=== PATIENT | female | born 1965 | race African-American/Black ===

== ENCOUNTER 2016-07-12 12:30 | Inpatient (IN) | payer OTHER ==
[2016-07-12 14:12] VITALS: BMI 41.5
--- NOTE | 2016-07-12 15:40 | HP ---
CIWA Score - CIWA Score Nausea/Vomitin Muscle Tremors: 3 Anxiety: 3 Agitation: 3 Paroxysmal Sweats: 2 Orientation: 0-Oriented Tacttile Disturbances: 2-Mild Itch/Numbness/Burn Auditory Disturbances: 2-Mild Harshness/Frighten Visual Disturbances: 2-Mild Sensitivity Headache: 2-Mild CIWA-Ar Total Score: 22 Admission ROS BHS - HPI Chief Complaint: i need help to stop drinking alcohol and cocaine Allergies/Adverse Reactions: Allergies Allergy/AdvReac Type Severity Reaction Status Date / Time No Known Allergies Allergy Verified 07/12/16 15:29 History of Present Illness: this 51 years old female with alcohol and cocaine dependence,withdrawal symptom, last detox 07/12 [facility] withdrawal symptom syncope bipolar disorder ptsd asthma hepatits b hypercholesterolemia longest period of sobriety 2 years Exam Limitations: No Limitations - Ebola screening Have you traveled outside of the country in the last 21 days: No Have you had contact with anyone from an Ebola affected area: No Have you been sick,other than usual withdrawal symptoms: No Do you have a fever: No - Review of Systems Constitutional: Loss of Appetite, Malaise, Night Sweats, Changes in sleep, Weakness EENT: reports: Nose Congestion Respiratory: reports: No Symptoms reported Cardiac: reports: Palpitations GI: reports: Diarrhea, Nausea, Vomiting, Abdominal cramping : reports: No Symptoms Reported Musculoskeletal: reports: Back Pain, Muscle Pain Integumentary: reports: Dryness Neuro: reports: Headache, Tremors Endocrine: reports: No Symptoms Reported Hematology: reports: No Symptoms Reported Psychiatric: reports: Judgement Intact, Mood/Affect Appropiate, Orientated x3 ( bipolar disorder) Patient History - Patient Medical History Hx Anemia: No Hx Asthma: Yes (on albuetrol inhaler) Hx Chronic Obstructive Pulmonary Disease (COPD): No Hx Cancer: No Hx Cardiac Disorders: No Hx Congestive Heart Failure: No Hx Hypertension: No Hx Hypercholesterolemia: Yes Hx Pacemaker: No HX Cerebrovascular Accident: No Hx Seizures: No Hx Dementia: No Hx Diabetes: Yes (NIDDM) Hx Gastrointestinal Disorders: No Hx Liver Disease: Yes (chronic hepatitis B) Hx Genitourinary Disorders: No Hx Sexually Transmitted Disorders: No Hx Renal Disease (ESRD): No Hx Thyroid Disease: No Hx Human Immunodeficiency Virus (HIV): No (last negative) Hx Depression: Yes Hx Suicide Attempt: Yes (1987 trying to jump from roof) Hx Bipolar Disorder: Yes (no med) Hx Schizophrenia: No Other Medical History: no suicidal,no homicidal - Patient Surgical History Past Surgical History: Yes Hx Breast Surgery: Yes (R mastectomy from R breast CA in 05/13) - PPD History Previous Implant?: Yes Documented Results: Negative w/o proof Implanted On Prior [facility] Admission?: Yes Date: 07/30/12 PPD to be Administered?: Yes - Reproductive History Patient is a Female of Child Bearing Age (11 -55 yrs old): Yes Last Menstrual Period: 03/03/12 Patient : No - Smoking Cessation Smoking history: Former smoker Have you smoked in the past 12 months: No Aproximately how many cigarettes per day: 60 If you are a former smoker, when did you quit?: 05/02/11 Hx Chewing Tobacco Use: No Initiated information on smoking cessation: Yes 'Breaking Loose' booklet given: 07/12/16 - Substances Abused Alcohol Route: Oral Frequency: Daily Amount used: 6pk beer/ 1 pint vodka Age of first use: 13 Date of Last Use: 07/12/16 Cocaine Route: Smoking Frequency: Daily Amount used: $100 Age of first use: 22 Date of Last Use: 07/12/16 Family Disease History - Family Disease History Family Disease History: Other: Father (alcohol,), Mother (alcohol, ) Admission Physical Exam S - Vital Signs Vital Signs: Vital Signs - 24 hr 07/12/16 14:09 Temperature 98.6 F Pulse Rate 91 H Respiratory 20 Rate Blood Pressure 116/66 - Physical General Appearance: Yes: Moderate Distress, Tremorous, Irritable, Sweating, Anxious HEENTM: Yes: Pharynx Normal, Nasal Congestion Respiratory: Yes: Lungs Clear, Normal Breath Sounds, No Respiratory Distress Neck: Yes: Supple, Trachea in good position Breast: Yes: Mastectomy (s/p right mastectomy in 2011) Cardiology: Yes: Within Normal Limits, Regular Rhythm, Regular Rate, S1, S2 Abdominal: Yes: Within Normal Limits, Normal Bowel Sounds, Non Tender, Flat, Soft Genitourinary: Yes: Within Normal Limits Back: Yes: Muscle Spasm Extremities: Yes: Normal Range of Motion, Tremors Neurological: Yes: full time staff interpreter II-XII NML intact, Fully Oriented, Alert, Motor Strength 5/5 Integumentary: Yes: Dry Lymphatic: Yes: Within Normal Limits - Diagnostic (1) Alcohol dependence with uncomplicated withdrawal Current Visit: Yes Status: Acute (2) Cocaine dependence Current Visit: No Status: Active (3) Syncope Current Visit: Yes Status: Acute (4) Bipolar disorder Current Visit: Yes Status: Acute (5) PTSD (post-traumatic stress disorder) Current Visit: Yes Status: Acute (6) Asthma Current Visit: Yes Status: Acute (7) Hypercholesterolemia Current Visit: Yes Status: Acute (8) S/P right mastectomy Current Visit: Yes Status: Acute (9) DM2 (diabetes mellitus, type 2) Current Visit: Yes Status: Acute Cleared for Admission BHS - Detox or Rehab S Level of Care: Medically Managed Detox Regimen/Protocol: Librium BHS Breath Alcohol Content Breath Alcohol Content: 0 Urine Pregancy Test - Result Urine Test Results: Negative- NO Line Present Urine Drug Screen - Results Drug Screen Negative: No Urine Drug Screen Results: NICHOLAS-Cocaine
[2016-07-12] MEDS ORDERED: LOPERAMIDE HCL 2 MG CAPSULE PO PRN (15:55)
[2016-07-12] MEDS ORDERED: guaiFENesin/D-METHORPHAN HB 10 ML UNIT-DOSE CUPS PO PRN (15:55)
[2016-07-12] MEDS ORDERED: MAG HYDROX/AL HYDROX/SIMETH 30 ML UNIT-DOSE CUP PO PRN (15:55)
[2016-07-12] MEDS ORDERED: chlordiazePOXIDE HCL 25 MG CAPSULE PO PRN (15:55)
[2016-07-12] MEDS ORDERED: IBUPROFEN 400 MG TABLET (FP) PO PRN (15:55)
[2016-07-12] MEDS ORDERED: MAGNESIUM HYDROX 2400MG/30ML ORAL SUSPENSION 30 ML CUP PO PRN (15:55)
[2016-07-12] MEDS ORDERED: P-EPHED 60MG/TRIPROLIDI 2.5MG TABLET PO PRN (15:55)
[2016-07-12] MEDS ORDERED: MENTHOL/PHENOL 1 EACH UD MM PRN (15:55)
[2016-07-12] MEDS ORDERED: ACETAMINOPHEN 325 MG TABLET (FP) PO PRN (15:55)
[2016-07-12] MEDS ORDERED: hydrOXYzine PAMOATE 50 MG CAPSULE (FP) PO PRN (15:55)
[2016-07-12] MEDS ORDERED: MAGNESIUM CITRATE 300 ML BOTTLE PO PRN (15:55)
[2016-07-12] MEDS ORDERED: ALBUTEROL SO4 6.7 GM HFA INHALER IH PRN (16:06)
[2016-07-12] MEDS ORDERED: chlordiazePOXIDE HCL 25 MG CAPSULE PO ONE (16:45)
[2016-07-12] MEDS ORDERED: INSULIN (NOVOLOG) ASPART 100 UNITS/ML 10ML VIAL ONE (17:04)
[2016-07-12] MEDS: INSULIN (NOVOLOG) ASPART 100 UNITS/ML 10ML VIAL SQ SCH ×2 (17:09→22:55)
[2016-07-12] MEDS: chlordiazePOXIDE HCL 25 MG CAPSULE PO SCH ×2 (17:09→22:50)
[2016-07-12 21:09] LABS: MCH 30.8 pg (25.7-33.7); MEAN CELL VOLUME 93.2 fl (80-96); MEAN PLT VOLUME 12.2 fl (7.5-11.1); RDW 13.7 % (11.6-15.6); WHITE BLOOD COUNT 4.7 K/mm3 (4.0-10.0)
[2016-07-12 21:34] LABS: ALBUMIN 3.3 g/dl (3.4-5.0); BILIRUBIN,TOTAL 0.4 mg/dL (0.2-1.0); TOT PROT 6.5 g/dl (6.4-8.2)
[2016-07-12] MEDS: THIAMINE HCL 100 MG TABLET (FP) PO SCH (22:49)
[2016-07-12] MEDS: BUDESONIDE/FORMETEROL FUMARATE 80/4.5 mcg INHALER IH SCH (22:50)
[2016-07-12] MEDS: diphenhydrAMINE HCL 50 MG CAPSULE PO PRN (22:50)
[2016-07-13] MEDS ORDERED: INSULIN (NOVOLOG) ASPART 100 UNITS/ML 10ML VIAL ONE ×3 (00:34→12:14)
[2016-07-13 02:56] LABS: PLATELET COMMENT2 NO CLUMPING NOTED; PLATELET COUNT 66 K/MM3 (134-434); PLATELET ESTIMATE MOD DECREASED (NORMAL)
[2016-07-13] MEDS: chlordiazePOXIDE HCL 25 MG CAPSULE PO SCH ×4 (07:54→22:43)
[2016-07-13] MEDS: INSULIN (NOVOLOG) ASPART 100 UNITS/ML 10ML VIAL SQ SCH ×4 (08:10→23:23)
[2016-07-13] MEDS: ALBUTEROL SO4 2.5/IPRATROPIUM 0.5 INH SOL 3 ML VIAL.NEB. NEB PRN (09:30)
--- NOTE | 2016-07-13 11:11 | PN ---
[facility] CIWA - CIWA Score Nausea/Vomitin Muscle Tremors: 3 Anxiety: 3 Agitation: 3 Paroxysmal Sweats: 3 Orientation: 0-Oriented Tacttile Disturbances: 2-Mild Itch/Numbness/Burn Auditory Disturbances: 0-None Visual Disturbances: 0-None Headache: 0-None Present CIWA-Ar Total Score: 17 S Progress Note (SOAP) Subjective: interrupted sleep, sweats, cough , asthma , reported falling from bed last night Objective: 07/13/16 11:07 Vital Signs Temperature 97.2 F L 07/13/16 10:24 Pulse Rate 104 H 07/13/16 10:24 Respiratory Rate 18 07/13/16 10:24 Blood Pressure 116/73 07/13/16 10:24 O2 Sat by Pulse Oximetry (%) Laboratory Tests 07/12/16 07/12/16 07/12/16 13:00 13:00 15:51 WBC 4.7 RBC 3.93 Hgb 12.1 Hct 36.6 MCV 93.2 MCHC 33.0 RDW 13.7 Plt Count 66 L D MPV 12.2 H D Platelet Estimate Mod decreased Platelet Comment No clumping noted Sodium 142 Potassium 4.7 Chloride 108 H Carbon Dioxide 25 Anion Gap 9 BUN 9 D Creatinine 1.0 Creat Clearance w eGFR 58.93 POC Glucometer 393 Random Glucose 466 H* D Calcium 9.0 Total Bilirubin 0.4 D AST 29 D ALT 34 D Alkaline Phosphatase 86 D Total Protein 6.5 Albumin 3.3 L 07/12/16 07/13/16 22:52 07:52 WBC RBC Hgb Hct MCV MCHC RDW Plt Count MPV Platelet Estimate Platelet Comment Sodium Potassium Chloride Carbon Dioxide Anion Gap BUN Creatinine Creat Clearance w eGFR POC Glucometer 442 225 Random Glucose Calcium Total Bilirubin AST ALT Alkaline Phosphatase Total Protein Albumin pt aox3 in nad ambulating rt hip negative Assessment: 07/13/16 11:08 withdrawal sx's 07/13/16 11:08 s/p fall Plan: cont. detox increase fluids duoneb q 4h prn, symbicort bid rt hip xray motrin prn
[2016-07-13] MEDS: PRENATAL VITAMINS W/ FOLIC ACID TABLET (FP) PO SCH (11:18)
[2016-07-13] MEDS: BUDESONIDE/FORMETEROL FUMARATE 80/4.5 mcg INHALER IH SCH ×2 (11:21→23:24)
--- NOTE | 2016-07-13 21:18 | CONSULT ---
[facility] Psychiatric Consult - Data Date of interview: 07/13/16 Admission source: [facility] Identifying data: Readmission to [facility] for this 51 y/o AA female seeking detox treatment for alcohol and cocaine dependence.Patient is single,a mother of eight,domiciled,unemployed and supported on SSI benefits. Substance Abuse History: - Smoking Cessation. Smoking history: Former smoker. Have you smoked in the past 12 months: No. Aproximately how many cigarettes per day: 60. If you are a former smoker, when did you quit?: 05/02/11. Hx Chewing Tobacco Use: No. Initiated information on smoking cessation: Yes. ' Breaking Loose' booklet given: 07/12/16. - Substances Abused. Alcohol. Route: Oral. Frequency: Daily. Amount used: 6pk beer/ 1 pint vodka. Age of first use: 13. Date of Last Use: 07/12/16. Cocaine. Route: Smoking. Frequency: Daily. Amount used: $100. Age of first use: 22. Date of Last Use: 07/12/16. Patient confirmed. Medical History: Obesity,bronchial asthma,hepatitis C,diabetes mellitus and history of right mastectomy in 2012 (breast cancer). Psychiatric History: Diagnosed with PTSD,Bipolar Disorder.Prescribed trileptal 300 mg po bid + clonazepam.Followed at the [facility] [place] in the [place].Reported past psychiatric stays at [facility].Ms Peguero denies history of suicide attempts (ideation to jump of a roof years ago/dissuaded by [facility]). Physical/Sexual Abuse/Trauma History: Not discussed. Additional Comment: Urine Drug Screen Results: NICHOLAS-Cocaine.Noted. Mental Status Exam - Mental Status Exam Alert and Oriented to: Time, Place, Person Cognitive Function: Good Patient Appearance: Well Groomed (short,obese;vertical surgical scar on chest) Mood: Nervous, Anxious, Apprehensive Affect: Mood Congruent Patient Behavior: Fatigued, Appropriate, Cooperative Speech Pattern: Clear, Appropriate Voice Loudness: Normal Thought Process: Goal Oriented Thought Disorder: Not Present Hallucinations: Denies Suicidal Ideation: Denies Homicidal Ideation: Denies Insight/Judgement: Fair Sleep: Fair Appetite: Good Muscle strength/Tone: Normal Gait/Station: Normal Psychiatric Findings - Problem List ([place] 1, 2,3) (1) Alcohol dependence with uncomplicated withdrawal Current Visit: Yes Status: Acute (2) Cocaine dependence Current Visit: Yes Status: Active (3) PTSD (post-traumatic stress disorder) Current Visit: Yes Status: Chronic (4) Bipolar disorder Current Visit: Yes Status: Chronic (5) Asthma Current Visit: Yes Status: Acute (6) DM2 (diabetes mellitus, type 2) Current Visit: Yes Status: Chronic (7) Hypercholesterolemia Current Visit: Yes Status: Chronic (8) S/P right mastectomy Current Visit: Yes Status: Chronic - Initial Treatment Plan Initial Treatment Plan: Psychoeducation.Detoxification.Medication resumed (see Psychiatric History section for details).Side effects/benefits discussed with the patient.Agreement given.Observation.
[2016-07-13] MEDS: THIAMINE HCL 100 MG TABLET (FP) PO SCH (22:43)
[2016-07-13] MEDS: diphenhydrAMINE HCL 50 MG CAPSULE PO PRN (22:44)
[2016-07-13] MEDS: OXcarbazepine 300 MG/5 ML 250 ML BULK BOTTLE PO SCH (23:25)
[2016-07-14] MEDS: chlordiazePOXIDE HCL 25 MG CAPSULE PO SCH ×2 (06:58→11:59)
[2016-07-14] MEDS ORDERED: INSULIN (NOVOLOG) ASPART 100 UNITS/ML 10ML VIAL ONE ×4 (07:02→21:32)
[2016-07-14] MEDS: INSULIN (NOVOLOG) ASPART 100 UNITS/ML 10ML VIAL SQ SCH ×4 (07:04→21:32)
[2016-07-14] MEDS: ALBUTEROL SO4 2.5/IPRATROPIUM 0.5 INH SOL 3 ML VIAL.NEB. NEB PRN (08:35)
[2016-07-14] MEDS: OXcarbazepine 300 MG/5 ML 250 ML BULK BOTTLE PO SCH (10:59)
[2016-07-14] MEDS: BUDESONIDE/FORMETEROL FUMARATE 80/4.5 mcg INHALER IH SCH ×2 (10:59→22:54)
[2016-07-14] MEDS: PRENATAL VITAMINS W/ FOLIC ACID TABLET (FP) PO SCH (10:59)
--- NOTE | 2016-07-14 12:10 | PN ---
S CIWA - CIWA Score Nausea/Vomitin-No Nausea/No Vomiting Muscle Tremors: 4-Moderate,w/Arms Extend Anxiety: 3 Agitation: 3 Paroxysmal Sweats: 3 Orientation: 0-Oriented Tacttile Disturbances: 0-None Auditory Disturbances: 0-None Visual Disturbances: 0-None Headache: 0-None Present CIWA-Ar Total Score: 13 S Progress Note (SOAP) Subjective: sweats groggy interrupted sleep agitation irritable Objective: 07/14/16 12:09 Vital Signs Temperature 96.8 F L 07/14/16 10:15 Pulse Rate 74 07/14/16 10:15 Respiratory Rate 18 07/14/16 10:15 Blood Pressure 141/98 07/14/16 10:15 O2 Sat by Pulse Oximetry (%) Laboratory Tests 07/12/16 07/12/16 07/12/16 13:00 13:00 13:00 WBC 4.7 RBC 3.93 Hgb 12.1 Hct 36.6 MCV 93.2 MCHC 33.0 RDW 13.7 Plt Count 66 L D MPV 12.2 H D Platelet Estimate Mod decreased Platelet Comment No clumping noted Sodium 142 Potassium 4.7 Chloride 108 H Carbon Dioxide 25 Anion Gap 9 BUN 9 D Creatinine 1.0 Creat Clearance w eGFR 58.93 POC Glucometer Random Glucose 466 H* D Calcium 9.0 Total Bilirubin 0.4 D AST 29 D ALT 34 D Alkaline Phosphatase 86 D Total Protein 6.5 Albumin 3.3 L RPR Titer Reactive 1:1 H T.pallidum Ab (MHA) Previously reactive 07/12/16 07/12/16 07/13/16 15:51 22:52 07:52 WBC RBC Hgb Hct MCV MCHC RDW Plt Count MPV Platelet Estimate Platelet Comment Sodium Potassium Chloride Carbon Dioxide Anion Gap BUN Creatinine Creat Clearance w eGFR POC Glucometer 393 442 225 Random Glucose Calcium Total Bilirubin AST ALT Alkaline Phosphatase Total Protein Albumin RPR Titer T.pallidum Ab (MHA) 07/13/16 07/14/16 16:27 11:47 WBC RBC Hgb Hct MCV MCHC RDW Plt Count MPV Platelet Estimate Platelet Comment Sodium Potassium Chloride Carbon Dioxide Anion Gap BUN Creatinine Creat Clearance w eGFR POC Glucometer 136 272 Random Glucose Calcium Total Bilirubin AST ALT Alkaline Phosphatase Total Protein Albumin RPR Titer T.pallidum Ab (MHA) awake/alert ambulating no acute distress Assessment: 07/14/16 12:09 mild withdrawal sx Plan: hold 10am libirum continue detox later as ordered increase fluids monitor glucose
--- NOTE | 2016-07-14 13:19 | EKG ---
Test Reason : Blood Pressure : / mmHG Vent. Rate : 090 BPM Atrial Rate : 090 BPM P-R Int : 118 ms QRS Dur : 086 ms QT Int : 376 ms P-R-T Axes : 073 -23 059 degrees QTc Int : 459 ms SINUS RHYTHM WITH PREMATURE ATRIAL COMPLEXES POSSIBLE LEFT ATRIAL ENLARGEMENT LEFT VENTRICULAR HYPERTROPHY CANNOT RULE OUT SEPTAL INFARCT , AGE UNDETERMINED ABNORMAL ECG NO PREVIOUS ECGS AVAILABLE Confirmed by ILIR KELSEY, SETH ([id number]) on 07/14/2016 1:19:07 PM Referred By: Confirmed By:SETH HAZEL MD
[2016-07-14] MEDS: chlordiazePOXIDE 5 MG CAPSULE PO SCH ×2 (17:04→22:54)
--- NOTE | 2016-07-14 19:37 | PN ---
[facility] Progress Note Note: RECEIVED NURSE CALLED, PATIENT DID NOT FALL TODAY, DISCONTINUE FALL PRECAUTION, DISCONTINUE POST FALL #2 PRECAUTION, DISCONTINUE WHEELCHAIR FOR AMBULATION PATIENT WANTS TO SEE A DOCTOR, PATIENT WANTS TO GO TO THE EMERGENCY ROOM PATIENT BECAME INTRUSIVE LACK OF BOUNDARY MAINTENANCE THERAPEUTIC ENVIRONMENT CONTINUE DETOX
--- NOTE | 2016-07-14 21:27 | PN ---
[facility] Progress Note Note: RECEIVED NURSE CALL PATIENT WANTS TO SEE A DOCTOR OBSERVED PATIENT AMBULATING ON [address], STEADY GAIT REPORTS MUSCLE SORE FROM FALL YESTERDAY NONE TENDER NO REDNESS NO SWELL, +2 PULSES, DENIES PAIN DENIES BURNING NUMBNESS WARM PAD BID TO HIP SORE MUSCLE CONTINUE DETOX
[2016-07-14] MEDS: THIAMINE HCL 100 MG TABLET (FP) PO SCH (22:55)
[2016-07-15] MEDS: chlordiazePOXIDE 5 MG CAPSULE PO SCH ×2 (06:42→10:48)
[2016-07-15] MEDS ORDERED: INSULIN (NOVOLOG) ASPART 100 UNITS/ML 10ML VIAL ONE ×4 (07:45→21:53)
[2016-07-15] MEDS: INSULIN (NOVOLOG) ASPART 100 UNITS/ML 10ML VIAL SQ SCH ×4 (07:48→21:58)
[2016-07-15] MEDS: IBUPROFEN 400 MG TABLET (FP) PO PRN ×2 (08:07→21:55)
[2016-07-15] MEDS: BUDESONIDE/FORMETEROL FUMARATE 80/4.5 mcg INHALER IH SCH ×2 (09:46→21:58)
[2016-07-15] MEDS: PRENATAL VITAMINS W/ FOLIC ACID TABLET (FP) PO SCH (09:46)
--- NOTE | 2016-07-15 11:50 | PN ---
BHS Progress Note (SOAP) Subjective: interrupted sleep, sweats, shakes , hip pains Objective: 07/15/16 11:47 Vital Signs Temperature 98.1 F 07/15/16 10:17 Pulse Rate 85 07/15/16 10:17 Respiratory Rate 20 07/15/16 10:17 Blood Pressure 129/90 07/15/16 10:17 O2 Sat by Pulse Oximetry (%) pt aox3 innad ambulating hip xrays neg Assessment: 07/15/16 11:48 withdrawal sxls musculosketetal pain dm 07/15/16 11:49 Plan: cont detox increase fluids motrin prn warm compresses d/c in am
--- NOTE | 2016-07-15 15:30 | EKG ---
Test Reason : Blood Pressure : / mmHG Vent. Rate : 092 BPM Atrial Rate : 092 BPM P-R Int : 120 ms QRS Dur : 094 ms QT Int : 366 ms P-R-T Axes : 069 -23 094 degrees QTc Int : 452 ms NORMAL SINUS RHYTHM VOLTAGE CRITERIA FOR LEFT VENTRICULAR HYPERTROPHY NONSPECIFIC T WAVE ABNORMALITY ABNORMAL ECG WHEN COMPARED WITH ECG OF 12-JUL-2016 16:17, PREMATURE ATRIAL COMPLEXES ARE NO LONGER PRESENT MINIMAL CRITERIA FOR SEPTAL INFARCT ARE NO LONGER PRESENT T WAVE INVERSION NOW EVIDENT IN LATERAL LEADS Confirmed by JOSUE NIELSON MD ([id number]) on 07/15/2016 3:30:04 PM Referred By: Confirmed By:JOSUE NIELSON MD
[2016-07-15] MEDS: chlordiazePOXIDE HCL 10 MG CAPSULE PO SCH ×2 (17:30→22:49)
[2016-07-15] MEDS: THIAMINE HCL 100 MG TABLET (FP) PO SCH (21:55)
[2016-07-15] MEDS: diphenhydrAMINE HCL 50 MG CAPSULE PO PRN (21:57)
[2016-07-15] MEDS ORDERED: INSULIN DETEMIR 100 UNITS/ML MDV SQ SCH (22:00)
[2016-07-16] MEDS: chlordiazePOXIDE HCL 10 MG CAPSULE PO SCH (05:36)
[2016-07-16] MEDS ORDERED: INSULIN (NOVOLOG) ASPART 100 UNITS/ML 10ML VIAL ONE (07:41)
[2016-07-16] MEDS: INSULIN (NOVOLOG) ASPART 100 UNITS/ML 10ML VIAL SQ SCH (07:46)
[2016-07-16 07:57] VITALS: BP 136/95; PULSE 81; TEMP 99.1
--- NOTE | 2016-07-16 09:14 | DS ---
[facility] Detox Discharge Summary Admission Date: 07/12/16 Discharge Date: 07/16/16 - History Present History: Alcohol Dependence, Cocaine Dependence - Physical Exam Results Vital Signs: Vital Signs Temperature 99.1 F 07/16/16 06:00 Pulse Rate 81 07/16/16 06:00 Respiratory Rate 18 07/16/16 06:00 Blood Pressure 136/95 07/16/16 06:00 O2 Sat by Pulse Oximetry (%) - Treatment Hospital Course: Detox Protocol Followed, Detoxed Safely, Responded well, Discharged Condition Good, Rehab Referral Accepted - Medication Discharge Medications: Ambulatory Orders Oxcarbazepine [Trileptal] 300 mg PO BID 07/28/12 Salmeterol/Fluticasone [Advair 250Mcg/50Mcg] 1 inh PO BID 07/28/12 Albuterol Sulfate Inhaler - [Ventolin Hfa Inhaler -] 2 inh PO Q4H PRN 07/12/16 - Diagnosis (1) Cocaine dependence Current Visit: Yes Status: Chronic (2) Alcohol dependence with uncomplicated withdrawal Current Visit: Yes Status: Chronic (3) Asthma Current Visit: Yes Status: Chronic Qualifiers: Asthma severity: mild intermittent Asthma complication type: uncomplicated Qualified Code(s): J45.20 - Mild intermittent asthma, uncomplicated (4) Syncope Current Visit: Yes Status: Chronic (5) Bipolar disorder Current Visit: Yes Status: Chronic (6) DM2 (diabetes mellitus, type 2) Current Visit: Yes Status: Chronic Qualifiers: Diabetes mellitus complication status: without complication Diabetes mellitus correction insulin use: unspecified quality assurance associate insulin use status Qualified Code(s): E11.9 - Type 2 diabetes mellitus without complications (7) Hypercholesterolemia Current Visit: Yes Status: Chronic (8) PTSD (post-traumatic stress disorder) Current Visit: Yes Status: Chronic (9) S/P right mastectomy Current Visit: Yes Status: Chronic - AMA Did Patient Leave Against Medical Advice: No
== END 2016-07-16 09:06 | disposition home or self-care (01) | DRG 897 ==
LOC: YASAS 12:30 → Y6N 15:55
PROVIDERS: ADMIT Internal Medicine Addiction Medicine; ATTEND Internal Medicine Addiction Medicine
PROC: HZ2ZZZZ Detoxification Services for Substance Abuse Treatment (ICD-10-PCS; principal; 2016-07-16)
DX: F10.230 Alcohol dependence with withdrawal, uncomplicated (principal); F14.20 Cocaine dependence, uncomplicated; F31.9 Bipolar disorder, unspecified; F43.10 Post-traumatic stress disorder, unspecified; R55 Syncope and collapse; E78.00 Pure hypercholesterolemia, unspecified; E11.9 Type 2 diabetes mellitus without complications; Z79.4 Long term (current) use of insulin; Z85.3 Personal history of malignant neoplasm of breast; Z90.11 Acquired absence of right breast and nipple
CPT/HCPCS: 36415; 73502-TC-RT; 80053; 85027; 86593; 86780; 93005; 93010; 94640

== ENCOUNTER 2016-08-02 10:19 | Inpatient (IN) | payer OTHER ==
[2016-08-02 11:00] VITALS: BP 108/69; PULSE 110; TEMP 97.4; BMI 37.5
--- NOTE | 2016-08-02 12:43 | HP ---
AMELIA KELSEY Rehab Assess/Revision - Admission History Admitted to Rehab from: [facility] [place] (PT COMPLETED DETOX 07/12/16 TO 07/16/16) Date of Admission to Rehab: 08/02/16 - Vital signs Vital Signs: Vital Signs Period Temp Pulse Resp BP Sys/Vázquez Pulse Ox Last 24 Hr 97.4 F 110 20 108/69 - Findings Detox History & Physical reviewed: Yes Concur with findings: Yes Comments/Additional Findings: PT RETURNED HERE TODAY TO FOLLOW UP WITH REHAB RECOCOMMENDATIONS. ALERT O X 3. NAD. VSS. LUNGS: CLEAR TO A/P. PLAN: ADMIT TO REHAB
[2016-08-02] MEDS ORDERED: IBUPROFEN 400 MG TABLET (FP) PO PRN (12:48)
[2016-08-02] MEDS ORDERED: diphenhydrAMINE HCL 50 MG CAPSULE PO PRN (12:48)
[2016-08-02] MEDS ORDERED: P-EPHED 60MG/TRIPROLIDI 2.5MG TABLET PO PRN (12:48)
[2016-08-02] MEDS ORDERED: hydrOXYzine PAMOATE 25 MG CAPSULE (FP) PO PRN (12:48)
[2016-08-02] MEDS ORDERED: MAGNESIUM HYDROX 2400MG/30ML ORAL SUSPENSION 30 ML CUP PO PRN (12:48)
[2016-08-02] MEDS ORDERED: MENTHOL/PHENOL 1 EACH UD MM PRN (12:48)
[2016-08-02] MEDS ORDERED: ACETAMINOPHEN 325 MG TABLET (FP) PO PRN (12:48)
[2016-08-02] MEDS ORDERED: guaiFENesin/D-METHORPHAN HB 10 ML UNIT-DOSE CUPS PO PRN (12:48)
[2016-08-02] MEDS ORDERED: MAGNESIUM CITRATE 300 ML BOTTLE PO PRN (12:48)
[2016-08-02] MEDS ORDERED: LOPERAMIDE HCL 2 MG CAPSULE PO PRN (12:48)
[2016-08-02] MEDS ORDERED: MAG HYDROX/AL HYDROX/SIMETH 30 ML UNIT-DOSE CUP PO PRN (12:48)
[2016-08-02] MEDS ORDERED: ALBUTEROL SO4 6.7 GM HFA INHALER IH PRN (12:51)
[2016-08-02] MEDS ORDERED: ALBUTEROL SO4 2.5/IPRATROPIUM 0.5 INH SOL 3 ML VIAL.NEB. NEB PRN (14:27)
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
[2016-08-02] MEDS ORDERED: INSULIN (NOVOLOG) ASPART 100 UNITS/ML 10ML VIAL SQ ONE (14:45)
[2016-08-02] MEDS: BUDESONIDE/FORMETEROL FUMARATE 80/4.5 mcg INHALER IH SCH ×2 (14:52→21:28)
[2016-08-02] MEDS: ALBUTEROL SO4 2.5/IPRATROPIUM 0.5 INH SOL 3 ML VIAL.NEB. NEB SCH ×3 (14:53→21:32)
[2016-08-02] MEDS ORDERED: TUBERCULIN PPD 5 TU/0.1ML VIAL ID ONE (16:18)
[2016-08-02] MEDS: metFORMIN HCL 500 MG TABLET (FP) PO SCH (17:18)
[2016-08-02] MEDS: INSULIN (NOVOLOG) ASPART 100 UNITS/ML 10ML VIAL SQ SCH ×2 (17:19→21:30)
[2016-08-02 18:03] LABS: URINE APPEARANCE CLOUDY; URINE BILIRUBIN NEGATIVE (NEGATIVE); URINE COLOR LTYELLOW; URINE GLUCOSE (UA) 3+ (NEGATIVE); URINE KETONE NEGATIVE (NEGATIVE); URINE NITRITE NEGATIVE (NEGATIVE); URINE UROBILINOGEN NEGATIVE E.U./dl (0.2-1.0)
[2016-08-02 18:08] LABS: URINE BLOOD 1+ (NEGATIVE); URINE PROTEIN 1+ (NEGATIVE)
[2016-08-02 18:09] LABS: URINE LEUK ESTERASE 3+ (NEGATIVE)
[2016-08-02 18:12] LABS: URINE BACTERIA RARE /hpf (NONE SEEN); URINE MUCUS RARE; URINE RBC 29 /hpf (0-3); URINE WBC 20 /hpf (3-5); YEAST MANY
[2016-08-02] MEDS ORDERED: INSULIN DETEMIR 100 UNITS/ML MDV SQ SCH (22:00)
[2016-08-02] MEDS ORDERED: THIAMINE HCL 100 MG TABLET (FP) PO SCH (22:00)
[2016-08-03] MEDS: INSULIN (NOVOLOG) ASPART 100 UNITS/ML 10ML VIAL SQ SCH (07:01)
[2016-08-03] MEDS: metFORMIN HCL 500 MG TABLET (FP) PO SCH (07:01)
[2016-08-03] MEDS ORDERED: PRENATAL VITAMINS W/ FOLIC ACID TABLET (FP) PO SCH (10:00)
--- NOTE | 2016-08-06 15:54 | PN ---
S Progress Note Note: Patient left AMA on 08/03/16.See medical staff notes for details.
--- NOTE | 2016-08-23 15:00 | PN ---
S Progress Note Note: Patient was transferred and admitted to med/surg [facility] on 08/13/16 due to chest pain.See medical staff notes for details.
== END 2016-08-03 09:13 | disposition left against medical advice (07) | DRG 894 ==
LOC: YASAS 10:19 → Y3E 11:50
PROVIDERS: ADMIT Psychiatry & Neurology Psychiatry; ATTEND Psychiatry & Neurology Psychiatry
PROC: HZ42ZZZ Group Counseling for Substance Abuse Treatment, Cognitive-Behavioral (ICD-10-PCS; principal; 2016-08-03)
DX: F10.230 Alcohol dependence with withdrawal, uncomplicated (principal); F14.20 Cocaine dependence, uncomplicated; F31.9 Bipolar disorder, unspecified; F43.10 Post-traumatic stress disorder, unspecified; B18.2 Chronic viral hepatitis C; E11.9 Type 2 diabetes mellitus without complications; Z79.4 Long term (current) use of insulin; E78.00 Pure hypercholesterolemia, unspecified; Z85.3 Personal history of malignant neoplasm of breast; Z90.11 Acquired absence of right breast and nipple
CPT/HCPCS: 81003; 81015; 94640

== ENCOUNTER 2016-08-09 14:04 | Inpatient (IN) | payer OTHER ==
[2016-08-09 16:18] VITALS: BMI 40.2
--- NOTE | 2016-08-09 17:02 | HP ---
AMELIA KELSEY Rehab Assess/Revision - Admission History Admitted to Rehab from: [facility] (PT WAS REASSESSED FOR REHAB ON 08/02/16 AFTER COMPLETING DETOX ON BUT LEFT PREMATURELY DUE TO PERSONAL REASONS(SEE [facility] COUNSELOR NOTE).) Date of Admission to Rehab: 08/09/16 - Vital signs Vital Signs: Vital Signs Period Temp Pulse Resp BP Sys/Vázquez Pulse Ox Last 24 Hr 97.9 F 96 20 114/71 - Findings Detox History & Physical reviewed: Yes Concur with findings: Yes Comments/Additional Findings: PT RETURNED TO COMPLETE REHAB TREATMENT. PT WAS IN REHAB 08/02/16 AND LEFT 08/03/16 DUE TO PERSONAL REASONS. ALERT O X3. NAD. VSS. PLAN:TO RETURN TO REHAB.
[2016-08-09] MEDS ORDERED: ACETAMINOPHEN 325 MG TABLET (FP) PO PRN (17:03)
[2016-08-09] MEDS ORDERED: guaiFENesin/D-METHORPHAN HB 10 ML UNIT-DOSE CUPS PO PRN (17:03)
[2016-08-09] MEDS ORDERED: P-EPHED 60MG/TRIPROLIDI 2.5MG TABLET PO PRN (17:03)
[2016-08-09] MEDS ORDERED: MAGNESIUM HYDROX 2400MG/30ML ORAL SUSPENSION 30 ML CUP PO PRN (17:03)
[2016-08-09] MEDS ORDERED: LOPERAMIDE HCL 2 MG CAPSULE PO PRN (17:03)
[2016-08-09] MEDS ORDERED: MAG HYDROX/AL HYDROX/SIMETH 30 ML UNIT-DOSE CUP PO PRN (17:03)
[2016-08-09] MEDS ORDERED: MAGNESIUM CITRATE 300 ML BOTTLE PO PRN (17:03)
[2016-08-09] MEDS ORDERED: IBUPROFEN 400 MG TABLET (FP) PO PRN (17:03)
[2016-08-09] MEDS ORDERED: INSULIN (NOVOLOG) ASPART 100 UNITS/ML 10ML VIAL ONE (18:41)
[2016-08-09] MEDS ORDERED: INSULIN (NOVOLOG) ASPART 100 UNITS/ML 10ML VIAL SQ ONE (18:45)
[2016-08-09] MEDS: ALBUTEROL SO4 6.7 GM HFA INHALER IH PRN (20:02)
[2016-08-09] MEDS: THIAMINE HCL 100 MG TABLET (FP) PO SCH (21:20)
[2016-08-09] MEDS: ATORVASTATIN CA 20 MG TABLET (FP) PO SCH (21:20)
[2016-08-09] MEDS: BUDESONIDE/FORMETEROL FUMARATE 80/4.5 mcg INHALER IH SCH (21:21)
[2016-08-09] MEDS: diphenhydrAMINE HCL 50 MG CAPSULE PO PRN (21:22)
[2016-08-09 22:35] LABS: URINE APPEARANCE CLEAR; URINE BILIRUBIN NEGATIVE (NEGATIVE); URINE BLOOD NEGATIVE (NEGATIVE); URINE COLOR LTYELLOW; URINE GLUCOSE (UA) 2+ (NEGATIVE); URINE KETONE NEGATIVE (NEGATIVE); URINE NITRITE NEGATIVE (NEGATIVE); URINE PROTEIN NEGATIVE (NEGATIVE); URINE UROBILINOGEN NEGATIVE E.U./dl (0.2-1.0)
[2016-08-09 22:51] LABS: URINE LEUK ESTERASE 1+ (NEGATIVE)
[2016-08-09 23:01] LABS: URINE BACTERIA RARE /hpf (NONE SEEN); URINE HYALINE CAST 1 /lpf; URINE RBC 1 /hpf (0-3); URINE WBC 12 /hpf (3-5)
[2016-08-10] MEDS: MENTHOL/PHENOL 1 EACH UD MM PRN ×2 (04:11→21:37)
[2016-08-10] MEDS: INSULIN SLIDING SCALE (NOVOLOG) 1 VIAL SQ SCH ×2 (07:06→16:48)
[2016-08-10] MEDS: metFORMIN HCL 500 MG TABLET (FP) PO SCH ×2 (07:06→16:47)
[2016-08-10] MEDS ORDERED: PT OWN MED DRAWER 7, Y5N ONE (08:55)
[2016-08-10] MEDS: PRENATAL VITAMINS W/ FOLIC ACID TABLET (FP) PO SCH (10:04)
[2016-08-10] MEDS: BUDESONIDE/FORMETEROL FUMARATE 80/4.5 mcg INHALER IH SCH ×2 (10:05→21:38)
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
--- NOTE | 2016-08-10 13:58 | EKG ---
Test Reason : Blood Pressure : / mmHG Vent. Rate : 101 BPM Atrial Rate : 101 BPM P-R Int : 124 ms QRS Dur : 084 ms QT Int : 372 ms P-R-T Axes : 069 -24 101 degrees QTc Int : 482 ms SINUS TACHYCARDIA BIATRIAL ENLARGEMENT LEFT VENTRICULAR HYPERTROPHY NONSPECIFIC ST AND T WAVE ABNORMALITY ABNORMAL ECG WHEN COMPARED WITH ECG OF 13-JUL-2016 09:51, NO SIGNIFICANT CHANGE WAS FOUND CLINICAL CORRELATION IS RECOMMENDED Confirmed by KRISTA DRISCOLL MD ([id number]) on 08/10/2016 1:57:37 PM Referred By: Confirmed By:KRISTA DRISCOLL MD
[2016-08-10] MEDS ORDERED: INSULIN (NOVOLOG) ASPART 100 UNITS/ML 10ML VIAL ONE (16:46)
[2016-08-10] MEDS: ATORVASTATIN CA 20 MG TABLET (FP) PO SCH (21:36)
[2016-08-10] MEDS: THIAMINE HCL 100 MG TABLET (FP) PO SCH (21:36)
[2016-08-11] MEDS: MENTHOL/PHENOL 1 EACH UD MM PRN ×3 (02:08→16:49)
[2016-08-11] MEDS: INSULIN SLIDING SCALE (NOVOLOG) 1 VIAL SQ SCH ×2 (07:40→17:18)
[2016-08-11] MEDS: metFORMIN HCL 500 MG TABLET (FP) PO SCH ×2 (07:40→17:15)
[2016-08-11] MEDS ORDERED: INSULIN (NOVOLOG) ASPART 100 UNITS/ML 10ML VIAL ONE ×2 (07:44→18:08)
[2016-08-11] MEDS ORDERED: PT OWN MED DRAWER 7, Y5N ONE ×3 (07:45→22:16)
[2016-08-11] MEDS: ALBUTEROL SO4 6.7 GM HFA INHALER IH PRN (07:46)
[2016-08-11] MEDS: BUDESONIDE/FORMETEROL FUMARATE 80/4.5 mcg INHALER IH SCH ×2 (10:04→22:15)
[2016-08-11] MEDS: PRENATAL VITAMINS W/ FOLIC ACID TABLET (FP) PO SCH (10:04)
[2016-08-11] MEDS ORDERED: ALBUTEROL SO4 2.5/IPRATROPIUM 0.5 INH SOL 3 ML VIAL.NEB. NEB PRN (10:13)
--- NOTE | 2016-08-11 14:33 | PN ---
[facility] Progress Note Note: C/O of yeast infection P : Monistat vag cream
[2016-08-11] MEDS: ALBUTEROL SO4 2.5/IPRATROPIUM 0.5 INH SOL 3 ML VIAL.NEB. NEB PRN (16:45)
[2016-08-11] MEDS: ATORVASTATIN CA 20 MG TABLET (FP) PO SCH (22:12)
[2016-08-11] MEDS: THIAMINE HCL 100 MG TABLET (FP) PO SCH (22:12)
[2016-08-11] MEDS: diphenhydrAMINE HCL 50 MG CAPSULE PO PRN (22:14)
[2016-08-11] MEDS: MICONAZOLE NITRATE 2% VAGINAL CREAM 45 GM TUBE VG SCH (22:15)
[2016-08-12] MEDS: metFORMIN HCL 500 MG TABLET (FP) PO SCH ×2 (07:52→17:13)
[2016-08-12] MEDS: INSULIN SLIDING SCALE (NOVOLOG) 1 VIAL SQ SCH ×2 (07:52→17:52)
[2016-08-12] MEDS: ALBUTEROL SO4 2.5/IPRATROPIUM 0.5 INH SOL 3 ML VIAL.NEB. NEB PRN ×2 (07:54→11:58)
[2016-08-12] MEDS ORDERED: INSULIN (NOVOLOG) ASPART 100 UNITS/ML 10ML VIAL ONE (07:55)
[2016-08-12] MEDS ORDERED: PT OWN MED DRAWER 7, Y5N ONE (08:51)
[2016-08-12] MEDS: ALBUTEROL SO4 6.7 GM HFA INHALER IH PRN (10:12)
[2016-08-12] MEDS: PRENATAL VITAMINS W/ FOLIC ACID TABLET (FP) PO SCH (10:12)
[2016-08-12] MEDS: BUDESONIDE/FORMETEROL FUMARATE 80/4.5 mcg INHALER IH SCH ×2 (10:12→21:19)
--- NOTE | 2016-08-12 13:09 | PN ---
[facility] Progress Note Note: C/O SOB & palpitation. Pulse ox. 98% on room air Vital Signs (72 hours) 08/11/16 08/11/16 08/11/16 00:30 03:30 07:06 Temperature 97.3 F L Pulse Rate 92 H Respiratory 18 18 18 Rate Blood Pressure 137/84 08/12/16 08/12/16 08/12/16 00:30 06:50 10:12 Temperature 97.2 F L 97.4 F L Pulse Rate 92 H 97 H Respiratory 18 18 22 Rate Blood Pressure 133/90 109/62 08/13/16 08/13/16 08/13/16 00:30 03:30 07:02 Temperature 98.1 F Pulse Rate 89 Respiratory 18 18 18 Rate Blood Pressure 115/87 Lungs : clear Heart : RR,no murmur Pt. has a hx of panic attack,current symptoms are typical for anxiety disorder & panic attacks P : F/U with psychiatrist
[2016-08-12] MEDS: hydrOXYzine PAMOATE 25 MG CAPSULE (FP) PO PRN (13:34)
[2016-08-12] MEDS: diphenhydrAMINE HCL 50 MG CAPSULE PO PRN (21:18)
[2016-08-12] MEDS: THIAMINE HCL 100 MG TABLET (FP) PO SCH (21:18)
[2016-08-12] MEDS: ATORVASTATIN CA 20 MG TABLET (FP) PO SCH (21:18)
[2016-08-12] MEDS: MICONAZOLE NITRATE 2% VAGINAL CREAM 45 GM TUBE VG SCH (21:19)
[2016-08-13] MEDS: hydrOXYzine PAMOATE 25 MG CAPSULE (FP) PO PRN (06:43)
[2016-08-13] MEDS: metFORMIN HCL 500 MG TABLET (FP) PO SCH ×2 (07:47→17:39)
[2016-08-13] MEDS: INSULIN SLIDING SCALE (NOVOLOG) 1 VIAL SQ SCH ×2 (07:47→17:39)
[2016-08-13] MEDS ORDERED: PT OWN MED DRAWER 7, Y5N ONE (08:16)
--- NOTE | 2016-08-13 10:10 | EKG ---
Test Reason : Blood Pressure : / mmHG Vent. Rate : 099 BPM Atrial Rate : 099 BPM P-R Int : 124 ms QRS Dur : 090 ms QT Int : 380 ms P-R-T Axes : 073 -26 143 degrees QTc Int : 487 ms POOR DATA QUALITY, INTERPRETATION MAY BE ADVERSELY AFFECTED NORMAL SINUS RHYTHM LEFT ATRIAL ENLARGEMENT LEFT VENTRICULAR HYPERTROPHY NONSPECIFIC ST AND T WAVE ABNORMALITY PROLONGED QT ABNORMAL ECG Confirmed by LUPE CARRANZA MD ([id number]) on 08/13/2016 10:10:02 AM Referred By: Confirmed By:LUPE CARRANZA MD
[2016-08-13] MEDS: BUDESONIDE/FORMETEROL FUMARATE 80/4.5 mcg INHALER IH SCH (10:44)
[2016-08-13] MEDS: PRENATAL VITAMINS W/ FOLIC ACID TABLET (FP) PO SCH (10:44)
--- NOTE | 2016-08-13 14:56 | PN ---
[facility] Progress Note Note: Pt. is still c/o SOB. She's s/p open heart surgery x 2 for bicuspid aortic valve. S/P mastectomy followed by chemorx. Vital Signs - 24 hr 08/13/16 08/13/16 08/13/16 00:30 03:30 07:02 Temperature 98.1 F Pulse Rate 89 Respiratory 18 18 18 Rate Blood Pressure 115/87 Lungs : Clear to A&P Heart : RR, Systolic Murmur throughout precordium EGK = Atrial enlargement Transfer to ED for evaluation,report given to Dr. Vincent
[2016-08-13 15:16] VITALS: BP 112/71; PULSE 100; TEMP 98.3
--- NOTE | 2016-08-13 19:54 | HP ---
CHIEF COMPLAINT: PCP: HISTORY OF PRESENT ILLNESS: ER course was notable for: (1) (2) (3) Recent Travel: PAST MEDICAL HISTORY: PAST SURGICAL HISTORY: Social History: Smoking: Alcohol: Drugs: Family History: Allergies grass pollen Allergy (Intermediate, Verified 08/13/16 16:19) No Known Drug Allergies Allergy (Unknown, Verified 08/13/16 16:19) NKDA Allergy (Unknown, Uncoded 08/13/16 16:19) HOME MEDICATIONS: Home Medications Medication Instructions Recorded Oxcarbazepine [Trileptal] 300 mg PO BID 07/28/12 Salmeterol/Fluticasone [Advair 1 inh PO BID 07/28/12 250Mcg/50Mcg] Albuterol Sulfate Inhaler - 2 inh PO Q4H PRN 07/12/16 [Ventolin Hfa Inhaler -] Metformin HCl [Glucophage -] 500 mg PO BID 08/02/16 Atorvastatin Ca [Lipitor] 20 mg PO HS 08/09/16 Bupropion HCl [Wellbutrin Xl -] 150 mg PO DAILY 08/09/16 REVIEW OF SYSTEMS CONSTITUTIONAL: Absent: fever, chills, diaphoresis, generalized weakness, malaise, loss of appetite, weight change HEENT: Absent: rhinorrhea, nasal congestion, throat pain, throat swelling, difficulty swallowing, mouth swelling, ear pain, eye pain, visual changes CARDIOVASCULAR: Absent: chest pain, syncope, palpitations, irregular heart rate, lightheadedness , peripheral edema RESPIRATORY: Absent: cough, shortness of breath, dyspnea with exertion, orthopnea, wheezing, stridor, hemoptysis GASTROINTESTINAL: Absent: abdominal pain, abdominal distension, nausea, vomiting, diarrhea, constipation, melena, hematochezia GENITOURINARY: Absent: dysuria, frequency, urgency, hesitancy, hematuria, flank pain, genital pain MUSCULOSKELETAL: Absent: myalgia, arthralgia, joint swelling, back pain, neck pain SKIN: Absent: rash, itching, pallor HEMATOLOGIC/IMMUNOLOGIC: Absent: easy bleeding, easy bruising, lymphadenopathy, frequent infections ENDOCRINE: Absent: unexplained weight gain, unexplained weight loss, heat intolerance, cold intolerance NEUROLOGIC: Absent: headache, focal weakness or paresthesias, dizziness, unsteady gait, seizure, mental status changes, bladder or bowel incontinence PSYCHIATRIC: Absent: anxiety, depression, suicidal or homicidal ideation, hallucinations. PHYSICAL EXAMINATION Vital Signs - 24 hr 08/13/16 08/13/16 08/13/16 00:30 03:30 07:02 Temperature 98.1 F Pulse Rate 89 Respiratory 18 18 18 Rate Blood Pressure 115/87 08/13/16 15:15 Temperature 98.3 F Pulse Rate 100 H Respiratory 20 Rate Blood Pressure 112/71 GENERAL: Awake, alert, and fully oriented, in no acute distress. HEAD: Normal with no signs of trauma. EYES: Pupils equal, round and reactive to light, extraocular movements intact, sclera anicteric, conjunctiva clear. No lid lag. EARS, NOSE, THROAT: Ears normal, nares patent, oropharynx clear without exudates. Moist mucous membranes. NECK: Normal range of motion, supple without lymphadenopathy, JVD, or masses. LUNGS: Breath sounds equal, clear to auscultation bilaterally. No wheezes, and no crackles. No accessory muscle use. HEART: Regular rate and rhythm, normal S1 and S2 without murmur, rub or gallop. ABDOMEN: Soft, nontender, not distended, normoactive bowel sounds, no guarding, no rebound, no masses. No hepatomegaly or splenomegaly. MUSCULOSKELETAL: Normal range of motion at all joints. No bony deformities or tenderness. No CVA tenderness. UPPER EXTREMITIES: 2+ pulses, warm, well-perfused. No cyanosis. No clubbing. No peripheral edema. LOWER EXTREMITIES: 2+ pulses, warm, well-perfused. No calf tenderness. No peripheral edema. NEUROLOGICAL: Cranial nerves II-XII intact. Normal speech. Normal gait. PSYCHIATRIC: Cooperative. Good eye contact. Appropriate mood and affect. SKIN: Warm, dry, normal turgor, no rashes or lesions noted, normal capillary refill. Laboratory Results - last 24 hr 08/13/16 06:41 POC Glucometer 222 ASSESSMENT/PLAN:
[2016-08-13] MEDS ORDERED: INSULIN SLIDING SCALE (NOVOLOG) 1 VIAL SQ SCH (22:00)
== END 2016-08-13 22:46 | disposition short-term general hospital (02) | DRG 895 ==
LOC: YASAS 14:04 → Y3E 17:21
PROVIDERS: ADMIT Psychiatry & Neurology Psychiatry; ATTEND Internal Medicine
PROC: HZ42ZZZ Group Counseling for Substance Abuse Treatment, Cognitive-Behavioral (ICD-10-PCS; principal; 2016-08-13)
DX: F10.230 Alcohol dependence with withdrawal, uncomplicated (principal); F14.20 Cocaine dependence, uncomplicated; F31.9 Bipolar disorder, unspecified; F43.10 Post-traumatic stress disorder, unspecified; E11.9 Type 2 diabetes mellitus without complications; Z79.84 Long term (current) use of oral hypoglycemic drugs; J45.20 Mild intermittent asthma, uncomplicated; Z90.11 Acquired absence of right breast and nipple
CPT/HCPCS: 81003; 81015; 93005; 93010; 94640

== ENCOUNTER 2016-08-13 15:53 | Inpatient (IN) | payer OTHER ==
--- NOTE | 2016-08-13 16:43 | PDOC ---
History of Present Illness - General History Source: Patient Exam Limitations: No Limitations <Jerman Betts - Last Filed: 08/13/16 19:15> - History of Present Illness Initial Comments: 08/13/16 17:12 The patient is a 51 year old female with significant past medical history of hyperlipidemia, diabetes, aortic valve replacement x2, R breast CA treated with chemotherapy in 2011, asthma/COPD, and polysubstance abuse, in detox for cocaine and alcohol since 5 days, sent from [facility] for chest pain that began around 3 AM today. She states her pain is sharp, intermittent with episodes every few hours and lasting only a few second, radiating to the left arm, with associated shortness of breath. She states she got up to use the restroom at the onset of her pain. The patient denies palpitations or lightheadedness. She denies nausea, vomiting, or diarrhea. She denies fever, chills, or recent illness. <Petra Guerrier - Last Filed: 08/15/16 05:59> - General Chief Complaint: Chest Pain Stated Complaint: Shortness of Breath Time Seen by Provider: 08/13/16 16:22 Past History - Past Medical History Anemia: No Asthma: Yes Cancer: No Cardiac Disorders: No CVA: No COPD: Yes CHF: No Dementia: No Diabetes: Yes GI Disorders: No Disorders: No HTN: No Hypercholesterolemia: Yes Kidney Stones: No Liver Disease: Yes (hep c) Suicide Attempt (Hx): No Seizures: No Thyroid Disease: No - Reproductive History PID: No - Psycho/Social/Smoking Cessation Hx Anxiety: No Suicidal Ideation: No Smoking History: Former smoker Have you smoked in the past 12 months: No Number of Cigarettes Smoked Daily: 60 If you are a former smoker, when did you quit?: 2 years ago Information on smoking cessation initiated: No 'Breaking Loose' booklet given: 07/12/16 Hx Alcohol Use: No Drug/Substance Use Hx: No Substance Use Type: Alcohol, Cocaine Hx Substance Use Treatment: Yes (completed tx in 2011, longest absinent time 2 years.) <Jerman Betts - Last Filed: 08/13/16 19:15> <Petra Guerrier - Last Filed: 08/15/16 05:59> - Past Medical History Allergies/Adverse Reactions: Allergies Allergy/AdvReac Type Severity Reaction Status Date / Time grass pollen Allergy Intermediate Verified 08/13/16 16:19 No Known Drug Allergies Allergy Unknown Verified 08/13/16 16:19 NKDA Allergy Unknown Uncoded 08/13/16 16:19 Home Medications: Ambulatory Orders Oxcarbazepine [Trileptal] 300 mg PO BID 07/28/12 Salmeterol/Fluticasone [Advair 250Mcg/50Mcg] 1 inh PO BID 07/28/12 Albuterol Sulfate Inhaler - [Ventolin Hfa Inhaler -] 2 inh PO Q4H PRN 07/12/16 Metformin HCl [Glucophage -] 500 mg PO BID 08/02/16 Atorvastatin Ca [Lipitor] 20 mg PO HS 08/09/16 Bupropion HCl [Wellbutrin Xl -] 150 mg PO DAILY 08/09/16 Insulin Glargine,Hum.rec.anlog [Lantus Solostar PEN -] 30 units IM HS 08/13/16 Insulin Lispro [Humalog] 8 units IM TID 08/13/16 Review of Systems - Review of Systems Able to Perform ROS?: Yes Comments:: 08/13/16 17:18 GENERAL/CONSTITUTIONAL: No fever or chills. No weakness. HEAD, EYES, EARS, NOSE AND THROAT: No change in vision. No ear pain or discharge. No sore throat. CARDIOVASCULAR: +chest pain, +SOB. No palpitations, no lightheadedness. RESPIRATORY: No cough, wheezing, or hemoptysis. GASTROINTESTINAL: No nausea, vomiting, diarrhea or constipation. GENITOURINARY: No dysuria, frequency, or change in urination. MUSCULOSKELETAL: No joint or muscle swelling or pain. No neck or back pain. SKIN: No rash NEUROLOGIC: No headache, vertigo, loss of consciousness, or change in strength/ sensation. ENDOCRINE: No increased thirst. No abnormal weight change. HEMATOLOGIC/LYMPHATIC: No anemia, easy bleeding, or history of blood clots. ALLERGIC/IMMUNOLOGIC: No hives or skin allergy. <Petra Guerrier - Last Filed: 08/15/16 05:59> *Physical Exam - Vital Signs Last Vital Signs Temp Pulse Resp BP Pulse Ox 97.6 F 99 H 18 125/96 97 08/13/16 16:10 08/13/16 16:10 08/13/16 16:10 08/13/16 16:10 08/13/16 16:10 <Jerman Betts - Last Filed: 08/13/16 19:15> - Vital Signs Last Vital Signs Temp Pulse Resp BP Pulse Ox 97.6 F 99 H 18 125/96 97 08/13/16 16:10 08/13/16 16:10 08/13/16 16:10 08/13/16 16:10 08/13/16 16:10 - Physical Exam Comments: 08/13/16 17:18 GENERAL: Awake, alert, and fully oriented, in no acute distress. Obese. HEAD: No signs of trauma EYES: PERRLA, EOMI, sclera anicteric, conjunctiva clear ENT: Auricles normal inspection, hearing grossly normal, nares patent, oropharynx clear without exudates. Moist mucosa NECK: Normal ROM, supple, no lymphadenopathy, JVD, or masses LUNGS: Breath sounds equal, clear to auscultation bilaterally. No wheezes, and no crackles HEART: Regular rate and rhythm, normal S1 and S2, +Systolic murmur. No rubs, or gallops. ABDOMEN: Soft, nontender, normoactive bowel sounds. No guarding, no rebound. No masses EXTREMITIES: Normal range of motion, no edema. No clubbing or cyanosis. No cords, erythema, or tenderness NEUROLOGICAL: Cranial nerves II through XII grossly intact. Normal speech, normal gait SKIN: Warm, Dry, normal turgor, no rashes or lesions noted. <Petra Guerrier - Last Filed: 08/15/16 05:59> Heart Score/ECG Review - History History: Slightly suspicious - Electrocardiogram EKG: Non specific repolarization disturbance - Age Age: 45-65 - Risk Factors Based on the list above the patient has:: >/=3 risk factors or Hx atherosclerotic disease - Troponin Troponin: 1-3x normal limit - Score Heart Score - Total: 5 #1 ECG reviewed & interpreted by me at: 16:05 08/13/16 17:24 NSR 97, left atrial enlargement, LVH, no std/braulio, QTC 474 msec. TWI V6, T wave flat I, AvL <Jerman Betts - Last Filed: 08/13/16 19:15> ED Treatment Course - LABORATORY CBC & Chemistry Diagram: 08/13/16 17:00 08/13/16 17:00 - RADIOLOGY Radiology Studies Ordered: Category Date Time Status CHEST X-RAY PORTABLE* [RAD] Stat Radiology 08/13/16 16:40 Ordered <Jerman Betts - Last Filed: 08/13/16 19:15> - LABORATORY CBC & Chemistry Diagram: 08/13/16 17:00 08/13/16 17:00 <Petra Guerrier - Last Filed: 08/15/16 05:59> Medical Decision Making - Medical Decision Making 08/13/16 16:55 A portion of this note was documented by scribe services under my direction. I have reviewed the details of the note, within reason, and agree with the documentation with the following case summary and management plan written by me. Patient treated in the ED. Nursing notes are reviewed and incorporated into the medical decision-making. Vital signs reviewed. Peripheral IV access obtained by the nurse, laboratory studies are drawn and sent, reviewed and interpreted by myself. Vital Signs Temp Pulse Resp BP Pulse Ox 97.6 F 99 H 18 125/96 97 08/13/16 16:10 08/13/16 16:10 08/13/16 16:10 08/13/16 16:10 08/13/16 16:10 51-year-old female with past medical history hepatitis C, distant right-sided breast cancer status post hysterectomy, last chemotherapy in 2011, diabetes, hyperlipidemia, COPD, aortic valve replacement 2 with pig valve, alcohol and cocaine abuse currently in detoxification sent from detoxification Center for chest pain. Patient reports her last use of any illicit drugs 5 days ago. States yesterday she was feeling well. This morning, at 3:00 in the morning, patient was up to use the bathroom and noticed one second chest sharp pain rating to left arm with associated shortness of breath that would resolve on its own. Not exertional. States the pain had occurred several times since then and the patient sent to the ED for further evaluation. Patient's history is somewhat atypical for acute coronary syndrome we will need to investigate with a rule out ID workup. We'll obtain chest x-ray, labs, EKG and give aspirin. Patient will need to be admitted to the hospital for further evaluation. 08/13/16 19:16 Chest xray reviewed. CBC, BMP 08/13/16 17:00 08/13/16 17:00 CMP Sodium 143 mmol/L (136-145) 08/13/16 17:00 Potassium 3.9 mmol/L (3.5-5.1) 08/13/16 17:00 Chloride 109 mmol/L (98-107) H 08/13/16 17:00 Carbon Dioxide 27 mmol/L (21-32) 08/13/16 17:00 Anion Gap 7 (8-16) L 08/13/16 17:00 BUN 16 mg/dL (7-18) D 08/13/16 17:00 Creatinine 1.0 mg/dL (0.55-1.02) 08/13/16 17:00 Creat Clearance w eGFR 58.93 (>60) 08/13/16 17:00 Random Glucose 313 mg/dL (74-106) H* D 08/13/16 17:00 Calcium 8.2 mg/dL (8.5-10.1) L 08/13/16 17:00 Phosphorus 2.7 mg/dL (2.5-4.9) 08/13/16 17:00 Magnesium 1.6 mg/dL (1.8-2.4) L 08/13/16 17:00 Total Bilirubin 0.3 mg/dL (0.2-1.0) D 08/13/16 17:00 AST 17 U/L (15-37) D 08/13/16 17:00 ALT 56 U/L (12-78) D 08/13/16 17:00 Alkaline Phosphatase 89 U/L (45-117) 08/13/16 17:00 Creatine Kinase 67 IU/L (26-192) 08/13/16 17:00 Troponin I 0.06 ng/ml (0.00-0.05) H 08/13/16 17:00 Total Protein 6.0 g/dl (6.4-8.2) L 08/13/16 17:00 Albumin 2.9 g/dl (3.4-5.0) L 08/13/16 17:00 Trop is 0.06. Pt given aspirin. 5u IV insulin ordered for glucose is 313. Case discussed with [facility] hospitalist. Pt to be admitted to telemetry. Case discussed in detail with admitting physician including history, physical exam and ancillary studies. Admitting physician has assumed care for the patient, will follow all pending diagnostics and will complete the evaluation and treatment. <Jerman Betts - Last Filed: 08/13/16 19:15> *DC/Admit/Observation/Transfer - Discharge Dispostion Admit: Yes <Jerman Betts - Last Filed: 08/13/16 19:15> - Attestations Scribe Attestion: 08/13/16 17:19 Documentation prepared by Petra Guerrier, acting as administrative medical director for Jerman Betts MD. <Petra Guerrier - Last Filed: 08/15/16 05:59> Diagnosis at time of Disposition: Chest pain Qualifiers: Chest pain type: unspecified Qualified Code(s): R07.9 - Chest pain, unspecified
[2016-08-13 17:16] LABS: BASOPHIL 0.6 % (0-2.0); EOSINOPHIL 1.8 % (0-4.5); MCH 30.3 pg (25.7-33.7); MCHC 33.3 g/dl (32.0-36.0); MEAN CELL VOLUME 90.9 fl (80-96); NEUTROPHILS 73.5 % (42.8-82.8); RDW 13.5 % (11.6-15.6); WHITE BLOOD COUNT 6.5 K/mm3 (4.0-10.0)
[2016-08-13 17:29] LABS: INR 1.06 (0.82-1.09); PROTHROMBIN TIME (PATIENT) 11.7 SEC (9.98-11.88)
[2016-08-13 17:32] LABS: ACTIVATED PTT 28.9 SECONDS (26.9-34.4)
[2016-08-13 18:02] LABS: ALBUMIN 2.9 g/dl (3.4-5.0); BILIRUBIN,TOTAL 0.3 mg/dL (0.2-1.0); CALCIUM 8.2 mg/dL (8.5-10.1); COCKROFT - GAULT 116.943; MAGNESIUM 1.6 mg/dL (1.8-2.4); PHOSPHOROUS 2.7 mg/dL (2.5-4.9)
[2016-08-13 18:05] LABS: TROPONIN I 0.06 ng/ml (0.00-0.05)
[2016-08-13] MEDS ORDERED: ASPIRIN 81 MG CHEWABLE TABLETS PO ONE (18:17)
[2016-08-13] MEDS ORDERED: INSULIN REGULAR HUMAN 100 UNITS/ML *VIAL IVPUSH ONE (18:17)
[2016-08-13] MEDS ORDERED: KETOROLAC TROMETHAMINE 30 MG/1 ML VIAL IVPUSH ONE (18:20)
[2016-08-13 18:28] LABS: MEAN PLT VOLUME 12.4 fl (7.5-11.1); PLATELET COMMENT2 FEW GIANT PLTS; PLATELET COUNT 72 K/MM3 (134-434); PLATELET ESTIMATE SLT DECREASED (NORMAL)
[2016-08-13 18:29] LABS: PLATELET COMMENT3 NO CLUMPING NOTED
[2016-08-13] MEDS ORDERED: ASPIRIN 81 MG CHEWABLE TABLETS ONE (18:40)
[2016-08-13] MEDS ORDERED: KETOROLAC TROMETHAMINE 30 MG/1 ML VIAL ONE (18:40)
[2016-08-13] MEDS ORDERED: INSULIN REGULAR HUMAN 100 UNITS/ML *VIAL ONE (18:42)
[2016-08-13] MEDS ORDERED: MAGNESIUM SULF 50% (8.12 MEQ/2 ML-1 GM VIAL) IVPB ONE (19:18)
--- NOTE | 2016-08-13 20:52 | HP ---
CHIEF COMPLAINT: chest pain PCP: Psychiatrist: Dr. Canales at [facility] HISTORY OF PRESENT ILLNESS: 51 yr old woman referred from [facility] with hx of aortic valve replacement x2, asthma, breast ca s/p right mastectomy(2011), hep C, HTN, IDDM, polysubstance abuse presents with chest pain. It is intermittent lasting few seconds, sharp in character, nonextertional, radiating to left arm starting last night, associated with palpitations and sob. Pain woke her up from sleep and is nonpositional without alleviating/exacerbating factors. She had similar episode of chest pain 2 wks ago, she went to [facility] where she left AMA after she refused an EJ line placement, she says physician wanted to given her contrast to r/o clot in her lungs. She was asymptomatic until last night at [facility]. Denies fever, cough, chest trauma, headache, n/v, new medications, prolonged immobilization, LE edema, lightheadednessm dizziness, LOC. For the past month she started to exercise in an attempt to lose weight; swimming and yoga. Denies over exertion. ER course was notable for: (1) EKG (2) trop x2: .06 (3) ASA 325 Recent Travel: none PAST MEDICAL HISTORY: Hep C (questionable - as per chart review, [facility] HPI has Hepatitis B, Hep C antibody 07/12/2016 was negative) IDDM - uncontrolled neuropathy HTN Asthma Breast Ca s/p chemotherapy in 2011 Bipolar disorder, PTSD PAST SURGICAL HISTORY: aortic valve replacement: initially in 2013 at [facility] in [place], the valve was "incorrect," "it was too small and ripped open" requiring replacement in 2014 Right mastectomy 2011 Social History: Smoking: former, quit 2yrs ago, 1/2pk/day for 20 yrs Alcohol: abuse, last drink tuesday. no hx of ICU stays, w/drawal seizures. Drugs: snorting cocaine, last use Tuesday, denies IVDU Family History: Allergies grass pollen Allergy (Intermediate, Verified 08/13/16 16:19) No Known Drug Allergies Allergy (Unknown, Verified 08/13/16 16:19) NKDA Allergy (Unknown, Uncoded 08/13/16 16:19) HOME MEDICATIONS: Home Medications Medication Instructions Recorded Oxcarbazepine [Trileptal] 300 mg PO BID 07/28/12 Salmeterol/Fluticasone [Advair 1 inh PO BID 07/28/12 250Mcg/50Mcg] Albuterol Sulfate Inhaler - 2 inh PO Q4H PRN 07/12/16 [Ventolin Hfa Inhaler -] Metformin HCl [Glucophage -] 500 mg PO BID 08/02/16 Atorvastatin Ca [Lipitor] 20 mg PO HS 08/09/16 Bupropion HCl [Wellbutrin Xl -] 150 mg PO DAILY 08/09/16 REVIEW OF SYSTEMS CONSTITUTIONAL: Absent: fever, chills, diaphoresis, generalized weakness, malaise, loss of appetite, weight change HEENT: Absent: rhinorrhea, nasal congestion, throat pain, throat swelling, difficulty swallowing, mouth swelling, ear pain, eye pain, visual changes CARDIOVASCULAR: Present: Absent: chest pain, syncope, palpitations, irregular heart rate, lightheadedness , peripheral edema RESPIRATORY: Absent: cough, shortness of breath, dyspnea with exertion, orthopnea, wheezing, stridor, hemoptysis GASTROINTESTINAL: Absent: abdominal pain, abdominal distension, nausea, vomiting, diarrhea, constipation, melena, hematochezia GENITOURINARY: Absent: dysuria, frequency, urgency, hesitancy, hematuria, flank pain, genital pain MUSCULOSKELETAL: Absent: myalgia, arthralgia, joint swelling, back pain, neck pain SKIN: Absent: rash, itching, pallor HEMATOLOGIC/IMMUNOLOGIC: Absent: easy bleeding, easy bruising, lymphadenopathy, frequent infections ENDOCRINE: Absent: unexplained weight gain, unexplained weight loss, heat intolerance, cold intolerance NEUROLOGIC: Absent: headache, focal weakness or paresthesias, dizziness, unsteady gait, seizure, mental status changes, bladder or bowel incontinence PSYCHIATRIC: Absent: anxiety, depression, suicidal or homicidal ideation, hallucinations. PHYSICAL EXAMINATION GENERAL: Awake, alert, and fully oriented, in no acute distress. HEAD: Normal with no signs of trauma. EYES: Pupils equal, round and reactive to light, extraocular movements intact, sclera anicteric, conjunctiva clear. No lid lag. EARS, NOSE, THROAT: Ears normal, nares patent, oropharynx clear without exudates. Moist mucous membranes. NECK: Normal range of motion, supple without lymphadenopathy, JVD, or masses. LUNGS: tachypneic, Breath sounds equal, clear to auscultation bilaterally. No wheezes, and no crackles. No accessory muscle use. CHEST: HEART: Regular rate and rhythm, normal S1 and S2 with systolic murmur, no rub or gallop. ABDOMEN: Soft, nontender, not distended, normoactive bowel sounds, no guarding, no rebound, no masses. MUSCULOSKELETAL: Normal range of motion at all joints. No bony deformities or tenderness. No CVA tenderness. UPPER EXTREMITIES: 2+ pulses, warm, well-perfused. No cyanosis. No clubbing. No peripheral edema. LOWER EXTREMITIES: 2+ pulses, warm, well-perfused. No calf tenderness. No peripheral edema. NEUROLOGICAL: Cranial nerves II-XII intact. Normal speech. Normal gait. PSYCHIATRIC: Cooperative. Good eye contact. Appropriate mood and affect. SKIN: Warm, dry, normal turgor, no rashes or lesions noted, normal capillary refill. Laboratory Results - last 24 hr 08/13/16 08/13/16 08/13/16 17:00 17:00 17:00 WBC 6.5 D RBC 3.94 Hgb 11.9 Hct 35.9 MCV 90.9 MCHC 33.3 RDW 13.5 Plt Count 72 L MPV 12.4 H Neutrophils % 73.5 Lymphocytes % 16.9 Monocytes % 7.2 Eosinophils % 1.8 Basophils % 0.6 Platelet Estimate Slt decreased Platelet Comment Few giant plts RBC Morphology Appears normal INR 1.06 PTT (Actin FS) 28.9 Sodium 143 Potassium 3.9 Chloride 109 H Carbon Dioxide 27 Anion Gap 7 L BUN 16 D Creatinine 1.0 Creat Clearance w eGFR 58.93 Random Glucose 313 H* D Calcium 8.2 L Phosphorus 2.7 Magnesium 1.6 L Total Bilirubin 0.3 D AST 17 D ALT 56 D Alkaline Phosphatase 89 Creatine Kinase 67 Troponin I 0.06 H Total Protein 6.0 L Albumin 2.9 L Triglycerides Cholesterol Total LDL Cholesterol HDL Cholesterol 08/13/16 08/13/16 21:00 21:00 WBC RBC Hgb Hct MCV MCHC RDW Plt Count MPV Neutrophils % Lymphocytes % Monocytes % Eosinophils % Basophils % Platelet Estimate Platelet Comment RBC Morphology INR PTT (Actin FS) Sodium Potassium Chloride Carbon Dioxide Anion Gap BUN Creatinine Creat Clearance w eGFR Random Glucose Calcium Phosphorus Magnesium Total Bilirubin AST ALT Alkaline Phosphatase Creatine Kinase Troponin I 0.06 H Total Protein Albumin Triglycerides 133 Cholesterol 175 Total LDL Cholesterol 72 HDL Cholesterol 90 H Active Medications Albuterol Sulfate (Ventolin Hfa Inhaler -) 2 puff IH Q4H PRN PRN Reason: ASTHMA Atorvastatin Calcium (Lipitor -) 20 mg PO HS DARIUS Budesonide/Formoterol Fumarate (Symbicort 80/4.5mcg -) 2 puff IH BID DARIUS Gabapentin (Neurontin -) 600 mg PO BID DARIUS Insulin Aspart (Novolog Vial Sliding Scale -) 1 vial SQ ACHS DARIUS PRN Reason: Protocol Insulin Detemir (Levemir Vial) 30 units SQ HS [facility] ASSESSMENT/PLAN: 51 yr old woman with hx of breast cancer, HTN, IDDM, aortic valve replacement, polysubstance abuse referred from [facility] rehab for chest pain. - PERC score 0, low suspicion for PE #Chest pain - r/o SD Heart score 5, JUDSON 2 - Trend troponins, 0.6x2 - Tele monitoring - echo - cardiology consult - avoid beta-magdaleno d/t hx of cocaine use #thrombocytopenia - likely ITP, LFT are normal, questionable Hep C dx - chronic, pt has hx of low platelet count #IDDM - uncontrolled - levemir 30units HS - BGM ACHS - NISS - hold metformin #HTN - controlled - lasix 20mg po daily #Asthma - ventolin q4 prn - symbicort BID - 2lpm nasal cannula, maintain >94% #Neuropathy - Gabapentin 600mg po bid #Bipolar d/o - wellbutrin xl 150mg po daily #Polysubstance withdrawal - Dr. Diaz consult #DVT - scd's for now, given thrombocytopenia #Diet - low do Visit type - Emergency Visit Emergency Visit: Yes ED Registration Date: 08/13/16 Care time: The patient presented to the Emergency Department on the above date and was hospitalized for further evaluation of their emergent condition. - New Patient This patient is new to me today: Yes Date on this admission: 08/13/16 - Critical Care Critical Care patient: No
[2016-08-13] MEDS ORDERED: MAGNESIUM SULF 50% (8.12 MEQ/2 ML-1 GM VIAL) ONE (20:53)
--- NOTE | 2016-08-13 21:48 | PN ---
<Elsie Echevarria - Last Filed: 08/13/16 21:48> Teaching Attending Note Name of Resident: Mathew Mayer <Humberto Del Real - Last Filed: 08/14/16 03:08> Teaching Attending Note ATTENDING PHYSICIAN STATEMENT I saw and evaluated the patient. I reviewed the resident's note and discussed the case with the resident. I agree with the resident's findings and plan as documented. SUBJECTIVE: The patient is a 51 year old female sent from [facility] for chest pain that began around 3 AM today. She stated her pain is sharp, intermittent with episodes every few hours and lasting only a few second, radiating to the left arm, with associated shortness of breath. She stated she got up to use the restroom at the onset of her pain. Patient reported that she experienced similar symptoms last week and was admitted to [facility] where she was scheduled to receive a stress test but signed out AMA before receiving it.The patient is followed by Dr. Bledsoe and last received a stress test in April of 2016 that she noted to be normal. The patient is a polysubstance abuser and reported her last cocaine and EtOH use was Tuesday. The patient denied palpitations or lightheadedness. She denied nausea, vomiting, or diarrhea. She denies fever, chills, or recent illness. Past Medical History: Hyperlipidemia, diabetes, aortic valve replacement x2, right breast CA treated with chemotherapy in 2011, asthma/COPD, and polysubstance abuse. OBJECTIVE: Vital Signs: Last Vital Signs Temp Pulse Resp BP Pulse Ox 97.6 F 99 H 18 125/96 97 08/13/16 16:10 08/13/16 16:10 08/13/16 16:10 08/13/16 16:10 08/13/16 16:10 Physical Exam: GENERAL: Awake, alert, and fully oriented, in no acute distress HEENT: Atraumatic. PERRLA, EOMI. Moist mucosa. No JVD, Jaundice, Slightly Icteric sclera. LUNGS: (+) tachypneic breathing, clear to auscultation bilaterally HEART: (+) Regular rate and rhythm. Systolic murmur ABDOMEN: Soft, nontender, normoactive bowel sounds. No guarding, no rebound. No masses EXTREMITIES: Normal inspection, Normal range of motion, no edema. No clubbing or cyanosis. NEUROLOGICAL: Cranial nerves II through XII grossly intact. Normal speech, normal gait, no focal sensorimotor deficits SKIN: Warm, Dry, normal turgor. Labs: CBCD WBC 6.5 K/mm3 (4.0-10.0) D 08/13/16 17:00 RBC 3.94 M/mm3 (3.60-5.2) 08/13/16 17:00 Hgb 11.9 GM/dL (10.7-15.3) 08/13/16 17:00 Hct 35.9 % (32.4-45.2) 08/13/16 17:00 MCV 90.9 fl (80-96) 08/13/16 17:00 MCHC 33.3 g/dl (32.0-36.0) 08/13/16 17:00 RDW 13.5 % (11.6-15.6) 08/13/16 17:00 Plt Count 72 K/MM3 (134-434) L 08/13/16 17:00 MPV 12.4 fl (7.5-11.1) H 08/13/16 17:00 CMP Sodium 143 mmol/L (136-145) 08/13/16 17:00 Potassium 3.9 mmol/L (3.5-5.1) 08/13/16 17:00 Chloride 109 mmol/L (98-107) H 08/13/16 17:00 Carbon Dioxide 27 mmol/L (21-32) 08/13/16 17:00 Anion Gap 7 (8-16) L 08/13/16 17:00 BUN 16 mg/dL (7-18) D 08/13/16 17:00 Creatinine 1.0 mg/dL (0.55-1.02) 08/13/16 17:00 Creat Clearance w eGFR 58.93 (>60) 08/13/16 17:00 Calcium 8.2 mg/dL (8.5-10.1) L 08/13/16 17:00 Total Bilirubin 0.3 mg/dL (0.2-1.0) D 08/13/16 17:00 AST 17 U/L (15-37) D 08/13/16 17:00 ALT 56 U/L (12-78) D 08/13/16 17:00 Alkaline Phosphatase 89 U/L (45-117) 08/13/16 17:00 Total Protein 6.0 g/dl (6.4-8.2) L 08/13/16 17:00 Albumin 2.9 g/dl (3.4-5.0) L 08/13/16 17:00 Imaging: Chest X-ray Impression: No official read. ASSESSMENT AND PLAN : Chest pain rule out ACS, most likely atypical CP -Trend troponins -Aspirin 325 mg -O2 2L nasal cannula -Consider cardio consult in AM -No beta block due to history of cocaine use -Continue home medications -Detox consult Dr. Vang Thrombocytopenia rule out idiopathic thrombocytopenia vs Hep C vs HIV -Stable no active bleeding -Can continue work up as outpatient -R/o idiopathic thrombocytopenia -Will hold heparin Admit to observation. Documentation prepared by Humberto Del Real, acting as medical pathology teacher for Dr. Elsie Echevarria MD.
[2016-08-13 21:50] LABS: CHOLESTEROL 175 mg/dL (50-200); LDL CHOLESTEROL (ONLY SJRH) 72 mg/dL (5-100)
[2016-08-13] MEDS ORDERED: ALBUTEROL SO4 6.7 GM HFA INHALER IH PRN (22:50)
[2016-08-14 00:41] VITALS: BMI 38.7
[2016-08-14] MEDS: INSULIN SLIDING SCALE (NOVOLOG) 1 VIAL SQ SCH ×4 (06:42→22:59)
--- NOTE | 2016-08-14 08:11 | PN ---
Physical Exam: SUBJECTIVE: Patient seen and examined Came to see the patient, patient is short of breath, unable to take deep breaths with hx of asthma. OBJECTIVE: Vital Signs Temperature 98.6 F 08/14/16 06:00 Pulse Rate 90 08/14/16 06:00 Respiratory Rate 20 08/14/16 06:00 Blood Pressure 117/78 08/14/16 06:00 O2 Sat by Pulse Oximetry (%) 96 08/14/16 00:20 GENERAL: The patient is awake, alert, and fully oriented, with mild distress. HEAD: Normal with no signs of trauma. EYES: PERRL, extraocular movements intact, sclera anicteric, conjunctiva clear. No ptosis. ENT: Ears normal, nares patent, oropharynx clear without exudates, moist mucous membranes. NECK: Trachea midline, full range of motion, supple. LUNGS: decreased Breath sounds BL , no wheezes. positive for accessory muscle use. HEART: Regular rate and rhythm, S1, S2 positive, positive JANELL 3/6 no rub or gallop. ABDOMEN: Soft, nontender, nondistended, normoactive bowel sounds, no guarding, no rebound, no hepatosplenomegaly, no masses. EXTREMITIES: 2+ pulses, warm, well-perfused, no edema. NEUROLOGICAL: Cranial nerves II through XII grossly intact. Normal speech. PSYCH: Normal mood, normal affect. SKIN: Warm, dry, normal turgor, no rashes or lesions noted CBCD WBC 6.5 K/mm3 (4.0-10.0) D 08/13/16 17:00 RBC 3.94 M/mm3 (3.60-5.2) 08/13/16 17:00 Hgb 11.9 GM/dL (10.7-15.3) 08/13/16 17:00 Hct 35.9 % (32.4-45.2) 08/13/16 17:00 MCV 90.9 fl (80-96) 08/13/16 17:00 MCHC 33.3 g/dl (32.0-36.0) 08/13/16 17:00 RDW 13.5 % (11.6-15.6) 08/13/16 17:00 Plt Count 72 K/MM3 (134-434) L 08/13/16 17:00 MPV 12.4 fl (7.5-11.1) H 08/13/16 17:00 CMP Sodium 143 mmol/L (136-145) 08/13/16 17:00 Potassium 3.9 mmol/L (3.5-5.1) 08/13/16 17:00 Chloride 109 mmol/L (98-107) H 08/13/16 17:00 Carbon Dioxide 27 mmol/L (21-32) 08/13/16 17:00 Anion Gap 7 (8-16) L 08/13/16 17:00 BUN 16 mg/dL (7-18) D 08/13/16 17:00 Creatinine 1.0 mg/dL (0.55-1.02) 08/13/16 17:00 Creat Clearance w eGFR 58.93 (>60) 08/13/16 17:00 Random Glucose 313 mg/dL (74-106) H* D 08/13/16 17:00 Calcium 8.2 mg/dL (8.5-10.1) L 08/13/16 17:00 Total Bilirubin 0.3 mg/dL (0.2-1.0) D 08/13/16 17:00 AST 17 U/L (15-37) D 08/13/16 17:00 ALT 56 U/L (12-78) D 08/13/16 17:00 Alkaline Phosphatase 89 U/L (45-117) 08/13/16 17:00 Total Protein 6.0 g/dl (6.4-8.2) L 08/13/16 17:00 Albumin 2.9 g/dl (3.4-5.0) L 08/13/16 17:00 CARDIAC ENZYMES Creatine Kinase 67 IU/L (26-192) 08/13/16 17:00 Troponin I 0.06 ng/ml (0.00-0.05) H 08/13/16 21:00 Laboratory Results - last 24 hr 08/13/16 08/13/16 08/14/16 21:00 21:00 06:36 POC Glucometer 220 Troponin I 0.06 H Triglycerides 133 Cholesterol 175 Total LDL Cholesterol 72 HDL Cholesterol 90 H Active Medications Generic Name Dose Route Start Last Admin Trade Name Freq PRN Reason Stop Dose Admin Albuterol Sulfate 2 puff 08/13/16 22:50 Ventolin Hfa Inhaler - IH Q4H PRN ASTHMA Atorvastatin Calcium 20 mg 08/14/16 22:00 Lipitor - PO HS [facility] Budesonide/Formoterol Fumarate 2 puff 08/14/16 10:00 Symbicort 80/4.5mcg - IH BID [facility] Bupropion HCl 150 mg 08/14/16 10:00 Wellbutrin Xl - PO DAILY [facility] Furosemide 20 mg 08/14/16 10:00 Lasix - PO DAILY [facility] Gabapentin 600 mg 08/14/16 10:00 Neurontin - PO BID [facility] Insulin Aspart 1 vial 08/14/16 07:00 08/14/16 06:42 Novolog Vial Sliding Scale - SQ 4 units ACHS [facility] Administration Protocol Insulin Detemir 30 units 08/14/16 22:00 Levemir Vial SQ [facility] Home Medications Medication Instructions Recorded Oxcarbazepine [Trileptal] 300 mg PO BID 07/28/12 Salmeterol/Fluticasone [Advair 1 inh PO BID 07/28/12 250Mcg/50Mcg] Albuterol Sulfate Inhaler - 2 inh PO Q4H PRN 07/12/16 [Ventolin Hfa Inhaler -] Metformin HCl [Glucophage -] 500 mg PO BID 08/02/16 Atorvastatin Ca [Lipitor] 20 mg PO HS 08/09/16 Bupropion HCl [Wellbutrin Xl -] 150 mg PO DAILY 08/09/16 Insulin Glargine,Hum.rec.anlog 30 units IM HS 08/13/16 [Lantus Solostar PEN -] Insulin Lispro [Humalog] 8 units IM TID 08/13/16 CXR: positive thoracotomy, with congestive changes Past Medical History: Hyperlipidemia, diabetes, aortic valve replacement x2, right breast CA treated with chemotherapy in 2011, asthma/COPD, and polysubstance abuse. ASSESSMENT/PLAN: Patient is a 51 yr old woman with hx of breast cancer, HTN, IDDM, aortic valve replacement, polysubstance abuse referred from [facility] rehab for chest pain. - PERC score 0, low suspicion for PE # Acute exacerbation of Asthma, Solu Medrol IV 125mg x 1 then solumedrol 60mg q8 IV. Nebs treatment duoneb standing and prn ordered. # Acute Chest pain with hx of AVR x2 ; 2 sets of troponins = 0.6 x2, cardiology consult covering MD is ;continue Tele monitoring; echo ordered pending. # Acute exacrbation of CHF, will get BNP, ddimer, lasix 20mg iv bid , monitor the vitals # Acute over chronic thrombocytopenia - Possible due to polysubstance abuse , hem. consult # Hx of Polysubstance abuse ; last cocaine and EtOH use was Tuesday #T2DM uncontrolled ; levemir 30units HS, sliding scale with coverage; hold metformin for now #HTN - controlled continue lasix 20mg po daily #Diabetic Neuropathy on Gabapentin 600mg po bid #Bipolar d/o on wellbutrin xl 150mg po daily DVT Px- scd's for now, given thrombocytopenia Visit type - Emergency Visit Emergency Visit: Yes ED Registration Date: 08/13/16 Care time: The patient presented to the Emergency Department on the above date and was hospitalized for further evaluation of their emergent condition. - New Patient This patient is new to me today: Yes Date on this admission: 08/14/16 - Critical Care Critical Care patient: Yes Total Critical Care Time (in minutes): 35 Critical Care Statement: The care of this patient involved high complexity decision making to prevent further life threatening deterioration of the patient 's condition and/or to evalute & treat vital organ system(s) failure or risk of failure.
--- NOTE | 2016-08-14 08:26 | CON.CARD ---
Consult Consult Specialty:: Cardiology Referred by:: Hospitalist Reason for Consultation:: Chest pain, SOB - History of Present Illness Chief Complaint: Chest pain, sob History of Present Illness: 51 year old woman with a history of HLD, DMII, Aortic regurgitation s/p bio AVR 2 years ago at [facility] with patient prosthesis mismatch as per pt followed by re- op bio AVR 05/2015 at [facility], with a preop cardiac cath that showed normal coronary arteries as per patient, breast Ca s/p chemo 2011, polysubstance abuse with etoh and crack cocaine, was in [facility] rehab for the past 5 days, last night started feeling intermittent chest pain and sob. describes the pain as sharp, lasting a few seconds at a time, radiating to the left arm, occurring mainly at rest. denies any pnd, orthopnea, or LE edema. no palpitations. no lightheadedness, dizziness, syncope, or near syncope. She was seen and examined this am initially resting comfortably. stated she wanted to go back to [facility] today because she is afraid she would lose her bed. She then became noticeably sob and tachypneic and stated that she has been sob like this all night. She also states she was at [facility] 3 weeks ago with sob and they wanted to do a CTA chest to rule out PE but because they wanted to put an IV in her neck to do the test she left AMA. States her chest pain has not resolved since coming to the hospital last night. - History Source History Provided By: Patient, Medical Record Limitations to Obtaining History: Poor Historian - Past Medical History Cardio/Vascular: Yes: Aortic Insufficiency Pulmonary: Yes: COPD ...LMP: 03/03/12 ...: No Heme/Onc: Yes: Cancer Psych: Yes: Addictions - Past Surgical History Past Surgical History: Yes: Valve Replacement - Alcohol/Substance Use Hx Alcohol Use: No - Smoking History Smoking history: Former smoker Have you smoked in the past 12 months: No Aproximately how many cigarettes per day: 60 If you are a former smoker, when did you quit?: 2 years ago - Social History History of Recent Travel: No Home Medications - Allergies Allergies/Adverse Reactions: Allergies Allergy/AdvReac Type Severity Reaction Status Date / Time grass pollen Allergy Intermediate Verified 08/13/16 16:19 No Known Drug Allergies Allergy Unknown Verified 08/13/16 16:19 NKDA Allergy Unknown Uncoded 08/13/16 16:19 - Home Medications Home Medications: Ambulatory Orders Oxcarbazepine [Trileptal] 300 mg PO BID 07/28/12 Salmeterol/Fluticasone [Advair 250Mcg/50Mcg] 1 inh PO BID 07/28/12 Albuterol Sulfate Inhaler - [Ventolin Hfa Inhaler -] 2 inh PO Q4H PRN 07/12/16 Metformin HCl [Glucophage -] 500 mg PO BID 08/02/16 Atorvastatin Ca [Lipitor] 20 mg PO HS 08/09/16 Bupropion HCl [Wellbutrin Xl -] 150 mg PO DAILY 08/09/16 Insulin Glargine,Hum.rec.anlog [Lantus Solostar PEN -] 30 units IM HS 08/13/16 Insulin Lispro [Humalog] 8 units IM TID 08/13/16 Family Disease History - Family Disease History Family Disease History: Other: Father (alcohol,), Mother (alcohol, ) Review of Systems - Review of Systems Constitutional: denies: No Symptoms, Chills, Diaphoresis, Fever, Lethargy, Loss of Appetite, Malaise, Night Sweats, Unintentional Wgt. Loss, Weakness, Other Eyes: denies: No Symptoms, Blind Spots, Blurred Vision, Double Vision, Eye Pain , Floaters, Photophobia, Recent Change in Vision, Other HENT: denies: No Symptoms, Difficult Swallowing, Ear Discharge, Ear Pain, Epistaxis, Gingival Bleeding, Hearing Loss, Mouth Swelling, Nasal Congestion, Ocular Prosthesis, Throat Pain, Toothache, Ringing in Ears, Other Neck: denies: No Symptoms, Decreased ROM, Lumps, Pain on Movement, Stiffness, Swollen Glands, Tenderness, Other Cardiovascular: reports: Chest Pain, Shortness of Breath. denies: No Symptoms, Edema, Palpitations, Other Respiratory: reports: Exercise Intolerance, SOB, SOB on Exertion. denies: No Symptoms, Cough, Hemoptysis, Orthopnea, PND, Snoring, Wheezing, Other Gastrointestinal: denies: No Symptoms, Abdominal Pain, Bloating, Constipation, Diarrhea, Dysphagia, Indigestion, Melena, Nausea, Rectal Bleeding, Vomiting, Vomiting Blood, Other Genitourinary: denies: No Symptoms, Burning, Discharge, Dysuria, Flank Pain, Frequency, Hematuria, Incontinence, Lesions, Menses, Pain, Testicular Mass, Testicular Pain, Testicular Swelling, Urgency, Vaginal Bleeding, Other Breasts: denies: No Symptoms Reported, See HPI, Breast Implants, Discharge from Nipple, Lumps, Pain, Skin Changes, Other Musculoskeletal: denies: No Symptoms, Back Pain, Crepitus, Decreased ROM, Extremity Pain, Joint Pain, Joint Swelling, Muscle Pain, Muscle Cramps, Muscle Weakness, Other Integumentary: denies: No Symptoms, Blister, Bruising, Change in Color, Eczema, Erythema, Incision, Lesions, Lump, Pallor, Pruritis, Rash, Wound, Other Neurological: denies: No Symptoms, Change in LOC, Change in Speech, Confusion, Dizziness, Headache, Incoordination, Numbness, Parasthesia, Pre-Existing Deficit , Seizure, Syncope, Tremors, Unsteady Gait, Weakness, Other Endocrine: denies: No Symptoms, Excessive Sweating, Flushing, Increased Hunger, Increased Thirst, Intolerance to Cold, Intolerance to Heat, Unexplained Weight Gain, Unexplained Weight Loss, Other Hematology/Lymphatic: denies: No Symptoms, Easily Bruised, Excessive Bleeding, Swollen Glands, Other Psychiatric: denies: No Symptoms, Altered Sleep Pattern, Anxiety, Depression, Hallucinations, Panic, Paranoia, Suicidal, Other - Risk Factors Known Risk Factors: Yes: Diabetes Mellitus, Hypercholesterolemia Vital Signs: Vital Signs Temperature 98.6 F 08/14/16 06:00 Pulse Rate 90 08/14/16 06:00 Respiratory Rate 20 08/14/16 06:00 Blood Pressure 117/78 08/14/16 06:00 O2 Sat by Pulse Oximetry (%) 96 08/14/16 00:20 Constitutional: Yes: Anxious, Obese Eyes: Yes: WNL, Conjunctiva Clear, EOM Intact, PERRL HENT: Yes: WNL, Atraumatic, Normocephalic Neck: Yes: WNL, Supple, Trachea Midline Respiratory: Yes: Regular, Rhonchi, SOB. No: Rales, Wheezes Gastrointestinal: Yes: WNL, Normal Bowel Sounds, Soft. No: Distention, Tenderness Renal/: Yes: WNL Cardiovascular: Yes: Tachycardia. No: Bradycardia, Pulse Irregular, Gallop, Rub , Varicosities JVD: No Carotid Bruit: No PMI: Non-Displaced Heart Sounds: Yes: S1, S2. No: Split S2, S3, S4, Clicks, Gallop, Rub, Bruit Murmur: Yes: Systolic Murmur, Grade 3. No: Diastolic Murmur Musculoskeletal: Yes: WNL Extremities: Yes: WNL Edema: No Peripheral Pulses WNL: Yes Peripheral Pulses: 2+ Left Doralis Pedis, 2+ Right Dorsalis Pedis Integumentary: Yes: WNL Neurological: Yes: Alert, Oriented Psychiatric: Yes: Alert, Oriented - Other Data Labs, Other Data: INR, PTT INR 1.06 (0.82-1.09) 08/13/16 17:00 Troponin, BNP 08/13/16 21:00 Troponin I 0.06 H Troponin, BNP 08/13/16 21:00 Troponin I 0.06 H ekg-sinus tach 100bpm, LVH, nonspecific St abnl, T inversion V6, I, aVL Echo: Pending Prior Cardiac Procedures: Cardiac Catheterization, Valve Surgery Imaging - Results Chest X-ray: Report Reviewed, Image Reviewed EKG: Report Reviewed, Image Reviewed Other: Report Reviewed, Image Reviewed (tele-nsr, sinus tach, pvcs, apcs) Problem List - Problems (1) Chest pain Code(s): R07.9 - CHEST PAIN, UNSPECIFIED Qualifiers: Chest pain type: unspecified Qualified Code(s): R07.9 - Chest pain, unspecified (2) Alcohol dependence with uncomplicated withdrawal Code(s): F10.230 - ALCOHOL DEPENDENCE WITH WITHDRAWAL, UNCOMPLICATED (3) Cocaine dependence Code(s): F14.20 - COCAINE DEPENDENCE, UNCOMPLICATED (4) DM2 (diabetes mellitus, type 2) Code(s): E11.9 - TYPE 2 DIABETES MELLITUS WITHOUT COMPLICATIONS Qualifiers: (5) Hypercholesterolemia Code(s): E78.0 - PURE HYPERCHOLESTEROLEMIA * DO NOT USE * Assessment/Plan 51 year old woman with a history of HLD, DMII, Aortic regurgitation s/p bio AVR 2 years ago at [facility] with patient prosthesis mismatch as per pt followed by re- op bio AVR 05/2015 at [facility], with a preop cardiac cath that showed normal coronary arteries as per patient, breast Ca s/p chemo 2011, polysubstance abuse with etoh and crack cocaine, was in [facility] rehab for the past 5 days, admitted with chest pain and sob. Chest pain-atypical -troponin .06 with normal CK, not significantly elevated -no ischemia on ekg -chest pain has resolved -no sig arrhythmia on tele -pt reports having a cardiac cath at [facility] 05/2015 that showed normal coronary arteries prior to her re-op AVR -cardiac cath report has been requested, if indeed had normal coronary arteries last year it is unlikely that this is ACS -plan for echo tuesday then consider ischemic evaluation depending on results of cardiac cath as above SOB-unclear etiology, possible acute CHF vs COPD vs PE -Cxr read as pulm vascular congestion, on exam does not appear significantly volume overloaded -can cont current Lasix 20mg IV BID and monitor for improvement -monitor strict I/Os and daily weights with diuresis and electrolytes, bun/creat -consider evaluation for PE given report of recent admission at [facility] where they wanted to perform a CTA to rule out PE but she signed out AMA, history of breast cancer, sinus tach, sob -d-dimer was sent, consider CTA chest -plan for echo tuesday DMII-uncontrolled -insulin as per Med H/o Bio-AVR x 2-first AVR 2 years ago followed by patient prosthesis mismatch then re-op bio-AVR 1 year ago -would be helpful to obtain results of prior work up -echo tuesday
[2016-08-14] MEDS ORDERED: PT OWN MED DRAWER 7, Y5N ONE (08:39)
[2016-08-14] MEDS: BUDESONIDE/FORMETEROL FUMARATE 80/4.5 mcg INHALER IH SCH ×3 (09:37→22:59)
[2016-08-14] MEDS: GABAPENTIN 300 MG CAPSULE (FP) PO SCH ×2 (09:37→22:58)
[2016-08-14] MEDS ORDERED: PATIENT'S OWN MEDICATION (NON-FORMULARY) (Salmeterol/Fluticasone [Advair 250mcg/50mcg -] 1 PO SCH (10:00)
[2016-08-14] MEDS ORDERED: FUROSEMIDE 20 MG TABLET (FP) PO SCH (10:00)
--- NOTE | 2016-08-14 12:21 | CONSULT ---
Consult Consult Specialty:: Oncology- Hematology Referred by:: Hospitalist Reason for Consultation:: Thrombocytopenia - History of Present Illness Chief Complaint: Shortness of breath, chest pains History of Present Illness: History of Diabetes Mellitus, Aortic regurgitation, AVR x 2, HPL, cirrhosis, Polysubstance abuse and long standing history of thrombocytopenia.History of breast ca , s/p mastectomy and chemotherapy in 2011. History or positive RPR and T. Palladium and previous treatment. Developed SOB , chest pains radiating down left arm. Recent hospitilization for rehab and at [facility] for SOB and chest pains. - History Source History Provided By: Patient, Medical Record Limitations to Obtaining History: No Limitations - Past Medical History Cardio/Vascular: Yes: Aortic Insufficiency Pulmonary: Yes: COPD Gastrointestinal: Yes: Other (previously told of cirrhosis) ...LMP: 03/03/12 ...: No ...: 11 (2 abortions, 1 miscarriage) ...Para: 8 Heme/Onc: Yes: Thrombocytopenia Infectious Disease: Yes: Other (Positive T. palladium) Psych: Yes: Addictions Musculoskeletal: Yes: Chronic low back pain, Osteoarthritis Endocrine: Yes: Diabetes Mellitus - Past Surgical History Past Surgical History: Yes: Valve Replacement - Alcohol/Substance Use Hx Alcohol Use: Yes (6 pack on week-ends- in rehab) History of Substance Use: reports: Cocaine ($ 100 week habit- snorting) - Smoking History Smoking history: Former smoker Have you smoked in the past 12 months: No Aproximately how many cigarettes per day: 60 If you are a former smoker, when did you quit?: 2 years ago - Social History Occupation: disability History of Recent Travel: No Home Medications - Allergies Allergies/Adverse Reactions: Allergies Allergy/AdvReac Type Severity Reaction Status Date / Time grass pollen Allergy Intermediate Verified 08/13/16 16:19 No Known Drug Allergies Allergy Unknown Verified 08/13/16 16:19 NKDA Allergy Unknown Uncoded 08/13/16 16:19 - Home Medications Home Medications: Ambulatory Orders Oxcarbazepine [Trileptal] 300 mg PO BID 07/28/12 Salmeterol/Fluticasone [Advair 250Mcg/50Mcg] 1 inh PO BID 07/28/12 Albuterol Sulfate Inhaler - [Ventolin Hfa Inhaler -] 2 inh PO Q4H PRN 07/12/16 Metformin HCl [Glucophage -] 500 mg PO BID 08/02/16 Atorvastatin Ca [Lipitor] 20 mg PO HS 08/09/16 Bupropion HCl [Wellbutrin Xl -] 150 mg PO DAILY 08/09/16 Insulin Glargine,Hum.rec.anlog [Lantus Solostar PEN -] 30 units IM HS 08/13/16 Insulin Lispro [Humalog] 8 units IM TID 08/13/16 Family Disease History - Family Disease History Family Disease History: Heart Disease: Mother (alcohol,,[place]), Other: Father ( , gun shot ), Mother Review of Systems - Review of Systems Constitutional: reports: Chills, Weakness. denies: Fever, Lethargy, Night Sweats, Unintentional Wgt. Loss Eyes: reports: Blurred Vision. denies: Double Vision, Eye Pain, Photophobia HENT: reports: Difficult Swallowing. denies: Ear Pain, Gingival Bleeding, Hearing Loss, Throat Pain Neck: denies: Pain on Movement, Stiffness, Swollen Glands Cardiovascular: reports: Chest Pain, Edema, Shortness of Breath. denies: Palpitations Respiratory: reports: Exercise Intolerance, SOB, SOB on Exertion, Wheezing. denies: Hemoptysis Gastrointestinal: denies: Abdominal Pain, Constipation, Diarrhea, Dysphagia, Melena, Nausea, Vomiting Genitourinary: denies: Burning, Dysuria, Frequency, Hematuria, Incontinence Breasts: reports: Other (s/p mastectomy in 2011 treated with chemotherapy- reportedly negative mammography in 05/18) Integumentary: denies: Bruising, Eczema, Rash Neurological: reports: Numbness, Other (Neuropathy LE's) Hematology/Lymphatic: denies: Easily Bruised, Excessive Bleeding, Swollen Glands Psychiatric: reports: No Symptoms Physical Exam Vital Signs: Vital Signs Temperature 98.5 F 08/14/16 09:58 Pulse Rate 96 H 08/14/16 09:58 Respiratory Rate 20 08/14/16 09:58 Blood Pressure 111/70 08/14/16 09:58 O2 Sat by Pulse Oximetry (%) 96 08/14/16 00:20 Constitutional: Yes: Moderate Distress Eyes: Yes: Conjunctiva Clear, PERRL. No: Cataracts, Diplopia, Ptosis, Sclera Icterus HENT: Yes: Atraumatic, Normocephalic. No: Epistaxis, Pharyngeal Erythema, Rhinnorhea, Thrush, Tonsillar Exudate Neck: Yes: Supple. No: Lymphadenopathy, Tenderness, Thyromegaly Cardiovascular: Yes: Regular Rate and Rhythm, Murmur, Other (systolic murmur) Respiratory: Yes: Regular, Diminished, SOB, SOB on Exertion, Wheezes Gastrointestinal: Yes: Normal Bowel Sounds, Soft. No: Hepatomegaly, Splenomegaly, Tenderness Renal/: No: CVA Tenderness - Left Breast(s): Yes: WNL, Left, Other (s/p right mastectomy- chest wall negative) Extremities: No: Calf Tenderness, Cyanosis, Erythema Edema: No Integumentary: Yes: WNL Neurological: Yes: Other (Pareshesias LE's and numbness inner thigh of right leg) ...Motor Strength: WNL Psychiatric: Yes: WNL Imaging - Results Chest X-ray: Report Reviewed, Image Reviewed Problem List - Problems (1) Chest pain Assessment/Plan: Per cardiology; ECHO Consider CTA. Code(s): R07.9 - CHEST PAIN, UNSPECIFIED Qualifiers: Chest pain type: unspecified Qualified Code(s): R07.9 - Chest pain, unspecified (2) Alcohol dependence with uncomplicated withdrawal Assessment/Plan: IN rehab drinks 1-2 6 packs on week-ends Code(s): F10.230 - ALCOHOL DEPENDENCE WITH WITHDRAWAL, UNCOMPLICATED (3) Cocaine dependence Assessment/Plan: $ 100 per week habit. 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 Followed at [facility]. Code(s): Z90.11 - ACQUIRED ABSENCE OF RIGHT BREAST AND NIPPLE (5) Thrombocytopenia Assessment/Plan: Review of past records 08/11/10-- platelets-115K 07/12------platelets-86K 07/12/16---platelets-66K 08/13/16---platelets-72K Thrombocytopenia dates back at least 5-6 years. Can be related to underlying liver disease ( patient was told at [facility] that she had cirrhosis). ?? contribution of polysubstance abuse, toxic effect of alcohol, immunologic or other. Plan: Sono of liver /spleen Screening tests Consider HIV testing Code(s): D69.6 - THROMBOCYTOPENIA, UNSPECIFIED
[2016-08-14] MEDS: FUROSEMIDE 40 MG/4 ML INJECTABLE VIAL IVPUSH SCH (13:43)
[2016-08-14 14:46] LABS: URINE MARIJUANA THC NEGATIVE ng/ml (CUTOFF=50)
[2016-08-14] MEDS ORDERED: ALBUTEROL SO4 2.5/IPRATROPIUM 0.5 INH SOL 3 ML VIAL.NEB. NEB PRN (14:57)
[2016-08-14] MEDS ORDERED: methylPREDNISolone NA SUCC 125 MG/2 ML VIAL IVPB ONE (15:15)
[2016-08-14] MEDS: CEFTRIAXONE 1G/50 ML IVPB SCH (15:28)
[2016-08-14] MEDS: AZITHROMYCIN IVPB 500MG/250 ML IVPB SCH (15:28)
[2016-08-14] MEDS: ALBUTEROL SO4 2.5/IPRATROPIUM 0.5 INH SOL 3 ML VIAL.NEB. NEB SCH (17:51)
[2016-08-14] MEDS: methylPREDNISolone NA SUCC 40 MG/1 ML VIAL IVPB SCH (18:14)
--- NOTE | 2016-08-14 18:28 | EKG ---
Test Reason : Blood Pressure : / mmHG Vent. Rate : 097 BPM Atrial Rate : 097 BPM P-R Int : 124 ms QRS Dur : 080 ms QT Int : 374 ms P-R-T Axes : 073 -06 100 degrees QTc Int : 474 ms NORMAL SINUS RHYTHM LEFT ATRIAL ENLARGEMENT LEFT VENTRICULAR HYPERTROPHY NONSPECIFIC T WAVE ABNORMALITY PROLONGED QT ABNORMAL ECG WHEN COMPARED WITH ECG OF 12-AUG-2016 12:20, NO SIGNIFICANT CHANGE WAS FOUND Confirmed by AMERICO KELSEY, KRISTA ([id number]) on 08/14/2016 6:28:14 PM Referred By: Confirmed By:KRISTA DRISCOLL MD
[2016-08-14] MEDS ORDERED: diphenhydrAMINE HCL 50 MG CAPSULE PO ONE (20:53)
[2016-08-14] MEDS ORDERED: diphenhydrAMINE HCL 25 MG CAPSULE (FP) PO ONE (22:49)
[2016-08-14] MEDS: ATORVASTATIN CA 20 MG TABLET (FP) PO SCH (22:58)
[2016-08-14] MEDS: INSULIN DETEMIR 100 UNITS/ML MDV SQ SCH (22:58)
[2016-08-15] MEDS: methylPREDNISolone NA SUCC 40 MG/1 ML VIAL IVPB SCH ×2 (03:45→11:24)
[2016-08-15] MEDS: FUROSEMIDE 40 MG/4 ML INJECTABLE VIAL IVPUSH SCH ×2 (06:52→14:13)
[2016-08-15] MEDS: INSULIN SLIDING SCALE (NOVOLOG) 1 VIAL SQ SCH ×4 (07:00→21:20)
--- NOTE | 2016-08-15 09:11 | PN ---
Progress Note, Physician History of Present Illness: seen and examined today in nad. states she feels much better. sob and chest pain have resolved. no overnight events. no new complaints. - Current Medication List Current Medications: Active Medications Albuterol Sulfate (Ventolin Hfa Inhaler -) 2 puff IH Q4H PRN PRN Reason: ASTHMA Albuterol/Ipratropium (Duoneb -) 1 amp NEB Q4H PRN PRN Reason: SHORTNESS OF BREATH Albuterol/Ipratropium (Duoneb -) 1 amp NEB QIDR [facility] Last Admin: 08/14/16 17:51 Dose: Not Given Atorvastatin Calcium (Lipitor -) 20 mg PO HS [facility] Last Admin: 08/14/16 22:58 Dose: 20 mg Budesonide/Formoterol Fumarate (Symbicort 80/4.5mcg -) 2 puff IH BID [facility] Last Admin: 08/14/16 22:59 Dose: 2 puff Bupropion HCl (Wellbutrin Xl -) 150 mg PO DAILY [facility] Last Admin: 08/14/16 09:41 Dose: 150 mg Furosemide (Lasix Injection -) 20 mg IVPUSH BID@0600,1400 [facility] Last Admin: 08/15/16 06:52 Dose: 20 mg Gabapentin (Neurontin -) 600 mg PO BID [facility] Last Admin: 08/14/16 22:58 Dose: 600 mg Azithromycin (Zithromax 500mg Ivpb (Pre-Docked)) 250 mls @ 250 mls/hr IVPB DAILY [facility] Last Admin: 08/14/16 15:28 Dose: 250 mls/hr Ceftriaxone Sodium (Rocephin 1gm Ivpb (Pre-Docked)) 50 mls @ 100 mls/hr IVPB DAILY [facility] Last Admin: 08/14/16 15:28 Dose: 100 mls/hr Insulin Aspart (Novolog Vial Sliding Scale -) 1 vial SQ ACHS DARIUS PRN Reason: Protocol Last Admin: 08/14/16 22:59 Dose: 10 units Insulin Detemir (Levemir Vial) 30 units SQ HS [facility] Last Admin: 08/14/16 22:58 Dose: 30 units Methylprednisolone Sodium Succinate (Solu-Medrol -) 60 mg IVPB Q8H-IV [facility] Last Admin: 08/15/16 03:45 Dose: 60 mg - Objective Vital Signs: Vital Signs Temperature 98 F 08/15/16 02:00 Pulse Rate 96 H 08/15/16 02:00 Respiratory Rate 20 08/15/16 02:00 Blood Pressure 108/69 08/15/16 02:00 O2 Sat by Pulse Oximetry (%) 96 08/14/16 21:00 Constitutional: Yes: No Distress, Calm, Obese Eyes: Yes: WNL, Conjunctiva Clear, EOM Intact, PERRL HENT: Yes: WNL, Atraumatic, Normocephalic Neck: Yes: WNL, Supple, Trachea Midline Cardiovascular: Yes: Regular Rate and Rhythm, S1, S2. No: Bradycardia, Tachycardia, Pulse Irregular, Bruit, JVD, Gallop, Murmur, Rub, S3, S4, Varicosities Respiratory: Yes: WNL, Regular, CTA Bilaterally. No: Rales, Rhonchi, Wheezes Gastrointestinal: Yes: WNL, Normal Bowel Sounds, Soft. No: Distention, Tenderness Musculoskeletal: Yes: WNL Extremities: Yes: WNL Edema: No Peripheral Pulses WNL: Yes Peripheral Pulses: Left Doralis Pedis: 2+, Right Dorsalis Pedis: 2+ Integumentary: Yes: WNL Neurological: Yes: WNL, Alert, Oriented, Cran Nerves II-XII Intact ...Motor Strength: WNL Psychiatric: Yes: WNL, Alert, Oriented Labs: INR, PTT INR 1.06 (0.82-1.09) 08/13/16 17:00 - ....Imaging Chest X-ray: Report Reviewed, Image Reviewed EKG: Report Reviewed, Image Reviewed Other: Report Reviewed, Image Reviewed (tele-nsr, sinus tach, pvcs, apcs) Problem List - Problems (1) Chest pain Code(s): R07.9 - CHEST PAIN, UNSPECIFIED Qualifiers: Chest pain type: unspecified Qualified Code(s): R07.9 - Chest pain, unspecified (2) Alcohol dependence with uncomplicated withdrawal Code(s): F10.230 - ALCOHOL DEPENDENCE WITH WITHDRAWAL, UNCOMPLICATED (3) Cocaine dependence Code(s): F14.20 - COCAINE DEPENDENCE, UNCOMPLICATED (4) DM2 (diabetes mellitus, type 2) Code(s): E11.9 - TYPE 2 DIABETES MELLITUS WITHOUT COMPLICATIONS Qualifiers: (5) Hypercholesterolemia Code(s): E78.0 - PURE HYPERCHOLESTEROLEMIA * DO NOT USE * Assessment/Plan 51 year old woman with a history of HLD, DMII, Aortic regurgitation s/p bio AVR [address] [facility] with patient prosthesis mismatch as per pt followed by re- op bio AVR 05/2015 at [facility], with a preop cardiac cath that showed normal coronary arteries as per patient, breast Ca s/p chemo 2011, polysubstance abuse with etoh and crack cocaine, was in [facility] for the past 5 days, admitted with chest pain and sob. Chest pain-atypical, believed to be secondary to asthma exacerbation -troponin .06 with normal CK, not significantly elevated, pt refused 3rd set of cardiac enzymes -no ischemia on ekg -chest pain has resolved -no sig arrhythmia on tele -pt reports having a cardiac cath at [facility] 05/2015 that showed normal coronary arteries prior to her re-op AVR -cardiac cath report has been requested, if indeed had normal coronary arteries last year it is unlikely that this is ACS -plan for echo tuesday -would plan for a nuclear stress test tomorrow to further evaluate for ischemia , unless can confirm that pt did indeed have normal coronary arteries on recent cardiac cath SOB-believed to be c/w asthma exacerbation -significantly improved -Cxr read as pulm vascular congestion, on exam does not appear significantly volume overloaded -can transition to po Lasix -I/Os not recorded and pt refused additional blood work yesterday -monitor strict I/Os and daily weights with diuresis and electrolytes, bun/creat -Pulmonary embolism unlikely given improvement with tx for Asthma -plan for echo tuesday DMII-uncontrolled -insulin as per Med H/o Bio-AVR x 2-first AVR 2 years ago followed by patient prosthesis mismatch then re-op bio-AVR 1 year ago -would be helpful to obtain results of prior work up -echo tuesday
[2016-08-15] MEDS: CEFTRIAXONE 1G/50 ML IVPB SCH (11:24)
[2016-08-15] MEDS: BUDESONIDE/FORMETEROL FUMARATE 80/4.5 mcg INHALER IH SCH ×2 (11:25→22:15)
[2016-08-15] MEDS: GABAPENTIN 300 MG CAPSULE (FP) PO SCH ×2 (11:25→22:15)
[2016-08-15] MEDS: AZITHROMYCIN IVPB 500MG/250 ML IVPB SCH (11:26)
[2016-08-15] MEDS: ALBUTEROL SO4 2.5/IPRATROPIUM 0.5 INH SOL 3 ML VIAL.NEB. NEB SCH ×2 (12:00→18:02)
--- NOTE | 2016-08-15 13:01 | CON.PULM ---
Consult Consult Specialty:: PULMONARY Referred by:: Dr. Sharma Reason for Consultation:: shortness of breath - History of Present Illness Chief Complaint: shortness of breath History of Present Illness: 51yo female with h/o HTN, DM, Hep C, asthma, h/o bio AVR, h/o breast ca s/p right mastectomy, polysubstance abuse sent from [facility] for chest pain and shortness of breath. Currently undergoing a cardiac work up, stress test planned for tomorrow. States her dyspnea and chest pain have resolved, wants to go home. Denies fevers, chills or sweats. No cough or wheezing, episode did not feel like asthma. She was a long time smoker, quit 2 years ago. - History Source History Provided By: Patient, Medical Record Limitations to Obtaining History: No Limitations - Past Medical History Cardio/Vascular: Yes: Aortic Insufficiency Pulmonary: Yes: COPD Gastrointestinal: Yes: Other (previously told of cirrhosis) ...LMP: 03/03/12 ...: No Infectious Disease: Yes: Other (Positive T. palladium) Psych: Yes: Addictions Musculoskeletal: Yes: Chronic low back pain, Osteoarthritis Endocrine: Yes: Diabetes Mellitus - Past Surgical History Past Surgical History: Yes: Valve Replacement - Alcohol/Substance Use Hx Alcohol Use: Yes (6 pack on week-ends- in rehab) History of Substance Use: reports: Cocaine ($ 100 week habit- snorting) - Smoking History Smoking history: Former smoker Have you smoked in the past 12 months: No Aproximately how many cigarettes per day: 60 If you are a former smoker, when did you quit?: 2 years ago - Social History Occupation: disability History of Recent Travel: No Home Medications - Allergies Allergies/Adverse Reactions: Allergies Allergy/AdvReac Type Severity Reaction Status Date / Time grass pollen Allergy Intermediate Verified 08/13/16 16:19 No Known Drug Allergies Allergy Unknown Verified 08/13/16 16:19 NKDA Allergy Unknown Uncoded 08/13/16 16:19 - Home Medications Home Medications: Ambulatory Orders Oxcarbazepine [Trileptal] 300 mg PO BID 07/28/12 Salmeterol/Fluticasone [Advair 250Mcg/50Mcg] 1 inh PO BID 07/28/12 Albuterol Sulfate Inhaler - [Ventolin Hfa Inhaler -] 2 inh PO Q4H PRN 07/12/16 Metformin HCl [Glucophage -] 500 mg PO BID 08/02/16 Atorvastatin Ca [Lipitor] 20 mg PO HS 08/09/16 Bupropion HCl [Wellbutrin Xl -] 150 mg PO DAILY 08/09/16 Insulin Glargine,Hum.rec.anlog [Lantus Solostar PEN -] 30 units IM HS 08/13/16 Insulin Lispro [Humalog] 8 units IM TID 08/13/16 Family Disease History - Family Disease History Family Disease History: Heart Disease: Mother (alcohol,,[place]), Other: Father ( , gun shot ), Mother Review of Systems - Review of Systems Constitutional: denies: Chills, Fever Eyes: denies: Recent Change in Vision HENT: denies: Nasal Congestion, Throat Pain Neck: denies: Stiffness, Tenderness Cardiovascular: reports: Chest Pain, Shortness of Breath. denies: Edema, Palpitations Respiratory: denies: Cough, Hemoptysis, Wheezing Gastrointestinal: denies: Abdominal Pain, Nausea, Vomiting Genitourinary: denies: Dysuria, Hematuria Neurological: denies: Dizziness, Headache Physical Exam Vital Sings: Vital Signs Temperature 98 F 08/15/16 02:00 Pulse Rate 96 H 08/15/16 02:00 Respiratory Rate 20 08/15/16 02:00 Blood Pressure 108/69 08/15/16 02:00 O2 Sat by Pulse Oximetry (%) 96 08/14/16 21:00 Constitutional: Yes: Calm Eyes: Yes: Conjunctiva Clear, EOM Intact HENT: Yes: Atraumatic, Normocephalic Neck: Yes: Supple, Trachea Midline Cardiovascular: Yes: Regular Rate and Rhythm Respiratory: Yes: Regular, CTA Bilaterally ...Clubbing: No Gastrointestinal: Yes: Normal Bowel Sounds, Soft. No: Tenderness Edema: No Neurological: Yes: Alert, Oriented Imaging - Results Chest X-ray: Report Reviewed, Image Reviewed (pulmonary vascular congestion) Assessment/Plan Chest Pain CHF h/o bio AVR r/o CAD Asthma Polysubstance Abuse Hep C HTN DM - does not appear to be in bronchospasm or asthma exacerbation, can rapidly taper off steroids - inhaled bronchodilators - lasix - monitor urine output, creatinine - echocardiogram - for nuclear stress test - O2 as needed - outpt PFTs - DVT prophylaxis Thank you for this consult Fabio Ayala MD
--- NOTE | 2016-08-15 18:08 | PN ---
Teaching Attending Note Name of Resident: Hector Rosas ATTENDING PHYSICIAN STATEMENT I saw and evaluated the patient. I reviewed the resident's note and discussed the case with the resident. I agree with the resident's findings and plan as documented. Patient is feeling better, improving on Solu medrol IV Vital Signs Temperature 98.4 F 08/15/16 14:50 Pulse Rate 98 H 08/15/16 14:50 Respiratory Rate 18 08/15/16 14:50 Blood Pressure 108/66 08/15/16 14:50 O2 Sat by Pulse Oximetry (%) 96 08/14/16 21:00 CBCD WBC 6.5 K/mm3 (4.0-10.0) D 08/13/16 17:00 RBC 3.94 M/mm3 (3.60-5.2) 08/13/16 17:00 Hgb 11.9 GM/dL (10.7-15.3) 08/13/16 17:00 Hct 35.9 % (32.4-45.2) 08/13/16 17:00 MCV 90.9 fl (80-96) 08/13/16 17:00 MCHC 33.3 g/dl (32.0-36.0) 08/13/16 17:00 RDW 13.5 % (11.6-15.6) 08/13/16 17:00 Plt Count 72 K/MM3 (134-434) L 08/13/16 17:00 MPV 12.4 fl (7.5-11.1) H 08/13/16 17:00 CMP Sodium 143 mmol/L (136-145) 08/13/16 17:00 Potassium 3.9 mmol/L (3.5-5.1) 08/13/16 17:00 Chloride 109 mmol/L (98-107) H 08/13/16 17:00 Carbon Dioxide 27 mmol/L (21-32) 08/13/16 17:00 Anion Gap 7 (8-16) L 08/13/16 17:00 BUN 16 mg/dL (7-18) D 08/13/16 17:00 Creatinine 1.0 mg/dL (0.55-1.02) 08/13/16 17:00 Creat Clearance w eGFR 58.93 (>60) 08/13/16 17:00 Random Glucose 313 mg/dL (74-106) H* D 08/13/16 17:00 Calcium 8.2 mg/dL (8.5-10.1) L 08/13/16 17:00 Total Bilirubin 0.3 mg/dL (0.2-1.0) D 08/13/16 17:00 AST 17 U/L (15-37) D 08/13/16 17:00 ALT 56 U/L (12-78) D 08/13/16 17:00 Alkaline Phosphatase 89 U/L (45-117) 08/13/16 17:00 Total Protein 6.0 g/dl (6.4-8.2) L 08/13/16 17:00 Albumin 2.9 g/dl (3.4-5.0) L 08/13/16 17:00 CARDIAC ENZYMES Creatine Kinase 67 IU/L (26-192) 08/13/16 17:00 Troponin I 0.06 ng/ml (0.00-0.05) H 08/13/16 21:00 Current Medications Generic Name Dose Route Start Last Admin Trade Name Freq PRN Reason Stop Dose Admin Albuterol Sulfate 2 puff 08/13/16 22:50 Ventolin Hfa Inhaler - IH Q4H PRN ASTHMA Albuterol/Ipratropium 1 amp 08/14/16 14:57 Duoneb - NEB Q4H PRN SHORTNESS OF BREATH Albuterol/Ipratropium 1 amp 08/14/16 18:00 08/15/16 18:02 Duoneb - NEB Not Given QIDR DARIUS Atorvastatin Calcium 20 mg 08/14/16 22:00 08/14/16 22:58 Lipitor - PO 20 mg HS DARIUS Administration Budesonide/Formoterol Fumarate 2 puff 08/14/16 10:00 08/15/16 11:25 Symbicort 80/4.5mcg - IH 2 puff BID DARIUS Administration Bupropion HCl 150 mg 08/14/16 10:00 08/15/16 11:24 Wellbutrin Xl - PO 150 mg DAILY DARIUS Administration Furosemide 20 mg 08/14/16 14:00 08/15/16 14:13 Lasix Injection - IVPUSH 20 mg BID@0600,1400 DARIUS Administration Gabapentin 600 mg 08/14/16 10:00 08/15/16 11:25 Neurontin - PO 600 mg BID DARIUS Administration Azithromycin 250 mls @ 250 mls/hr 08/14/16 15:15 08/15/16 11:26 Zithromax 500mg Ivpb (Pre-Docked) IVPB 250 mls/hr DAILY DARIUS Administration Ceftriaxone Sodium 50 mls @ 100 mls/hr 08/14/16 15:00 08/15/16 11:24 Rocephin 1gm Ivpb (Pre-Docked) IVPB 100 mls/hr DAILY DARIUS Administration Insulin Aspart 1 vial 08/14/16 07:00 08/15/16 17:13 Novolog Vial Sliding Scale - SQ 10 units ACHS DARIUS Administration Protocol Insulin Detemir 30 units 08/14/16 22:00 08/14/16 22:58 Levemir Vial SQ 30 units HS DARIUS Administration Methylprednisolone Sodium Succinate 40 mg 08/15/16 22:00 Solu-Medrol - IVPB BID [facility] Home Medications Medication Instructions Recorded Oxcarbazepine [Trileptal] 300 mg PO BID 07/28/12 Salmeterol/Fluticasone [Advair 1 inh PO BID 07/28/12 250Mcg/50Mcg] Albuterol Sulfate Inhaler - 2 inh PO Q4H PRN 07/12/16 [Ventolin Hfa Inhaler -] Metformin HCl [Glucophage -] 500 mg PO BID 08/02/16 Atorvastatin Ca [Lipitor] 20 mg PO HS 08/09/16 Bupropion HCl [Wellbutrin Xl -] 150 mg PO DAILY 08/09/16 Insulin Glargine,Hum.rec.anlog 30 units IM HS 08/13/16 [Lantus Solostar PEN -] Insulin Lispro [Humalog] 8 units IM TID 08/13/16 CXR: positive thoracotomy, with congestive changes Past Medical History: Hyperlipidemia, diabetes, aortic valve replacement x2, right breast CA treated with chemotherapy in 2011, asthma/COPD, and polysubstance abuse. H/o Bio-AVR x 2-first AVR 2 years ago followed by patient prosthesis mismatch then re-op bio-AVR 1 year ago -would be helpful to obtain results of prior work up ASSESSMENT AND PLAN: Patient is a 51 yr old woman with hx of breast cancer, HTN, IDDM, aortic valve replacement, polysubstance abuse referred from [facility] for chest pain. - PERC score 0, low suspicion for PE # Acute exacerbation of Asthma improving , s/p Solu Medrol IV 125mg x 1 yesterday will reduce to solumedrol 40mg q12 IV from 60 . Nebs treatment duoneb standing and prn ordered. # Acute Chest pain with hx of AVR x2 ; 2 sets of troponins = 0.6 x2, cardiology consult covering MD is ;continue Tele monitoring; echo ordered pending. # Acute exacrbation of CHF, lasix 20mg iv bid , monitor the vitals # Acute over chronic thrombocytopenia - Possible due to polysubstance abuse , hem. consult # Hx of Polysubstance abuse ; last cocaine and EtOH use was Tuesday #T2DM uncontrolled ; levemir 30units HS, sliding scale with coverage; hold metformin for now #HTN - controlled continue lasix 20mg po daily #Diabetic Neuropathy on Gabapentin 600mg po bid #Bipolar d/o on wellbutrin xl 150mg po daily DVT Px- scd's for now, given thrombocytopenia nuclear stress test and echo tomorrow possible discharge if everything is negative,in am
--- NOTE | 2016-08-15 18:53 | PN ---
Physical Exam: SUBJECTIVE: Patient seen and examined at bedside no complaints wants to go home OBJECTIVE: Vital Signs Period Temp Pulse Resp BP Sys/Vázquez Pulse Ox Last 24 Hr 98 F-98.9 F 94-102 18-20 107-109/59-94 96-96 GENERAL: The patient is awake, alert, and fully oriented, in no acute distress. EYES: PERRL, extraocular movements intact, sclera anicteric, conjunctiva clear. ENT: moist mucous membranes. NECK: Trachea midline, full range of motion, supple. LUNGS: Breath sounds equal, clear to auscultation bilaterally, no wheezes, no crackles, no accessory muscle use. HEART: Regular rate and rhythm, S1, S2 loud 3/6 systolic murmur ABDOMEN: Soft, nontender, nondistended, normoactive bowel sounds, no guarding, no rebound NEUROLOGICAL: Cranial nerves II through XII grossly intact. Normal speech. normal gait Laboratory Results - last 24 hr 08/14/16 08/15/16 08/15/16 22:55 06:45 11:32 POC Glucometer 421 285 392 08/15/16 17:11 POC Glucometer 409 Active Medications Generic Name Dose Route Start Last Admin Trade Name Freq PRN Reason Stop Dose Admin Albuterol Sulfate 2 puff 08/13/16 22:50 Ventolin Hfa Inhaler - IH Q4H PRN ASTHMA Albuterol/Ipratropium 1 amp 08/14/16 14:57 Duoneb - NEB Q4H PRN SHORTNESS OF BREATH Albuterol/Ipratropium 1 amp 08/14/16 18:00 08/15/16 18:02 Duoneb - NEB Not Given QIDR DARIUS Atorvastatin Calcium 20 mg 08/14/16 22:00 08/14/16 22:58 Lipitor - PO 20 mg HS DARIUS Administration Budesonide/Formoterol Fumarate 2 puff 08/14/16 10:00 08/15/16 11:25 Symbicort 80/4.5mcg - IH 2 puff BID DARIUS Administration Bupropion HCl 150 mg 08/14/16 10:00 08/15/16 11:24 Wellbutrin Xl - PO 150 mg DAILY DARIUS Administration Furosemide 20 mg 08/14/16 14:00 08/15/16 14:13 Lasix Injection - IVPUSH 20 mg BID@0600,1400 DARIUS Administration Gabapentin 600 mg 08/14/16 10:00 08/15/16 11:25 Neurontin - PO 600 mg BID DARIUS Administration Azithromycin 250 mls @ 250 mls/hr 08/14/16 15:15 08/15/16 11:26 Zithromax 500mg Ivpb (Pre-Docked) IVPB 250 mls/hr DAILY DARIUS Administration Ceftriaxone Sodium 50 mls @ 100 mls/hr 08/14/16 15:00 08/15/16 11:24 Rocephin 1gm Ivpb (Pre-Docked) IVPB 100 mls/hr DAILY DARIUS Administration Insulin Aspart 1 vial 08/14/16 07:00 08/15/16 17:13 Novolog Vial Sliding Scale - SQ 10 units ACHS DARIUS Administration Protocol Insulin Detemir 30 units 08/14/16 22:00 08/14/16 22:58 Levemir Vial SQ 30 units HS DARIUS Administration Methylprednisolone Sodium Succinate 40 mg 08/15/16 22:00 Solu-Medrol - IVPB BID [facility] ASSESSMENT/PLAN: 51F with multiple medical problems presented form [facility] for chest pain and shortness of breath admitted for work up. Acute asthma exacerbation/SOB Resolved Lungs are clear taper steroids decrease solumedrol to 40mg BID and stop tomorrow and start PO prednsione Doppler US negative for DVT Atypical chest pain: Cardiology consult appreciated continue telemetry for today glen elder to send report of cath from 2013 nuclear stress test planned for tomorrow echo pending possible CHF exacerbation: stop IV lasix and transition to PO per cardiology 40mg po daily Echo pending Thrombocytopenia: this is chronic hematology consult appreciated abdominal US to evaluate spleen shows spleen WNL possibly from chronic liver disease vs polysubstance abuse diabetes:Fingersticks not well controlled likely from steroids continue levemir should become better controlled as we taper steroids tighten ISS for now HTN: well controlled at this time continue lasix 40mg po daily polysubstance abuse: back to [facility] for continued detox and rehabilitation when medically cleared Bipolar disorder: continue wellbutrin Diabetic neuropathy: continue gabapentin FEN: No IVF no electrolyte issues at this time diabetic diet PPx: SCDs no chemical PPx as she is thrombocytopenic no GI PPx indicated No PT consult needed Discharge likely tomorrow if stress test is ok Visit type - Emergency Visit Emergency Visit: Yes ED Registration Date: 08/13/16 Care time: The patient presented to the Emergency Department on the above date and was hospitalized for further evaluation of their emergent condition. - New Patient This patient is new to me today: Yes Date on this admission: 08/15/16 - Critical Care Critical Care patient: No
[2016-08-15] MEDS ORDERED: diphenhydrAMINE HCL 25 MG CAPSULE (FP) PO ONE (21:12)
[2016-08-15] MEDS: INSULIN DETEMIR 100 UNITS/ML MDV SQ SCH (21:20)
[2016-08-15] MEDS ORDERED: methylPREDNISolone NA SUCC 40 MG/1 ML VIAL IVPB SCH (22:00)
[2016-08-15] MEDS: ATORVASTATIN CA 20 MG TABLET (FP) PO SCH (22:15)
[2016-08-16] MEDS: ALBUTEROL SO4 2.5/IPRATROPIUM 0.5 INH SOL 3 ML VIAL.NEB. NEB SCH ×3 (00:15→11:35)
[2016-08-16] MEDS ORDERED: ACETAMINOPHEN 325 MG TABLET (FP) PO ONE (02:49)
[2016-08-16] MEDS ORDERED: FUROSEMIDE 40 MG TABLET (FP) PO SCH ×2 (06:00→10:00)
[2016-08-16] MEDS: INSULIN SLIDING SCALE (NOVOLOG) 1 VIAL SQ SCH ×2 (06:09→11:55)
[2016-08-16 06:28] VITALS: BP 119/77; PULSE 76; TEMP 97.3
[2016-08-16] MEDS: CEFTRIAXONE 1G/50 ML IVPB SCH (09:13)
[2016-08-16] MEDS: GABAPENTIN 300 MG CAPSULE (FP) PO SCH (09:13)
[2016-08-16] MEDS: AZITHROMYCIN IVPB 500MG/250 ML IVPB SCH (09:14)
[2016-08-16] MEDS: BUDESONIDE/FORMETEROL FUMARATE 80/4.5 mcg INHALER IH SCH (09:14)
[2016-08-16] MEDS ORDERED: predniSONE 20 MG TABLET (UD) PO SCH (10:00)
--- NOTE | 2016-08-16 11:08 | DS ---
Physical Exam: SUBJECTIVE: Patient seen and examined at bedside wants to go home refusing echo and stress test signed out AMA OBJECTIVE: Vital Signs Period Temp Pulse Resp BP Sys/Vázquez Pulse Ox Last 24 Hr 97.3 F-98.4 F 76-99 18-18 95-119/65-77 96-97 PHYSICAL EXAM GENERAL: The patient is awake, alert, and fully oriented, in no acute distress. EYES: PERRL, extraocular movements intact, sclera anicteric, conjunctiva clear. ENT: moist mucous membranes. NECK: Trachea midline, full range of motion, supple. LUNGS: Breath sounds equal, clear to auscultation bilaterally, no wheezes, no crackles, no accessory muscle use. HEART: Regular rate and rhythm, S1, S2 loud 3/6 systolic murmur ABDOMEN: Soft, nontender, nondistended, normoactive bowel sounds, no guarding, no rebound NEUROLOGICAL: Cranial nerves II through XII grossly intact. Normal speech. normal gait LABS Laboratory Results - last 24 hr 08/14/16 08/14/16 08/15/16 18:36 18:42 11:32 POC Glucometer 361 136 392 08/15/16 17:11 POC Glucometer 409 HOSPITAL COURSE: Date of Admission:08/13/16 Date of Discharge: 08/16/16 51F from [facility] with hx of aortic valve replacement x2, asthma, breast ca s/ p right mastectomy(2011), hep C, HTN, IDDM, polysubstance abuse presents with chest pain. Work up and did not have ACS. likely was in asthma exacerbation and was treated with steroids and nebulizers and improved. Seen by cardiology and was supposed to have an echo and stress test but patient is refusing and states she has an appointment with her chemist inorganic on august 23, 2016 for echo and stress test. risks explained to patient including but not limited to sudden cardiac undiagnosed heart condition and heart attack and she is willing to accept those risks and leave anyway. Minutes to complete discharge: 40 Discharge Summary Reason For Visit: CHEST PAIN Current Active Problems Asthma (Acute) Chest pain (Acute) Thrombocytopenia (Acute) Alcohol dependence with uncomplicated withdrawal (Chronic) Bipolar disorder (Chronic) Cocaine dependence (Chronic) DM2 (diabetes mellitus, type 2) (Chronic) Hypercholesterolemia (Chronic) PTSD (post-traumatic stress disorder) (Chronic) S/P right mastectomy (Chronic) Syncope (Chronic) Condition: Guarded - Instructions Diet, Activity, Other Instructions: eat a low carbohydrate diet follow up with your primary care doctor follow up with your chemist [employer] for your echo and stress test continue your home medications if your symptoms get worse go to the closest emergency room Disposition: AGAINST MEDICAL ADVICE - Home Medications Comprehensive Discharge Medication List: Ambulatory Orders Oxcarbazepine [Trileptal -] 300 mg PO BID 07/28/12 Salmeterol/Fluticasone [Advair 250Mcg/50Mcg -] 1 inh PO BID 07/28/12 Albuterol Sulfate Inhaler - [Ventolin HFA Inhaler -] 2 inh PO Q4H PRN 07/12/16 Metformin HCl [Glucophage -] 500 mg PO BID 08/02/16 Atorvastatin Ca [Lipitor] 20 mg PO HS 08/09/16 Bupropion HCl [Wellbutrin Xl -] 150 mg PO DAILY 08/09/16 Insulin Glargine,Hum.rec.anlog [Lantus Solostar PEN -] 30 units IM HS 08/13/16 Insulin Lispro [Humalog] 8 units IM TID 08/13/16 Gabapentin [Neurontin -] 600 mg PO BID cap 08/16/16 This patient is new to me today: No Emergency Visit: Yes ED Registration Date: 08/13/16 Care time: The patient presented to the Emergency Department on the above date and was hospitalized for further evaluation of their emergent condition. Critical Care patient: No - Discharge Referral Referred to [facility] No
--- NOTE | 2016-08-16 11:37 | PN ---
Progress Note, Physician - Current Medication List Current Medications: Active Medications Albuterol Sulfate (Ventolin Hfa Inhaler -) 2 puff IH Q4H PRN PRN Reason: ASTHMA Albuterol/Ipratropium (Duoneb -) 1 amp NEB Q4H PRN PRN Reason: SHORTNESS OF BREATH Albuterol/Ipratropium (Duoneb -) 1 amp NEB QIDR [facility] Last Admin: 08/16/16 06:00 Dose: Not Given Atorvastatin Calcium (Lipitor -) 20 mg PO HS [facility] Last Admin: 08/15/16 22:15 Dose: 20 mg Budesonide/Formoterol Fumarate (Symbicort 80/4.5mcg -) 2 puff IH BID [facility] Last Admin: 08/16/16 09:14 Dose: 2 puff Bupropion HCl (Wellbutrin Xl -) 150 mg PO DAILY [facility] Last Admin: 08/16/16 09:13 Dose: 150 mg Furosemide (Lasix -) 40 mg PO DAILY [facility] Last Admin: 08/16/16 09:13 Dose: 40 mg Gabapentin (Neurontin -) 600 mg PO BID [facility] Last Admin: 08/16/16 09:13 Dose: 600 mg Azithromycin (Zithromax 500mg Ivpb (Pre-Docked)) 250 mls @ 250 mls/hr IVPB DAILY [facility] Last Admin: 08/16/16 09:14 Dose: Not Given Ceftriaxone Sodium (Rocephin 1gm Ivpb (Pre-Docked)) 50 mls @ 100 mls/hr IVPB DAILY [facility] Last Admin: 08/16/16 09:13 Dose: Not Given Insulin Aspart (Novolog Vial Sliding Scale -) 1 vial SQ ACHS [facility] PRN Reason: Protocol Last Admin: 08/16/16 06:09 Dose: Not Given Insulin Detemir (Levemir Vial) 30 units SQ [facility] Last Admin: 08/15/16 21:20 Dose: Not Given Prednisone (Deltasone -) 40 mg PO DAILY [facility] Last Admin: 08/16/16 09:13 Dose: 40 mg - Objective Vital Signs: Vital Signs Temperature 97.3 F L 08/16/16 06:24 Pulse Rate 76 08/16/16 06:24 Respiratory Rate 18 08/16/16 06:24 Blood Pressure 119/77 08/16/16 06:24 O2 Sat by Pulse Oximetry (%) 97 08/16/16 09:00 Eyes: Yes: WNL, Conjunctiva Clear, EOM Intact HENT: Yes: WNL, Atraumatic, Normocephalic Neck: Yes: WNL, Supple, Trachea Midline Cardiovascular: Yes: Regular Rate and Rhythm, Murmur, S1, S2 Respiratory: Yes: WNL, Regular, CTA Bilaterally Gastrointestinal: Yes: WNL, Normal Bowel Sounds Genitourinary: Yes: WNL Musculoskeletal: Yes: WNL Extremities: Yes: WNL Edema: No Integumentary: Yes: WNL Neurological: Yes: WNL, Alert, Oriented ...Motor Strength: WNL Psychiatric: Yes: WNL Labs: INR, PTT INR 1.06 (0.82-1.09) 08/13/16 17:00 Assessment/Plan 51 year old woman with a history of HLD, DMII, Aortic regurgitation s/p bio AVR 2 years ago at [facility] with patient prosthesis mismatch as per pt followed by re- op bio AVR 05/2015 at [facility], with a preop cardiac cath that showed normal coronary arteries as per patient, breast Ca s/p chemo 2011, polysubstance abuse with etoh and crack cocaine, was in [facility] for the past 5 days, admitted with chest pain and sob. Chest pain-atypical, believed to be secondary to asthma exacerbation -troponin .06 with normal CK, not significantly elevated, pt refused 3rd set of cardiac enzymes -no ischemia on ekg -chest pain has resolved -no sig arrhythmia on tele -pt reports having a cardiac cath at [facility] 05/2015 that showed normal coronary arteries prior to her re-op AVR -cardiac cath report has been requested, if indeed had normal coronary arteries last year it is unlikely that this is ACS -plan for echo tuesday -would plan for a nuclear stress test tomorrow to further evaluate for ischemia , unless can confirm that pt did indeed have normal coronary arteries on recent cardiac cath SOB-believed to be c/w asthma exacerbation -significantly improved -Cxr read as pulm vascular congestion, on exam does not appear significantly volume overloaded -can transition to po Lasix -I/Os not recorded and pt refused additional blood work yesterday -monitor strict I/Os and daily weights with diuresis and electrolytes, bun/creat -Pulmonary embolism unlikely given improvement with tx for Asthma -plan for echo tuesday DMII-uncontrolled -insulin as per Med H/o Bio-AVR x 2-first AVR 2 years ago followed by patient prosthesis mismatch then re-op bio-AVR 1 year ago -would be helpful to obtain results of prior work up patient refusing further w/u wants to sign out AMA understands risks including CVA ID and .
--- NOTE | 2016-08-16 17:37 | PN ---
S Progress Note (SOAP) Subjective: Pt. was sent to ED & admitted to med/surg because of chest pain & SOB Objective: 08/16/16 17:35 Last Vital Signs Temp Pulse Resp BP Pulse Ox 97.3 F L 76 18 119/77 97 08/16/16 06:24 08/16/16 06:24 08/16/16 06:24 08/16/16 06:24 08/16/16 09:00 Laboratory Tests 08/13/16 08/13/16 08/13/16 17:00 17:00 17:00 WBC 6.5 D RBC 3.94 Hgb 11.9 Hct 35.9 MCV 90.9 MCHC 33.3 RDW 13.5 Plt Count 72 L MPV 12.4 H Neutrophils % 73.5 Lymphocytes % 16.9 Monocytes % 7.2 Eosinophils % 1.8 Basophils % 0.6 Platelet Estimate Slt decreased Platelet Comment Few giant plts RBC Morphology Appears normal INR 1.06 PTT (Actin FS) 28.9 Sodium 143 Potassium 3.9 Chloride 109 H Carbon Dioxide 27 Anion Gap 7 L BUN 16 D Creatinine 1.0 Creat Clearance w eGFR 58.93 POC Glucometer Random Glucose 313 H* D Calcium 8.2 L Phosphorus 2.7 Magnesium 1.6 L Total Bilirubin 0.3 D AST 17 D ALT 56 D Alkaline Phosphatase 89 Creatine Kinase 67 Troponin I 0.06 H Total Protein 6.0 L Albumin 2.9 L Triglycerides Cholesterol Total LDL Cholesterol HDL Cholesterol Opiates Screen Methadone Screen Barbiturate Screen Phencyclidine Screen Ur Amphetamines Screen MDMA (Ecstasy) Screen Benzodiazepines Screen Cocaine Screen U Marijuana (THC) Screen 08/13/16 08/13/16 08/14/16 21:00 21:00 06:36 WBC RBC Hgb Hct MCV MCHC RDW Plt Count MPV Neutrophils % Lymphocytes % Monocytes % Eosinophils % Basophils % Platelet Estimate Platelet Comment RBC Morphology INR PTT (Actin FS) Sodium Potassium Chloride Carbon Dioxide Anion Gap BUN Creatinine Creat Clearance w eGFR POC Glucometer 220 Random Glucose Calcium Phosphorus Magnesium Total Bilirubin AST ALT Alkaline Phosphatase Creatine Kinase Troponin I 0.06 H Total Protein Albumin Triglycerides 133 Cholesterol 175 Total LDL Cholesterol 72 HDL Cholesterol 90 H Opiates Screen Methadone Screen Barbiturate Screen Phencyclidine Screen Ur Amphetamines Screen MDMA (Ecstasy) Screen Benzodiazepines Screen Cocaine Screen U Marijuana (THC) Screen 08/14/16 08/14/1608/14/17 09:45 12:40 18:36 WBC RBC Hgb Hct MCV MCHC RDW Plt Count MPV Neutrophils % Lymphocytes % Monocytes % Eosinophils % Basophils % Platelet Estimate Platelet Comment RBC Morphology INR PTT (Actin FS) Sodium Potassium Chloride Carbon Dioxide Anion Gap BUN Creatinine Creat Clearance w eGFR POC Glucometer 203 361 Random Glucose Calcium Phosphorus Magnesium Total Bilirubin AST ALT Alkaline Phosphatase Creatine Kinase Troponin I Total Protein Albumin Triglycerides Cholesterol Total LDL Cholesterol HDL Cholesterol Opiates Screen Negative Methadone Screen Negative Barbiturate Screen Negative Phencyclidine Screen Negative Ur Amphetamines Screen Negative MDMA (Ecstasy) Screen Positive Benzodiazepines Screen Negative Cocaine Screen Negative U Marijuana (THC) Screen Negative 08/14/16 08/14/16 08/15/16 18:42 22:55 06:45 WBC RBC Hgb Hct MCV MCHC RDW Plt Count MPV Neutrophils % Lymphocytes % Monocytes % Eosinophils % Basophils % Platelet Estimate Platelet Comment RBC Morphology INR PTT (Actin FS) Sodium Potassium Chloride Carbon Dioxide Anion Gap BUN Creatinine Creat Clearance w eGFR POC Glucometer 136 421 285 Random Glucose Calcium Phosphorus Magnesium Total Bilirubin AST ALT Alkaline Phosphatase Creatine Kinase Troponin I Total Protein Albumin Triglycerides Cholesterol Total LDL Cholesterol HDL Cholesterol Opiates Screen Methadone Screen Barbiturate Screen Phencyclidine Screen Ur Amphetamines Screen MDMA (Ecstasy) Screen Benzodiazepines Screen Cocaine Screen U Marijuana (THC) Screen 08/15/16 08/15/16 11:32 17:11 WBC RBC Hgb Hct MCV MCHC RDW Plt Count MPV Neutrophils % Lymphocytes % Monocytes % Eosinophils % Basophils % Platelet Estimate Platelet Comment RBC Morphology INR PTT (Actin FS) Sodium Potassium Chloride Carbon Dioxide Anion Gap BUN Creatinine Creat Clearance w eGFR POC Glucometer 392 409 Random Glucose Calcium Phosphorus Magnesium Total Bilirubin AST ALT Alkaline Phosphatase Creatine Kinase Troponin I Total Protein Albumin Triglycerides Cholesterol Total LDL Cholesterol HDL Cholesterol Opiates Screen Methadone Screen Barbiturate Screen Phencyclidine Screen Ur Amphetamines Screen MDMA (Ecstasy) Screen Benzodiazepines Screen Cocaine Screen U Marijuana (THC) Screen labs noted,drug screen + for MDMA Assessment: 08/16/16 17:36 Chest pain with elevated troponin Plan: Pt. signed out AMA
== END 2016-08-16 12:50 | disposition left against medical advice (07) | DRG 202 ==
LOC: JER 15:53 → JERBED 19:17 → J4W 08-14 00:18
PROVIDERS: ADMIT Internal Medicine; ATTEND Internal Medicine
DX: J45.901 Unspecified asthma with (acute) exacerbation (principal); F14.20 Cocaine dependence, uncomplicated; F10.230 Alcohol dependence with withdrawal, uncomplicated; R07.89 Other chest pain; D69.6 Thrombocytopenia, unspecified; F31.9 Bipolar disorder, unspecified; I10 Essential (primary) hypertension; E78.5 Hyperlipidemia, unspecified; Z85.3 Personal history of malignant neoplasm of breast; E11.40 Type 2 diabetes mellitus with diabetic neuropathy, unspecified; E11.65 Type 2 diabetes mellitus with hyperglycemia; I11.0 Hypertensive heart disease with heart failure; I50.9 Heart failure, unspecified; Z87.891 Personal history of nicotine dependence
CPT/HCPCS: 36415; 71010-TC; 76700-TC; 80053; 80061; 80307; 82550; 83721; 83735; 84100; 84484; 85025; 85610; 85730; 87254; 87804; 93005; 93010; 93970-TC; 94640; 99284-25; 99285-25; G0480

== ENCOUNTER 2017-08-14 08:56 | Inpatient (IN) | payer OTHER ==
[2017-08-14 09:11] VITALS: BMI 34.7
--- NOTE | 2017-08-14 10:14 | HP ---
CIWA Score - CIWA Score Nausea/Vomitin Muscle Tremors: 3 Anxiety: 3 Agitation: 3 Paroxysmal Sweats: 2 Orientation: 0-Oriented Tacttile Disturbances: 2-Mild Itch/Numbness/Burn Auditory Disturbances: 2-Mild Harshness/Frighten Visual Disturbances: 1-Very Mild Sensitivity Headache: 2-Mild CIWA-Ar Total Score: 21 Admission ROS BHS - HPI Chief Complaint: i am here,need help to stop drinking alcohol,cocaine,marijuana Allergies/Adverse Reactions: Allergies Allergy/AdvReac Type Severity Reaction Status Date / Time grass pollen Allergy Intermediate Verified 08/14/17 09:31 No Known Drug Allergies Allergy Unknown Verified 08/14/17 09:31 History of Present Illness: this 52 years old female with alcohol,cocaine,marijuana dependence,seeking detox ,withdrawal symptom,last detox [facility] 10/16 syncope multiple medical problems aortic valve replacement at [facility] in 2015 diabetic insulin dependence s/p right mastectomy in 2015,remission non compliance with medications longest period of sobriety 3 years copd - Ebola screening Have you traveled outside of the country in the last 21 days: No (N) Have you had contact with anyone from an Ebola affected area: No Have you been sick,other than usual withdrawal symptoms: No Do you have a fever: No - Review of Systems Constitutional: Loss of Appetite, Malaise, Night Sweats, Changes in sleep, Weakness, Unintentional Wgt. Loss EENT: reports: Nose Congestion Respiratory: reports: Other (copd) Cardiac: reports: Other (s/p aortic valve replacement in 2015) GI: reports: Nausea, Vomiting, Abdominal cramping : reports: No Symptoms Reported Musculoskeletal: reports: Back Pain, Muscle Pain Integumentary: reports: Dryness, Other (s/p mastectomy right 2011) Neuro: reports: Headache, Tremors Endocrine: reports: No Symptoms Reported Hematology: reports: No Symptoms Reported Psychiatric: reports: No Sypmtoms Reported, Judgement Intact, Mood/Affect Appropiate, Orientated x3 (bipolar and ptsd) Patient History - Patient Medical History Hx Anemia: No Hx Asthma: Yes Hx Chronic Obstructive Pulmonary Disease (COPD): Yes Hx Cancer: Yes ((R) BREAST CA - MASTECTOMY 2012) Hx Cardiac Disorders: Yes (AORTIC VALVE REPLACEMENT, 2 OPEN HEART SURGERY) Hx Congestive Heart Failure: No Hx Hypertension: No Hx Hypercholesterolemia: Yes Hx Pacemaker: No HX Cerebrovascular Accident: No Hx Seizures: No Hx Dementia: No Hx Diabetes: Yes Hx Gastrointestinal Disorders: No Hx Liver Disease: Yes (hep c treated) Hx Genitourinary Disorders: No Hx Sexually Transmitted Disorders: No Hx Renal Disease (ESRD): No Hx Thyroid Disease: No Hx Human Immunodeficiency Virus (HIV): No Hx Hepatitis C: Yes (treated) Hx Depression: Yes Hx Suicide Attempt: No Hx Bipolar Disorder: Yes (no med) Hx Schizophrenia: No Other Medical History: no suicidal,no suicidal - Patient Surgical History Past Surgical History: Yes Hx Neurologic Surgery: No Hx Cataract Extraction: No Hx Cardiac Surgery: (AVR ) Hx Lung Surgery: No Hx Breast Surgery: Yes (R mastectomy from R breast CA in 05/13) Hx Breast Biopsy: Yes Hx Abdominal Surgery: No Hx Appendectomy: No Hx Cholecystectomy: No Hx Genitourinary Surgery: No Hx Section: No Hx Orthopedic Surgery: No Hx Hysterectomy: No Anesthesia Reaction: No - PPD History Previous Implant?: Yes Documented Results: Negative w/o proof Date: 07/14/16 Results: 0MM PPD to be Administered?: Yes - Reproductive History Patient is a Female of Child Bearing Age (11 -55 yrs old): Yes Last Menstrual Period: 03/03/12 Patient : No - Smoking Cessation Smoking history: Former smoker Have you smoked in the past 12 months: No Aproximately how many cigarettes per day: 60 If you are a former smoker, when did you quit?: 2 years ago Hx Chewing Tobacco Use: No Initiated information on smoking cessation: No - Substance & Tx. History Hx Alcohol Use: Yes Hx Substance Use: Yes Substance Use Type: Alcohol, Cocaine, Marijuana Hx Substance Use Treatment: Yes ([facility] 10/16) - Substances Abused Cocaine Route: Inhalation Frequency: Daily Amount used: $200 Age of first use: 15 Date of Last Use: 08/12/17 ETOH Route: Oral Frequency: Daily Amount used: 6-PK BEER- 24OZ Age of first use: 15 Date of Last Use: 08/14/17 thc Route: Smoking Frequency: 1-2 times per week Amount used: $10 Age of first use: 12 Date of Last Use: 07/31/17 Family Disease History - Family Disease History Family Disease History: Heart Disease: Mother (alcohol,,[place]), Other: Father ( , gun shot ), Mother Admission Physical Exam [facility] - Vital Signs Vital Signs: Vital Signs - 24 hr 08/14/17 09:07 Temperature 98.1 F Pulse Rate 118 H Respiratory 18 Rate Blood Pressure 147/105 - Physical General Appearance: Yes: Moderate Distress, Tremorous, Irritable, Anxious HEENTM: Yes: Normal ENT Inspection, JOSE, Pharynx Normal Respiratory: Yes: Lungs Clear, Normal Breath Sounds, No Respiratory Distress Neck: Yes: Within Normal Limits, Supple, Trachea in good position Breast: Yes: Surgical Scar (s/p mastectomy right) Cardiology: Yes: Regular Rate, Surgical Scar (mid sterna scar s/p aortic valve replacement) Abdominal: Yes: Within Normal Limits, Normal Bowel Sounds, Non Tender, Soft Genitourinary: Yes: Within Normal Limits Back: Yes: Normal Inspection, Muscle Spasm Musculoskeletal: Yes: full range of Motion, Back pain, Muscle Pain Extremities: Yes: Tremors Neurological: Yes: rinkman II-XII NML intact, Alert, Motor Strength 5/5 Integumentary: Yes: Dry Lymphatic: Yes: Within Normal Limits - Diagnostic (1) Alcohol dependence with uncomplicated withdrawal Current Visit: No Status: Chronic (2) COPD (chronic obstructive pulmonary disease) Current Visit: Yes Status: Acute (3) Bipolar disorder Current Visit: No Status: Chronic (4) Cocaine dependence Current Visit: No Status: Chronic (5) DM2 (diabetes mellitus, type 2) Current Visit: No Status: Chronic (6) Hypercholesterolemia Current Visit: No Status: Chronic (7) S/P right mastectomy Current Visit: No Status: Chronic (8) Syncope Current Visit: No Status: Chronic Cleared for Admission [facility] - Detox or Rehab [facility] Level of Care: Medically Managed Detox Regimen/Protocol: Librium [facility] Breath Alcohol Content Breath Alcohol Content: 0 Urine Drug Screen - Results Drug Screen Negative: Yes
[2017-08-14] MEDS ORDERED: LOPERAMIDE HCL 2 MG CAPSULE PO PRN (10:30)
[2017-08-14] MEDS ORDERED: MAG HYDROX/AL HYDROX/SIMETH 30 ML UNIT-DOSE CUP PO PRN (10:30)
[2017-08-14] MEDS ORDERED: hydrOXYzine PAMOATE 25 MG CAPSULE (FP) PO PRN (10:30)
[2017-08-14] MEDS ORDERED: ACETAMINOPHEN 325 MG TABLET (FP) PO PRN (10:30)
[2017-08-14] MEDS ORDERED: guaiFENesin/D-METHORPHAN HB 10 ML UNIT-DOSE CUPS PO PRN (10:30)
[2017-08-14] MEDS ORDERED: chlordiazePOXIDE HCL 25 MG CAPSULE PO ONE ×2 (10:30→13:00)
[2017-08-14] MEDS ORDERED: MENTHOL/PHENOL 1 EACH UD MM PRN (10:30)
[2017-08-14] MEDS ORDERED: P-EPHED 60MG/TRIPROLIDI 2.5MG TABLET PO PRN (10:30)
[2017-08-14] MEDS ORDERED: chlordiazePOXIDE HCL 25 MG CAPSULE PO PRN (10:30)
[2017-08-14] MEDS ORDERED: IBUPROFEN 400 MG TABLET (FP) PO PRN (10:30)
[2017-08-14] MEDS ORDERED: MAGNESIUM CITRATE 300 ML BOTTLE PO PRN (10:30)
[2017-08-14] MEDS ORDERED: MAGNESIUM HYDROX 2400MG/30ML ORAL SUSPENSION 30 ML CUP PO PRN (10:30)
[2017-08-14] MEDS ORDERED: ALBUTEROL SO4 18 GM HFA INHALER IH PRN (10:36)
[2017-08-14] MEDS: INSULIN (NOVOLOG) ASPART 100 UNITS/ML 10ML VIAL SQ SCH ×3 (12:59→22:17)
[2017-08-14] MEDS ORDERED: INSULIN (NOVOLOG) ASPART 100 UNITS/ML 10ML VIAL ONE ×3 (13:00→22:19)
[2017-08-14] MEDS: ASPIRIN 81 MG CHEWABLE TABLETS PO SCH (13:04)
[2017-08-14] MEDS: chlordiazePOXIDE HCL 25 MG CAPSULE PO SCH ×2 (18:37→22:14)
[2017-08-14 19:08] LABS: URINE APPEARANCE CLEAR; URINE BILIRUBIN NEGATIVE (<2.0 mg/dL); URINE COLOR YELLOW; URINE GLUCOSE (UA) NEGATIVE (NEGATIVE); URINE KETONE TRACE (NEGATIVE); URINE LEUK ESTERASE NEGATIVE (NEGATIVE); URINE NITRITE NEGATIVE (NEGATIVE); URINE PROTEIN NEGATIVE (NEGATIVE); URINE UROBILINOGEN 4.0 E.U/dl mg/dL (0.2-1.0)
[2017-08-14] MEDS ORDERED: MELATONIN 5 MG TABLETS PO PRN (22:00)
[2017-08-14] MEDS: ATORVASTATIN CA 20 MG TABLET (FP) PO SCH (22:14)
[2017-08-14] MEDS: THIAMINE HCL 100 MG TABLET (FP) PO SCH (22:14)
[2017-08-14] MEDS: INSULIN (LEVEMIR) 100 UNITS/ML UNITS SQ SCH (22:17)
[2017-08-15] MEDS: chlordiazePOXIDE HCL 25 MG CAPSULE PO SCH ×4 (06:09→22:41)
[2017-08-15] MEDS ORDERED: INSULIN (NOVOLOG) ASPART 100 UNITS/ML 10ML VIAL ONE ×4 (07:13→22:06)
[2017-08-15] MEDS: INSULIN (NOVOLOG) ASPART 100 UNITS/ML 10ML VIAL SQ SCH ×4 (07:14→22:41)
--- NOTE | 2017-08-15 07:46 | CONSULT ---
[facility] Psychiatric Consult - Data Date of interview: 08/15/17 Admission source: [facility] Identifying data: This is 52 years old female, single mother of eight, living alone, on SSD, with history of Bipolar Disorder, PTSDwith alcohol,cocaine, marijuana dependence,seeking detoxification, reports withdrawal symptoms,last detox AT [facility] on 09/2016 Substance Abuse History: Smoking history: Former smoker. Have you smoked in the past 12 months: No. Aproximately how many cigarettes per day: 60. If you are a former smoker, when did you quit?: 2 years ago. Hx Chewing Tobacco Use: No. Initiated information on smoking cessation: No. - Substance & Tx. History. Hx Alcohol Use: Yes. Hx Substance Use: Yes. Substance Use Type: Alcohol, Cocaine, Marijuana. Hx Substance Use Treatment: Yes ([facility] 10/16 ). - Substances Abused. Cocaine. Route: Inhalation. Frequency: Daily. Amount used: $200. Age of first use: 15. Date of Last Use: 08/12/17. ETOH. Route: Oral. Frequency: Daily. Amount used: 6-PK BEER- 24OZ. Age of first use: 15. Date of Last Use: 08/14/17 Medical History: Patient reports multiple medical problems such as: Aortic valve replacement s/p on 2015. Diabetic insulin dependence, history of DM-2. s /p right mastectomy in 2010,remission. non compliance with medications. Thrombocytopenia. HepC+. COPD. Obesity Psychiatric History: As per chart patient reports history of Biupolar Disorder with most recent psychiatric admission on about 10 yuears ago, reports currently taking: Buspat 20mg poqd Physical/Sexual Abuse/Trauma History: Denies Additional Comment: Buspar 20mg poqd Mental Status Exam - Mental Status Exam Alert and Oriented to: Place, Person Cognitive Function: Fair Patient Appearance: Well Groomed Mood: Apprehensive Affect: Mood Congruent Patient Behavior: Cooperative Speech Pattern: Appropriate Voice Loudness: Normal Thought Process: Goal Oriented Thought Disorder: Being Controlled Hallucinations: Denies Suicidal Ideation: Denies Homicidal Ideation: Denies Insight/Judgement: Fair Sleep: Difficulty falling asleep Appetite: Weight gain Muscle strength/Tone: Normal Gait/Station: Normal Additional Comments: Buspar 20mg poqd Psychiatric Findings - Problem List ([place] 1, 2,3) (1) Drug-induced mood disorder Current Visit: Yes Status: Acute (2) Bipolar disorder Current Visit: No Status: Suspected (3) Cocaine dependence Current Visit: No Status: Chronic - Initial Treatment Plan Initial Treatment Plan: Buspar 20mg poqd
--- NOTE | 2017-08-15 09:41 | PN ---
S CIWA - CIWA Score Nausea/Vomitin Muscle Tremors: 3 Anxiety: 3 Agitation: 2 Paroxysmal Sweats: 1-Minimal Palms Moist Orientation: 0-Oriented Tacttile Disturbances: 1-Very Mild Itch/Numbness Auditory Disturbances: 1-Very Mild Visual Disturbances: 1-Very Mild Sensitivity Headache: 2-Mild CIWA-Ar Total Score: 17 BHS Progress Note (SOAP) Subjective: ALERT,IRRITABLE,ANXIOUS,INTERRUPTED SLEEP,TREMOR Objective: 08/15/17 09:37 Vital Signs Temperature 98.2 F 08/15/17 06:20 Pulse Rate 80 08/15/17 06:20 Respiratory Rate 18 08/15/17 06:20 Blood Pressure 105/77 08/15/17 06:20 O2 Sat by Pulse Oximetry (%) EKG NSR,LVH,HEART RATE 85,PROLONG QT/QTC IIS 390/464 NO CHEST PAIN,NO SOB,NO DIZZINESS Laboratory Last Values POC Glucometer 275 UNITS (80-120) 08/15/17 06:56 Urine Color Yellow 08/14/17 12:00 Urine Appearance Clear 08/14/17 12:00 Urine pH 6.0 (5.0-8.0) 08/14/17 12:00 Ur Specific [place] 1.023 (1.001-1.035) 08/14/17 12:00 Urine Protein Negative (NEGATIVE) 08/14/17 12:00 Urine Glucose (UA) Negative (NEGATIVE) 08/14/17 12:00 Urine Ketones Trace (NEGATIVE) H 08/14/17 12:00 Urine Blood Negative (NEGATIVE) 08/14/17 12:00 Urine Nitrite Negative (NEGATIVE) 08/14/17 12:00 Urine Bilirubin Negative (<2.0 mg/dL) 08/14/17 12:00 Urine Urobilinogen 4.0 e.u/dl mg/dL (0.2-1.0) H 08/14/17 12:00 Ur Leukocyte Esterase Negative (NEGATIVE) 08/14/17 12:00 LABS PENDING Assessment: 08/15/17 09:40 WITHDRAWAL SYMPTOM Plan: CONTINUE DETOX,[facility] MONITORING WITH INSULIN COVERAGE
[2017-08-15] MEDS: metFORMIN HCL 500 MG TABLET (FP) PO SCH (10:13)
[2017-08-15] MEDS: PRENATAL VITAMINS W/ FOLIC ACID TABLET (FP) PO SCH (10:13)
[2017-08-15] MEDS: ASPIRIN 81 MG CHEWABLE TABLETS PO SCH (10:13)
[2017-08-15] MEDS: busPIRone HCL 10 MG TABLET (FP) PO SCH (17:09)
[2017-08-15] MEDS: INSULIN (LEVEMIR) 100 UNITS/ML UNITS SQ SCH (22:40)
[2017-08-15] MEDS: ATORVASTATIN CA 20 MG TABLET (FP) PO SCH (22:41)
[2017-08-15] MEDS: THIAMINE HCL 100 MG TABLET (FP) PO SCH (22:42)
[2017-08-16] MEDS ORDERED: INSULIN (NOVOLOG) ASPART 100 UNITS/ML 10ML VIAL ONE ×4 (06:49→21:35)
[2017-08-16] MEDS: INSULIN (NOVOLOG) ASPART 100 UNITS/ML 10ML VIAL SQ SCH ×4 (06:50→22:53)
[2017-08-16] MEDS: chlordiazePOXIDE HCL 25 MG CAPSULE PO SCH ×2 (06:51→10:13)
[2017-08-16] MEDS: ASPIRIN 81 MG CHEWABLE TABLETS PO SCH (10:12)
[2017-08-16] MEDS: busPIRone HCL 10 MG TABLET (FP) PO SCH (10:12)
[2017-08-16] MEDS: metFORMIN HCL 500 MG TABLET (FP) PO SCH (10:12)
[2017-08-16] MEDS: PRENATAL VITAMINS W/ FOLIC ACID TABLET (FP) PO SCH (10:12)
--- NOTE | 2017-08-16 11:18 | PN ---
S CIWA - CIWA Score Nausea/Vomitin-Mild Nausea/No Vomiting Muscle Tremors: 3 Anxiety: 3 Agitation: 3 Paroxysmal Sweats: 1-Minimal Palms Moist Orientation: 0-Oriented Tacttile Disturbances: 1-Very Mild Itch/Numbness Auditory Disturbances: 0-None Visual Disturbances: 0-None Headache: 1-Very Mild CIWA-Ar Total Score: 13 BHS Progress Note (SOAP) Subjective: sweat tremor anxiety restlessness mild gi distress Objective: 08/16/17 11:17 Vital Signs Temperature 97.7 F 08/16/17 10:22 Pulse Rate 90 08/16/17 10:22 Respiratory Rate 20 08/16/17 10:22 Blood Pressure 134/82 08/16/17 10:22 O2 Sat by Pulse Oximetry (%) Laboratory Last Values POC Glucometer 211 UNITS (80-120) 08/16/17 06:23 Urine Color Yellow 08/14/17 12:00 Urine Appearance Clear 08/14/17 12:00 Urine pH 6.0 (5.0-8.0) 08/14/17 12:00 Ur Specific [place] 1.023 (1.001-1.035) 08/14/17 12:00 Urine Protein Negative (NEGATIVE) 08/14/17 12:00 Urine Glucose (UA) Negative (NEGATIVE) 08/14/17 12:00 Urine Ketones Trace (NEGATIVE) H 08/14/17 12:00 Urine Blood Negative (NEGATIVE) 08/14/17 12:00 Urine Nitrite Negative (NEGATIVE) 08/14/17 12:00 Urine Bilirubin Negative (<2.0 mg/dL) 08/14/17 12:00 Urine Urobilinogen 4.0 e.u/dl mg/dL (0.2-1.0) H 08/14/17 12:00 Ur Leukocyte Esterase Negative (NEGATIVE) 08/14/17 12:00 lab noted Assessment: 08/16/17 11:17 withdrawal sx Plan: continue detox
[2017-08-16] MEDS: chlordiazePOXIDE 5 MG CAPSULE PO SCH ×2 (17:48→22:13)
[2017-08-16] MEDS: ATORVASTATIN CA 20 MG TABLET (FP) PO SCH (22:13)
[2017-08-16] MEDS: THIAMINE HCL 100 MG TABLET (FP) PO SCH (22:14)
[2017-08-16] MEDS: INSULIN (LEVEMIR) 100 UNITS/ML UNITS SQ SCH (22:53)
[2017-08-17] MEDS: chlordiazePOXIDE 5 MG CAPSULE PO SCH ×2 (06:00→10:59)
[2017-08-17] MEDS ORDERED: INSULIN (NOVOLOG) ASPART 100 UNITS/ML 10ML VIAL ONE ×3 (06:49→17:06)
[2017-08-17] MEDS: INSULIN (NOVOLOG) ASPART 100 UNITS/ML 10ML VIAL SQ SCH ×3 (06:53→17:11)
--- NOTE | 2017-08-17 09:25 | EKG ---
Test Reason : Blood Pressure : / mmHG Vent. Rate : 085 BPM Atrial Rate : 085 BPM P-R Int : 122 ms QRS Dur : 100 ms QT Int : 390 ms P-R-T Axes : 085 -30 -06 degrees QTc Int : 464 ms NORMAL SINUS RHYTHM LEFT ATRIAL ENLARGEMENT LEFT AXIS DEVIATION PULMONARY DISEASE PATTERN LEFT VENTRICULAR HYPERTROPHY NONSPECIFIC T WAVE ABNORMALITY PROLONGED QT ABNORMAL ECG WHEN COMPARED WITH ECG OF 13-AUG-2016 16:02, INVERTED T WAVES HAVE REPLACED NONSPECIFIC T WAVE ABNORMALITY IN INFERIOR LEADS Confirmed by ILIR KELSEY, SETH ([id number]) on 08/17/2017 9:25:45 AM Referred By: Confirmed By:SETH HAZEL MD
[2017-08-17] MEDS: ASPIRIN 81 MG CHEWABLE TABLETS PO SCH (10:59)
[2017-08-17] MEDS: metFORMIN HCL 500 MG TABLET (FP) PO SCH (10:59)
[2017-08-17] MEDS: busPIRone HCL 10 MG TABLET (FP) PO SCH (10:59)
[2017-08-17] MEDS: PRENATAL VITAMINS W/ FOLIC ACID TABLET (FP) PO SCH (10:59)
--- NOTE | 2017-08-17 11:40 | PN ---
BHS Progress Note (SOAP) Subjective: feeling better no tremor less sweat tolerated food and fluid well slept throughout the night Objective: 08/17/17 11:39 Vital Signs Temperature 97.5 F L 08/17/17 10:43 Pulse Rate 79 08/17/17 10:43 Respiratory Rate 18 08/17/17 10:43 Blood Pressure 127/91 08/17/17 10:43 O2 Sat by Pulse Oximetry (%) Laboratory Last Values POC Glucometer 213 UNITS (80-120) 08/17/17 05:56 Urine Color Yellow 08/14/17 12:00 Urine Appearance Clear 08/14/17 12:00 Urine pH 6.0 (5.0-8.0) 08/14/17 12:00 Ur Specific [place] 1.023 (1.001-1.035) 08/14/17 12:00 Urine Protein Negative (NEGATIVE) 08/14/17 12:00 Urine Glucose (UA) Negative (NEGATIVE) 08/14/17 12:00 Urine Ketones Trace (NEGATIVE) H 08/14/17 12:00 Urine Blood Negative (NEGATIVE) 08/14/17 12:00 Urine Nitrite Negative (NEGATIVE) 08/14/17 12:00 Urine Bilirubin Negative (<2.0 mg/dL) 08/14/17 12:00 Urine Urobilinogen 4.0 e.u/dl mg/dL (0.2-1.0) H 08/14/17 12:00 Ur Leukocyte Esterase Negative (NEGATIVE) 08/14/17 12:00 lab noted 08/17/17 11:42 unable to locate current blood result repeat [facility] Assessment: 08/17/17 11:43 mild withdrawal sx Plan: medically supervised detox
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
[2017-08-17] MEDS ORDERED: busPIRone HCL 10 MG TABLET (FP) PO SCH (14:00)
[2017-08-17 14:16] VITALS: BP 117/90; PULSE 87; TEMP 97.7
[2017-08-17 14:16] LABS: HEMATOCRIT 39.5 % (32.4-45.2); HEMOGLOBIN 13.1 GM/dL (10.7-15.3); MCH 30.6 pg (25.7-33.7); MCHC 33.2 g/dl (32.0-36.0); MEAN CELL VOLUME 92.1 fl (80-96); MEAN PLT VOLUME 12.5 fl (7.5-11.1); PLATELET COUNT 80 K/MM3 (134-434); RDW 14.1 % (11.6-15.6); WHITE BLOOD COUNT 4.5 K/mm3 (4.0-10.0)
--- NOTE | 2017-08-17 14:18 | DS ---
[facility] Detox Discharge Summary Admission Date: 08/14/17 Discharge Date: 08/17/17 - History Present History: Alcohol Dependence Additional Comments: 52 years old female admitted on 08/14/17 for alcohol detox patient denies withdrawal sx wants to go to rehab discussed with counselor that rehab available - Physical Exam Results Vital Signs: Vital Signs Temperature 97.5 F L 08/17/17 10:43 Pulse Rate 79 08/17/17 10:43 Respiratory Rate 18 08/17/17 10:43 Blood Pressure 127/91 08/17/17 10:43 O2 Sat by Pulse Oximetry (%) Pertinent Admission Physical Exam Findings: withdrawal sx Vital Signs Temperature 97.5 F L 08/17/17 10:43 Pulse Rate 79 08/17/17 10:43 Respiratory Rate 18 08/17/17 10:43 Blood Pressure 127/91 08/17/17 10:43 O2 Sat by Pulse Oximetry (%) Laboratory Last Values POC Glucometer 311 UNITS (80-120) 08/17/17 11:56 Urine Color Yellow 08/14/17 12:00 Urine Appearance Clear 08/14/17 12:00 Urine pH 6.0 (5.0-8.0) 08/14/17 12:00 Ur Specific [place] 1.023 (1.001-1.035) 08/14/17 12:00 Urine Protein Negative (NEGATIVE) 08/14/17 12:00 Urine Glucose (UA) Negative (NEGATIVE) 08/14/17 12:00 Urine Ketones Trace (NEGATIVE) H 08/14/17 12:00 Urine Blood Negative (NEGATIVE) 08/14/17 12:00 Urine Nitrite Negative (NEGATIVE) 08/14/17 12:00 Urine Bilirubin Negative (<2.0 mg/dL) 08/14/17 12:00 Urine Urobilinogen 4.0 e.u/dl mg/dL (0.2-1.0) H 08/14/17 12:00 Ur Leukocyte Esterase Negative (NEGATIVE) 08/14/17 12:00 lab noted - Treatment Hospital Course: Detox Protocol Followed, Detoxed Safely, Responded well, Discharged Condition Good, Rehab Referral Accepted Patient has Accepted [facility] Referral [facility] - Medication Discharge Medications: Ambulatory Orders Salmeterol/Fluticasone [Advair 250Mcg/50Mcg -] 1 inh PO BID 07/28/12 Albuterol Sulfate Inhaler - [Ventolin HFA Inhaler -] 2 inh PO Q4H PRN 07/12/16 metFORMIN HCL [Glucophage -] 500 mg PO DAILY 08/02/16 Atorvastatin Ca [Lipitor] 20 mg PO HS 08/09/16 Insulin Glargine,Hum.rec.anlog [Lantus Solostar PEN -] 30 units IM HS 08/13/16 Aspirin 81 mg PO DAILY 08/14/17 Buspirone HCl [Buspar -] 20 mg PO DAILY #30 tablet 08/15/17 Buspirone HCl [Buspar -] 20 mg PO DAILY #30 tablet 08/15/17 Buspirone HCl [Buspar -] 10 mg PO TID #90 tablet 08/17/17 - Diagnosis (1) Asthma Current Visit: Yes Status: Chronic Qualifiers: Asthma severity: mild Asthma persistence: intermittent Asthma complication type: with status asthmaticus Qualified Code(s): J45.22 - Mild intermittent asthma with status asthmaticus (2) Alcohol dependence with uncomplicated withdrawal Current Visit: Yes Status: Acute (3) DM2 (diabetes mellitus, type 2) Current Visit: Yes Status: Chronic Qualifiers: Diabetes mellitus intermediate accountant insulin use: with intermediate accountant use Diabetes mellitus complication status: without complication Qualified Code(s): E11.9 - Type 2 diabetes mellitus without complications; Z79.4 - long term care phlebotomist (current) use of insulin; Z79.4 - long term care phlebotomist (current) use of insulin; Z79.4 - long term care phlebotomist ( current) use of insulin; Z79.4 - long term care phlebotomist (current) use of insulin (4) Hypercholesterolemia Current Visit: Yes Status: Chronic (5) Bipolar disorder Current Visit: Yes Status: Suspected Qualifiers: Active/Remission status: in partial remission Most recent bipolar episode type: mixed Qualified Code(s): F31.77 - Bipolar disorder, in partial remission , most recent episode mixed - AMA Did Patient Leave Against Medical Advice: No
[2017-08-17 14:28] LABS: ALBUMIN 3.2 g/dl (3.4-5.0); ANION GAP 7 (8-16); BLOOD UREA NITROGEN 20 mg/dL (7-18); CALCIUM 8.9 mg/dL (8.5-10.1); CHLORIDE 107 mmol/L (98-107); CO2 24 mmol/L (21-32); CREATININE 0.8 mg/dL (0.55-1.02); POTASSIUM 4.4 mmol/L (3.5-5.1); SGOT/AST 19 U/L (15-37); SGPT/ALT 28 U/L (12-78); SODIUM 138 mmol/L (136-145)
[2017-08-17 14:31] LABS: ALK PHOS 77 U/L (45-117); TOT PROT 6.7 g/dl (6.4-8.2)
[2017-08-17 14:39] LABS: BILIRUBIN,TOTAL < 0.1 mg/dL (0.2-1.0)
[2017-08-17 14:41] LABS: GLUCOSE,RANDOM 327 mg/dL (74-106)
[2017-08-17] MEDS ORDERED: chlordiazePOXIDE HCL 10 MG CAPSULE PO SCH (17:00)
[2017-08-18 09:21] LABS: RPR REACTIVE 1:1 (NONREACTIVE)
[2017-08-18 09:22] LABS: TREPONEMA ANTIBODY PREVIOUSLY REACTIVE (NONREACTIVE)
== END 2017-08-17 18:20 | disposition other institution (70) | DRG 897 ==
LOC: YASAS 08:56 → Y6N 11:21 → UNDOADMIN 11:21 → Y6N 12:44
PROVIDERS: ADMIT Internal Medicine; ATTEND Internal Medicine
PROC: HZ2ZZZZ Detoxification Services for Substance Abuse Treatment (ICD-10-PCS; principal; 2017-08-14)
DX: F10.230 Alcohol dependence with withdrawal, uncomplicated (principal); F14.20 Cocaine dependence, uncomplicated; J45.22 Mild intermittent asthma with status asthmaticus; F12.20 Cannabis dependence, uncomplicated; F31.77 Bipolar disorder, in partial remission, most recent episode mixed; F19.24 Other psychoactive substance dependence with psychoactive substance-induced mood disorder; E11.9 Type 2 diabetes mellitus without complications; Z79.4 Long term (current) use of insulin; J44.9 Chronic obstructive pulmonary disease, unspecified; E78.00 Pure hypercholesterolemia, unspecified; B18.2 Chronic viral hepatitis C; Z95.1 Presence of aortocoronary bypass graft; Z85.3 Personal history of malignant neoplasm of breast; Z90.11 Acquired absence of right breast and nipple; Z79.01 Long term (current) use of anticoagulants; Z95.2 Presence of prosthetic heart valve; Z91.14 Patient's other noncompliance with medication regimen
CPT/HCPCS: 36415; 80053; 81003; 82962; 85027; 86593; 86780; 93005; 93010

== ENCOUNTER 2017-08-17 18:16 | Inpatient (IN) | payer OTHER ==
[2017-08-17] MEDS ORDERED: MAGNESIUM CITRATE 300 ML BOTTLE PO PRN (19:20)
[2017-08-17] MEDS ORDERED: MAGNESIUM HYDROX 2400MG/30ML ORAL SUSPENSION 30 ML CUP PO PRN (19:20)
[2017-08-17] MEDS ORDERED: MAG HYDROX/AL HYDROX/SIMETH 30 ML UNIT-DOSE CUP PO PRN (19:20)
[2017-08-17] MEDS ORDERED: MENTHOL/PHENOL 1 EACH UD MM PRN (19:20)
[2017-08-17] MEDS ORDERED: guaiFENesin/D-METHORPHAN HB 10 ML UNIT-DOSE CUPS PO PRN (19:20)
[2017-08-17] MEDS ORDERED: P-EPHED 60MG/TRIPROLIDI 2.5MG TABLET PO PRN (19:20)
[2017-08-17] MEDS ORDERED: IBUPROFEN 400 MG TABLET (FP) PO PRN (19:20)
[2017-08-17] MEDS ORDERED: LOPERAMIDE HCL 2 MG CAPSULE PO PRN (19:20)
[2017-08-17] MEDS ORDERED: ACETAMINOPHEN 325 MG TABLET (FP) PO PRN (19:20)
--- NOTE | 2017-08-17 19:22 | HP ---
AMELIA [facility]EL[facility] Rehab Assess/Revision - Admission History Admitted to Rehab from: [facility] Date of Admission to Rehab: 08/17/17 - Findings Detox History & Physical reviewed: Yes Concur with findings: Yes Inpatient Rehab Admission - Initial Determination Are CD services needed?: Yes Free of communicable disease: Yes Not in need of hospitalization: Yes - Rehab Admission Criteria Previous failed treatment: Yes Poor recovery environment: Yes Comorbidities: Yes Lacks judgement: Yes Patient is meeting Inpatient Rehab admission criteria:: Yes
--- NOTE | 2017-08-17 20:51 | PN ---
[facility] Progress Note Note: As per nursing request medications ordered: Buspar 10mg po tid chart revewed as well
[2017-08-17] MEDS: metFORMIN HCL 500 MG TABLET (FP) PO SCH (21:53)
[2017-08-17] MEDS: THIAMINE HCL 100 MG TABLET (FP) PO SCH (21:53)
[2017-08-17] MEDS: busPIRone HCL 10 MG TABLET (FP) PO SCH (21:53)
[2017-08-17] MEDS: ATORVASTATIN CA 20 MG TABLET (FP) PO SCH (21:53)
[2017-08-17] MEDS: INSULIN (LEVEMIR) 100 UNITS/ML UNITS SQ SCH (21:55)
[2017-08-17] MEDS: INSULIN SLIDING SCALE (NOVOLOG) 1 VIAL SQ SCH (21:57)
[2017-08-17] MEDS ORDERED: INSULIN (NOVOLOG) ASPART 100 UNITS/ML 10ML VIAL SQ SCH (22:00)
[2017-08-17] MEDS ORDERED: MELATONIN 5 MG TABLETS PO PRN (22:00)
[2017-08-17] MEDS ORDERED: INSULIN (NOVOLOG) ASPART 100 UNITS/ML 10ML VIAL ONE (22:02)
[2017-08-17] MEDS: BUDESONIDE/FORMETEROL FUMARATE 80/4.5 mcg INHALER IH SCH (22:07)
[2017-08-17] MEDS ORDERED: PT OWN MED DRAWER 7, Y5N ONE (23:15)
[2017-08-18] MEDS ORDERED: PT OWN MED DRAWER 7, Y5N ONE ×4 (03:12→21:22)
[2017-08-18] MEDS: busPIRone HCL 10 MG TABLET (FP) PO SCH ×2 (06:57→14:47)
[2017-08-18] MEDS: metFORMIN HCL 500 MG TABLET (FP) PO SCH ×2 (06:57→17:10)
[2017-08-18] MEDS: INSULIN SLIDING SCALE (NOVOLOG) 1 VIAL SQ SCH ×3 (06:58→17:10)
[2017-08-18] MEDS ORDERED: INSULIN (NOVOLOG) ASPART 100 UNITS/ML 10ML VIAL ONE ×3 (07:03→16:54)
[2017-08-18] MEDS: BUDESONIDE/FORMETEROL FUMARATE 80/4.5 mcg INHALER IH SCH ×2 (09:59→21:20)
[2017-08-18] MEDS: ASPIRIN 81 MG CHEWABLE TABLETS PO SCH (09:59)
[2017-08-18] MEDS: PRENATAL VITAMINS W/ FOLIC ACID TABLET (FP) PO SCH (09:59)
[2017-08-18] MEDS: ALBUTEROL SO4 18 GM HFA INHALER IH PRN ×2 (10:02→21:22)
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
[2017-08-18] MEDS: THIAMINE HCL 100 MG TABLET (FP) PO SCH (21:20)
[2017-08-18] MEDS: INSULIN (LEVEMIR) 100 UNITS/ML UNITS SQ SCH (21:20)
[2017-08-18] MEDS: ATORVASTATIN CA 20 MG TABLET (FP) PO SCH (21:20)
[2017-08-19] MEDS: INSULIN SLIDING SCALE (NOVOLOG) 1 VIAL SQ SCH ×3 (07:16→17:01)
[2017-08-19] MEDS: metFORMIN HCL 500 MG TABLET (FP) PO SCH ×2 (07:16→17:02)
[2017-08-19] MEDS: ASPIRIN 81 MG CHEWABLE TABLETS PO SCH (10:14)
[2017-08-19] MEDS: PRENATAL VITAMINS W/ FOLIC ACID TABLET (FP) PO SCH (10:15)
[2017-08-19] MEDS: BUDESONIDE/FORMETEROL FUMARATE 80/4.5 mcg INHALER IH SCH ×2 (10:15→21:20)
[2017-08-19] MEDS: busPIRone HCL 10 MG TABLET (FP) PO SCH (10:15)
[2017-08-19] MEDS ORDERED: PT OWN MED DRAWER 7, Y5N ONE ×2 (10:17→21:21)
[2017-08-19] MEDS ORDERED: INSULIN (NOVOLOG) ASPART 100 UNITS/ML 10ML VIAL ONE (11:21)
[2017-08-19] MEDS: THIAMINE HCL 100 MG TABLET (FP) PO SCH (21:17)
[2017-08-19] MEDS: ATORVASTATIN CA 20 MG TABLET (FP) PO SCH (21:17)
[2017-08-19] MEDS: INSULIN (LEVEMIR) 100 UNITS/ML UNITS SQ SCH (21:19)
[2017-08-20] MEDS: metFORMIN HCL 500 MG TABLET (FP) PO SCH ×2 (07:40→17:02)
[2017-08-20] MEDS: INSULIN SLIDING SCALE (NOVOLOG) 1 VIAL SQ SCH ×3 (07:41→17:03)
[2017-08-20] MEDS ORDERED: INSULIN (NOVOLOG) ASPART 100 UNITS/ML 10ML VIAL ONE ×3 (07:46→21:57)
[2017-08-20] MEDS: BUDESONIDE/FORMETEROL FUMARATE 80/4.5 mcg INHALER IH SCH ×2 (10:02→21:12)
[2017-08-20] MEDS: busPIRone HCL 10 MG TABLET (FP) PO SCH (10:03)
[2017-08-20] MEDS: ASPIRIN 81 MG CHEWABLE TABLETS PO SCH (10:03)
[2017-08-20] MEDS: PRENATAL VITAMINS W/ FOLIC ACID TABLET (FP) PO SCH (10:03)
[2017-08-20] MEDS: hydrOXYzine PAMOATE 50 MG CAPSULE (FP) PO PRN (19:51)
[2017-08-20] MEDS: ATORVASTATIN CA 20 MG TABLET (FP) PO SCH (21:09)
[2017-08-20] MEDS: INSULIN (LEVEMIR) 100 UNITS/ML UNITS SQ SCH (21:10)
[2017-08-20] MEDS: THIAMINE HCL 100 MG TABLET (FP) PO SCH (21:12)
[2017-08-21] MEDS: metFORMIN HCL 500 MG TABLET (FP) PO SCH ×2 (07:50→17:01)
[2017-08-21] MEDS: INSULIN SLIDING SCALE (NOVOLOG) 1 VIAL SQ SCH ×3 (07:51→17:01)
[2017-08-21] MEDS ORDERED: INSULIN (NOVOLOG) ASPART 100 UNITS/ML 10ML VIAL ONE ×3 (07:53→22:08)
[2017-08-21] MEDS: ASPIRIN 81 MG CHEWABLE TABLETS PO SCH (09:59)
[2017-08-21] MEDS: busPIRone HCL 10 MG TABLET (FP) PO SCH (10:00)
[2017-08-21] MEDS: BUDESONIDE/FORMETEROL FUMARATE 80/4.5 mcg INHALER IH SCH ×2 (10:00→21:50)
[2017-08-21] MEDS: PRENATAL VITAMINS W/ FOLIC ACID TABLET (FP) PO SCH (10:00)
[2017-08-21] MEDS: hydrOXYzine PAMOATE 50 MG CAPSULE (FP) PO PRN ×2 (10:01→21:11)
[2017-08-21] MEDS: ATORVASTATIN CA 20 MG TABLET (FP) PO SCH (21:10)
[2017-08-21] MEDS: THIAMINE HCL 100 MG TABLET (FP) PO SCH (21:10)
[2017-08-21] MEDS: INSULIN (LEVEMIR) 100 UNITS/ML UNITS SQ SCH (21:50)
[2017-08-21] MEDS ORDERED: PT OWN MED DRAWER 7, Y5N ONE (22:00)
[2017-08-22] MEDS: metFORMIN HCL 500 MG TABLET (FP) PO SCH ×2 (06:45→17:25)
[2017-08-22] MEDS: INSULIN SLIDING SCALE (NOVOLOG) 1 VIAL SQ SCH ×3 (07:36→17:25)
[2017-08-22] MEDS ORDERED: INSULIN (NOVOLOG) ASPART 100 UNITS/ML 10ML VIAL ONE ×3 (07:40→16:56)
[2017-08-22] MEDS ORDERED: PT OWN MED DRAWER 7, Y5N ONE ×2 (08:16→09:53)
[2017-08-22] MEDS: busPIRone HCL 10 MG TABLET (FP) PO SCH (09:51)
[2017-08-22] MEDS: PRENATAL VITAMINS W/ FOLIC ACID TABLET (FP) PO SCH (09:51)
[2017-08-22] MEDS: BUDESONIDE/FORMETEROL FUMARATE 80/4.5 mcg INHALER IH SCH ×2 (09:51→21:04)
[2017-08-22] MEDS: ASPIRIN 81 MG CHEWABLE TABLETS PO SCH (09:51)
[2017-08-22] MEDS: ALBUTEROL SO4 18 GM HFA INHALER IH PRN (09:53)
[2017-08-22] MEDS: ATORVASTATIN CA 20 MG TABLET (FP) PO SCH (21:03)
[2017-08-22] MEDS: THIAMINE HCL 100 MG TABLET (FP) PO SCH (21:03)
[2017-08-22] MEDS: INSULIN (LEVEMIR) 100 UNITS/ML UNITS SQ SCH (21:04)
[2017-08-22] MEDS: hydrOXYzine PAMOATE 50 MG CAPSULE (FP) PO PRN (21:05)
[2017-08-23 07:11] VITALS: PULSE 85; TEMP 97.8
[2017-08-23] MEDS: metFORMIN HCL 500 MG TABLET (FP) PO SCH ×2 (07:35→16:41)
[2017-08-23] MEDS: INSULIN SLIDING SCALE (NOVOLOG) 1 VIAL SQ SCH ×3 (07:36→16:43)
[2017-08-23 07:37] VITALS: BP 153/94
[2017-08-23] MEDS: PRENATAL VITAMINS W/ FOLIC ACID TABLET (FP) PO SCH (10:06)
[2017-08-23] MEDS: busPIRone HCL 10 MG TABLET (FP) PO SCH (10:06)
[2017-08-23] MEDS: BUDESONIDE/FORMETEROL FUMARATE 80/4.5 mcg INHALER IH SCH (10:06)
[2017-08-23] MEDS: ASPIRIN 81 MG CHEWABLE TABLETS PO SCH (10:06)
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
== END 2017-08-23 20:45 | disposition left against medical advice (07) | DRG 894 ==
LOC: YASAS 18:16 → Y3E 18:17
PROVIDERS: ADMIT Psychiatry & Neurology Psychiatry; ATTEND Psychiatry & Neurology Psychiatry
PROC: HZ42ZZZ Group Counseling for Substance Abuse Treatment, Cognitive-Behavioral (ICD-10-PCS; principal; 2017-08-15)
DX: F10.20 Alcohol dependence, uncomplicated (principal); F14.20 Cocaine dependence, uncomplicated; F17.210 Nicotine dependence, cigarettes, uncomplicated; F43.10 Post-traumatic stress disorder, unspecified; F31.77 Bipolar disorder, in partial remission, most recent episode mixed; J44.9 Chronic obstructive pulmonary disease, unspecified; J45.909 Unspecified asthma, uncomplicated; E11.9 Type 2 diabetes mellitus without complications; E78.5 Hyperlipidemia, unspecified; E66.9 Obesity, unspecified; Z85.3 Personal history of malignant neoplasm of breast; Z90.11 Acquired absence of right breast and nipple
CPT/HCPCS: 82962

== ENCOUNTER 2018-03-12 09:41 | Inpatient (IN) | payer OTHER ==
[2018-03-12 10:12] VITALS: BMI 37.8
--- NOTE | 2018-03-12 10:36 | HP ---
CIWA Score Nausea/Vomitin Muscle Tremors: 2 Anxiety: 2 Agitation: 2 Paroxysmal Sweats: 1-Minimal Palms Moist Orientation: 0-Oriented Tacttile Disturbances: 1-Very Mild Itch/Numbness Auditory Disturbances: 1-Very Mild Visual Disturbances: 0-None Headache: 2-Mild CIWA-Ar Total Score: 13 - Admission Criteria OASAS Guidelines: Admission for Medically Managed Detox: Requires at least one of the followin. CIWA greater than 12 2. Seizures within the past 24 hours 3. Delirium tremens within the past 24 hours 4. Hallucinations within the past 24 hours 5. Acute intervention needed for co occurring medical disorder 6. Acute intervention needed for co occurring psychiatric disorder 7. Severe withdrawal that cannot be handled at a lower level of care (continued vomiting, continued diarrhea, abnormal vital signs) requiring intravenous medication and/or fluids 8. Patient presents the following: CIWA greater than 12, Acute intervention needed for co-occurring med or psych disorder Admission Criteria Met: Admission criteria met Admission ROS S - HPI Chief Complaint: need help to stop drinking alcohol and cocaine Allergies/Adverse Reactions: Allergies Allergy/AdvReac Type Severity Reaction Status Date / Time grass pollen Allergy Intermediate Verified 03/12/18 11:03 No Known Drug Allergies Allergy Unknown Verified 03/12/18 11:03 History of Present Illness: this 53 years old female with alcohol and cocaine dependence,seeking detox, withdrawal symptom,last detox [facility] 08/14/17 to 08/17/17 rehab 08/17/17 to 08/23/17 type 2 dm ,iddm,aortic valve replacement pig valve x3 last [facility] [address] [facility] neuropathy hepatitis c treated nicotine dependence yeast infection insomnia mastectomy right in 2013 Exam Limitations: No Limitations - Ebola screening Have you traveled outside of the country in the last 21 days: No Have you been sick,other than usual withdrawal symptoms: No - Review of Systems Constitutional: Loss of Appetite, Malaise, Night Sweats, Changes in sleep, Weakness EENT: reports: Nose Congestion Respiratory: reports: No Symptoms reported, Other (history of asthma and copd) Cardiac: reports: No Symptoms Reported GI: reports: Nausea, Abdominal cramping : reports: No Symptoms Reported Musculoskeletal: reports: Back Pain, Muscle Pain Integumentary: reports: Dryness Neuro: reports: Headache, Tremors Endocrine: reports: No Symptoms Reported Hematology: reports: No Symptoms Reported Psychiatric: reports: No Sypmtoms Reported, Judgement Intact, Mood/Affect Appropiate, Orientated x3 (insomnia) Patient History - Patient Medical History Hx Anemia: No Hx Asthma: No Hx Chronic Obstructive Pulmonary Disease (COPD): Yes (on albuterol inhaler) Hx Cancer: Yes ((R) BREAST CA - MASTECTOMY 2012) Hx Cardiac Disorders: No Hx Congestive Heart Failure: No Hx Hypertension: No Hx Hypercholesterolemia: Yes (on med) Hx Pacemaker: No HX Cerebrovascular Accident: No Hx Seizures: No Hx Dementia: No Hx Diabetes: Yes (iddm) Hx Gastrointestinal Disorders: No Hx Liver Disease: Yes (hep c treated) Hx Genitourinary Disorders: No Hx Sexually Transmitted Disorders: No Hx Renal Disease (ESRD): No Hx Thyroid Disease: No Hx Human Immunodeficiency Virus (HIV): No Hx Hepatitis C: Yes (treated) Hx Depression: No Hx Suicide Attempt: No Hx Bipolar Disorder: Yes (no med,did not want to see psychiatrist) Hx Schizophrenia: No Other Medical History: no suicidal,no homicidal - Patient Surgical History Past Surgical History: Yes Hx Neurologic Surgery: No Hx Cataract Extraction: No Hx Cardiac Surgery: Yes (AVR ,) Hx Lung Surgery: No Hx Breast Surgery: Yes (R mastectomy from R breast CA in 05/13) Hx Breast Biopsy: Yes Hx Abdominal Surgery: No Hx Appendectomy: No Hx Cholecystectomy: No Hx Genitourinary Surgery: No Hx Section: No Hx Orthopedic Surgery: No Hx Hysterectomy: No Anesthesia Reaction: No - PPD History Previous Implant?: Yes Documented Results: Negative w/proof Implanted On Prior [facility] Admission?: Yes Date: 08/16/17 Results: 0MM PPD to be Administered?: No - Reproductive History Patient is a Female of Child Bearing Age (11 -55 yrs old): Yes Last Menstrual Period: 03/03/12 Patient : No - Smoking Cessation Smoking history: Former smoker Have you smoked in the past 12 months: Yes Aproximately how many cigarettes per day: 60 If you are a former smoker, when did you quit?: 2 years ago Hx Chewing Tobacco Use: No Initiated information on smoking cessation: Yes 'Breaking Loose' booklet given: 03/12/18 - Substance & Tx. History Hx Alcohol Use: Yes Hx Substance Use: Yes Substance Use Type: Alcohol, Cocaine Hx Substance Use Treatment: Yes ([facility] 08/14/17 to 08/17/17 detox,rehab 08/17/17 to 08/23/17) - Substances Abused Alcohol Route: Oral Frequency: Daily Amount used: 2pints of vodka/6 packs of 16 ozs of beer Age of first use: 10 Date of Last Use: 03/12/18 Crack Route: Smoking Frequency: Daily Amount used: 500$ Age of first use: 24 Date of Last Use: 03/12/18 Family Disease History - Family Disease History Family Disease History: Heart Disease: Mother (alcohol,,[place]), Other: Father ( , gun shot ), Mother Admission Physical Exam S - Vital Signs Vital Signs: Vital Signs - 24 hr 03/12/18 10:07 Temperature 98.1 F Pulse Rate 107 H Respiratory 20 Rate Blood Pressure 152/103 H - Physical General Appearance: Yes: Moderate Distress, Tremorous, Irritable, Sweating, Anxious HEENTM: Yes: Normal ENT Inspection, JOSE, Pharynx Normal Respiratory: Yes: Lungs Clear, Normal Breath Sounds, No Respiratory Distress, Other (hsitory of copd) Neck: Yes: Within Normal Limits, Supple, Trachea in good position Breast: Yes: Surgical Scar (s/p mastectomy right fos cancer) Cardiology: Yes: Regular Rhythm, Regular Rate, S1, S2, Surgical Scar ( midsternal scar s/p aortic valve replacenent pig valve) Abdominal: Yes: Within Normal Limits, Normal Bowel Sounds, Non Tender, Flat, Soft Genitourinary: Yes: Within Normal Limits Back: Yes: Muscle Spasm Musculoskeletal: Yes: Back pain, Muscle Pain Extremities: Yes: Tremors Neurological: Yes: delivery rn II-XII NML intact, Alert, Motor Strength 5/5 Integumentary: Yes: Dry Lymphatic: Yes: Within Normal Limits - Diagnostic (1) Alcohol dependence with uncomplicated withdrawal Current Visit: No Status: Acute (2) COPD (chronic obstructive pulmonary disease) Current Visit: No Status: Acute (3) S/P aortic valve repair Current Visit: No Status: Acute (4) Cocaine dependence Current Visit: No Status: Chronic (5) DM2 (diabetes mellitus, type 2) Current Visit: No Status: Chronic Qualifiers: Diabetes mellitus fpc insulin use: with fpc use Diabetes mellitus complication status: without complication Qualified Code(s): E11.9 - Type 2 diabetes mellitus without complications; Z79.4 - intermediate (current) use of insulin (6) Hypercholesterolemia Current Visit: No Status: Chronic (7) S/P right mastectomy Current Visit: No Status: Chronic (8) Syncope Current Visit: No Status: Chronic (9) Bipolar disorder Current Visit: No Status: Suspected Qualifiers: Active/Remission status: in partial remission Most recent bipolar episode type: mixed Qualified Code(s): F31.77 - Bipolar disorder, in partial remission , most recent episode mixed (10) IDDM (insulin dependent diabetes mellitus) Current Visit: Yes Status: Acute (11) Neuropathy Current Visit: Yes Status: Acute (12) Yeast vaginitis Current Visit: Yes Status: Acute Cleared for Admission S - Detox or Rehab S Level of Care: Medically Managed Detox Regimen/Protocol: Librium S Breath Alcohol Content Breath Alcohol Content: 0 Urine Pregancy Test - Result Urine Test Results: Negative- NO Line Present Urine Drug Screen - Results Drug Screen Negative: No Urine Drug Screen Results: NICHOLAS-Cocaine, BZO-Benzodiazepines
[2018-03-12] MEDS ORDERED: IBUPROFEN 400 MG TABLET (FP) PO PRN (11:00)
[2018-03-12] MEDS ORDERED: chlordiazePOXIDE HCL 25 MG CAPSULE PO PRN (11:00)
[2018-03-12] MEDS ORDERED: MAGNESIUM HYDROX 2400MG/30ML ORAL SUSPENSION 30 ML CUP PO PRN (11:00)
[2018-03-12] MEDS ORDERED: ACETAMINOPHEN 325 MG TABLET (FP) PO PRN (11:00)
[2018-03-12] MEDS ORDERED: hydrOXYzine PAMOATE 50 MG CAPSULE (FP) PO PRN (11:00)
[2018-03-12] MEDS ORDERED: LOPERAMIDE HCL 2 MG CAPSULE PO PRN (11:00)
[2018-03-12] MEDS ORDERED: NICOTINE POLACRILEX 2 MG GUM BC PRN (11:00)
[2018-03-12] MEDS ORDERED: MAGNESIUM CITRATE 300 ML BOTTLE PO PRN (11:00)
[2018-03-12] MEDS ORDERED: P-EPHED 60MG/TRIPROLIDI 2.5MG TABLET PO PRN (11:00)
[2018-03-12] MEDS ORDERED: MAG HYDROX/AL HYDROX/SIMETH 30 ML UNIT-DOSE CUP PO PRN (11:00)
[2018-03-12] MEDS ORDERED: ALBUTEROL SO4 8 GM HFA INHALER IH PRN (11:19)
[2018-03-12] MEDS ORDERED: FLUCONAZOLE 50 MG TABLET PO ONE (12:30)
[2018-03-12] MEDS ORDERED: GABAPENTIN 300 MG CAPSULE (FP) PO ONE (13:00)
[2018-03-12] MEDS: guaiFENesin/D-METHORPHAN HB 10 ML UNIT-DOSE CUPS PO PRN ×2 (13:34→22:23)
[2018-03-12] MEDS: MENTHOL/PHENOL 1 EACH UD MM PRN ×3 (14:24→22:24)
[2018-03-12] MEDS ORDERED: INSULIN (NOVOLOG) ASPART 100 UNITS/ML 10ML VIAL ONE (16:46)
[2018-03-12] MEDS: chlordiazePOXIDE HCL 25 MG CAPSULE PO SCH ×2 (16:59→22:22)
[2018-03-12] MEDS: INSULIN SLIDING SCALE (NOVOLOG) 1 VIAL SQ SCH ×2 (16:59→21:39)
[2018-03-12 18:57] LABS: URINE APPEARANCE CLEAR; URINE BILIRUBIN NEGATIVE (<2.0 mg/dL); URINE COLOR STRAW; URINE GLUCOSE (UA) 3+ (NEGATIVE); URINE KETONE NEGATIVE (NEGATIVE); URINE LEUK ESTERASE NEGATIVE (NEGATIVE); URINE NITRITE NEGATIVE (NEGATIVE); URINE PROTEIN 1+ (NEGATIVE); URINE UROBILINOGEN NEGATIVE mg/dL (0.2-1.0)
[2018-03-12 19:15] LABS: EPI CELLS RARE /HPF (FEW); URINE BACTERIA RARE /hpf (NONE SEEN)
[2018-03-12] MEDS ORDERED: MELATONIN 5 MG TABLETS PO PRN (22:00)
[2018-03-12] MEDS: MICONAZOLE NITRATE 2% VAGINAL CREAM 45 GM TUBE VG SCH (22:21)
[2018-03-12] MEDS: BUDESONIDE/FORMETEROL FUMARATE 80/4.5 mcg INHALER IH SCH (22:21)
[2018-03-12] MEDS: ATORVASTATIN CA 20 MG TABLET (FP) PO SCH (22:21)
[2018-03-12] MEDS: GABAPENTIN 300 MG CAPSULE (FP) PO SCH (22:21)
[2018-03-12] MEDS: THIAMINE HCL 100 MG TABLET (FP) PO SCH (22:22)
[2018-03-13] MEDS: guaiFENesin/D-METHORPHAN HB 10 ML UNIT-DOSE CUPS PO PRN ×3 (03:59→17:57)
[2018-03-13] MEDS: MENTHOL/PHENOL 1 EACH UD MM PRN ×2 (03:59→17:58)
[2018-03-13] MEDS: chlordiazePOXIDE HCL 25 MG CAPSULE PO SCH ×4 (06:00→22:42)
[2018-03-13] MEDS: metFORMIN HCL 500 MG TABLET (FP) PO SCH (06:39)
[2018-03-13] MEDS ORDERED: INSULIN (NOVOLOG) ASPART 100 UNITS/ML 10ML VIAL ONE ×4 (06:43→21:24)
[2018-03-13] MEDS ORDERED: cloNIDine HCL 0.1 MG TABLET PO ONE (07:09)
--- NOTE | 2018-03-13 07:11 | PN ---
[facility] Progress Note Note: Patient's blood pressure was B/P 147/102. Patient is asymptomatic Vital Signs Temperature 97.9 F 03/13/18 07:06 Pulse Rate 84 03/13/18 07:06 Respiratory Rate 18 03/13/18 07:06 Blood Pressure 147/102 H 03/13/18 07:06 O2 Sat by Pulse Oximetry (%) Action: Clonidine 0.1mg tablet oral
--- NOTE | 2018-03-13 07:32 | CONSULT ---
[facility] Psychiatric Consult - Data Date of interview: 03/13/18 Admission source: [facility] Identifying data: This is a 53 years old female, single mother of eight, living alone , on SSI, with history of Bipolar nDisorder, PTSD, history of multiple medical problems, with history of psychiatric hospitalizations, with alcohol and cocaine dependence,reporting withdrawal symptoms and seeking detox, with most revcent detox at [facility] 08/14/17 to 08/17/17. rehab 08/17/17 to Substance Abuse History: Smoking history: Former smoker. Have you smoked in the past 12 months: Yes. Aproximately how many cigarettes per day: 60. If you are a former smoker, when did you quit?: 2 years ago. Hx Chewing Tobacco Use: No. Initiated information on smoking cessation: Yes. 'Breaking Loose' booklet given: 03/12/18. - Substance & Tx. History. Hx Alcohol Use: Yes. Hx Substance Use: Yes. Substance Use Type: Alcohol, Cocaine. Hx Substance Use Treatment: Yes ([facility] 08/14/17 to 08/17/17 detox,rehab 08/17/17 to 08/23/17). - Substances Abused. Alcohol. Route: Oral. Frequency: Daily. Amount used: 2pints of vodka/6 packs of 16 ozs of beer. Age of first use: 10. Date of Last Use: 03/12/18. Crack. Route: Smoking. Frequency: Daily. Amount used: 500$ . Age of first use: 24. Date of Last Use: 03/12/18 Medical History: Type 2 dm ,IDDM, ,Aortic valve replacement pig valve x3 S/P 2016 at [facility], Neuropathy,Hepatitis c treated, Asthma, DM-II, Neuropathy, COPD, Hypercholestaerolemia,yeast infection, Thrombocytopenia,. insomnia, mastectomy history Psychiatric History: Ptient has a history of Bipolar Disorder, PTSD with most recent psychiatric hospitalization on 2010 at [facility], after suicidal TTEMPT BY od, reports no suicidal, homicidal history since then, reports anxiety and asking for medications for anxiety, reports no medications taking priorto admission Physical/Sexual Abuse/Trauma History: Denies , unclear Additional Comment: Vistaril 50mg po prn a4 gor agitation and anxiety Mental Status Exam - Mental Status Exam Alert and Oriented to: Person Cognitive Function: Fair Patient Appearance: Unkempt Mood: Sad Affect: Flat Patient Behavior: Sedated Speech Pattern: Delayed Voice Loudness: Mildly Soft/Quiet Thought Process: Circumstantial Thought Disorder: Being Controlled Hallucinations: Denies Suicidal Ideation: Denies Homicidal Ideation: Denies Insight/Judgement: Fair Sleep: Difficulty falling asleep Appetite: Weight gain Muscle strength/Tone: Mild Hypotonicity Gait/Station: Shuffling Additional Comments: Vistaril 50mg po prn a4 gor agitation and anxiety Psychiatric Findings - Problem List ([employer] 1, 2,3) (1) Hepatitis C Current Visit: Yes Status: Acute (2) IDDM (insulin dependent diabetes mellitus) Current Visit: Yes Status: Acute (3) Neuropathy Current Visit: Yes Status: Acute (4) Alcohol dependence Current Visit: No Status: Acute (5) Alcohol dependence with uncomplicated withdrawal Current Visit: No Status: Acute (6) COPD (chronic obstructive pulmonary disease) Current Visit: No Status: Acute (7) Chest pain Current Visit: No Status: Acute Qualifiers: Chest pain type: unspecified Qualified Code(s): R07.9 - Chest pain, unspecified (8) Drug-induced mood disorder Current Visit: No Status: Acute (9) S/P aortic valve repair Current Visit: No Status: Acute (10) Thrombocytopenia Current Visit: No Status: Acute (11) Asthma Current Visit: No Status: Chronic Qualifiers: Asthma severity: mild Asthma persistence: intermittent Asthma complication type: with status asthmaticus Qualified Code(s): J45.22 - Mild intermittent asthma with status asthmaticus (12) Cocaine dependence Current Visit: No Status: Chronic (13) DM2 (diabetes mellitus, type 2) Current Visit: No Status: Chronic Qualifiers: Diabetes mellitus custodial insulin use: with residential mental health worker use Diabetes mellitus complication status: without complication Qualified Code(s): E11.9 - Type 2 diabetes mellitus without complications; Z79.4 - MCC (current) use of insulin (14) Hypercholesterolemia Current Visit: No Status: Chronic (15) PTSD (post-traumatic stress disorder) Current Visit: No Status: Chronic (16) S/P right mastectomy Current Visit: No Status: Chronic (17) Syncope Current Visit: No Status: Chronic (18) Bipolar disorder Current Visit: No Status: Suspected Qualifiers: Active/Remission status: in partial remission Most recent bipolar episode type: mixed Qualified Code(s): F31.77 - Bipolar disorder, in partial remission , most recent episode mixed - Initial Treatment Plan Initial Treatment Plan: Vistaril 50mg po q4 prn for agitation
[2018-03-13] MEDS: INSULIN SLIDING SCALE (NOVOLOG) 1 VIAL SQ SCH ×4 (07:35→22:00)
[2018-03-13] MEDS ORDERED: PRENATAL VITAMINS W/ FOLIC ACID TABLET (FP) PO SCH (10:00)
[2018-03-13] MEDS ORDERED: ASPIRIN 81 MG CHEWABLE TABLETS PO SCH (10:00)
[2018-03-13] MEDS: GABAPENTIN 300 MG CAPSULE (FP) PO SCH ×2 (10:15→22:41)
[2018-03-13 10:23] LABS: HEMATOCRIT 39.7 % (32.4-45.2); MCH 30.1 pg (25.7-33.7); MCHC 32.6 g/dl (32.0-36.0); MEAN CELL VOLUME 92.1 fl (80-96); PLATELET COUNT 70 K/MM3 (134-434); RBC 4.31 M/mm3 (3.60-5.2); RDW 13.4 % (11.6-15.6); WHITE BLOOD COUNT 4.9 K/mm3 (4.0-10.0)
--- NOTE | 2018-03-13 10:29 | PN ---
[facility] CIWA - CIWA Score Nausea/Vomitin-Mild Nausea/No Vomiting Muscle Tremors: 3 Anxiety: 2 Agitation: 2 Paroxysmal Sweats: 1-Minimal Palms Moist Orientation: 0-Oriented Tacttile Disturbances: 0-None Auditory Disturbances: 0-None Visual Disturbances: 0-None Headache: 0-None Present CIWA-Ar Total Score: 9 S Progress Note (SOAP) Subjective: feeling good wants to take a shower wants to move to a room where has shower wants to go to the ER that she had valve replacement on 2010, 2012 and 2016 and right breast removed 2008 patient change her decision that she wants to stay in detox that a room with shower Objective: 03/13/18 10:28 Vital Signs Temperature 98.2 F 03/13/18 09:28 Pulse Rate 52 L 03/13/18 09:28 Respiratory Rate 20 03/13/18 09:28 Blood Pressure 137/90 03/13/18 09:28 O2 Sat by Pulse Oximetry (%) Laboratory Last Values POC Glucometer 319 UNITS (80-120) 03/13/18 06:06 Urine Color Straw 03/12/18 15:46 Urine Appearance Clear 03/12/18 15:46 Urine pH 5.0 (5.0-8.0) 03/12/18 15:46 Ur Specific [place] 1.011 (1.010-1.035) 03/12/18 15:46 Urine Protein 1+ (NEGATIVE) H 03/12/18 15:46 Urine Glucose (UA) 3+ (NEGATIVE) H 03/12/18 15:46 Urine Ketones Negative (NEGATIVE) 03/12/18 15:46 Urine Blood 2+ (NEGATIVE) H 03/12/18 15:46 Urine Nitrite Negative (NEGATIVE) 03/12/18 15:46 Urine Bilirubin Negative (<2.0 mg/dL) 03/12/18 15:46 Urine Urobilinogen Negative mg/dL (0.2-1.0) 03/12/18 15:46 Ur Leukocyte Esterase Negative (NEGATIVE) 03/12/18 15:46 Urine WBC (Auto) <1 /hpf (3-5) 03/12/18 15:46 Urine RBC (Auto) 1 /hpf (0-3) 03/12/18 15:46 Ur Epithelial Cells Rare /HPF (FEW) 03/12/18 15:46 Urine Bacteria Rare /hpf (NONE SEEN) 03/12/18 15:46 lab noted blood work pending Assessment: 03/13/18 10:28 withdrawal sx diabetes history of valve replacement history of right breast CA III right breast removed 2008 Plan: continue detox
[2018-03-13] MEDS: BUDESONIDE/FORMETEROL FUMARATE 80/4.5 mcg INHALER IH SCH ×2 (10:38→22:41)
--- NOTE | 2018-03-13 10:51 | EKG ---
Test Reason : Blood Pressure : / mmHG Vent. Rate : 101 BPM Atrial Rate : 101 BPM P-R Int : 122 ms QRS Dur : 096 ms QT Int : 372 ms P-R-T Axes : 089 -33 039 degrees QTc Int : 482 ms SINUS TACHYCARDIA LEFT ATRIAL ENLARGEMENT LEFT AXIS DEVIATION LEFT VENTRICULAR HYPERTROPHY NONSPECIFIC T WAVE ABNORMALITY ABNORMAL ECG WHEN COMPARED WITH ECG OF 14-AUG-2017 13:07, T WAVE VARIATION Confirmed by MILA KELSEY, KOFI ([id number]) on 03/13/2018 10:51:37 AM Referred By: Radha Eddy Confirmed By:KOFI ZARAGOZA MD
[2018-03-13 10:55] LABS: ALBUMIN 3.1 g/dl (3.4-5.0); ALK PHOS 105 U/L (45-117); ANION GAP 9 MMOL/L (8-16); BILIRUBIN,TOTAL 0.3 mg/dL (0.2-1); BLOOD UREA NITROGEN 15 mg/dL (7-18); CALCIUM 8.8 mg/dL (8.5-10.1); CHLORIDE 105 mmol/L (98-107); CO2 27 mmol/L (21-32); CREATININE 0.8 mg/dL (0.55-1.3); POTASSIUM 4.2 mmol/L (3.5-5.1); SGOT/AST 15 U/L (15-37); SGPT/ALT 27 U/L (13-61); SODIUM 141 mmol/L (136-145); TOT PROT 6.3 g/dl (6.4-8.2)
[2018-03-13 10:57] LABS: GLUCOSE,RANDOM 311 mg/dL (74-106)
[2018-03-13 13:14] LABS: RPR REACTIVE 1:1 (NONREACTIVE)
[2018-03-13 13:15] LABS: TREPONEMA ANTIBODY PREVIOUSLY REACTIVE (NONREACTIVE)
[2018-03-13] MEDS: MICONAZOLE NITRATE 2% VAGINAL CREAM 45 GM TUBE VG SCH (22:41)
[2018-03-13] MEDS: ATORVASTATIN CA 20 MG TABLET (FP) PO SCH (22:41)
[2018-03-13] MEDS: THIAMINE HCL 100 MG TABLET (FP) PO SCH (22:42)
[2018-03-14 06:56] VITALS: BP 161/110; PULSE 90; TEMP 97.3
--- NOTE | 2018-03-14 07:14 | PN ---
[facility] Progress Note Note: CALLED TO SEE PATIENT FOR C/O C.P.. CLIENT REFUSING TO SPEAK WITH PROVIDER. "I AM HAVING C.P RADIATING DOWN MY LEG. I WANT TO GO TO THE HOSPITAL, CALL 911!" CLIENT SITTING IN CHAIR, AWAKE, ALERT, UPSET, YELLING, CRYING AND FAILING HER ARMS.REFUSING ASSESSMENT AFTER 911 WAS CALLED CLIENT CALMED DOWN, STILL SEATED IN CHAIR IN HALLWAY REFUSING TO GO TO ROOM FOR FURTHER ASSESSMENT. SHE IS NOTED SPEAKING TO NURSING FLAT EXAMINER CALMLY ABOUT HER PROPERTY AND AFTERCARE. STARTED CRYING AGAIN AFTER B/P READING -B/P 207/125 P-98 O2 SAT 100% ON 2L CV RRR, TACHY, +MURMUR A- CLIENT IS A 53 Y.O FEMALE ADMITTED 2 DAYS AGO FOR ALCOHOL DETOX. PMHX-DM, AORTIC VALVE REPLACEMENT, NEUROPATHY, HEP C, R MASTECTOMY IN 2012.C/O C.P., SOB , PAIN RADIATING TO LLE. BRII REQUESTING TO ONLY BE EVALUATED BY ER SERVICES. DENIES N/V, DIZZINESS, RELUCTANT TO COMMUNICATE ASSOCIATED SYMPTOMS IF ANY. P- REFUSING EKG NITROSTAT .4MG X1 REPEAT B/P 176/116 P- 97 911-TRANSFER TO [facility] FOR EVAL CLIENT ENDORSED TO DR. JACOME
[2018-03-14] MEDS ORDERED: NITROGLYCERIN SUBLINGUAL 1/150 0.4 MG TAB SL ONE (07:30)
[2018-03-14] MEDS: metFORMIN HCL 500 MG TABLET (FP) PO SCH (08:02)
[2018-03-14] MEDS: chlordiazePOXIDE HCL 25 MG CAPSULE PO SCH (08:02)
[2018-03-14] MEDS: INSULIN SLIDING SCALE (NOVOLOG) 1 VIAL SQ SCH (08:02)
[2018-03-14] MEDS ORDERED: chlordiazePOXIDE 5 MG CAPSULE PO SCH (17:00)
[2018-03-15] MEDS ORDERED: chlordiazePOXIDE HCL 10 MG CAPSULE PO SCH (17:00)
== END 2018-03-14 07:34 | disposition short-term general hospital (02) | DRG 897 ==
LOC: YASAS 09:41 → Y6N 11:53
PROC: HZ2ZZZZ Detoxification Services for Substance Abuse Treatment (ICD-10-PCS; principal; 2018-03-12)
DX: F10.230 Alcohol dependence with withdrawal, uncomplicated (principal); F14.20 Cocaine dependence, uncomplicated; J45.22 Mild intermittent asthma with status asthmaticus; F31.77 Bipolar disorder, in partial remission, most recent episode mixed; F19.24 Other psychoactive substance dependence with psychoactive substance-induced mood disorder; F43.10 Post-traumatic stress disorder, unspecified; E11.9 Type 2 diabetes mellitus without complications; G62.9 Polyneuropathy, unspecified; D69.6 Thrombocytopenia, unspecified; E78.00 Pure hypercholesterolemia, unspecified; B37.3 Candidiasis of vulva and vagina; B18.2 Chronic viral hepatitis C; R07.9 Chest pain, unspecified; Z79.4 Long term (current) use of insulin; Z90.11 Acquired absence of right breast and nipple; Z85.3 Personal history of malignant neoplasm of breast; Z95.2 Presence of prosthetic heart valve; Z87.891 Personal history of nicotine dependence
CPT/HCPCS: 36415; 80053; 81003; 81015; 82962; 85027; 86593; 86780; 93005; 93010; J0735

== ENCOUNTER 2018-03-14 08:00 | Inpatient (IN) | payer OTHER ==
--- NOTE | 2018-03-14 08:09 | PDOC ---
History of Present Illness - General Chief Complaint: Chest Pain Stated Complaint: CHEST PAIN,VOMTING Time Seen by Provider: 03/14/18 08:07 - History of Present Illness Initial Comments: 53 yo with PMH of HTN, HLD, breast cancer, aortic valve repair, DM2, asthma, bipolar disorder, substance abuse, COPD sent from [facility] for chest pain x 1 day. Patient was sitting when she felt the chest pain yesterday morning that she describes as throbbing, and rated at 10/10. She received sublingual nitroglycerin which decreased her pain to 9/10. Pain is intermittent and radiates down to her legs. Patient reports nausea, vomiting, and diaphoresis. She also endorses feeling weak, dizzy, and short of breath. Never had an NJ. Mother had a NJ at age 55. No hemoptysis, no recent surgical history, no recent mobilization, no hormone use, no history of DVT or PE. Patient with reported No fevers or abdominal pain. Past History - Past Medical History Allergies/Adverse Reactions: Allergies Allergy/AdvReac Type Severity Reaction Status Date / Time grass pollen Allergy Intermediate Verified 03/14/18 08:07 No Known Drug Allergies Allergy Unknown Verified 03/14/18 08:07 Home Medications: Ambulatory Orders Salmeterol/Fluticasone [Advair 250Mcg/50Mcg -] 1 inh PO BID 07/28/12 Albuterol Sulfate Inhaler - [Ventolin HFA Inhaler -] 2 inh PO Q4H PRN 07/12/16 metFORMIN HCL [Glucophage -] 500 mg PO DAILY 08/02/16 Atorvastatin Ca [Lipitor] 20 mg PO HS 08/09/16 Aspirin 81 mg PO DAILY 08/14/17 Anemia: No Asthma: No Cancer: Yes ((R) BREAST CA - MASTECTOMY 2012) Cardiac Disorders: No CVA: No COPD: Yes (on albuterol inhaler) CHF: No Dementia: No Diabetes: Yes (iddm) GI Disorders: No Disorders: No HTN: No Hypercholesterolemia: Yes (on med) Kidney Stones: No Liver Disease: Yes (hep c treated) Seizures: No Thyroid Disease: No - Surgical History Abdominal Surgery: No Appendectomy: No Cardiac Surgery: Yes (AVR ,) Cholecystectomy: No Lung Surgery: No Neurologic Surgery: No Orthopedic Surgery: No - Reproductive History PID: No - Suicide/Smoking/Psychosocial Hx Smoking History: Former smoker Have you smoked in the past 12 months: Yes Number of Cigarettes Smoked Daily: 60 If you are a former smoker, when did you quit?: 2 years ago 'Breaking Loose' booklet given: 03/12/18 Hx Alcohol Use: Yes Drug/Substance Use Hx: Yes Substance Use Type: Alcohol, Cocaine Hx Substance Use Treatment: Yes ([facility] 08/14/17 to 08/17/17 detox,rehab 08/17/17 to 08/23/17) Review of Systems - Review of Systems Comments:: Constitutional: no fever, no chills HEENT: no throat pain, no dysphagia Cardiovascular: +chest pain, no palpitations Respiratory: +cough, +shortness of breath Gastrointestinal: no abdominal pain, +nausea, +vomiting Genitourinary: no dysuria, no frequency Musculoskeletal: no myalgia, no arthralgia Skin: no rash, no itching Neurologic: no headache, +lightheadedness *Physical Exam - Physical Exam Comments: General: Awake, alert, and fully oriented Head: No signs of trauma Eyes: EOMI, sclera anicteric ENT: Dry mucus membranes Neck: Normal ROM, supple Lungs: Lungs clear, Normal breath sounds Cardio: Regular rhythm, S1 and S2 present Abdomen: Soft, nontender. No guarding, no rebound, no masses Extremities: Normal range of motion, Distal pulses present SKIN: Warm, Dry, normal turgor Neurologic: Cranial nerves II through XII grossly intact. Normal speech ED Treatment Course - LABORATORY CBC & Chemistry Diagram: 03/14/18 08:41 03/14/18 08:41 Medical Decision Making - Medical Decision Making 53 yo with PMH of HTN, HLD, breast cancer, aortic valve repair, DM2, asthma, bipolar disorder, substance abuse, COPD sent from [facility] for chest pain x 1 day. -Cardiac workup -1L NS, 4mg morphine -Patient reports 0/10 chest pain after meds 03/14/18 09:15 No leukocytosis or anemia Tme=140 Sliding scale insulin ordered Lopressor given for hypertension, systolic now 143 CXR with no acute pathology EKG: rate 95, QTc 477, NSR HEART score= 4 (given age, risk factors, and history) Plan to admit; Primary care provider is Suzi Abdalla 03/14/18 11:[address] Thayer who accepted patient for admission 03/14/18 12:04 *DC/Admit/Observation/Transfer Diagnosis at time of Disposition: Chest pain - Discharge Dispostion Condition at time of disposition: Guarded Decision to Admit order: Yes - Referrals - Patient Instructions - Post Discharge Activity
[2018-03-14] MEDS ORDERED: NITROGLYCERIN SUBLINGUAL 1/200 0.3 MG BTL SL ONE (08:35)
[2018-03-14] MEDS ORDERED: METOPROLOL TARTRATE 5 MG/5 ML VIAL IVPUSH ONE (08:36)
[2018-03-14] MEDS ORDERED: ONDANSETRON 4 MG/2 ML VIAL IVPUSH ONE (08:36)
[2018-03-14] MEDS ORDERED: SODIUM CHLORIDE 1,000 ML IV STA (08:36)
[2018-03-14] MEDS ORDERED: morphine CARPU-JECT 4 MG/1 ML DISP.SYRIN IVPUSH ONE (08:38)
[2018-03-14] MEDS ORDERED: ONDANSETRON 4 MG/2 ML VIAL ONE (08:57)
[2018-03-14] MEDS ORDERED: MORPHINE SULFATE 2 MG/ML VIAL ONE (08:57)
[2018-03-14] MEDS ORDERED: METOPROLOL TARTRATE 5 MG/5 ML VIAL ONE (08:57)
[2018-03-14 08:58] LABS: BASO % 0.9 % (0-2.0); EOS % 1.6 % (0-4.5); HEMATOCRIT 40.8 % (32.4-45.2); HEMOGLOBIN 13.2 GM/dL (10.7-15.3); LYMPH % 17.3 % (8-40); MCH 29.8 pg (25.7-33.7); MCHC 32.4 g/dl (32.0-36.0); MEAN CELL VOLUME 91.8 fl (80-96); MEAN PLT VOLUME 11.7 fl (7.5-11.1); MONO % 7.5 % (3.8-10.2); NEUT % 72.7 % (42.8-82.8); PLATELET COUNT 78 K/MM3 (134-434); RBC 4.45 M/mm3 (3.60-5.2); RDW 13.3 % (11.6-15.6); WHITE BLOOD COUNT 7.3 K/mm3 (4.0-10.0)
[2018-03-14 09:12] LABS: INR 0.91 (0.83-1.09); PROTHROMBIN TIME (PATIENT) 10.7 SEC (9.7-13.0)
[2018-03-14 09:15] LABS: ACTIVATED PTT 26.6 SECONDS (25.2-36.5)
[2018-03-14 09:36] LABS: ALBUMIN 3.2 g/dl (3.4-5.0); ALK PHOS 105 U/L (45-117); ANION GAP 10 MMOL/L (8-16); BILIRUBIN,TOTAL 0.3 mg/dL (0.2-1); BLOOD UREA NITROGEN 21 mg/dL (7-18); CALCIUM 9.3 mg/dL (8.5-10.1); CHLORIDE 103 mmol/L (98-107); CO2 27 mmol/L (21-32); CREATININE 0.8 mg/dL (0.55-1.3); POTASSIUM 4.2 mmol/L (3.5-5.1); SGOT/AST 13 U/L (15-37); SGPT/ALT 25 U/L (13-61); SODIUM 140 mmol/L (136-145); TOT PROT 6.7 g/dl (6.4-8.2)
[2018-03-14 09:37] LABS: GLUCOSE,RANDOM 328 mg/dL (74-106)
[2018-03-14] MEDS ORDERED: guaiFENesin 200 MG/10 ML 10 ML UNIT-DOSE CUPS PO ONE (10:52)
[2018-03-14] MEDS ORDERED: INSULIN REGULAR HUMAN 100 UNITS/ML *VIAL IVPUSH ONE (10:52)
--- NOTE | 2018-03-14 11:03 | PDOC ---
Attending Attestation - Resident Resident Name: Indigo Rowan - ED Attending Attestation I have performed the following: I have examined & evaluated the patient, The case was reviewed & discussed with the resident, I agree w/resident's findings & plan - HPI HPI: 03/14/18 10:58 53-year-old female with history of diabetes and AVR (last 2014) sent from [facility] for evaluation of chest pain. Patient states she has had persisting cough for several weeks, during a coughing episode she developed sudden sharp chest pain, prompting EMS activation. Blood pressure was notably very elevated at [facility], remains elevated on arrival here. Never had a stress test, reports 2-3 blocks dyspnea that she attributes to her asthma/COPD, occasionally gets chest pain with it. - Physicial Exam PE: 03/14/18 11:03 Elevated blood pressure initially, slightly improved now Much more comfortable after pain meds, asleep but arousable Heart is regular, 2/6 ejection murmur at the right upper sternal border Lungs are clear No edema - Medical Decision Making 03/14/18 11:04 53-year-old female from [facility] with acute chest pain, has history of diabetes and aVR and does have dyspnea on exertion and at baseline with no history of stress test per her report. hypertensive here, r/o ACS. labs, ua ekg, cxr bp and pain control admission to [facility] Heart Score/ECG Review #1 ECG reviewed & interpreted by me at: 08:15 General ECG Interpretation: Sinus Rhythm, Normal Rate (95), Normal Intervals ( qtc 477, LVH), No acute ischemic changes (T wave flattening I/AVL)
[2018-03-14] MEDS ORDERED: guaiFENesin 200 MG/10 ML 10 ML UNIT-DOSE CUPS ONE (11:16)
[2018-03-14] MEDS ORDERED: INSULIN NPH 100 UNITS/ML *VIAL ONE (11:16)
[2018-03-14 15:46] VITALS: BMI 37.6
[2018-03-14] MEDS ORDERED: PNEUMOC 13-VAL CONJ-DIP CRM/PF 0.5 ML DISP.SYRIN IM ONE (15:46)
[2018-03-14] MEDS ORDERED: PNEUMOCOCCAL 23 VACCINE 0.5 ML VIAL IM ONE (16:00)
[2018-03-14] MEDS ORDERED: ALBUTEROL SO4 8 GM HFA INHALER IH PRN (17:04)
--- NOTE | 2018-03-14 17:16 | HP ---
Admitting History and Physical - Admission Chief Complaint: cp , HTN History of Present Illness: 53 y/o lady withh/o breast cancer s/p mastectomy and chemo, DM , HL, AVR withporcine valve,cirrhosis , COPD, Hep C, neuropathy, OA , bipolar, polysubstance abuse, who was sent from [facility] with CP and elevated BP. she was admitted to [facility] on 03/12 for detox, and today while sitting in bed , she had palpitations for few seconds followed by sharp retrosternal CP which lasted x 1 min only.She was coughing when she developed the pain. she then came to ER . In ER per her she was CP free,and now on floor she has no pain. she reports MARTINEZ. No orthopnia. she reports cough with green sputum production. she also reported fever 102 in [facility] but that was not documented in EMR. she reports hemoptysis . she has AVr. has CAD, last stress and cath were in 2010. her Card is Dr. Pires in [facility] .. She denies any diagnosis of HTN History Source: Patient Limitations to Obtaining History: No Limitations - Past Medical History Cardiovascular: Yes: Aortic Insufficiency (s/p AVR with porcine valve), CAD Pulmonary: Yes: COPD, Pneumonia Gastrointestinal: Yes: Other (previously told of cirrhosis) Hepatobiliary: Yes: Hepatitis C ...LMP: 03/03/12 Heme/Onc: Yes: Thrombocytopenia Infectious Disease: Yes: Other (Positive T. palladium) Psych: Yes: Addictions, Bipolar Musculoskeletal: Yes: Chronic low back pain, Osteoarthritis Endocrine: Yes: Diabetes Mellitus, Other (neuropathy) - Past Surgical History Past Surgical History: Yes: Valve Replacement - Smoking History Smoking history: Current some day smoker Have you smoked in the past 12 months: Yes Aproximately how many cigarettes per day: 60 If you are a former smoker, when did you quit?: 3 days ago - Alcohol/Substance Use Hx Alcohol Use: Yes (last use 3 days ago ) History of Substance Use: reports: Cocaine ($ 100 week habit- snorting) Date of Last Use: 03/11/18 - Social History ADL: Independent Occupation: disability History of Recent Travel: No Home Medications - Allergies Allergies/Adverse Reactions: Allergies Allergy/AdvReac Type Severity Reaction Status Date / Time grass pollen Allergy Intermediate Verified 03/14/18 08:07 No Known Drug Allergies Allergy Unknown Verified 03/14/18 08:07 - Home Medications Home Medications: Ambulatory Orders Salmeterol/Fluticasone [Advair 250Mcg/50Mcg -] 1 inh PO BID 07/28/12 Albuterol Sulfate Inhaler - [Ventolin HFA Inhaler -] 2 inh PO Q4H PRN 07/12/16 metFORMIN HCL [Glucophage -] 500 mg PO BID 08/02/16 Aspirin 81 mg PO DAILY 08/14/17 Furosemide [Lasix] 10 mg PO DAILY 03/14/18 Nitroglycerin 0.4 mg SL [id number] 03/14/18 Family Disease History - Family Disease History Family Disease History: Heart Disease: Father ( , gun shot ), Mother, Brother, Other: Father, Mother Review of Systems - Review of Systems Constitutional: reports: Fever. denies: Chills, Lethargy, Loss of Appetite, Night Sweats Eyes: denies: Blind Spots, Blurred Vision, Double Vision, Recent Change in Vision HENT: denies: Difficult Swallowing, Ear Discharge, Ear Pain Neck: denies: Decreased ROM, Lumps, Pain on Movement, Tenderness Cardiovascular: reports: Chest Pain, Palpitations. denies: Edema, Shortness of Breath Respiratory: reports: Cough, Exercise Intolerance, Hemoptysis, SOB on Exertion. denies: Orthopnea, PND, Snoring, SOB, Wheezing Gastrointestinal: reports: Diarrhea (loose since yesterday). denies: Abdominal Pain, Bloating, Constipation, Dysphagia Genitourinary: denies: Burning, Discharge, Dysuria, Flank Pain, Frequency Musculoskeletal: denies: Back Pain, Crepitus, Decreased ROM Neurological: reports: Numbness (legs , chronic). denies: Change in Speech, Confusion, Dizziness Endocrine: denies: Excessive Sweating, Flushing, Increased Hunger, Increased Thirst Psychiatric: denies: Altered Sleep Pattern, Anxiety, Depression, Hallucinations , Panic Physical Examination Vital Signs: Vital Signs Temperature 98.2 F 03/14/18 15:39 Pulse Rate 84 03/14/18 15:39 Respiratory Rate 20 03/14/18 15:39 Blood Pressure 132/84 03/14/18 15:39 O2 Sat by Pulse Oximetry (%) 97 03/14/18 16:00 Findings/Remarks: NAD , Awake , alert . repetitive leg movements HEENT: MMM, no facial droop, EOMI, round equal pupils , reactive to light. Nl oropharynx LUngs: CTAB CV: RRR, 3/6 SM at base , with loud S2 Abd: sfot, TTP in R sided abd. no hepatosplenomegaly Ext : no edema or erythema Neuro : no facial droop, EOMI, round equal pupils , reactive to light. strength 5/5 in upper and lower extremities ( except hip flexion b/l , 4/5 due to pain ) . sensation to light touch decreased on bothe legs and thighs, intact otherwise . Labs: CBC, BMP 03/14/18 08:41 03/14/18 08:41 Imaging - Results Chest X-ray: Report Reviewed, Image Reviewed EKG: Image Reviewed (brandon gomez , Qtc 477. first degree Av block) Assessment/Plan 53 y/o lady withh/o breast cancer s/p mastectomy and chemo, DM , HL, AVR withporcine valve, cirrhosis, COPD, Hep C, neuropathy, OA , bipolar, polysubstance abuse, who was sent from [facility] with CP and elevated BP. 1- HTN urgency : denies any h/o HTN before . this could be undiagnosed essential HTN exacerbated by cocaine use and withdrawal . or could be related to her withdrawal. - BP is Nl now after BB in ER - start lisinopril daily - avoid BB due to cocaine use - monitor 2- CP: atypical . while coughing, x 1 min , sharp. resolved. had similar presentation in 2017. EKG with no acute ischemic changes - in am try to obtain her cath report from 2016 ( per records ) - echo - tele - if cath report normal, then she does not need further cardiac tests 3- Alcohol use: last use 3 days ago. per EMR today she was supposed to be on 15 mg taper, will resume taper 4- cocaine use: monitor counseled 5- Hep C and liver cirrhosis : not followed by GI - refer at [place] - cont lasix 6- cough, sputum production ( 3 weeks ) and reported fever .and hemoptysis: - check chest CT. - will not start any treatment for pNA yet . 7-DM : SSI . hold metformin. check A1c , as she might need more po meds at [place] DVT PX . Visit type - Emergency Visit Emergency Visit: Yes ED Registration Date: 03/14/18 Care time: The patient presented to the Emergency Department on the above date and was hospitalized for further evaluation of their emergent condition. - New Patient This patient is new to me today: Yes Date on this admission: 03/14/18 - Critical Care Critical Care patient: No
[2018-03-14] MEDS ORDERED: PT OWN MED DRAWER 7, Y5N ONE (21:51)
[2018-03-14] MEDS ORDERED: ACETAMINOPHEN 325 MG TABLET (FP) PO ONE (22:15)
[2018-03-14] MEDS: chlordiazePOXIDE 5 MG CAPSULE PO SCH (22:23)
[2018-03-14] MEDS: HEPARIN NA (PORCINE) 5,000 UNITS/ML 1ML VIAL SQ SCH (22:24)
[2018-03-14] MEDS: BUDESONIDE/FORMETEROL FUMARATE 80/4.5 mcg INHALER IH SCH (22:24)
[2018-03-14] MEDS ORDERED: BENZOCAINE/MENTH/CETYLPYRD CL 1 EACH LOZENGE MM PRN (22:55)
[2018-03-15] MEDS ORDERED: PT OWN MED DRAWER 7, Y5N ONE ×3 (06:49→22:08)
[2018-03-15] MEDS: chlordiazePOXIDE 5 MG CAPSULE PO SCH ×3 (06:51→17:34)
[2018-03-15] MEDS: HEPARIN NA (PORCINE) 5,000 UNITS/ML 1ML VIAL SQ SCH ×3 (06:52→22:34)
[2018-03-15] MEDS: INSULIN SLIDING SCALE (NOVOLOG) 1 VIAL SQ SCH ×3 (06:53→17:33)
[2018-03-15 08:31] LABS: ANION GAP 8 MMOL/L (8-16); BLOOD UREA NITROGEN 14 mg/dL (7-18); CHLORIDE 103 mmol/L (98-107); CHOLESTEROL 263 mg/dL (50-200); CO2 29 mmol/L (21-32); CREATININE 0.7 mg/dL (0.55-1.3); GLUCOSE,RANDOM 269 mg/dL (74-106); MAGNESIUM 1.8 mg/dL (1.8-2.4); PHOSPHOROUS 3.4 mg/dL (2.5-4.9); POTASSIUM 4.2 mmol/L (3.5-5.1); SODIUM 140 mmol/L (136-145)
[2018-03-15] MEDS: ASPIRIN 81 MG CHEWABLE TABLETS PO SCH (10:24)
[2018-03-15] MEDS: LISINOPRIL 20 MG TABLET (FP) PO SCH (10:24)
[2018-03-15] MEDS: BUDESONIDE/FORMETEROL FUMARATE 80/4.5 mcg INHALER IH SCH ×2 (10:24→22:31)
[2018-03-15] MEDS: FUROSEMIDE 20 MG TABLET (FP) PO SCH (10:24)
--- NOTE | 2018-03-15 11:34 | EKG ---
Test Reason : Blood Pressure : / mmHG Vent. Rate : 095 BPM Atrial Rate : 095 BPM P-R Int : 128 ms QRS Dur : 096 ms QT Int : 380 ms P-R-T Axes : 077 -28 067 degrees QTc Int : 477 ms NORMAL SINUS RHYTHM LEFT ATRIAL ENLARGEMENT LEFT VENTRICULAR HYPERTROPHY NONSPECIFIC T WAVE ABNORMALITY PROLONGED QT ABNORMAL ECG WHEN COMPARED WITH ECG OF 12-MAR-2018 13:20, NO SIGNIFICANT CHANGE WAS FOUND Confirmed by SETH HAZEL MD ([id number]) on 03/15/2018 11:34:20 AM Referred By: Confirmed By:SETH HAZEL MD
--- NOTE | 2018-03-15 11:57 | ECHO ---
Version: 1 Name: BEN ROCHA Exam: Adult Echocardiogram Study Date: 03/15/2018, 8:11 AM Age: 53 Years MMode/2D Measurements & Calculations IVSd: 1.03 cm LVIDs: 3.6 cm LVIDd: 5.2 cm LVPWd: 1.21 cm LVOT diam: 2.00 cm Ao root diam: 2.7 cm LA dimension: 4.9 cm Doppler Measurements & Calculations MV E max cole: 105.1 cm/sec Med E/e': 20.8 MV A max cole: 123.2 cm/sec Med Peak E' Cole: 5.0 cm/sec MV E/A: 0.85 Lat E/e': 18.1 Lat Peak E' Cole: 5.8 cm/sec Ao max P.0 mmHg RONY(I,D): 1.04 cm Ao mean P.7 mmHg LV V1 mean: 57.3 cm/sec Ao V2 max: 254.6 cm/sec LV V1 mean P.46 mmHg PA V2 mean: 99.9 cm/sec TR max cole: 208.1 cm/sec PI end-d cole: 106.6 cm/sec TR max P.3 mmHg Procedure A two-dimensional transthoracic echocardiogram with color flow and Doppler was performed. Left Ventricle There is moderate concentric left ventricular hypertrophy. The left ventricular ejection fraction is normal. E/A reversal consistent with but not diagnostic of poor LV compliance. The left ventricular wall mot ion is normal. Right Ventricle The right ventricle is grossly normal size. Atria The left atrium is moderately dilated. The right atrium is moderately dilated. Mitral Valve There is mild mitral valve thickening. There is no mitral valve stenosis. There is trace to mild will ral regurgitation. Tricuspid Valve The tricuspid valve is not well visualized, but is grossly normal. There is no tricuspid stenosis. T here is mild tricuspid regurgitation. Right ventricular systolic pressure is normal. Aortic Valve The aortic valve is not well visualized. There is mild to moderate aortic valve thickening. There is mild to moderate aortic sclerosis.;. Mild valvular aortic stenosis. No aortic regurgitation is present. Pulmonic Valve The pulmonic valve is not well visualized. There is no pulmonic valvular stenosis. Mild to moderate pulmonic valvular regurgitation. Great Vessels The aortic root is normal size. Pericardium/Pleura There is no pericardial effusion. Summary Statements There is moderate concentric left ventricular hypertrophy. The left ventricular ejection fraction is normal. The left ventricular wall motion is normal. The left atrium is moderately dilated. The right atrium is moderately dilated. The aortic valve is not well visualized. There is mild to moderate aortic valve thickening. There is mild to moderate aortic sclerosis.; Mild valvular aortic stenosis. No aortic regurgitation is present. E/A reversal consistent with but not diagnostic of poor LV compliance There is trace to mild mitral regurgitation. There is mild tricuspid regurgitation. Right ventricular systolic pressure is normal. MD Driss Vital 03/15/2018, 11:56 AM Ordering Physician: Ernestina Thayer Referring Physician: Ernestina Thayer Performed By: Vandana Arroyo
--- NOTE | 2018-03-15 12:23 | DS ---
Physical Examination Vital Signs: Vital Signs Temperature 36.9 C 03/15/18 09:00 Pulse Rate 92 H 03/15/18 09:00 Respiratory Rate 20 03/15/18 09:00 Blood Pressure 98/59 L 03/15/18 09:00 O2 Sat by Pulse Oximetry (%) 96 03/14/18 22:00 Constitutional: Yes: No Distress, Calm, Obese Cardiovascular: Yes: Regular Rate and Rhythm, Other (reproducible chest pain). No: Gallop, Murmur, Rub Respiratory: Yes: Regular, CTA Bilaterally. No: Rales, Rhonchi, Wheezes Gastrointestinal: Yes: Normal Bowel Sounds, Soft. No: Distention, Tenderness Extremities: Yes: WNL Edema: No Labs: CBC, BMP 03/14/18 08:41 03/15/18 06:10 Discharge Summary Reason For Visit: CHEST PAIN Current Active Problems Chest pain (Acute) Hospital Course: 1- HTN urgency 2- CP 3- Alcohol use 4- cocaine use 5- Hep C and liver cirrhosis 6- Cough 7-DM Ms Peguero is a 53 year old female who came in with chest pain and HTN. She was admitted to the hospital under observation. Cardiac enzymes x3 were checked and negative. ECHO was normal. Cardiac catheterization in past was reported normal. Patient is eager to leave and go to [facility]. She is currently stable for discharge. 32 minutes spent in preparation of this discharge Condition: Stable - Instructions Diet, Activity, Other Instructions: diabetic, low fat diet. Continue previous activity. Disposition: HOME - Home Medications Comprehensive Discharge Medication List: Ambulatory Orders Salmeterol/Fluticasone [Advair 250Mcg/50Mcg -] 1 inh PO BID 07/28/12 Albuterol Sulfate Inhaler - [Ventolin HFA Inhaler -] 2 inh PO Q4H PRN 07/12/16 metFORMIN HCL [Glucophage -] 500 mg PO BID 08/02/16 Aspirin 81 mg PO DAILY 08/14/17 Furosemide [Lasix] 10 mg PO DAILY 03/14/18 Nitroglycerin 0.4 mg SL [id number] 03/14/18 Lisinopril [Prinivil] 20 mg PO DAILY #30 tablet 03/15/18
[2018-03-15] MEDS ORDERED: ACETAMINOPHEN 325 MG TABLET (FP) PO ONE (18:15)
[2018-03-15] MEDS ORDERED: hydrALAZINE HCL 20 MG/ML VIAL IVPUSH ONE (22:21)
--- NOTE | 2018-03-15 22:26 | PN ---
Progress Note (short form) - Note Progress Note: call manager internal revenue agent asked to evaluate patient for complaint of chest pain, vomiting, and hypertension Subjective: Patient resting in exam bed in mild distress. Claims she is dizzy, and weak. Admits chest pain has resolved. Endorses two episodes of non blood non billious vomiitng one hour ago. Endorses two loose brown stools without melena, or hematochezia. Objective: Vitals upon my exam: BP 190/90 HR 94 RR 18 O2 saturation 98% room air GENERAL: Patient is awake, alert, in mild distress. HEENT: PERRLA, EOMI PULMONARY: Lungs clear to auscultation B/L. No wheezing, no rhonchi. CARDIO: +S1, S2, no murmurs, rubs, gallops GI: Soft, nontender to palpation. Normoactive bowel sounds auscultated X4 quadrants. NEURO: CN II-XII grossly intact without focal deficits. Assessment Plan -BP notd in chart 194/ 104 -Hydralazine 10mg IV push STAT -Repeat manual blood pressure STAT -Repeat BP was 177/109 -Additional 10mg Hydralazine IV push STAT -STAT EKG -Cardiac profile troponins and CKMB. Will trend -Troponin negative at 0.02. -BP decreased to 152/98 -Tylenol 650mg PO one time dose for pain At 5AM, blood pressure paged by nurse for concern of hypertension at 200/140. Upon repeat with manual BP cuff was 178/90. Patient noted to be anxious and short of breath. Patient vomited with food particles. nonbloody, nonbillious. -Will order CTA chest to rule out pulmonary embolism- However per RN unable to gain appropriate IV access, and patient not cooperative with IV placement. Will order D-Dimer now. -BP may be secondary to agitation. Will consider additional Hydralazine if BP not responsive to Ativan -Ativan 1mg IV push one time dose -Repeat BP 194/110 -Additional Hydralazine 10mg IV stat. F/U manual BP
[2018-03-16] MEDS ORDERED: hydrALAZINE HCL 20 MG/ML VIAL IVPUSH ONE ×3 (00:27→06:05)
[2018-03-16] MEDS ORDERED: ACETAMINOPHEN 325 MG TABLET (FP) PO ONE (00:40)
[2018-03-16] MEDS ORDERED: LORazepam 2 MG/ML SDV VIAL IM ONE ×2 (05:10→05:25)
[2018-03-16] MEDS ORDERED: chlordiazePOXIDE 5 MG CAPSULE ONE ×2 (06:20→10:53)
[2018-03-16] MEDS: INSULIN SLIDING SCALE (NOVOLOG) 1 VIAL SQ SCH ×3 (06:23→17:51)
[2018-03-16] MEDS: chlordiazePOXIDE HCL 10 MG CAPSULE PO SCH ×5 (06:23→23:29)
[2018-03-16] MEDS: HEPARIN NA (PORCINE) 5,000 UNITS/ML 1ML VIAL SQ SCH ×3 (06:23→22:22)
[2018-03-16] MEDS ORDERED: PT OWN MED DRAWER 7, Y5N ONE ×2 (07:46→10:54)
--- NOTE | 2018-03-16 10:32 | PN ---
Progress Note, Physician Chief Complaint: Ms Peguero says she is not feeling well. Mainly complains of tiredness and nausea. No cp or sob. - Current Medication List Current Medications: Active Medications Albuterol Sulfate (Ventolin Hfa Inhaler -) 2 puff IH Q4H PRN PRN Reason: ASTHMA Aspirin (Asa -) 81 mg PO DAILY [facility] Last Admin: 03/15/18 10:24 Dose: 81 mg Benzocaine/Menthol (Cepacol Lozenge -) 1 each MM DAILY PRN PRN Reason: SORE THROAT Last Admin: 03/15/18 06:56 Dose: 1 each Budesonide/Formoterol Fumarate (Symbicort 80/4.5mcg -) 2 puff IH BID [facility] Last Admin: 03/15/18 22:31 Dose: 2 puff Chlordiazepoxide HCl (Librium -) 10 mg PO [id number] [facility] Stop: 03/16/18 23:01 Last Admin: 03/16/18 06:26 Dose: Not Given Furosemide (Lasix -) 10 mg PO DAILY [facility] Last Admin: 03/15/18 10:24 Dose: 10 mg Heparin Sodium (Porcine) (Heparin -) 5,000 unit SQ TID [facility] Last Admin: 03/16/18 06:23 Dose: Not Given Insulin Aspart (Novolog Vial Sliding Scale -) 1 vial SQ TIDAC [facility]; Protocol Last Admin: 03/16/18 06:23 Dose: 10 units Lisinopril (Prinivil) 20 mg PO BID [facility] - Objective Vital Signs: Vital Signs Temperature 37.1 C 03/16/18 08:41 Pulse Rate 94 H 03/16/18 08:41 Respiratory Rate 20 03/16/18 08:41 Blood Pressure 164/93 03/16/18 08:41 O2 Sat by Pulse Oximetry (%) 97 03/15/18 09:00 Constitutional: Yes: No Distress, Calm, Obese Cardiovascular: Yes: Regular Rate and Rhythm. No: Gallop, Murmur, Rub Respiratory: Yes: Regular, CTA Bilaterally. No: Rales, Rhonchi, Wheezes Gastrointestinal: Yes: Normal Bowel Sounds, Soft. No: Distention, Tenderness Extremities: Yes: WNL Edema: No Labs: CBC, BMP 03/14/18 08:41 03/15/18 06:10 INR, PTT INR 0.91 (0.83-1.09) 03/14/18 08:41 Problem List - Problems (1) HTN (hypertension) Assessment/Plan: -very poorly controlled -patient says does not have history but suspect chronic secondary to ECHO results -continue lasix -increase lisinopril -consult nephrology for improved blood pressure control -? if secondary to withdrawal but still quite high Code(s): I10 - ESSENTIAL (PRIMARY) HYPERTENSION (2) Chest pain Assessment/Plan: -currently resolved -however now with nausea and vomiting -? anginal equivalent -ruled out -however will consult cardiology Code(s): R07.9 - CHEST PAIN, UNSPECIFIED (3) DM2 (diabetes mellitus, type 2) Assessment/Plan: -on metformin as an outpatient -currently on SSI -patient is very non-compliant with diet in hospital -encouraged her to remain on ordered diabetic diet Code(s): E11.9 - TYPE 2 DIABETES MELLITUS WITHOUT COMPLICATIONS Qualifiers: Diabetes mellitus termite control servicer insulin use: with termite control servicer use Diabetes mellitus complication status: without complication Qualified Code(s): E11.9 - Type 2 diabetes mellitus without complications; Z79.4 - MCFP (current) use of insulin (4) Elevated d-dimer Assessment/Plan: -will obtain CT scan PE protocol if patient allows -has been refusing multiple tests Code(s): R79.89 - OTHER SPECIFIED ABNORMAL FINDINGS OF BLOOD CHEMISTRY (5) Alcohol dependence Assessment/Plan: -patient says she is not dependant on alcohol as she only drinks on the weekend -currently refusing librium -monitor Code(s): F10.20 - ALCOHOL DEPENDENCE, UNCOMPLICATED (6) Hepatitis C Assessment/Plan: -noted Code(s): B19.20 - UNSPECIFIED VIRAL HEPATITIS C WITHOUT HEPATIC COMA Qualifiers: Viral hepatitis chronicity: chronic (7) Cocaine dependence Assessment/Plan: -outpatient rehab Code(s): F14.20 - COCAINE DEPENDENCE, UNCOMPLICATED (8) Emesis Assessment/Plan: -prn zofran -possible anginal equivalent -monitor Code(s): R11.10 - VOMITING, UNSPECIFIED
[2018-03-16 10:39] LABS: BASO % 0.4 % (0-2.0); HEMATOCRIT 45.1 % (32.4-45.2); HEMOGLOBIN 14.8 GM/dL (10.7-15.3); LYMPH % 6.4 % (8-40); MCH 30.1 pg (25.7-33.7); MCHC 32.9 g/dl (32.0-36.0); MEAN CELL VOLUME 91.6 fl (80-96); MEAN PLT VOLUME 12.2 fl (7.5-11.1); NEUT % 91.2 % (42.8-82.8); PLATELET COUNT 101 K/MM3 (134-434); RBC 4.93 M/mm3 (3.60-5.2); RDW 13.3 % (11.6-15.6)
[2018-03-16] MEDS ORDERED: LISINOPRIL 20 MG TABLET (FP) PO SCH (11:00)
[2018-03-16] MEDS: FUROSEMIDE 20 MG TABLET (FP) PO SCH (11:04)
[2018-03-16] MEDS: BUDESONIDE/FORMETEROL FUMARATE 80/4.5 mcg INHALER IH SCH ×2 (11:04→22:23)
[2018-03-16] MEDS: ASPIRIN 81 MG CHEWABLE TABLETS PO SCH (11:04)
[2018-03-16 11:12] LABS: ANION GAP 12 MMOL/L (8-16); BLOOD UREA NITROGEN 10 mg/dL (7-18); CALCIUM 9.5 mg/dL (8.5-10.1); CHLORIDE 100 mmol/L (98-107); CO2 26 mmol/L (21-32); CREATININE 0.7 mg/dL (0.55-1.3); MAGNESIUM 1.8 mg/dL (1.8-2.4); PHOSPHOROUS 2.7 mg/dL (2.5-4.9); POTASSIUM 3.7 mmol/L (3.5-5.1); SODIUM 138 mmol/L (136-145)
[2018-03-16] MEDS: LISINOPRIL 20 MG TABLET (FP) PO SCH (11:13)
--- NOTE | 2018-03-16 11:52 | EKG ---
Test Reason : Blood Pressure : / mmHG Vent. Rate : 101 BPM Atrial Rate : 101 BPM P-R Int : 128 ms QRS Dur : 102 ms QT Int : 374 ms P-R-T Axes : 075 -33 090 degrees QTc Int : 484 ms SINUS TACHYCARDIA POSSIBLE LEFT ATRIAL ENLARGEMENT LEFT AXIS DEVIATION LEFT VENTRICULAR HYPERTROPHY WITH REPOLARIZATION ABNORMALITY ABNORMAL ECG WHEN COMPARED WITH ECG OF 15-MAR-2018 21:11, NO SIGNIFICANT CHANGE WAS FOUND Confirmed by NAGA KELSEY, JOSUE ([id number]) on 03/16/2018 11:51:46 AM Referred By: Confirmed By:JOSUE NIELSON MD
--- NOTE | 2018-03-16 11:52 | EKG ---
Test Reason : Blood Pressure : / mmHG Vent. Rate : 095 BPM Atrial Rate : 095 BPM P-R Int : 128 ms QRS Dur : 098 ms QT Int : 388 ms P-R-T Axes : 069 -27 096 degrees QTc Int : 487 ms NORMAL SINUS RHYTHM POSSIBLE LEFT ATRIAL ENLARGEMENT LEFT VENTRICULAR HYPERTROPHY WITH REPOLARIZATION ABNORMALITY PROLONGED QT ABNORMAL ECG WHEN COMPARED WITH ECG OF 14-MAR-2018 08:15, NO SIGNIFICANT CHANGE WAS FOUND Confirmed by NAGA KELSEY, JOSUE ([id number]) on 03/16/2018 11:51:55 AM Referred By: Confirmed By:JOSUE NIELSON MD
[2018-03-16 12:08] LABS: GLUCOSE,RANDOM 343 mg/dL (74-106)
[2018-03-16] MEDS: ONDANSETRON 4 MG/2 ML VIAL IVPUSH PRN (12:13)
[2018-03-16 14:42] LABS: ACANTHOCYTES 0; ANISOCYTOSIS 0; HELMET CELLS 0; HOWELL-JOLLY BODIES 0; MACROCYTOSIS 0; OVALOCYTE 0; PLATELET ESTIMATE DECREASED; ROULEAU 0; SICKELED CELLS 0; TARGET CELLS 0; TEAR DROP CELLS 0; TOXIC GRANULATION 0
--- NOTE | 2018-03-16 15:02 | CONSULT ---
Consult Consult Specialty:: Nephrology Reason for Consultation:: HTN - History of Present Illness Chief Complaint: sent in for chest pain and HTN History of Present Illness: Pt is a 53 year old female with pmhx of HTN, HLD, breast cancer, aortic valve repair, asthma, DM, cocain use, bipolar and COPD who was sent in from [facility] for chest pain and HTN. She was found to be hypertensive and I was called to evaluate her. She does have history of HTN. She is a very poor historian. She says that her bp is usually elevated. She currently denies shortness of breath. She used cocaine last week. She denies history of CKD. - History Source History Provided By: Patient - Past Medical History Cardio/Vascular: Yes: Aortic Insufficiency (s/p AVR with porcine valve), CAD Pulmonary: Yes: COPD, Pneumonia Gastrointestinal: Yes: Other (previously told of cirrhosis) Hepatobiliary: Yes: Hepatitis C ...LMP: 03/03/12 Infectious Disease: Yes: Other (Positive T. palladium) Psych: Yes: Addictions, Bipolar Musculoskeletal: Yes: Chronic low back pain, Osteoarthritis Endocrine: Yes: Diabetes Mellitus, Other (neuropathy) - Past Surgical History Past Surgical History: Yes: Valve Replacement - Alcohol/Substance Use Hx Alcohol Use: Yes (last use 3 days ago ) History of Substance Use: reports: Cocaine ($ 100 week habit- snorting) Date of Last Use: 03/11/18 - Smoking History Smoking history: Current some day smoker Have you smoked in the past 12 months: Yes Aproximately how many cigarettes per day: 60 If you are a former smoker, when did you quit?: 3 days ago - Social History ADL: Independent Occupation: disability History of Recent Travel: No Home Medications - Allergies Allergies/Adverse Reactions: Allergies Allergy/AdvReac Type Severity Reaction Status Date / Time grass pollen Allergy Intermediate Verified 03/14/18 08:07 No Known Drug Allergies Allergy Unknown Verified 03/14/18 08:07 - Home Medications Home Medications: Ambulatory Orders Salmeterol/Fluticasone [Advair 250Mcg/50Mcg -] 1 inh PO BID 07/28/12 Albuterol Sulfate Inhaler - [Ventolin HFA Inhaler -] 2 inh PO Q4H PRN 07/12/16 metFORMIN HCL [Glucophage -] 500 mg PO BID 08/02/16 Aspirin 81 mg PO DAILY 08/14/17 Furosemide [Lasix] 10 mg PO DAILY 03/14/18 Nitroglycerin 0.4 mg SL [id number] 03/14/18 Lisinopril [Prinivil] 20 mg PO DAILY #30 tablet 03/15/18 Family Disease History - Family Disease History Family Disease History: Heart Disease: Father ( , gun shot ), Mother, Brother, Other: Father, Mother Review of Systems - Review of Systems Constitutional: reports: No Symptoms Eyes: reports: No Symptoms HENT: reports: No Symptoms Neck: reports: No Symptoms Cardiovascular: reports: No Symptoms Respiratory: reports: No Symptoms Gastrointestinal: reports: No Symptoms Genitourinary: reports: No Symptoms Musculoskeletal: reports: No Symptoms Integumentary: reports: No Symptoms Neurological: reports: No Symptoms Endocrine: reports: No Symptoms Psychiatric: reports: No Symptoms Physical Exam Vital Signs: Vital Signs Temperature 98.7 F 03/16/18 08:41 Pulse Rate 94 H 03/16/18 08:41 Respiratory Rate 20 03/16/18 08:41 Blood Pressure 164/93 03/16/18 08:41 O2 Sat by Pulse Oximetry (%) 97 03/15/18 09:00 Constitutional: Yes: Calm Eyes: Yes: Conjunctiva Clear HENT: Yes: Atraumatic Neck: Yes: Supple Cardiovascular: Yes: S1, S2 Respiratory: Yes: CTA Bilaterally Gastrointestinal: Yes: Normal Bowel Sounds, Soft Renal/: Yes: WNL Musculoskeletal: Yes: WNL Edema: No Neurological: Yes: Oriented Psychiatric: Yes: Oriented Labs: CBC, BMP 03/16/18 08:05 03/16/18 08:05 Laboratory Tests 03/16/18 03/16/18 08:05 08:05 WBC 9.0 Hgb 14.8 Sodium 138 Potassium 3.7 BUN 10 Creatinine 0.7 Imaging - Results Chest X-ray: Report Reviewed Problem List - Problems (1) Chest pain Code(s): R07.9 - CHEST PAIN, UNSPECIFIED (2) HTN (hypertension) Code(s): I10 - ESSENTIAL (PRIMARY) HYPERTENSION Assessment/Plan Current Medications Generic Name Dose Route Start Last Admin Trade Name Freq PRN Reason Stop Dose Admin Albuterol Sulfate 2 puff 03/14/18 17:04 Ventolin Hfa Inhaler - IH Q4H PRN ASTHMA Aspirin 81 mg 03/15/18 10:00 03/16/18 11:04 Asa - PO 81 mg DAILY D[facility]IUS Administration Benzocaine/Menthol 1 each 03/14/18 22:55 03/15/18 06:56 Cepacol Lozenge - MM 1 each DAILY PRN Administration SORE THROAT Budesonide/Formoterol Fumarate 2 puff 03/14/18 22:00 03/16/18 11:04 Symbicort 80/4.5mcg - IH 2 puff BID [facility] Administration Chlordiazepoxide HCl 10 mg 03/16/18 06:00 03/16/18 11:05 Librium - PO 03/16/18 23:01 Not Given [id number] [facility] Furosemide 10 mg 03/15/18 10:00 03/16/18 11:04 Lasix - PO 10 mg DAILY [facility] Administration Heparin Sodium (Porcine) 5,000 unit 03/14/18 22:00 03/16/18 13:12 Heparin - SQ Not Given TID [facility] Insulin Aspart 1 vial 03/15/18 07:00 03/16/18 12:11 Novolog Vial Sliding Scale - SQ 6 units TIDAC [facility] Administration Protocol Lisinopril 20 mg 03/16/18 11:00 03/16/18 11:08 Prinivil PO 20 mg BID [facility] Administration Ondansetron HCl 4 mg 03/16/18 11:11 03/16/18 12:13 Zofran Injection IVPUSH 4 mg Q6H PRN Administration NAUSEA Impression 1. HTN 2. substance abuse 3. bipolar 4. Aortic valve replacement 5. HLD 6. COPD Plan - bp starting to improve on higher dose of lisiniprl - check ua - cardio eval - not on beta magdaleno secondary to cocaine use - will need better bp control - can start procardia 30 mg - will follow Dr Garcia
[2018-03-16] MEDS ORDERED: NIFEdipine E.R. 30 MG TABLET (FP) PO SCH (15:15)
--- NOTE | 2018-03-16 16:33 | CON.CARD ---
Consult Consult Specialty:: cardio - History of Present Illness Chief Complaint: cp History of Present Illness: 53 F sent from [facility] for CP in setting of high BP. Pt has an extremely complicated medical and specifically cardiac history. The cardiac hx is gleaned from review of prior notes as well as extensive notes from a prolonged hosp stay at [place] 09/15-10/16. She has h/o atrial flutter s/p DCCV 2013, severe (? valve pathology) s/p bioAVR 2012 ([facility]), then valve failure 2013 with re-do AVR ([facility], dr pedersen). Presented to [facility] 08/16 with CP, signed out AMA. Transferred from a different [facility] to [place] in late 08/2016 where she presented with SOB and was found to have severe LV hypokinesis, severe sec to bioAVR deterioration. Underwent 3rd SAVR at [facility] during that stay. on DOA, she was seated at rest when felt chest pain ( throbbing, and rated at 10/10)-->no signif response to SL nitro (9/10). Pain radiated down to her legs. She also reported nausea, vomiting, diaphoresis, feeling weak, dizzy, and short of breath. BP has been frequently elevated here in hospital. Pt denies any prior h/o HTN and denies being on meds for BP. Last cocaine use 7d ago (prior to checking into [facility]). Denies any recent etoh use at all. Denies recent take-out meals or diet change, and denies family h/o HTN. She states that no new psych meds were started at [facility]. States she last saw her regular doctor a month ago and bp was fine then. denies any cp, sob, dizziness, or other changes from [facility] today. Other PMH: DM on insulin liver cirrhosis sec to Hep B neuropathy breast Ca s/p mastectomy (R) COPD ALPHONSE on CPAP PTSD, biopolar cocaine abuse, ? other - Past Medical History Cardio/Vascular: Yes: Aortic Insufficiency (s/p AVR with porcine valve), CAD Pulmonary: Yes: COPD, Pneumonia Gastrointestinal: Yes: Other (previously told of cirrhosis) Hepatobiliary: Yes: Hepatitis C ...LMP: 03/03/12 Infectious Disease: Yes: Other (Positive T. palladium) Psych: Yes: Addictions, Bipolar Musculoskeletal: Yes: Chronic low back pain, Osteoarthritis Endocrine: Yes: Diabetes Mellitus, Other (neuropathy) - Past Surgical History Past Surgical History: Yes: Valve Replacement - Alcohol/Substance Use Hx Alcohol Use: Yes (last use 3 days ago ) History of Substance Use: reports: Cocaine ($ 100 week habit- snorting) Date of Last Use: 03/11/18 - Smoking History Smoking history: Current some day smoker Have you smoked in the past 12 months: Yes Aproximately how many cigarettes per day: 60 If you are a former smoker, when did you quit?: 3 days ago - Social History ADL: Independent Occupation: disability History of Recent Travel: No Home Medications - Allergies Allergies/Adverse Reactions: Allergies Allergy/AdvReac Type Severity Reaction Status Date / Time grass pollen Allergy Intermediate Verified 03/14/18 08:07 No Known Drug Allergies Allergy Unknown Verified 03/14/18 08:07 - Home Medications Home Medications: Ambulatory Orders Salmeterol/Fluticasone [Advair 250Mcg/50Mcg -] 1 inh PO BID 07/28/12 Albuterol Sulfate Inhaler - [Ventolin HFA Inhaler -] 2 inh PO Q4H PRN 07/12/16 metFORMIN HCL [Glucophage -] 500 mg PO BID 08/02/16 Aspirin 81 mg PO DAILY 08/14/17 Furosemide [Lasix] 10 mg PO DAILY 03/14/18 Nitroglycerin 0.4 mg SL [id number] 03/14/18 Lisinopril [Prinivil] 20 mg PO DAILY #30 tablet 03/15/18 Family Disease History - Family Disease History Family Disease History: Heart Disease: Father ( , gun shot ), Mother, Brother, Other: Father, Mother Review of Systems - Review of Systems Constitutional: denies: Chills, Fever Eyes: denies: Eye Pain HENT: denies: Nasal Congestion Neck: denies: Stiffness Cardiovascular: denies: Palpitations Respiratory: denies: Orthopnea, PND Gastrointestinal: denies: Diarrhea, Rectal Bleeding Genitourinary: denies: Burning, Hematuria Musculoskeletal: denies: Muscle Pain Integumentary: denies: Rash Neurological: denies: Numbness, Seizure, Syncope Endocrine: denies: Excessive Sweating Hematology/Lymphatic: denies: Excessive Bleeding Vital Signs: Vital Signs Temperature 98.7 F 03/16/18 08:41 Pulse Rate 118 H 03/16/18 15:56 Respiratory Rate 20 03/16/18 15:56 Blood Pressure 168/108 H 03/16/18 15:56 O2 Sat by Pulse Oximetry (%) 97 03/15/18 09:00 Constitutional: Yes: Well Nourished, No Distress Eyes: No: Sclera Icterus HENT: No: Nasal Congestion Neck: No: Decreased ROM Respiratory: Yes: CTA Bilaterally. No: Accessory Muscle Use, Rales, Wheezes Gastrointestinal: Yes: Normal Bowel Sounds. No: Distention, Hepatomegaly, Palpable Mass, Tenderness Cardiovascular: Yes: Regular Rate and Rhythm JVD: No Carotid Bruit: No PMI: Non-Displaced Heart Sounds: Yes: S1, S2. No: Gallop Murmur: Yes: Systolic Murmur (2/6 early JANELL rusb). No: Diastolic Murmur Musculoskeletal: Yes: Other (No kyphosis) Extremities: No: Cool, Cyanosis Edema: No Peripheral Pulses: 2+ Left Carotid, 2+ Right Carotid, 2+ Left Doralis Pedis, 2+ Right Dorsalis Pedis Integumentary: No: Jaundice Neurological: Yes: Alert, Oriented (x3) Psychiatric: No: Agitated - Other Data Labs, Other Data: CBC, BMP 03/16/18 08:05 03/16/18 08:05 INR, PTT INR 0.91 (0.83-1.09) 03/14/18 08:41 Troponin, BNP 03/15/18 23:10 Troponin I 0.02 Troponin, BNP 03/15/18 23:10 Troponin I 0.02 Laboratory Tests 03/14/18 03/15/18 03/15/18 08:41 01:20 06:10 WBC Hgb Plt Count Sodium Potassium Carbon Dioxide BUN Creatinine Troponin I 0.02 0.02 < 0.02 03/15/18 03/16/18 03/16/18 23:10 08:05 08:05 WBC 9.0 Hgb 14.8 Plt Count 101 L D Sodium 138 Potassium 3.7 Carbon Dioxide 26 BUN 10 Creatinine 0.7 Troponin I 0.02 Assessment/Plan ECG x3 here: NSR, LVH with repol abn, mildly prolonged QT--no signif change vs priors (03/19 and 08/17) CT chest here: bilat pulm nodules. no infiltrate. mild ATX, no congestion reported. Echo here 03/15/18: mod conc LVH, nl EF. nl RV size. biatrial dilation. mild , no AI. trace-mild MR, mild TR. no pulm HTN seen. no peric effusion. Echo 09/2016 ([facility], postop re-do AVR): TDS, Definity contrast used. mild-mod conc LVH, nl LVEF (55%), from 42% preop. nl RV. + bioAVR, no AI, no (peak and mean gradients 47/28). s/p mitral repair with trace MR. s/p TV repair with minimal TR LHC 08/2016 ([facility], preop for AVR): normal coronaries tele: NSR CP, weakness, dizziness, sob, naus/vomiting: -sx's very atypical including occurred at rest and radiated down to legs -ruled out with 4 serial troponins -normal coronaries slightly > 1 yr ago at cath -doubt coronary vasospasm given no ekg changes here, Utox negative for cocaine -sx's are very likely due to non-cardiac etiology (in absence of echo or clinical findings of valve failure/chf), ? due to acutely elevated BP -remains asymptomatic currently--observe s/p AVR x 3 (last re-do bioAVR 2016), s/p MV and TV repairs (2017): -echo here showing preserved valve function (all), and normal LVEF. -no signs of CHF HTN with hypertensive urgency: -reportedly no prior h/o high BP -bp nearly all elevated here, moderately to severely. -presently remains uncontrolled, did not responde well to nifedipine 30mg. -will give dose of amlodipine now and change from nifedipine ER to get better 24 hr drug coverage -s/p mult doses of lisinopril today without effect per RN--continue same but add HCTZ 25mg. -will start b-magdaleno (metopr succ 50 qd) in light of persistent tachycardia ( to start in AM) -check TSH -no signs of etoh withdrawal and pt denies use -suspect new onset essential HTN -observe bp trend Hep B cirrhosis with chronic thrombocytopenia: -per hospitalist DM on insulin: -glucose suboptimal here -per hospitalist
[2018-03-16] MEDS ORDERED: LISINOPRIL 20 MG TABLET (FP) PO ONE (18:30)
[2018-03-16] MEDS ORDERED: amLODIPine BESYLATE 10 MG TABLET (FP) PO SCH (19:15)
[2018-03-16] MEDS: HYDROCHLOROTHIAZIDE 25 MG TABLET (FP) PO SCH (20:08)
[2018-03-16] MEDS: amLODIPine BESYLATE 10 MG TABLET (FP) PO SCH (20:09)
[2018-03-17] MEDS: HEPARIN NA (PORCINE) 5,000 UNITS/ML 1ML VIAL SQ SCH ×3 (06:53→21:46)
[2018-03-17] MEDS: INSULIN SLIDING SCALE (NOVOLOG) 1 VIAL SQ SCH ×3 (06:53→17:40)
[2018-03-17 06:54] LABS: BASO % 0.5 % (0-2.0); EOS % 0.1 % (0-4.5); HEMATOCRIT 49.3 % (32.4-45.2); HEMOGLOBIN 15.9 GM/dL (10.7-15.3); LYMPH % 10.4 % (8-40); MCH 29.8 pg (25.7-33.7); MCHC 32.3 g/dl (32.0-36.0); MEAN CELL VOLUME 92.5 fl (80-96); MEAN PLT VOLUME 11.8 fl (7.5-11.1); MONO % 5.7 % (3.8-10.2); NEUT % 83.3 % (42.8-82.8); PLATELET COUNT 115 K/MM3 (134-434); RBC 5.33 M/mm3 (3.60-5.2); RDW 13.7 % (11.6-15.6); WHITE BLOOD COUNT 10.5 K/mm3 (4.0-10.0)
[2018-03-17 07:46] LABS: ANION GAP 13 MMOL/L (8-16); BLOOD UREA NITROGEN 20 mg/dL (7-18); CALCIUM 10.2 mg/dL (8.5-10.1); CHLORIDE 96 mmol/L (98-107); CO2 28 mmol/L (21-32); CREATININE 0.9 mg/dL (0.55-1.3); MAGNESIUM 2.2 mg/dL (1.8-2.4); PHOSPHOROUS 4.9 mg/dL (2.5-4.9); POTASSIUM 3.5 mmol/L (3.5-5.1); SODIUM 137 mmol/L (136-145)
[2018-03-17 08:19] LABS: GLUCOSE,RANDOM 344 mg/dL (74-106)
[2018-03-17] MEDS: ASPIRIN 81 MG CHEWABLE TABLETS PO SCH (10:19)
[2018-03-17] MEDS: amLODIPine BESYLATE 10 MG TABLET (FP) PO SCH (10:20)
[2018-03-17] MEDS: LISINOPRIL 20 MG TABLET (FP) PO SCH (10:20)
[2018-03-17] MEDS: HYDROCHLOROTHIAZIDE 25 MG TABLET (FP) PO SCH (10:20)
[2018-03-17] MEDS: BUDESONIDE/FORMETEROL FUMARATE 80/4.5 mcg INHALER IH SCH ×2 (10:21→21:47)
[2018-03-17] MEDS: FUROSEMIDE 20 MG TABLET (FP) PO SCH (10:21)
--- NOTE | 2018-03-17 11:45 | PN ---
Progress Note (short form) - Note Progress Note: s: no cp sob palps dizzy; +nausea Current Medications Generic Name Dose Route Start Last Admin Trade Name Freq PRN Reason Stop Dose Admin Albuterol Sulfate 2 puff 03/14/18 17:04 Ventolin Hfa Inhaler - IH Q4H PRN ASTHMA Amlodipine Besylate 5 mg 03/16/18 19:15 03/17/18 10:20 Norvasc - PO 5 mg DAILY DARIUS Administration Aspirin 81 mg 03/15/18 10:00 03/17/18 10:19 Asa - PO 81 mg DAILY DARIUS Administration Benzocaine/Menthol 1 each 03/14/18 22:55 03/15/18 06:56 Cepacol Lozenge - MM 1 each DAILY PRN Administration SORE THROAT Budesonide/Formoterol Fumarate 2 puff 03/14/18 22:00 03/17/18 10:21 Symbicort 80/4.5mcg - IH 2 puff BID DARIUS Administration Furosemide 10 mg 03/15/18 10:00 03/17/18 10:21 Lasix - PO 10 mg DAILY DARIUS Administration Heparin Sodium (Porcine) 5,000 unit 03/14/18 22:00 03/17/18 06:53 Heparin - SQ Not Given TID DARIUS Hydrochlorothiazide 25 mg 03/16/18 19:15 03/17/18 10:20 Hctz - PO 25 mg DAILY DARIUS Administration Insulin Aspart 1 vial 03/15/18 07:00 03/17/18 06:53 Novolog Vial Sliding Scale - SQ Not Given TIDAC [facility] Protocol Lisinopril 40 mg 03/17/18 10:00 03/17/18 10:20 Prinivil PO 40 mg DAILY DARIUS Administration Metoprolol Succinate 50 mg 03/17/18 10:00 03/17/18 10:21 Toprol Xl - PO 50 mg DAILY DARIUS Administration Ondansetron HCl 4 mg 03/16/18 11:11 03/16/18 12:13 Zofran Injection IVPUSH 4 mg Q6H PRN Administration NAUSEA Vital Signs Period Temp Pulse Resp BP Sys/Vázquez Pulse Ox Last 24 Hr 98 F-99.0 F 116-126 18-20 130-168/63-108 93 Constitutional: Yes: Well Nourished, No Distress Eyes: No: Sclera Icterus Respiratory: Yes: CTA Bilaterally. No: Accessory Muscle Use, Rales, Wheezes Gastrointestinal: Yes: Normal Bowel Sounds. No: Distention, Hepatomegaly, Palpable Mass, Tenderness Cardiovascular: Yes: Regular Rate and Rhythm JVD: No Heart Sounds: Yes: S1, S2. No: Gallop Murmur: Yes: Systolic Murmur (2/6 early JANELL rusb). No: Diastolic Murmur Extremities: No: Cool, Cyanosis Edema: No Integumentary: No: Jaundice diaphoresis Neurological: Yes: Alert, Oriented (x3) Psychiatric: No: Agitated - Other Data Labs, Other Data: CBC, BMP 03/17/18 05:30 03/17/18 05:30 Assessment/Plan ECG x3 here: NSR, LVH with repol abn, mildly prolonged QT--no signif change vs priors (03/19 and 08/17) CT chest here: bilat pulm nodules. no infiltrate. mild ATX, no congestion reported. Echo here 03/15/18: mod conc LVH, nl EF. nl RV size. biatrial dilation. mild , no AI. trace-mild MR, mild TR. no pulm HTN seen. no peric effusion. Echo 09/2016 ([facility], postop re-do AVR): TDS, Definity contrast used. mild-mod conc LVH, nl LVEF (55%), from 42% preop. nl RV. + bioAVR, no AI, no (peak and mean gradients 47/28). s/p mitral repair with trace MR. s/p TV repair with minimal TR [facility] 08/2016 ([facility], preop for AVR): normal coronaries tele: sr, sinus tachy CP, weakness, dizziness, sob, naus/vomiting: -sx's very atypical including occurred at rest and radiated down to legs -ruled out with 4 serial troponins -normal coronaries slightly > 1 yr ago at cath -doubt coronary vasospasm given no ekg changes here, Utox negative for cocaine -sx's are very likely due to non-cardiac etiology (in absence of echo or clinical findings of valve failure/chf), ? due to acutely elevated BP -remains asymptomatic currently s/p AVR x 3 (last re-do bioAVR 2016), s/p MV and TV repairs (2017): -echo here showing preserved valve function (all), and normal LVEF. -no signs of CHF HTN with hypertensive urgency: -suspect new onset essential HTN -improved, continue to monitor with initiation of new meds here Hep B cirrhosis with chronic thrombocytopenia: -per hospitalist DM on insulin: -glucose suboptimal here -per hospitalist tachy: -sinus tachy, likely 2/2 joint pain, on bb
[2018-03-17] MEDS: ONDANSETRON 4 MG/2 ML VIAL IVPUSH PRN (12:13)
--- NOTE | 2018-03-17 13:08 | PN ---
Progress Note, Physician Chief Complaint: Ms Peguero still with nausea and vomiting. No cp, sob, n/v. - Current Medication List Current Medications: Active Medications Albuterol Sulfate (Ventolin Hfa Inhaler -) 2 puff IH Q4H PRN PRN Reason: ASTHMA Amlodipine Besylate (Norvasc -) 5 mg PO DAILY [facility] Last Admin: 03/17/18 10:20 Dose: 5 mg Aspirin (Asa -) 81 mg PO DAILY [facility] Last Admin: 03/17/18 10:19 Dose: 81 mg Benzocaine/Menthol (Cepacol Lozenge -) 1 each MM DAILY PRN PRN Reason: SORE THROAT Last Admin: 03/15/18 06:56 Dose: 1 each Budesonide/Formoterol Fumarate (Symbicort 80/4.5mcg -) 2 puff IH BID [facility] Last Admin: 03/17/18 10:21 Dose: 2 puff Furosemide (Lasix -) 10 mg PO DAILY [facility] Last Admin: 03/17/18 10:21 Dose: 10 mg Heparin Sodium (Porcine) (Heparin -) 5,000 unit SQ TID [facility] Last Admin: 03/17/18 06:53 Dose: Not Given Hydrochlorothiazide (Hctz -) 25 mg PO DAILY [facility] Last Admin: 03/17/18 10:20 Dose: 25 mg Insulin Aspart (Novolog Vial Sliding Scale -) 1 vial SQ TIDAC [facility]; Protocol Last Admin: 03/17/18 12:12 Dose: 12 units Insulin Detemir (Levemir Vial) 12 units SQ BID [facility] Lisinopril (Prinivil) 40 mg PO DAILY [facility] Last Admin: 03/17/18 10:20 Dose: 40 mg Metoclopramide HCl (Reglan -) 10 mg PO TIDAC [facility] Metoprolol Succinate (Toprol Xl -) 50 mg PO DAILY [facility] Last Admin: 03/17/18 10:21 Dose: 50 mg - Objective Vital Signs: Vital Signs Temperature 36.6 C 03/17/18 10:00 Pulse Rate 120 H 03/17/18 10:00 Respiratory Rate 18 03/17/18 10:00 Blood Pressure 150/100 03/17/18 10:00 O2 Sat by Pulse Oximetry (%) 93 L 03/16/18 21:00 Constitutional: Yes: No Distress, Calm, Obese Cardiovascular: Yes: Tachycardia. No: Gallop, Murmur, Rub Respiratory: Yes: Regular, CTA Bilaterally. No: Rales, Rhonchi, Wheezes Gastrointestinal: Yes: Normal Bowel Sounds, Soft. 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 (4) Elevated d-dimer Code(s): R79.89 - OTHER SPECIFIED ABNORMAL FINDINGS OF BLOOD CHEMISTRY (5) Alcohol dependence Code(s): F10.20 - ALCOHOL DEPENDENCE, UNCOMPLICATED (6) Hepatitis C Code(s): B19.20 - UNSPECIFIED VIRAL HEPATITIS C WITHOUT HEPATIC COMA Qualifiers: Viral hepatitis chronicity: chronic (7) Cocaine dependence Code(s): F14.20 - COCAINE DEPENDENCE, UNCOMPLICATED (8) Emesis Code(s): R11.10 - VOMITING, UNSPECIFIED Qualifiers: Vomiting Intractability: unspecified Assessment/Plan (1) HTN (hypertension) Assessment/Plan: -appreciate nephrology consult -improved control today -continue current management Code(s): I10 - ESSENTIAL (PRIMARY) HYPERTENSION (2) Chest pain Assessment/Plan: -cardiology following and note reviewed -non-cardiac and resolved Code(s): R07.9 - CHEST PAIN, UNSPECIFIED (3) DM2 (diabetes mellitus, type 2) Assessment/Plan: -patient says she is compliant with her regimen -however Hgb A1c is 12 and patient not compliant with her diet here -will start on levemir -made patient aware she will be discharged on insulin Code(s): E11.9 - TYPE 2 DIABETES MELLITUS WITHOUT COMPLICATIONS Qualifiers: 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 mcfp use Diabetes mellitus complication status: without complication Qualified Code(s): E11.9 - Type 2 diabetes mellitus without complications; Z79.4 - group home (current) use of insulin (4) Elevated d-dimer Assessment/Plan: -CT scan negative Code(s): R79.89 - OTHER SPECIFIED ABNORMAL FINDINGS OF BLOOD CHEMISTRY (5) Alcohol dependence Assessment/Plan: -patient says she is not dependant on alcohol as she only drinks on the weekend -currently refusing librium -monitor Code(s): F10.20 - ALCOHOL DEPENDENCE, UNCOMPLICATED (6) Hepatitis C Assessment/Plan: -noted Code(s): B19.20 - UNSPECIFIED VIRAL HEPATITIS C WITHOUT HEPATIC COMA Qualifiers: Viral hepatitis chronicity: chronic (7) Cocaine dependence Assessment/Plan: -outpatient rehab Code(s): F14.20 - COCAINE DEPENDENCE, UNCOMPLICATED (8) Emesis Assessment/Plan: -? if gastroparesis -case d/w GI -hold reglan secondary to QTc -hydrate with IVF -monitor for improvement Code(s): R11.10 - VOMITING, UNSPECIFIED
[2018-03-17] MEDS ORDERED: METOCLOPRAMIDE HCL INJECTION 10 MG/2 ML VIAL IVPUSH ONE (13:10)
--- NOTE | 2018-03-17 15:26 | CON.GI ---
Consult Consult Specialty:: GI Referred by:: Dr. Duarte Reason for Consultation:: Vomiting - History of Present Illness Chief Complaint: Vomiting History of Present Illness: 53F [facility] evaluation of chect pain. Was at detox secondary to alcohol abuse. Asked to evaluate vomiting. Blood glucose has been above 300. She states that her blood glucose id poorly controlled. She is tachycardic and when I discussed with her nurse, Ms. Flores has been refusing librium. SHe complains of constipation. There has been no rectal bleeding or melena. She has never had a colonoscopy. There is no family history of colorectal cancer or other GI malignancy. She states being treated for hep C in 2010 and that it was cured. She denies abdominal pain. She vomited ensure today. A prolonged QT was noted on admission EKG. She gives a history of cirrhosis. - History Source History Provided By: Patient, Medical Record - Past Medical History Cardio/Vascular: Yes: Aortic Insufficiency (s/p AVR with porcine valve), CAD Pulmonary: Yes: COPD, Pneumonia Gastrointestinal: Yes: Other (previously told of cirrhosis) Hepatobiliary: Yes: Cirrhosis, Hepatitis C (treated) ...LMP: 03/03/12 Infectious Disease: Yes: Other (Positive T. palladium) Psych: Yes: Addictions, Bipolar Musculoskeletal: Yes: Chronic low back pain, Osteoarthritis Endocrine: Yes: Diabetes Mellitus, Other (neuropathy) - Past Surgical History Past Surgical History: Yes: Valve Replacement - Alcohol/Substance Use Hx Alcohol Use: Yes (last use 3 days ago ) History of Substance Use: reports: Cocaine ($ 100 week habit- snorting) Date of Last Use: 03/11/18 - Smoking History Smoking history: Current some day smoker Have you smoked in the past 12 months: Yes Aproximately how many cigarettes per day: 60 If you are a former smoker, when did you quit?: 3 days ago - Social History ADL: Independent Occupation: disability History of Recent Travel: No Home Medications - Allergies Allergies/Adverse Reactions: Allergies Allergy/AdvReac Type Severity Reaction Status Date / Time grass pollen Allergy Intermediate Verified 03/14/18 08:07 No Known Drug Allergies Allergy Unknown Verified 03/14/18 08:07 - Home Medications Home Medications: Ambulatory Orders Salmeterol/Fluticasone [Advair 250Mcg/50Mcg -] 1 inh PO BID 07/28/12 Albuterol Sulfate Inhaler - [Ventolin HFA Inhaler -] 2 inh PO Q4H PRN 07/12/16 metFORMIN HCL [Glucophage -] 500 mg PO BID 08/02/16 Aspirin 81 mg PO DAILY 08/14/17 Furosemide [Lasix] 10 mg PO DAILY 03/14/18 Nitroglycerin 0.4 mg SL [id number] 03/14/18 Lisinopril [Prinivil] 20 mg PO DAILY #30 tablet 03/15/18 Family Disease History - Family Disease History Family Disease History: Heart Disease: Father ( , gun shot ), Mother ( : [place]), Brother (1, CVA), Other: Father, Mother, Brother, Son (4, healthy), Daughter (4, healthy) Review of Systems - Review of Systems Constitutional: denies: Fever Cardiovascular: reports: Chest Pain Gastrointestinal: reports: Constipation, Vomiting. denies: Abdominal Pain Neurological: reports: Parasthesia Physical Exam-GI Vital Signs: Vital Signs Temperature 98 F 03/17/18 10:00 Pulse Rate 120 H 03/17/18 10:00 Respiratory Rate 03/17/18 10:00 Blood Pressure 150/100 03/17/18 10:00 O2 Sat by Pulse Oximetry (%) 93 L 03/16/18 21:00 Constitutional: Yes: Calm Eyes: No: Sclera Icterus Cardiovascular: Yes: Tachycardia Respiratory: Yes: Diminished (at bases, poor insp effort) Gastrointestinal Inspection: No: Distention Edema: No (No LE edema) Labs: CBC, BMP 03/17/18 05:30 03/17/18 05:30 INR, PTT INR 0.91 (0.83-1.09) 03/14/18 08:41 Problem List - Problems (1) Emesis Assessment/Plan: Suspect multidfactorial including poorly controlled diabetes and ? withdrawal Given prolonged QT on admission, would hold off on reglan other QT prolonging medications Clear liquids Glycemic control Avoid Opiates FUA Aspiration precautions gives history of cirrhosis. Will need q 6 month AFP tumor marker and hepatic US to screen for HCC Will need screening colonoscopy or alternative stool testing for colon cancer screening purposes as outpatient when acute issues are resolved. I asked that she discuss thisn with her PMD who works out of [place]. Advised complete alcohol cessation MiraLAX 17g daily for constipation Code(s): R11.10 - VOMITING, UNSPECIFIED Qualifiers: Vomiting Intractability: unspecified
[2018-03-17] MEDS ORDERED: METOCLOPRAMIDE HCL 10 MG TABLET (FP) PO SCH (16:30)
--- NOTE | 2018-03-17 17:26 | PN ---
Progress Note (short form) - Note Progress Note: covering dr shannon Problems 1. HTN 2. substance abuse 3. bipolar 4. Aortic valve replacement 5. HLD 6. COPD Current Medications Albuterol Sulfate (Ventolin Hfa Inhaler -) 2 puff IH Q4H PRN PRN Reason: ASTHMA Amlodipine Besylate (Norvasc -) 5 mg PO DAILY [facility] Last Admin: 03/17/18 10:20 Dose: 5 mg Aspirin (Asa -) 81 mg PO DAILY [facility] Last Admin: 03/17/18 10:19 Dose: 81 mg Benzocaine/Menthol (Cepacol Lozenge -) 1 each MM DAILY PRN PRN Reason: SORE THROAT Last Admin: 03/15/18 06:56 Dose: 1 each Budesonide/Formoterol Fumarate (Symbicort 80/4.5mcg -) 2 puff IH BID [facility] Last Admin: 03/17/18 10:21 Dose: 2 puff Furosemide (Lasix -) 10 mg PO DAILY [facility] Last Admin: 03/17/18 10:21 Dose: 10 mg Heparin Sodium (Porcine) (Heparin -) 5,000 unit SQ TID [facility] Last Admin: 03/17/18 13:38 Dose: Not Given Hydrochlorothiazide (Hctz -) 25 mg PO DAILY [facility] Last Admin: 03/17/18 10:20 Dose: 25 mg Sodium Chloride (Normal Saline -) 1,000 mls @ 100 mls/hr IV ASDIR [facility] Insulin Aspart (Novolog Vial Sliding Scale -) 1 vial SQ TIDAC [facility]; Protocol Last Admin: 03/17/18 12:12 Dose: 12 units Insulin Detemir (Levemir Vial) 12 units SQ BID [facility] Lisinopril (Prinivil) 40 mg PO DAILY [facility] Last Admin: 03/17/18 10:20 Dose: 40 mg Metoprolol Succinate (Toprol Xl -) 50 mg PO DAILY [facility] Last Admin: 03/17/18 10:21 Dose: 50 mg Pantoprazole Sodium (Protonix -) 20 mg PO DAILY [facility] Polyethylene Glycol (Miralax (For Daily Use) -) 17 gm PO DAILY [facility] Last Vital Signs Temp Pulse Resp BP Pulse Ox 98 F 120 H 18 150/100 93 L 03/17/18 10:00 03/17/18 10:00 03/17/18 10:00 03/17/18 10:00 03/16/18 21:00 CBC, BMP 03/17/18 05:30 03/17/18 05:30
[2018-03-17] MEDS: SODIUM CHLORIDE 1,000 ML IV SCH (17:36)
[2018-03-17] MEDS: PANTOPRAZOLE 20 MG TABLET (FP) PO SCH (17:37)
[2018-03-17] MEDS: INSULIN (LEVEMIR) 100 UNITS/ML UNITS SQ SCH (21:47)
[2018-03-17] MEDS ORDERED: INSULIN (NOVOLOG) ASPART 100 UNITS/ML 10ML VIAL ONE (23:59)
[2018-03-18] MEDS: HEPARIN NA (PORCINE) 5,000 UNITS/ML 1ML VIAL SQ SCH ×4 (00:12→22:31)
[2018-03-18] MEDS: INSULIN (LEVEMIR) 100 UNITS/ML UNITS SQ SCH ×3 (00:12→22:34)
[2018-03-18] MEDS ORDERED: PT OWN MED DRAWER 7, Y5N ONE ×2 (01:21→15:17)
[2018-03-18] MEDS: INSULIN SLIDING SCALE (NOVOLOG) 1 VIAL SQ SCH ×3 (06:32→16:46)
[2018-03-18] MEDS: LISINOPRIL 20 MG TABLET (FP) PO SCH (09:47)
[2018-03-18] MEDS: PANTOPRAZOLE 20 MG TABLET (FP) PO SCH (09:49)
[2018-03-18] MEDS: HYDROCHLOROTHIAZIDE 25 MG TABLET (FP) PO SCH (09:49)
[2018-03-18] MEDS: ASPIRIN 81 MG CHEWABLE TABLETS PO SCH (09:54)
[2018-03-18] MEDS: amLODIPine BESYLATE 10 MG TABLET (FP) PO SCH (09:54)
[2018-03-18] MEDS: FUROSEMIDE 20 MG TABLET (FP) PO SCH (09:55)
[2018-03-18] MEDS: BUDESONIDE/FORMETEROL FUMARATE 80/4.5 mcg INHALER IH SCH ×2 (10:55→22:32)
[2018-03-18] MEDS: POLYETHYLENE GLYCOL 3350 119 GM BTL PO SCH (10:55)
--- NOTE | 2018-03-18 11:25 | PN ---
Progress Note, Physician Chief Complaint: Ms Peguero still with nausea and vomiting. No cp, sob, n/v. - Current Medication List Current Medications: Active Medications Albuterol Sulfate (Ventolin Hfa Inhaler -) 2 puff IH Q4H PRN PRN Reason: ASTHMA Amlodipine Besylate (Norvasc -) 5 mg PO DAILY [facility] Last Admin: 03/18/18 09:54 Dose: 5 mg Aspirin (Asa -) 81 mg PO DAILY [facility] Last Admin: 03/18/18 09:54 Dose: 81 mg Benzocaine/Menthol (Cepacol Lozenge -) 1 each MM DAILY PRN PRN Reason: SORE THROAT Last Admin: 03/15/18 06:56 Dose: 1 each Budesonide/Formoterol Fumarate (Symbicort 80/4.5mcg -) 2 puff IH BID [facility] Last Admin: 03/18/18 10:55 Dose: 2 puff Furosemide (Lasix -) 10 mg PO DAILY [facility] Last Admin: 03/18/18 09:55 Dose: 10 mg Heparin Sodium (Porcine) (Heparin -) 5,000 unit SQ TID [facility] Last Admin: 03/18/18 06:22 Dose: Not Given Hydrochlorothiazide (Hctz -) 25 mg PO DAILY [facility] Last Admin: 03/18/18 09:49 Dose: 25 mg Sodium Chloride (Normal Saline -) 1,000 mls @ 100 mls/hr IV ASDIR [facility] Last Admin: 03/17/18 17:36 Dose: 100 mls/hr Insulin Aspart (Novolog Vial Sliding Scale -) 1 vial SQ TIDAC [facility]; Protocol Last Admin: 03/18/18 06:32 Dose: 6 units Insulin Detemir (Levemir Vial) 12 units SQ BID [facility] Last Admin: 03/18/18 10:55 Dose: 12 units Lisinopril (Prinivil) 40 mg PO DAILY [facility] Last Admin: 03/18/18 09:47 Dose: 40 mg Metoprolol Succinate (Toprol Xl -) 50 mg PO DAILY [facility] Last Admin: 03/18/18 09:48 Dose: 50 mg Pantoprazole Sodium (Protonix -) 20 mg PO DAILY [facility] Last Admin: 03/18/18 09:49 Dose: 20 mg Polyethylene Glycol (Miralax (For Daily Use) -) 17 gm PO DAILY [facility] Last Admin: 03/18/18 10:55 Dose: 17 grams - Objective Vital Signs: Vital Signs Temperature 36.9 C 03/18/18 02:00 Pulse Rate 114 H 03/18/18 02:00 Respiratory Rate 20 03/18/18 02:00 Blood Pressure 126/84 03/18/18 02:00 O2 Sat by Pulse Oximetry (%) 99 03/18/18 09:00 Constitutional: Yes: No Distress, Calm, Obese Cardiovascular: Yes: Tachycardia. No: Gallop, Murmur, Rub Respiratory: Yes: Regular, CTA Bilaterally. No: Rales, Rhonchi, Wheezes Gastrointestinal: Yes: Normal Bowel Sounds, Soft. No: Distention, Tenderness Extremities: Yes: WNL Edema: No Labs: CBC, BMP 03/17/18 05:30 03/17/18 05:30 INR, PTT INR 0.91 (0.83-1.09) 03/14/18 08:41 Problem List - Problems (1) HTN (hypertension) Code(s): I10 - ESSENTIAL (PRIMARY) HYPERTENSION (2) Chest pain Code(s): R07.9 - CHEST PAIN, UNSPECIFIED (3) DM2 (diabetes mellitus, type 2) Code(s): E11.9 - TYPE 2 DIABETES MELLITUS WITHOUT COMPLICATIONS Qualifiers: Diabetes mellitus retirement insulin use: with retirement use Diabetes mellitus complication status: without complication Qualified Code(s): E11.9 - Type 2 diabetes mellitus without complications; Z79.4 - long-term (current) use of insulin (4) Elevated d-dimer Code(s): R79.89 - OTHER SPECIFIED ABNORMAL FINDINGS OF BLOOD CHEMISTRY (5) Alcohol dependence Code(s): F10.20 - ALCOHOL DEPENDENCE, UNCOMPLICATED (6) Hepatitis C Code(s): B19.20 - UNSPECIFIED VIRAL HEPATITIS C WITHOUT HEPATIC COMA Qualifiers: Viral hepatitis chronicity: chronic (7) Cocaine dependence Code(s): F14.20 - COCAINE DEPENDENCE, UNCOMPLICATED (8) Emesis Code(s): R11.10 - VOMITING, UNSPECIFIED Qualifiers: Vomiting Intractability: unspecified Assessment/Plan (1) HTN (hypertension) Assessment/Plan: -continue current management -much improved Code(s): I10 - ESSENTIAL (PRIMARY) HYPERTENSION (2) Chest pain Assessment/Plan: -cardiology following and note reviewed -non-cardiac and resolved Code(s): R07.9 - CHEST PAIN, UNSPECIFIED (3) DM2 (diabetes mellitus, type 2) Assessment/Plan: -patient says she is compliant with her regimen -however Hgb A1c is 12 and patient not compliant with her diet here -continue levemir Code(s): E11.9 - TYPE 2 DIABETES MELLITUS WITHOUT COMPLICATIONS Qualifiers: Diabetes mellitus retirement insulin use: with retirement use Diabetes mellitus complication status: without complication Qualified Code(s): E11.9 - Type 2 diabetes mellitus without complications; Z79.4 - long-term (current) use of insulin (4) Elevated d-dimer Assessment/Plan: -CT scan negative Code(s): R79.89 - OTHER SPECIFIED ABNORMAL FINDINGS OF BLOOD CHEMISTRY (5) Alcohol dependence Assessment/Plan: -patient says she is not dependant on alcohol as she only drinks on the weekend -currently refusing librium -monitor Code(s): F10.20 - ALCOHOL DEPENDENCE, UNCOMPLICATED (6) Hepatitis C Assessment/Plan: -noted Code(s): B19.20 - UNSPECIFIED VIRAL HEPATITIS C WITHOUT HEPATIC COMA Qualifiers: Viral hepatitis chronicity: chronic (7) Cocaine dependence Assessment/Plan: -outpatient rehab Code(s): F14.20 - COCAINE DEPENDENCE, UNCOMPLICATED (8) Emesis Assessment/Plan: -appreciate GI assistance -x-ray concerning for ileus/sbo -heard bowel sounds on exam, but would explain symptoms -CT scan ordered -if with sbo, consult surgery -continue clear liquids for now Code(s): R11.10 - VOMITING, UNSPECIFIED
[2018-03-18] MEDS ORDERED: ACETAMINOPHEN 1000 MG/100 ML VIAL (NON FORMULARY) IVPB PRN (11:26)
[2018-03-18] MEDS: SODIUM CHLORIDE 1,000 ML IV SCH ×2 (14:05→16:43)
--- NOTE | 2018-03-18 14:46 | PN ---
Progress Note (short form) - Note Progress Note: covering dr shannon Problems 1. HTN 2. substance abuse 3. bipolar 4. Aortic valve replacement 5. HLD 6. COPD Current Medications Acetaminophen (Ofirmev Injection -) 1,000 mg IVPB Q6H PRN PRN Reason: PAIN Albuterol Sulfate (Ventolin Hfa Inhaler -) 2 puff IH Q4H PRN PRN Reason: ASTHMA Amlodipine Besylate (Norvasc -) 5 mg PO DAILY [facility] Last Admin: 03/18/18 09:54 Dose: 5 mg Aspirin (Asa -) 81 mg PO DAILY [facility] Last Admin: 03/18/18 09:54 Dose: 81 mg Benzocaine/Menthol (Cepacol Lozenge -) 1 each MM DAILY PRN PRN Reason: SORE THROAT Last Admin: 03/15/18 06:56 Dose: 1 each Budesonide/Formoterol Fumarate (Symbicort 80/4.5mcg -) 2 puff IH BID [facility] Last Admin: 03/18/18 10:55 Dose: 2 puff Furosemide (Lasix -) 10 mg PO DAILY [facility] Last Admin: 03/18/18 09:55 Dose: 10 mg Heparin Sodium (Porcine) (Heparin -) 5,000 unit SQ TID [facility] Last Admin: 03/18/18 14:04 Dose: Not Given Hydrochlorothiazide (Hctz -) 25 mg PO DAILY [facility] Last Admin: 03/18/18 09:49 Dose: 25 mg Sodium Chloride (Normal Saline -) 1,000 mls @ 100 mls/hr IV ASDIR [facility] Last Admin: 03/18/18 14:05 Dose: Not Given Insulin Aspart (Novolog Vial Sliding Scale -) 1 vial SQ TIDAC [facility]; Protocol Last Admin: 03/18/18 11:28 Dose: 6 units Insulin Detemir (Levemir Vial) 12 units SQ BID [facility] Last Admin: 03/18/18 10:55 Dose: 12 units Lisinopril (Prinivil) 40 mg PO DAILY [facility] Last Admin: 03/18/18 09:47 Dose: 40 mg Metoprolol Succinate (Toprol Xl -) 50 mg PO DAILY [facility] Last Admin: 03/18/18 09:48 Dose: 50 mg Pantoprazole Sodium (Protonix -) 20 mg PO DAILY [facility] Last Admin: 03/18/18 09:49 Dose: 20 mg Polyethylene Glycol (Miralax (For Daily Use) -) 17 gm PO DAILY [facility] Last Admin: 03/18/18 10:55 Dose: 17 grams Last Vital Signs Temp Pulse Resp BP Pulse Ox 98.0 F 109 H 20 136/91 99 03/18/18 10:00 03/18/18 10:00 03/18/18 10:00 03/18/18 10:00 03/18/18 09:00 CBC, BMP 03/17/18 05:30 03/17/18 05:30 IMP- BP improving
[2018-03-18] MEDS: LACTULOSE 20 GM/30 ML UDC (FOR ORAL USE ONLY) PO SCH ×2 (16:46→22:34)
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
[2018-03-19] MEDS: HEPARIN NA (PORCINE) 5,000 UNITS/ML 1ML VIAL SQ SCH ×3 (07:01→21:51)
[2018-03-19] MEDS: LACTULOSE 20 GM/30 ML UDC (FOR ORAL USE ONLY) PO SCH ×3 (07:03→21:51)
[2018-03-19] MEDS: INSULIN SLIDING SCALE (NOVOLOG) 1 VIAL SQ SCH ×3 (07:07→16:43)
[2018-03-19 07:22] LABS: BASO % 0.6 % (0-2.0); EOS % 0.7 % (0-4.5); HEMATOCRIT 50.3 % (32.4-45.2); HEMOGLOBIN 16.3 GM/dL (10.7-15.3); LYMPH % 20.3 % (8-40); MCH 29.6 pg (25.7-33.7); MCHC 32.3 g/dl (32.0-36.0); MEAN CELL VOLUME 91.6 fl (80-96); MEAN PLT VOLUME 12.1 fl (7.5-11.1); MONO % 8.7 % (3.8-10.2); NEUT % 69.7 % (42.8-82.8); PLATELET COUNT 116 K/MM3 (134-434); RBC 5.49 M/mm3 (3.60-5.2); RDW 13.4 % (11.6-15.6); WHITE BLOOD COUNT 8.2 K/mm3 (4.0-10.0)
[2018-03-19 08:06] LABS: ANION GAP 11 MMOL/L (8-16); BLOOD UREA NITROGEN 22 mg/dL (7-18); CALCIUM 9.6 mg/dL (8.5-10.1); CHLORIDE 92 mmol/L (98-107); CO2 29 mmol/L (21-32); CREATININE 0.8 mg/dL (0.55-1.3); MAGNESIUM 2.2 mg/dL (1.8-2.4); PHOSPHOROUS 4.7 mg/dL (2.5-4.9); POTASSIUM 3.6 mmol/L (3.5-5.1); SODIUM 133 mmol/L (136-145)
[2018-03-19 08:10] LABS: GLUCOSE,RANDOM 317 mg/dL (74-106)
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
[2018-03-19] MEDS: FUROSEMIDE 20 MG TABLET (FP) PO SCH (10:48)
[2018-03-19] MEDS: PANTOPRAZOLE 20 MG TABLET (FP) PO SCH (10:48)
[2018-03-19] MEDS: HYDROCHLOROTHIAZIDE 25 MG TABLET (FP) PO SCH (10:48)
[2018-03-19] MEDS: LISINOPRIL 20 MG TABLET (FP) PO SCH (10:48)
[2018-03-19] MEDS: amLODIPine BESYLATE 10 MG TABLET (FP) PO SCH (10:49)
[2018-03-19] MEDS: ASPIRIN 81 MG CHEWABLE TABLETS PO SCH (10:49)
[2018-03-19] MEDS: POLYETHYLENE GLYCOL 3350 119 GM BTL PO SCH (10:52)
[2018-03-19] MEDS: BUDESONIDE/FORMETEROL FUMARATE 80/4.5 mcg INHALER IH SCH ×2 (10:52→21:52)
[2018-03-19] MEDS: INSULIN (LEVEMIR) 100 UNITS/ML UNITS SQ SCH ×2 (10:55→21:52)
[2018-03-19] MEDS ORDERED: SODIUM PHOSPHATE/NA BIPHOS 133 ML ENEMA PR ONE ×3 (11:08→16:00)
--- NOTE | 2018-03-19 11:41 | PN ---
Progress Note, Physician Chief Complaint: Ms Peguero complains of abdominal pain. No cp or sob. Was at the [employer] station earlier today and tripped over her gown while dancing. Did not hit head and no pain where she fell. - Current Medication List Current Medications: Active Medications Acetaminophen (Ofirmev Injection -) 1,000 mg IVPB Q6H PRN PRN Reason: PAIN Albuterol Sulfate (Ventolin Hfa Inhaler -) 2 puff IH Q4H PRN PRN Reason: ASTHMA Amlodipine Besylate (Norvasc -) 5 mg PO DAILY [facility] Last Admin: 03/19/18 10:49 Dose: 5 mg Aspirin (Asa -) 81 mg PO DAILY [facility] Last Admin: 03/19/18 10:49 Dose: 81 mg Benzocaine/Menthol (Cepacol Lozenge -) 1 each MM DAILY PRN PRN Reason: SORE THROAT Last Admin: 03/15/18 06:56 Dose: 1 each Budesonide/Formoterol Fumarate (Symbicort 80/4.5mcg -) 2 puff IH BID [facility] Last Admin: 03/19/18 10:52 Dose: 2 puff Furosemide (Lasix -) 10 mg PO DAILY [facility] Last Admin: 03/19/18 10:48 Dose: 10 mg Heparin Sodium (Porcine) (Heparin -) 5,000 unit SQ TID [facility] Last Admin: 03/19/18 07:01 Dose: Not Given Hydrochlorothiazide (Hctz -) 25 mg PO DAILY [facility] Last Admin: 03/19/18 10:48 Dose: 25 mg Sodium Chloride (Normal Saline -) 1,000 mls @ 100 mls/hr IV ASDIR [facility] Last Admin: 03/18/18 16:43 Dose: Not Given Insulin Aspart (Novolog Vial Sliding Scale -) 1 vial SQ TIDAC [facility]; Protocol Last Admin: 03/19/18 11:36 Dose: 2 units Insulin Detemir (Levemir Vial) 20 units SQ BID [facility] Lactulose (Cephulac (Oral Use)) 20 gm PO TID [facility] Last Admin: 03/19/18 07:03 Dose: 20 gm Lisinopril (Prinivil) 40 mg PO DAILY [facility] Last Admin: 03/19/18 10:48 Dose: 40 mg Metoprolol Succinate (Toprol Xl -) 50 mg PO DAILY [facility] Last Admin: 03/19/18 10:48 Dose: 50 mg Pantoprazole Sodium (Protonix -) 20 mg PO DAILY [facility] Last Admin: 03/19/18 10:48 Dose: 20 mg Polyethylene Glycol (Miralax (For Daily Use) -) 17 gm PO DAILY [facility] Last Admin: 03/19/18 10:52 Dose: 17 grams Sodium Phosphate (Fleet Adult Rectal Enema -) 133 ml [place] ONCE ONE Stop: 03/19/18 16:01 - Objective Vital Signs: Vital Signs Temperature 36.9 C 03/19/18 10:00 Pulse Rate 105 H 03/19/18 10:00 Respiratory Rate 20 03/19/18 10:00 Blood Pressure 134/85 03/19/18 10:00 O2 Sat by Pulse Oximetry (%) 100 03/19/18 09:00 Constitutional: Yes: Well Nourished, No Distress, Calm Eyes: Yes: Conjunctiva Clear, EOM Intact, PERRL HENT: Yes: Atraumatic, Normocephalic Cardiovascular: Yes: Regular Rate and Rhythm. No: Gallop, Murmur, Rub Respiratory: Yes: Regular, CTA Bilaterally. No: Rales, Rhonchi, Wheezes Gastrointestinal: Yes: Normal Bowel Sounds, Soft, Tenderness (slight). No: Distention Extremities: Yes: WNL Edema: No Labs: CBC, BMP 03/19/18 05:30 03/19/18 05:30 INR, PTT INR 0.91 (0.83-1.09) 03/14/18 08:41 Problem List - Problems (1) HTN (hypertension) Code(s): I10 - ESSENTIAL (PRIMARY) HYPERTENSION (2) Chest pain Code(s): R07.9 - CHEST PAIN, UNSPECIFIED (3) DM2 (diabetes mellitus, type 2) Code(s): E11.9 - TYPE 2 DIABETES MELLITUS WITHOUT COMPLICATIONS Qualifiers: Diabetes mellitus retirement insulin use: with laundry agent use Diabetes mellitus complication status: without complication Qualified Code(s): E11.9 - Type 2 diabetes mellitus without complications; Z79.4 - correction (current) use of insulin (4) Elevated d-dimer Code(s): R79.89 - OTHER SPECIFIED ABNORMAL FINDINGS OF BLOOD CHEMISTRY (5) Alcohol dependence Code(s): F10.20 - ALCOHOL DEPENDENCE, UNCOMPLICATED (6) Hepatitis C Code(s): B19.20 - UNSPECIFIED VIRAL HEPATITIS C WITHOUT HEPATIC COMA Qualifiers: Viral hepatitis chronicity: chronic (7) Cocaine dependence Code(s): F14.20 - COCAINE DEPENDENCE, UNCOMPLICATED (8) Emesis Code(s): R11.10 - VOMITING, UNSPECIFIED Qualifiers: Vomiting Intractability: unspecified Assessment/Plan (1) HTN (hypertension) Assessment/Plan: -continue current management Code(s): I10 - ESSENTIAL (PRIMARY) HYPERTENSION (2) Chest pain Assessment/Plan: -cardiology following and note reviewed -non-cardiac and resolved Code(s): R07.9 - CHEST PAIN, UNSPECIFIED (3) DM2 (diabetes mellitus, type 2) Assessment/Plan: -patient says she is compliant with her regimen -however Hgb A1c is 12 and patient not compliant with her diet here -increase levemir dose today Code(s): E11.9 - TYPE 2 DIABETES MELLITUS WITHOUT COMPLICATIONS Qualifiers: Diabetes mellitus laundry agent insulin use: with laundry agent use Diabetes mellitus complication status: without complication Qualified Code(s): E11.9 - Type 2 diabetes mellitus without complications; Z79.4 - pattern ruler (current) use of insulin (4) Elevated d-dimer Assessment/Plan: -CT scan negative Code(s): R79.89 - OTHER SPECIFIED ABNORMAL FINDINGS OF BLOOD CHEMISTRY (5) Alcohol dependence Assessment/Plan: -resolved Code(s): F10.20 - ALCOHOL DEPENDENCE, UNCOMPLICATED (6) Hepatitis C Assessment/Plan: -noted Code(s): B19.20 - UNSPECIFIED VIRAL HEPATITIS C WITHOUT HEPATIC COMA Qualifiers: Viral hepatitis chronicity: chronic (7) Cocaine dependence Assessment/Plan: -outpatient rehab Code(s): F14.20 - COCAINE DEPENDENCE, UNCOMPLICATED (8) Emesis Assessment/Plan: -CT scan showing constipation -enema given -lactulose started -continue lactulose -discharge planning once has bowel movement Code(s): R11.10 - VOMITING, UNSPECIFIED (9) Fall -mechanical -no head trauma -no bruising noted -no pain with ambulation or movement -can monitor
[2018-03-19] MEDS: SODIUM CHLORIDE 1,000 ML IV SCH (16:44)
--- NOTE | 2018-03-19 17:40 | PN ---
Progress Note (short form) - Note Progress Note: covering dr shannon Problems 1. HTN 2. substance abuse 3. bipolar 4. Aortic valve replacement 5. HLD 6. COPD Current Medications Acetaminophen (Ofirmev Injection -) 1,000 mg IVPB Q6H PRN PRN Reason: PAIN Albuterol Sulfate (Ventolin Hfa Inhaler -) 2 puff IH Q4H PRN PRN Reason: ASTHMA Amlodipine Besylate (Norvasc -) 5 mg PO DAILY [facility] Last Admin: 03/19/18 10:49 Dose: 5 mg Aspirin (Asa -) 81 mg PO DAILY [facility] Last Admin: 03/19/18 10:49 Dose: 81 mg Benzocaine/Menthol (Cepacol Lozenge -) 1 each MM DAILY PRN PRN Reason: SORE THROAT Last Admin: 03/15/18 06:56 Dose: 1 each Budesonide/Formoterol Fumarate (Symbicort 80/4.5mcg -) 2 puff IH BID [facility] Last Admin: 03/19/18 10:52 Dose: 2 puff Furosemide (Lasix -) 10 mg PO DAILY [facility] Last Admin: 03/19/18 10:48 Dose: 10 mg Heparin Sodium (Porcine) (Heparin -) 5,000 unit SQ TID [facility] Last Admin: 03/19/18 14:12 Dose: Not Given Hydrochlorothiazide (Hctz -) 25 mg PO DAILY [facility] Last Admin: 03/19/18 10:48 Dose: 25 mg Sodium Chloride (Normal Saline -) 1,000 mls @ 100 mls/hr IV ASDIR [facility] Last Admin: 03/19/18 16:44 Dose: Not Given Insulin Aspart (Novolog Vial Sliding Scale -) 1 vial SQ TIDAC [facility]; Protocol Last Admin: 03/19/18 16:43 Dose: 6 units Insulin Detemir (Levemir Vial) 20 units SQ BID [facility] Lactulose (Cephulac (Oral Use)) 20 gm PO TID [facility] Last Admin: 03/19/18 14:12 Dose: 20 gm Lisinopril (Prinivil) 40 mg PO DAILY [facility] Last Admin: 03/19/18 10:48 Dose: 40 mg Metoprolol Succinate (Toprol Xl -) 50 mg PO DAILY [facility] Last Admin: 03/19/18 10:48 Dose: 50 mg Pantoprazole Sodium (Protonix -) 20 mg PO DAILY [facility] Last Admin: 03/19/18 10:48 Dose: 20 mg Polyethylene Glycol (Miralax (For Daily Use) -) 17 gm PO DAILY [facility] Last Admin: 03/19/18 10:52 Dose: 17 grams Last Vital Signs Temp Pulse Resp BP Pulse Ox 97.4 F L 99 H 20 120/78 100 03/19/18 16:36 03/19/18 16:36 03/19/18 16:36 03/19/18 16:36 03/19/18 09:00 c/o constipation lungs clear heart reg abd soft ext no edema CBC, BMP 03/17/18 05:30 03/17/18 05:30 IMP- BP better controlled constipation prerenal azotemia Plan-
[2018-03-19] MEDS ORDERED: PT OWN MED DRAWER 7, Y5N ONE (20:31)
[2018-03-20] MEDS ORDERED: LORazepam 2 MG/ML SDV VIAL IM ONE (00:38)
[2018-03-20] MEDS ORDERED: LORazepam 2 MG/ML SDV VIAL ONE ×2 (00:39→09:20)
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
[2018-03-20 06:45] VITALS: TEMP 97.3
[2018-03-20] MEDS: LACTULOSE 20 GM/30 ML UDC (FOR ORAL USE ONLY) PO SCH (06:53)
[2018-03-20] MEDS: INSULIN SLIDING SCALE (NOVOLOG) 1 VIAL SQ SCH ×2 (06:54→10:50)
[2018-03-20] MEDS: HEPARIN NA (PORCINE) 5,000 UNITS/ML 1ML VIAL SQ SCH (06:54)
[2018-03-20] MEDS ORDERED: LACTULOSE 20 GM/30 ML UDC (FOR RECTAL USE ONLY) PR ONE (07:45)
--- NOTE | 2018-03-20 08:56 | RAPID ---
Physical Examination Vital Signs: Vital Signs Temperature 97.3 F L 03/20/18 06:00 Pulse Rate 97 H 03/20/18 06:00 Respiratory Rate 20 03/20/18 06:00 Blood Pressure 158/64 03/20/18 06:00 O2 Sat by Pulse Oximetry (%) 96 03/19/18 21:00 CBC, BMP 03/19/18 05:30 03/19/18 05:30 Vitals rapid response was called for Ms Johnson after she fell down and hit her face she is bleeding from her teeth Fall protocol # [address] scan head without contrast Primary Dr Thomas was informed. Psych consult Ativan 1 mg one to one observation Fall precautions Labs: CBC, BMP 03/19/18 05:30 03/19/18 05:30
[2018-03-20] MEDS ORDERED: LORazepam 2 MG/ML SDV VIAL IM PRN (09:44)
[2018-03-20 09:51] VITALS: BP 153/57; PULSE 82
--- NOTE | 2018-03-20 10:16 | PN ---
Progress Note, Physician - Current Medication List Current Medications: Active Medications Acetaminophen (Ofirmev Injection -) 1,000 mg IVPB Q6H PRN PRN Reason: PAIN Albuterol Sulfate (Ventolin Hfa Inhaler -) 2 puff IH Q4H PRN PRN Reason: ASTHMA Amlodipine Besylate (Norvasc -) 5 mg PO DAILY [facility] Last Admin: 03/19/18 10:49 Dose: 5 mg Aspirin (Asa -) 81 mg PO DAILY [facility] Last Admin: 03/19/18 10:49 Dose: 81 mg Benzocaine/Menthol (Cepacol Lozenge -) 1 each MM DAILY PRN PRN Reason: SORE THROAT Last Admin: 03/15/18 06:56 Dose: 1 each Budesonide/Formoterol Fumarate (Symbicort 80/4.5mcg -) 2 puff IH BID [facility] Last Admin: 03/19/18 21:52 Dose: Not Given Furosemide (Lasix -) 10 mg PO DAILY [facility] Last Admin: 03/19/18 10:48 Dose: 10 mg Heparin Sodium (Porcine) (Heparin -) 5,000 unit SQ TID [facility] Last Admin: 03/20/18 06:54 Dose: Not Given Hydrochlorothiazide (Hctz -) 25 mg PO DAILY [facility] Last Admin: 03/19/18 10:48 Dose: 25 mg Sodium Chloride (Normal Saline -) 1,000 mls @ 100 mls/hr IV ASDIR [facility] Last Admin: 03/19/18 16:44 Dose: Not Given Insulin Aspart (Novolog Vial Sliding Scale -) 1 vial SQ TIDAC [facility]; Protocol Last Admin: 03/20/18 06:54 Dose: 6 units Insulin Detemir (Levemir Vial) 20 units SQ BID [facility] Last Admin: 03/19/18 21:52 Dose: Not Given Lactulose (Cephulac (Oral Use)) 20 gm PO TID [facility] Last Admin: 03/20/18 06:53 Dose: Not Given Lisinopril (Prinivil) 40 mg PO DAILY [facility] Last Admin: 03/19/18 10:48 Dose: 40 mg Lorazepam (Ativan Injection -) 2 mg IM Q6H PRN PRN Reason: FOR AGITATION Last Admin: 03/20/18 09:59 Dose: 2 mg Metoprolol Succinate (Toprol Xl -) 50 mg PO DAILY [facility] Last Admin: 03/19/18 10:48 Dose: 50 mg Pantoprazole Sodium (Protonix -) 20 mg PO DAILY [facility] Last Admin: 03/19/18 10:48 Dose: 20 mg Polyethylene Glycol (Miralax (For Daily Use) -) 17 gm PO DAILY [facility] Last Admin: 03/19/18 10:52 Dose: 17 grams - Objective Vital Signs: Vital Signs Temperature 97.3 F L 03/20/18 06:00 Pulse Rate 82 03/20/18 09:51 Respiratory Rate 18 03/20/18 09:51 Blood Pressure 153/57 L 03/20/18 09:51 O2 Sat by Pulse Oximetry (%) 96 03/19/18 21:00 Labs: CBC, BMP 03/19/18 05:30 03/19/18 05:30 INR, PTT INR 0.91 (0.83-1.09) 03/14/18 08:41 Assessment/Plan ECG x3 here: NSR, LVH with repol abn, mildly prolonged QT--no signif change vs priors (03/19 and 08/17) CT chest here: bilat pulm nodules. no infiltrate. mild ATX, no congestion reported. Echo here 03/15/18: mod conc LVH, nl EF. nl RV size. biatrial dilation. mild , no AI. trace-mild MR, mild TR. no pulm HTN seen. no peric effusion. Echo 09/2016 ([place], postop re-do AVR): TDS, Definity contrast used. mild-mod conc LVH, nl LVEF (55%), from 42% preop. nl RV. + bioAVR, no AI, no (peak and mean gradients 47/28). s/p mitral repair with trace MR. s/p TV repair with minimal TR LHC 08/2016 ([place], preop for AVR): normal coronaries tele: sr, sinus tachy CP, weakness, dizziness, sob, naus/vomiting: -sx's very atypical including occurred at rest and radiated down to legs -ruled out with 4 serial troponins -normal coronaries slightly > 1 yr ago at cath -doubt coronary vasospasm given no ekg changes here, Utox negative for cocaine -suspect sx's due to non-cardiac etiology (in absence of echo or clinical findings of valve failure/chf), possibly due to acutely elevated BP -remains asymptomatic currently s/p AVR x 3 (last re-do bioAVR 2017), s/p MV and TV repairs (2017): -echo here showing preserved valve function (all), and normal LVEF. -no signs of CHF HTN with hypertensive urgency: -suspect new onset essential HTN -improved, though remains suboptimal -cont present meds -outpt f/u Hep B cirrhosis with chronic thrombocytopenia: -per hospitalist DM on insulin: -glucose suboptimal here -per hospitalist tachy: -sinus tachy, likely 2/2 joint pain, on bb -TSH normal
[2018-03-20] MEDS: ASPIRIN 81 MG CHEWABLE TABLETS PO SCH (10:49)
[2018-03-20] MEDS: amLODIPine BESYLATE 10 MG TABLET (FP) PO SCH (10:49)
[2018-03-20] MEDS: FUROSEMIDE 20 MG TABLET (FP) PO SCH (10:49)
[2018-03-20] MEDS: INSULIN (LEVEMIR) 100 UNITS/ML UNITS SQ SCH (10:49)
[2018-03-20] MEDS: LISINOPRIL 20 MG TABLET (FP) PO SCH (10:49)
[2018-03-20] MEDS: HYDROCHLOROTHIAZIDE 25 MG TABLET (FP) PO SCH (10:49)
[2018-03-20] MEDS: POLYETHYLENE GLYCOL 3350 119 GM BTL PO SCH (10:49)
[2018-03-20] MEDS: PANTOPRAZOLE 20 MG TABLET (FP) PO SCH (10:49)
[2018-03-20] MEDS: BUDESONIDE/FORMETEROL FUMARATE 80/4.5 mcg INHALER IH SCH (10:50)
--- NOTE | 2018-03-20 12:51 | PN ---
Progress Note, Physician - Current Medication List Current Medications: Active Medications Acetaminophen (Ofirmev Injection -) 1,000 mg IVPB Q6H PRN PRN Reason: PAIN Albuterol Sulfate (Ventolin Hfa Inhaler -) 2 puff IH Q4H PRN PRN Reason: ASTHMA Amlodipine Besylate (Norvasc -) 5 mg PO DAILY [facility] Last Admin: 03/20/18 10:49 Dose: Not Given Aspirin (Asa -) 81 mg PO DAILY [facility] Last Admin: 03/20/18 10:49 Dose: Not Given Benzocaine/Menthol (Cepacol Lozenge -) 1 each MM DAILY PRN PRN Reason: SORE THROAT Last Admin: 03/15/18 06:56 Dose: 1 each Budesonide/Formoterol Fumarate (Symbicort 80/4.5mcg -) 2 puff IH BID [facility] Last Admin: 03/20/18 10:50 Dose: Not Given Furosemide (Lasix -) 10 mg PO DAILY [facility] Last Admin: 03/20/18 10:49 Dose: Not Given Heparin Sodium (Porcine) (Heparin -) 5,000 unit SQ TID [facility] Last Admin: 03/20/18 06:54 Dose: Not Given Hydrochlorothiazide (Hctz -) 25 mg PO DAILY [facility] Last Admin: 03/20/18 10:49 Dose: Not Given Sodium Chloride (Normal Saline -) 1,000 mls @ 100 mls/hr IV ASDIR [facility] Last Admin: 03/19/18 16:44 Dose: Not Given Insulin Aspart (Novolog Vial Sliding Scale -) 1 vial SQ TIDAC [facility]; Protocol Last Admin: 03/20/18 10:50 Dose: Not Given Insulin Detemir (Levemir Vial) 20 units SQ BID [facility] Last Admin: 03/20/18 10:49 Dose: Not Given Lactulose (Cephulac (Oral Use)) 20 gm PO TID [facility] Last Admin: 03/20/18 06:53 Dose: Not Given Lisinopril (Prinivil) 40 mg PO DAILY [facility] Last Admin: 03/20/18 10:49 Dose: Not Given Lorazepam (Ativan Injection -) 2 mg IM Q6H PRN PRN Reason: FOR AGITATION Last Admin: 03/20/18 09:59 Dose: 2 mg Metoprolol Succinate (Toprol Xl -) 50 mg PO DAILY [facility] Last Admin: 03/20/18 10:50 Dose: Not Given Pantoprazole Sodium (Protonix -) 20 mg PO DAILY [facility] Last Admin: 03/20/18 10:49 Dose: Not Given Polyethylene Glycol (Miralax (For Daily Use) -) 17 gm PO DAILY [facility] Last Admin: 03/20/18 10:49 Dose: Not Given - Objective Vital Signs: Vital Signs Temperature 36.3 C L 03/20/18 06:00 Pulse Rate 82 03/20/18 09:51 Respiratory Rate 18 03/20/18 09:51 Blood Pressure 153/57 L 03/20/18 09:51 O2 Sat by Pulse Oximetry (%) 96 03/19/18 21:00 Labs: CBC, BMP 03/19/18 05:30 03/19/18 05:30 INR, PTT INR 0.91 (0.83-1.09) 03/14/18 08:41 Problem List - Problems (1) HTN (hypertension) Code(s): I10 - ESSENTIAL (PRIMARY) HYPERTENSION (2) Chest pain Code(s): R07.9 - CHEST PAIN, UNSPECIFIED (3) DM2 (diabetes mellitus, type 2) Code(s): E11.9 - TYPE 2 DIABETES MELLITUS WITHOUT COMPLICATIONS Qualifiers: Diabetes mellitus residential insulin use: with extermination inspector use Diabetes mellitus complication status: without complication Qualified Code(s): E11.9 - Type 2 diabetes mellitus without complications; Z79.4 - residential (current) use of insulin (4) Elevated d-dimer Code(s): R79.89 - OTHER SPECIFIED ABNORMAL FINDINGS OF BLOOD CHEMISTRY (5) Alcohol dependence Code(s): F10.20 - ALCOHOL DEPENDENCE, UNCOMPLICATED (6) Hepatitis C Code(s): B19.20 - UNSPECIFIED VIRAL HEPATITIS C WITHOUT HEPATIC COMA Qualifiers: Viral hepatitis chronicity: chronic (7) Cocaine dependence Code(s): F14.20 - COCAINE DEPENDENCE, UNCOMPLICATED (8) Emesis Code(s): R11.10 - VOMITING, UNSPECIFIED Qualifiers: Vomiting Intractability: unspecified
--- NOTE | 2018-03-20 13:16 | CON.PSY ---
Psychiatry Consult Chief Complaint: i am an Alcoholic and need detox. I have been here 7 days and [facility]. Symptoms: reports: Inability to Control Temper - Previous Psychiatric Treatment Outpatient: More than 6 mos ago - Previous Substance Abuse Treatment Outpatient: More than 6 mos ago - Reason for Previous Treatment Reason for Previous Treatment: Past Traumatic Stress, Alcohol Abuse - Current Medications Current Medications: Active Medications Acetaminophen (Ofirmev Injection -) 1,000 mg IVPB Q6H PRN PRN Reason: PAIN Albuterol Sulfate (Ventolin Hfa Inhaler -) 2 puff IH Q4H PRN PRN Reason: ASTHMA Amlodipine Besylate (Norvasc -) 5 mg PO DAILY [facility] Last Admin: 03/20/18 10:49 Dose: Not Given Aspirin (Asa -) 81 mg PO DAILY [facility] Last Admin: 03/20/18 10:49 Dose: Not Given Benzocaine/Menthol (Cepacol Lozenge -) 1 each MM DAILY PRN PRN Reason: SORE THROAT Last Admin: 03/15/18 06:56 Dose: 1 each Budesonide/Formoterol Fumarate (Symbicort 80/4.5mcg -) 2 puff IH BID [facility] Last Admin: 03/20/18 10:50 Dose: Not Given Furosemide (Lasix -) 10 mg PO DAILY [facility] Last Admin: 03/20/18 10:49 Dose: Not Given Heparin Sodium (Porcine) (Heparin -) 5,000 unit SQ TID [facility] Last Admin: 03/20/18 06:54 Dose: Not Given Hydrochlorothiazide (Hctz -) 25 mg PO DAILY [facility] Last Admin: 03/20/18 10:49 Dose: Not Given Sodium Chloride (Normal Saline -) 1,000 mls @ 100 mls/hr IV ASDIR [facility] Last Admin: 03/19/18 16:44 Dose: Not Given Insulin Aspart (Novolog Vial Sliding Scale -) 1 vial SQ TIDAC [facility]; Protocol Last Admin: 03/20/18 10:50 Dose: Not Given Insulin Detemir (Levemir Vial) 20 units SQ BID [facility] Last Admin: 03/20/18 10:49 Dose: Not Given Lactulose (Cephulac (Oral Use)) 20 gm PO TID [facility] Last Admin: 03/20/18 06:53 Dose: Not Given Lisinopril (Prinivil) 40 mg PO DAILY [facility] Last Admin: 03/20/18 10:49 Dose: Not Given Lorazepam (Ativan Injection -) 2 mg IM Q6H PRN PRN Reason: FOR AGITATION Last Admin: 03/20/18 09:59 Dose: 2 mg Metoprolol Succinate (Toprol Xl -) 50 mg PO DAILY [facility] Last Admin: 03/20/18 10:50 Dose: Not Given Pantoprazole Sodium (Protonix -) 20 mg PO DAILY [facility] Last Admin: 03/20/18 10:49 Dose: Not Given Polyethylene Glycol (Miralax (For Daily Use) -) 17 gm PO DAILY [facility] Last Admin: 03/20/18 10:49 Dose: Not Given - Allergies Allergies: Allergies Allergy/AdvReac Type Severity Reaction Status Date / Time grass pollen Allergy Intermediate Verified 03/14/18 08:07 No Known Drug Allergies Allergy Unknown Verified 03/14/18 08:07 - Current Living Status Usual Living Arrangement: Alone - Current Mental Status Evaluation Appearance: Well Groomed Attitude: Guarded - Affect Affect: Labile Appropriateness: Appropriate to Content - Mood Mood: Irritable - Speech/Language Expressive: Coherent - Psychomotor Activity Psychomotor Activity: Hyperactive - Thought Process Thought Process: Intact - Thought Content Hallucinations: Absent Delusions: Absent - Cognition Attention: Alert Orientation: Time Memory, Immediate Recall: Intact Memory, Short Term: 3/3 Memory, Remote with Promptin/3 - Concentration Serial Sevens Intact: No Simple Calculations Intact: Yes - Abstraction Proverb Interpretation: Intact Judgement: Minimally Impaired - Insight Insight: Intact - Impulse Control Impulse Control: Minimally Impaired - Suicidal Ideation Suicidal Ideation: No - Homicidal Ideation Homicidal Ideation: No Assessment/Plan 1) Patient can be transferred to to [facility] . 2) Continue with 1:1 until discharge.
--- NOTE | 2018-03-20 13:32 | DS ---
Physical Examination Vital Signs: Vital Signs Temperature 36.3 C L 03/20/18 06:00 Pulse Rate 82 03/20/18 09:51 Respiratory Rate 18 03/20/18 09:51 Blood Pressure 153/57 L 03/20/18 09:51 O2 Sat by Pulse Oximetry (%) 96 03/19/18 21:00 Constitutional: Yes: No Distress, Calm, Obese Cardiovascular: Yes: Regular Rate and Rhythm. No: Gallop, Murmur, Rub Respiratory: Yes: Regular, CTA Bilaterally. No: Rales, Rhonchi, Wheezes Gastrointestinal: Yes: Normal Bowel Sounds, Soft. No: Distention, Tenderness Extremities: Yes: WNL Edema: No Labs: CBC, BMP 03/19/18 05:30 03/19/18 05:30 Discharge Summary Reason For Visit: CHEST PAIN Current Active Problems Chest pain (Acute) Elevated d-dimer (Acute) Emesis (Acute) HTN (hypertension) (Acute) Hospital Course: (1) HTN (hypertension) Code(s): I10 - ESSENTIAL (PRIMARY) HYPERTENSION (2) Chest pain Code(s): R07.9 - CHEST PAIN, UNSPECIFIED (3) DM2 (diabetes mellitus, type 2) Code(s): E11.9 - TYPE 2 DIABETES MELLITUS WITHOUT COMPLICATIONS Qualifiers: Diabetes mellitus termite technician insulin use: with termite technician use Diabetes mellitus complication status: without complication Qualified Code(s): E11.9 - Type 2 diabetes mellitus without complications; Z79.4 - long-term (current) use of insulin (4) Elevated d-dimer Code(s): R79.89 - OTHER SPECIFIED ABNORMAL FINDINGS OF BLOOD CHEMISTRY (5) Alcohol dependence Code(s): F10.20 - ALCOHOL DEPENDENCE, UNCOMPLICATED (6) Hepatitis C Code(s): B19.20 - UNSPECIFIED VIRAL HEPATITIS C WITHOUT HEPATIC COMA Qualifiers: Viral hepatitis chronicity: chronic (7) Cocaine dependence Code(s): F14.20 - COCAINE DEPENDENCE, UNCOMPLICATED (8) Emesis Code(s): R11.10 - VOMITING, UNSPECIFIED Qualifiers: Vomiting Intractability: unspecified Ms Peguero is a 53 year old female who presented to the hospital from [facility] for chest pain and hypertensive urgency. She was admitted under observation and monitored on telemetry. She had cardiac enzymes x3 sent and were negative. She was planned for discharge, however became nauseated and had significantly elevated blood pressure. Nephrology was consulted and she was placed on an antihypertensive regimen as listed below. Her blood pressure improved, however she became tachycardic and continued to have emesis. Cardiology was consulted and tachycardia was noted to be secondary to dehydration. GI was consulted since there was concern for gastroparesis but AXR and CT scan showed impaction with significant constipation. She was placed on a liquid diet and given lactulose. She is currently having bowel movements. Her diet can be advanced to a diabetic diet. Of note her hemoglobin A1C was elevated to 12. She was started on levemir 20 units bid and instructed to remain compliant with a diabetic diet. She is safe for discharge to [facility] and should continue follow up with her PCP for control of HTN and DM. 38 minutes spent in preparation of this discharge Condition: Stable - Instructions Diet, Activity, Other Instructions: diabetic, low fat diet. Continue previous activity. Check glucose twice daily. Referrals: Radha Eddy MD [Staff Physician] - Disposition: HOME - Home Medications Comprehensive Discharge Medication List: Ambulatory Orders RX: Salmeterol/Fluticasone [Advair 250Mcg/50Mcg -] 1 inh PO BID 07/28/12 RX: Albuterol Sulfate Inhaler - [Ventolin HFA Inhaler -] 2 inh PO Q4H PRN RX: metFORMIN HCL [Glucophage -] 500 mg PO BID 08/02/16 RX: Aspirin 81 mg PO DAILY 08/14/17 RX: Furosemide [Lasix] 10 mg PO DAILY 03/14/18 RX: Nitroglycerin 0.4 mg SL [id number] 03/14/18 RX: Amlodipine Besylate [Norvasc -] 5 mg PO DAILY tablet 03/20/18 RX: Hydrochlorothiazide [Hctz -] 25 mg PO DAILY tablet 03/20/18 RX: Insulin (Levemir) [Levemir Vial] 20 units SQ BID units 03/20/18 RX: Lisinopril [Prinivil] 40 mg PO DAILY tablet 03/20/18 RX: Metoprolol Succinate [Toprol XL -] 50 mg PO DAILY tab.sr.24h 03/20/18 RX: Pantoprazole Sodium [Protonix -] 20 mg PO DAILY tablet.ec 03/20/18 RX: Polyethylene Glycol 3350 [Miralax 119 gm Btl -] 17 gm PO DAILY bottle 03/20
== END 2018-03-20 14:37 | disposition short-term general hospital (02) | DRG 638 ==
LOC: JER 08:00 → JERBED 11:29 → J4W 15:40 → OBSVTOIN 03-16 10:31
PROVIDERS: ADMIT Internal Medicine; ATTEND Internal Medicine
PROC: HZ2ZZZZ Detoxification Services for Substance Abuse Treatment (ICD-10-PCS; principal; 2018-03-14)
DX: E11.65 Type 2 diabetes mellitus with hyperglycemia (principal); F31.89 Other bipolar disorder; F14.20 Cocaine dependence, uncomplicated; B19.10 Unspecified viral hepatitis B without hepatic coma; I16.0 Hypertensive urgency; R07.89 Other chest pain; K74.60 Unspecified cirrhosis of liver; J44.9 Chronic obstructive pulmonary disease, unspecified; B19.20 Unspecified viral hepatitis C without hepatic coma; E66.9 Obesity, unspecified; Z68.35 Body mass index [BMI] 35.0-35.9, adult; F10.20 Alcohol dependence, uncomplicated; R11.10 Vomiting, unspecified; I35.1 Nonrheumatic aortic (valve) insufficiency; M54.5 Low back pain; E11.40 Type 2 diabetes mellitus with diabetic neuropathy, unspecified; G47.33 Obstructive sleep apnea (adult) (pediatric); D69.6 Thrombocytopenia, unspecified; R00.0 Tachycardia, unspecified; K59.00 Constipation, unspecified; Z85.3 Personal history of malignant neoplasm of breast; Z95.2 Presence of prosthetic heart valve
CPT/HCPCS: 36415; 71045-TC-FY; 71250-TC; 71275-TC; 74019-TC-FY; 74176-TC; 80048; 80053; 82465; 82550; 82962; 83036; 83735; 84100; 84443; 84484; 85025; 85379; 85610; 85730; 93005; 93010; 93306-TC; 99282-25; G0378; J1644; J7030

== ENCOUNTER 2018-03-20 16:42 | Inpatient (IN) | payer OTHER ==
--- NOTE | 2018-03-20 17:20 | PDOC ---
History of Present Illness - General Chief Complaint: Altered Mental Status Stated Complaint: AMS/hypotension/hyperglycemia Time Seen by Provider: 03/20/18 17:20 - History of Present Illness Initial Comments: 53 y/o lady withh/o breast cancer s/p mastectomy and chemo, DM , HL, (AVR with porcine valve), cirrhosis , COPD, Hep C, neuropathy, OA , bipolar, polysubstance abuse, who was sent from [facility] because of severe hypotension. She was recently discharged from or facility earlier today after a multi day admission for chest pain workup that ended up being non-cardiac. She was started on multiple anti-hypertensives but apparently refused them all before discharge. She was hypertensive to the 150s at that time and appeared overall very stable. She was then sent to [facility] at which point she was noted to be very unstable on her feet, altered, and had blood pressures in the 50s-60s systolic. When she presented to our ED, she had pressures in the 60s systolic although an accurate reading was hard to obtain and this pressure seemed questionable because patient was slightly lethargic but intermittently combative , irate, and AOx3. 03/20/18 18:25 Past History - Past Medical History Allergies/Adverse Reactions: Allergies Allergy/AdvReac Type Severity Reaction Status Date / Time grass pollen Allergy Intermediate Verified 03/14/18 08:07 No Known Drug Allergies Allergy Unknown Verified 03/14/18 08:07 Home Medications: Ambulatory Orders Salmeterol/Fluticasone [Advair 250Mcg/50Mcg -] 1 inh PO BID 07/28/12 Albuterol Sulfate Inhaler - [Ventolin HFA Inhaler -] 2 inh PO Q4H PRN 07/12/16 metFORMIN HCL [Glucophage -] 500 mg PO BID 08/02/16 Aspirin 81 mg PO DAILY 08/14/17 Furosemide [Lasix] 10 mg PO DAILY 03/14/18 Nitroglycerin 0.4 mg SL [id number] 03/14/18 Amlodipine Besylate [Norvasc -] 5 mg PO DAILY tablet 03/20/18 Hydrochlorothiazide [Hctz -] 25 mg PO DAILY tablet 03/20/18 Insulin (Levemir) [Levemir Vial] 20 units SQ BID units 03/20/18 Lisinopril [Prinivil] 40 mg PO DAILY tablet 03/20/18 Metoprolol Succinate [Toprol XL -] 50 mg PO DAILY tab.sr.24h 03/20/18 Pantoprazole Sodium [Protonix -] 20 mg PO DAILY tablet.ec 03/20/18 Polyethylene Glycol 3350 [Miralax 119 gm Btl -] 17 gm PO DAILY bottle 03/20/18 Anemia: No Asthma: No Cancer: Yes ((R) BREAST CA - MASTECTOMY 2012) Cardiac Disorders: Yes (valve replacement) CVA: No COPD: Yes (on albuterol inhaler) CHF: No Dementia: No Diabetes: Yes (iddm) GI Disorders: No Disorders: No HTN: No Hypercholesterolemia: Yes (on med) Kidney Stones: No Liver Disease: Yes (hep c treated) Seizures: No Thyroid Disease: No - Surgical History Abdominal Surgery: No Appendectomy: No Cardiac Surgery: Yes (AVR ,) Cholecystectomy: No Lung Surgery: No Neurologic Surgery: No Orthopedic Surgery: No - Reproductive History PID: No - Suicide/Smoking/Psychosocial Hx Smoking History: Current some day smoker Have you smoked in the past 12 months: Yes Number of Cigarettes Smoked Daily: 60 If you are a former smoker, when did you quit?: 3 days ago 'Breaking Loose' booklet given: 03/12/18 Hx Alcohol Use: Yes (last use 3 days ago ) Drug/Substance Use Hx: Yes Substance Use Type: Alcohol, Cocaine Hx Substance Use Treatment: Yes ([facility] 08/14/17 to 08/17/17 detox,rehab 08/17/17 to 08/23/17) Review of Systems - Review of Systems Constitutional: No: Chills, Diaphoresis, Fever, Loss of Appetite Respiratory: No: Cough, Orthopnea, Shortness of Breath Cardiac (ROS): No: Chest Pain, Edema, Irregular Heart Rate ABD/GI: No: Diarrhea, Nausea, Vomiting : No: Dysuria, Discharge, Frequency Musculoskeletal: No: Back Pain, Gout, Joint Pain Integumentary: No: Bruising, Lesions, Lumps, Pallor Neurological: No: Headache, Numbness, Paresthesia, Tingling Psychiatric: Yes: Anxiety, Emotional Problems. No: Depression Endocrine: No: Flushing Hematologic/Lymphatic: No: Anemia, Blood Clots, Easy Bleeding *Physical Exam - Physical Exam General Appearance: Yes: Nourished, Appropriately Dressed, Mild Distress, Other (combative) HEENT: positive: EOMI, JOSE, Normal ENT Inspection, Normal Voice Neck: positive: Trachea midline, Normal Thyroid, Supple. negative: Tender, Rigid Respiratory/Chest: positive: Lungs Clear, Normal Breath Sounds. negative: Chest Tender, Respiratory Distress, Accessory Muscle Use Cardiovascular: positive: Regular Rhythm, Regular Rate Gastrointestinal/Abdominal: positive: Normal Bowel Sounds, Flat, Soft. negative : Tender Musculoskeletal: positive: Normal Inspection. negative: Decreased Range of Motion Extremity: positive: Normal Capillary Refill, Normal Inspection, Normal Range of Motion. negative: Tender Integumentary: positive: Normal Color, Dry, Warm Neurologic: positive: Alert, Motor Strength 5/5. negative: Fully Oriented (AOx1 ), Normal Mood/Affect (easily agitated and combative. Slightly lethagic.), Normal Response ED Treatment Course - LABORATORY CBC & Chemistry Diagram: 03/20/18 18:00 03/20/18 18:00 Medical Decision Making - Medical Decision Making Patient presented combative and hypotensive to 50s systolic but alert and occasionally oriented. Given aortic valve replacement and sudden onset hypotension, most concerning pathology was aortic valve insufficiency vs. aortic dissection. Patient was very combative and required Haldol, Ativan, and [id number] IM Ketamine to sedate her. Multiple US guided IVs were placed to fluid resuscitate her but she removed 4 of them. We then gained access with an 18 gauge in her right foot. She received a total of 2.5-3L of fluid and her pressures improved. Her labs demonstrated a lactic acidosis, acute renal failure , and positive for cocaine/ benzodiazepines. Given that CT scan did not show aneurysm and bedside sono did not demonstrate obvious aortic valve insufficiency , this could possibly be due to toxic ingestion - most likely fentanyl vs. other hypotenson inducing narcotic. We discussed the case with the ICU resident and he agreed to take the patient if the fluid resuscitation did not improve the BP. Fluid resuscitation was successful and patient's Maps improved to 90s. Patient was slightly euphoric from the ketamine. We signed her out to Dr. Joyce as a tele admission that might be de-escalated to med surg if pressures were maintained. Repeat labs pending. EKG demonstrated rate 90, MN 118, QTc 96, NSR, TWI V5/V6 that seemed apparent on the previous EKG . 03/21/18 00:27 *DC/Admit/Observation/Transfer Diagnosis at time of Disposition: Hypotension Qualifiers: Hypotension type: other hypotension type Qualified Code(s): I95.89 - Other hypotension Altered mental status, unspecified Qualifiers: Altered mental status type: unspecified Qualified Code(s): R41.82 - Altered mental status, unspecified Acute renal failure (ARF) Qualifiers: Acute renal failure type: unspecified Qualified Code(s): N17.9 - Acute kidney failure, unspecified - Discharge Dispostion Condition at time of disposition: Stable Decision to Admit order: Yes - Referrals - Patient Instructions - Post Discharge Activity
[2018-03-20] MEDS ORDERED: SODIUM CHLORIDE 0.9% 500 ML INFUS.BAG IV ONE ×2 (18:01→22:26)
[2018-03-20] MEDS: SODIUM CHLORIDE 0.9% 1000 ML INFUS.BAG IV SCH (18:15)
[2018-03-20] MEDS ORDERED: HALOPERIDOL LACTATE 5 MG/ML IM ONE (18:15)
[2018-03-20] MEDS ORDERED: HALOPERIDOL LACTATE 5 MG/ML ONE (18:18)
[2018-03-20 18:35] LABS: BASO % 0.7 % (0-2.0); EOS % 0.8 % (0-4.5); HEMATOCRIT 45.2 % (32.4-45.2); HEMOGLOBIN 15.5 GM/dL (10.7-15.3); LYMPH % 20.1 % (8-40); MCH 31.1 pg (25.7-33.7); MCHC 34.4 g/dl (32.0-36.0); MEAN CELL VOLUME 90.5 fl (80-96); MEAN PLT VOLUME 12.7 fl (7.5-11.1); MONO % 12.8 % (3.8-10.2); NEUT % 65.6 % (42.8-82.8); PLATELET COUNT 120 K/MM3 (134-434); RBC 4.99 M/mm3 (3.60-5.2); RDW 13.4 % (11.6-15.6); WHITE BLOOD COUNT 10.7 K/mm3 (4.0-10.0)
[2018-03-20 18:58] LABS: ALK PHOS 82 U/L (45-117); ANION GAP 16 MMOL/L (8-16); BILIRUBIN,TOTAL 0.5 mg/dL (0.2-1); BLOOD UREA NITROGEN 37 mg/dL (7-18); CALCIUM 9.1 mg/dL (8.5-10.1); CHLORIDE 92 mmol/L (98-107); CO2 26 mmol/L (21-32); POTASSIUM 4.1 mmol/L (3.5-5.1); SGOT/AST 20 U/L (15-37); SGPT/ALT 16 U/L (13-61); SODIUM 133 mmol/L (136-145); TOT PROT 6.7 g/dl (6.4-8.2)
[2018-03-20 19:08] LABS: GLUCOSE,RANDOM 371 mg/dL (74-106)
[2018-03-20] MEDS ORDERED: LORazepam 2 MG/ML SDV VIAL ONE (20:02)
--- NOTE | 2018-03-20 20:10 | PDOC ---
Attending Attestation - HPI HPI: This patient is a 53 year old female with PMHx of alcohol dependence, DM, aortic valve replacement, asthma, who was recently sent from [facility] to [facility] ED and discharged earlier today however she returns due to inability to ambulate and unstable vitals. [facility] reports: B/P: 71/36 (L); HR: 108; BS: 352. She was seen originally seen 6 days ago in the ER for chest pain and high blood pressure, admitted and discharged at 1:30 pm today. <Esmer Leroy - Last Filed: 03/20/18 21:17> - Resident Resident Name: Scotty Moscoso - ED Attending Attestation I have performed the following: I have examined & evaluated the patient, The case was reviewed & discussed with the resident, I agree w/resident's findings & plan, Exceptions are as noted - Physicial Exam PE: 03/20/18 21:21 53 yo female who is agitated,combative, hypotensive brought in from [facility] intake because she was so unstable She originally was at [facility] Nov -, then sent to [facility] for chest pain and had cardiac evaluation .Earlier today she went back to [facility] for rehab but when she showed up at their intake area,she was altered,combative and unable to stand with SBP 70 03/21/18 01:17 03/21/18 01:20 obese ,combative 53 yo female ,shouting at nurses and got off the gurney and sat on the floor head ncat eyes rakesh eomi neck supple lungs no wheezing cvs [id number] abd protuberant ext no edema,no deformities skin warm and dry neuro agitated,moving all extremities,good motor strength bilaterally, conversant 03/21/18 02:38 - Medical Decision Making 03/21/18 02:39 tox screen + cocaine, benzo ct scan head - no acute intracranial pathology ct scan chest-no aortic abnormalities no anemia ELEVATED CREATINTNE and this is new since the day before when it was 0.8 lactic acid decreased from 3.5 to 2.2 after fluids pt is afebrile pt admitted to telemetry, Diagnosis -acute renal failure/hypotension/ams Concern for possible drug ingestion, toxic etoh ?? but she has a normal anion gap , normal bicarb 03/21/18 02:58 <Katie Washington - Last Filed: 03/22/18 02:41>
[2018-03-20 20:49] LABS: URINE APPEARANCE CLOUDY; URINE COLOR AMBER; URINE GLUCOSE (UA) 1+ (NEGATIVE); URINE KETONE NEGATIVE (NEGATIVE); URINE LEUK ESTERASE TRACE (NEGATIVE); URINE NITRITE NEGATIVE (NEGATIVE); URINE PROTEIN 2+ (NEGATIVE); URINE UROBILINOGEN 4.0 E.U/dl mg/dL (0.2-1.0)
[2018-03-20 21:13] LABS: EPI CELLS FEW /HPF (FEW); URINE BACTERIA RARE /hpf (NONE SEEN); URINE MUCUS MODERATE
[2018-03-20 21:14] LABS: METHADONE, UR NEGATIVE ng/ml (CUTOFF=300); OPIATES, URI NEGATIVE ng/ml (CUTOFF=300); PHENCYCLIDINE,URINE NEGATIVE ng/ml (CUTOFF=25); URINE AMPHETAMINES NEGATIVE ng/ml (CUTOFF=500); URINE BARBITURATES NEGATIVE ng/ml (CUTOFF=200)
[2018-03-20 21:19] LABS: COCAINE, UR POSITIVE ng/ml (CUTOFF=300); URINE BENZODIAZEPINES POSITIVE ng/ml (CUTOFF=200)
[2018-03-20] MEDS ORDERED: KETAMINE HCL 200 MG/20 ML VIAL IM ONE (23:34)
[2018-03-20] MEDS ORDERED: KETAMINE HCL 500 MG/10 ML VIAL IM ONE (23:34)
[2018-03-20] MEDS ORDERED: KETAMINE HCL 500 MG/10 ML VIAL ONE (23:49)
--- NOTE | 2018-03-21 01:21 | PN ---
Teaching Attending Note Name of Resident: Severo Guidry ATTENDING PHYSICIAN STATEMENT I saw and evaluated the patient. I reviewed the resident's note and discussed the case with the resident. I agree with the resident's findings and plan as documented. SUBJECTIVE: Patient is a 53 year old woman with PMH of breast cancer s/p mastectomy and chemo, DM , HL, (AVR with porcine valve), cirrhosis , COPD, Hep C, neuropathy, OA , bipolar, polysubstance abuse and Tobacco use who was sent from [facility] because of severe hypotension. She was discharged from our hospital earlier today after a multi day admission for chest pain workup that ended up being non- cardiac. She was started on multiple anti-hypertensives but apparently refused them all before discharge. Earlier on the day of discharge she fell, prompting a "rapid response" Etiology of fall was unclear. She was hypertensive to the 150s at that time and appeared overall very stable. She was then sent to [facility] at which point she was noted to be very unstable on her feet, altered, and had blood pressures in the 50s-60s systolic. When she presented to our ED, she had pressures in the 60s systolic although an accurate reading was hard to obtain and this pressure seemed questionable because patient was slightly lethargic but intermittently combative, irate, and AOx3. OBJECTIVE: Alert, combative Vital Signs Period Temp Pulse Resp BP Sys/Vázquez Pulse Ox Last 24 Hr 97.8 F 89-98 16 64-80/34-60 100 HEENT: No Jaundice, eye redness or discharge, PERRLA, EOMI. Normocephalic, atraumatic. External ears are normal and hearing is grossly intact. No nasal discharge. Neck: Supple, nontender. No palpable adenopathy or thyromegaly. No JVD Chest: Good effort. Clear to auscultation and percussion. Heart: Regular. No S3, rub or murmur Abdomen: Not distended, soft, nontender and no HSM. No rebound or guarding. Normoactive bowel sounds. Ext: Peripheral pulses intact. No leg edema. Skin: Warm and dry. No petechiae, rash or ecchymosis. Neuro: Alert. Oriented person and place. No tremors or asterexis. CN 2-12 grossly intact. Sensation grossly intact in all four extremities and DTR are symmetric. Current Medications Generic Name Dose Route Start Last Admin Trade Name Freq PRN Reason Stop Dose Admin Sodium Chloride 2,803 ml 03/20/18 18:15 03/20/18 18:15 Normal Saline - 30 ml/kg (2803 ml) 2,803 ml IV Administration ONCE DARIUS Home Medications Medication Instructions Recorded Salmeterol/Fluticasone [Advair 1 inh PO BID 07/28/12 250Mcg/50Mcg -] Albuterol Sulfate Inhaler - 2 inh PO Q4H PRN 07/12/16 [Ventolin HFA Inhaler -] metFORMIN HCL [Glucophage -] 500 mg PO BID 08/02/16 Aspirin 81 mg PO DAILY 08/14/17 Furosemide [Lasix] 10 mg PO DAILY 03/14/18 Nitroglycerin 0.4 mg SL [id number] 03/14/18 Amlodipine Besylate [Norvasc -] 5 mg PO DAILY tablet 03/20/18 Hydrochlorothiazide [Hctz -] 25 mg PO DAILY tablet 03/20/18 Insulin (Levemir) [Levemir Vial] 20 units SQ BID units 03/20/18 Lisinopril [Prinivil] 40 mg PO DAILY tablet 03/20/18 Metoprolol Succinate [Toprol XL -] 50 mg PO DAILY tab.sr.24h 03/20/18 Pantoprazole Sodium [Protonix -] 20 mg PO DAILY tablet.ec 03/20/18 Polyethylene Glycol 3350 [Miralax 17 gm PO DAILY bottle 03/20/18 119 gm Btl -] Abnormal Lab Results 03/20/18 03/20/18 03/20/18 08:26 08:26 18:00 WBC 10.7 H Hgb 15.5 H Plt Count 120 L MPV 12.7 H Monocytes % 12.8 H Sodium Chloride BUN Creatinine Random Glucose Lactic Acid Ammonia Albumin Urine Protein 2+ H Urine Glucose (UA) 1+ H D Urine Urobilinogen 4.0 e.u/dl H Benzodiazepines Screen Positive A* Cocaine Screen Positive A* 03/20/18 03/20/18 03/20/18 18:00 18:00 18:00 WBC Hgb Plt Count MPV Monocytes % Sodium 133 L Chloride 92 L BUN 37 H Creatinine 3.0 H Random Glucose 371 H* Lactic Acid 3.5 H* Ammonia 36.12 H Albumin 3.0 L Urine Protein Urine Glucose (UA) Urine Urobilinogen Benzodiazepines Screen Cocaine Screen ASSESSMENT AND PLAN: 1. Altered mental status and Hypotension and Polysubstance abuse - Etiology of AMS an hypotension may be related to use of illicit drugs such as benzodiazepines and fentanyl. BP responded to IV NS and CT scan of head and chest did not show any acute pathology. Will get CT of abdomen if severe hypotension reoccurs. Metformin and hypotension may explain lactic acidosis - no other evidence of infection thus no need for antibiotics at this time. Stop metformin, continue IV D5/LR and trend lactic acid level. Consult Neurology and donor specialist. Followup ammonia level, get liver sonogram and LFTs. 2. Hypoalbuminemia - Possibly due to combined effects of proteinuria, malnutrition and inflammation associated with comorbid chronic conditions. Will ensure adequate dietary protein intake and also consult shop supervisor. 3. DM - Will hold the home diabetes drugs and implement sliding scale insulin regimen. Provide comprehensive diabetes care with patient teaching and counseling about the importance of euglycemia, eye care and foot care. 4. Tobacco Use We will provide patient all the necessary assistance to facilitate smoking cessation and prescribe Nicotine patch. 5. BARTOLOME - Cause unclear. Get kidney sonogram, CPK and continue hydration. Will consult nephrology and avoid nephrotoxic agents such as NSAIDS, aminoglycosides , contrast dyes and certain Alternative medicine products. 6. Obesity - Will provide patient all the necessary assistance, counseling and positive reinforcement to facilitate weight loss. Consult shop supervisor. 7. Alcohol abuse - Implement CIWA ativan alcohol withdrawal protocol, fall and aspiration precautions. Treat with IV plus oral thiamine, folic acid and monitor electrolytes (Ca,Mg,K,P). [employer] patient about abstaining from alcohol and refer to alcohol detox upon discharge. 8. DVT prophylaxis - SCDs, TEDS 9. Advance directives - Full code
[2018-03-21 01:45] LABS: BASO % 0.7 % (0-2.0); EOS % 1.1 % (0-4.5); HEMATOCRIT 39.9 % (32.4-45.2); HEMOGLOBIN 13.7 GM/dL (10.7-15.3); LYMPH % 22.4 % (8-40); MCH 31.3 pg (25.7-33.7); MCHC 34.3 g/dl (32.0-36.0); MEAN PLT VOLUME 11.7 fl (7.5-11.1); MONO % 11.1 % (3.8-10.2); NEUT % 64.7 % (42.8-82.8); PLATELET COUNT 90 K/MM3 (134-434); RBC 4.39 M/mm3 (3.60-5.2); RDW 13.6 % (11.6-15.6); WHITE BLOOD COUNT 9.2 K/mm3 (4.0-10.0)
[2018-03-21 02:08] LABS: ALBUMIN 2.9 g/dl (3.4-5.0); ALK PHOS 69 U/L (45-117); ANION GAP 10 MMOL/L (8-16); BILIRUBIN,TOTAL 0.5 mg/dL (0.2-1); BLOOD UREA NITROGEN 37 mg/dL (7-18); CALCIUM 8.2 mg/dL (8.5-10.1); CHLORIDE 100 mmol/L (98-107); CO2 27 mmol/L (21-32); CREATININE 2.9 mg/dL (0.55-1.3); GLUCOSE,RANDOM 239 mg/dL (74-106); POTASSIUM 3.9 mmol/L (3.5-5.1); SGOT/AST 34 U/L (15-37); SGPT/ALT 18 U/L (13-61); SODIUM 137 mmol/L (136-145)
--- NOTE | 2018-03-21 02:18 | HP ---
CHIEF COMPLAINT: AMS, ARF, hypotension PCP: HISTORY OF PRESENT ILLNESS: Patient is a 53 y/o F w/ PMHx breast Ca s/p mastectomy and chemo, recent AVR w/ porcine valve, hep C, cirrhosis, COPD, bipolar disorder, polysubstance abuse, had been discharged from [facility] on afternoon of 03/20 following multi-day admission for cardiac w/u, sent to [facility] to complete EtOH detox, while at [facility] became unstable on feet, altered, and hypotensive to 50s-60s systolic BP. In ED, BP 64/32 on presentation, Pt was generally lethargic but intermittently agitated and combative, continually pulled out IV lines. Given haldol and ativan but was not sedated, ultimately required ketamine for sedation. Hypotension responded to 3L fluid bolus, MAP now >75. Pt currently in physical restraints. On presentation BUN/Cr 37/3.0, Cr had been 0.8 on 03/19. Lactate 3.5. UTox positive for cocaine and benzodiazepines. Patient is in confused state but denies any physical complaints or deviations from USOH. ROS negative throughout. ER course was notable for: (1) head CT and chest CT negative, however could not give contrast d/t renal failure (2) Cr 3.0 (3) Lactate 3.5 Recent Travel: PAST MEDICAL HISTORY: As per HPI PAST SURGICAL HISTORY: Social History: Smoking: current smoker Alcohol: current EtOH abuse Drugs: current polysubstance abuse Family History: Allergies grass pollen Allergy (Intermediate, Verified 03/14/18 08:07) No Known Drug Allergies Allergy (Unknown, Verified 03/14/18 08:07) HOME MEDICATIONS: Home Medications Medication Instructions Recorded Salmeterol/Fluticasone [Advair 1 inh PO BID 07/28/12 250Mcg/50Mcg -] Albuterol Sulfate Inhaler - 2 inh PO Q4H PRN 07/12/16 [Ventolin HFA Inhaler -] metFORMIN HCL [Glucophage -] 500 mg PO BID 08/02/16 Aspirin 81 mg PO DAILY 08/14/17 Furosemide [Lasix] 10 mg PO DAILY 03/14/18 Nitroglycerin 0.4 mg SL [id number] 03/14/18 Amlodipine Besylate [Norvasc -] 5 mg PO DAILY tablet 03/20/18 Hydrochlorothiazide [Hctz -] 25 mg PO DAILY tablet 03/20/18 Insulin (Levemir) [Levemir Vial] 20 units SQ BID units 03/20/18 Lisinopril [Prinivil] 40 mg PO DAILY tablet 03/20/18 Metoprolol Succinate [Toprol XL -] 50 mg PO DAILY tab.sr.24h 03/20/18 Pantoprazole Sodium [Protonix -] 20 mg PO DAILY tablet.ec 03/20/18 Polyethylene Glycol 3350 [Miralax 17 gm PO DAILY bottle 03/20/18 119 gm Btl -] REVIEW OF SYSTEMS As per HPI PHYSICAL EXAMINATION Vital Signs - 24 hr 03/20/18 03/20/18 03/21/18 17:00 19:59 01:27 Temperature 97.8 F Pulse Rate 98 H Pulse Rate [ 90 Left] Pulse Rate [ 89 Right] Respiratory 16 Rate Blood Pressure 64/34 L Blood Pressure 80/60 L 100/67 [Left] Blood Pressure 70/50 L [Right] O2 Sat by Pulse 100 Oximetry (%) GENERAL: Lethargic but arousable, not oriented to place, anterograde amnesia present HEAD: NC/AT EYES: PERRLA, EOMI, no scleral icterus EARS, NOSE, THROAT: Ears normal, nares patent, oropharynx clear without exudates. Moist mucous membranes. NECK: Normal range of motion, supple without lymphadenopathy, JVD, or masses. LUNGS: CTA b/l HEART: RRR no m/r/g ABDOMEN: +bs, soft, NT, ND UPPER EXTREMITIES: 2+ pulses, warm, well-perfused. No cyanosis. No clubbing. No peripheral edema. LOWER EXTREMITIES: 2+ pulses, warm, well-perfused. No calf tenderness. No peripheral edema. NEUROLOGICAL: CN II-XII intact b/l, no motor deficits, no sensory deficits, gait not observed. PSYCHIATRIC: alternately lethargic and combative, does not recall information given after 5 minutes SKIN: Warm, dry, normal turgor, no rashes or lesions noted, normal capillary refill. Laboratory Results - last 24 hr 03/20/18 03/20/18 03/20/18 08:26 08:26 18:00 WBC 10.7 H RBC 4.99 Hgb 15.5 H Hct 45.2 MCV 90.5 MCH 31.1 MCHC 34.4 RDW 13.4 Plt Count 120 L MPV 12.7 H Absolute Neuts (auto) 7.0 Neutrophils % 65.6 Lymphocytes % 20.1 Monocytes % 12.8 H Eosinophils % 0.8 Basophils % 0.7 Nucleated RBC % 0 Sodium Potassium Chloride Carbon Dioxide Anion Gap BUN Creatinine Creat Clearance w eGFR Random Glucose Lactic Acid Calcium Total Bilirubin AST ALT Alkaline Phosphatase Ammonia Creatine Kinase Troponin I Total Protein Albumin Urine Color Jenifer Urine Appearance Cloudy Urine pH 5.0 Ur Specific Luana 1.021 Urine Protein 2+ H Urine Glucose (UA) 1+ H D Urine Ketones Negative Urine Blood Negative Urine Nitrite Negative Urine Bilirubin 2.0 Urine Urobilinogen 4.0 e.u/dl H Ur Leukocyte Esterase Trace Urine WBC (Auto) 1 Urine RBC (Auto) 5 Ur Epithelial Cells Few Urine Bacteria Rare Urine Mucus Moderate Opiates Screen Negative Methadone Screen Negative Barbiturate Screen Negative Phencyclidine Screen Negative Ur Amphetamines Screen Negative MDMA (Ecstasy) Screen Negative Benzodiazepines Screen Positive A* Cocaine Screen Positive A* U Marijuana (THC) Screen Negative 03/20/18 03/20/18 03/20/18 18:00 18:00 18:00 WBC RBC Hgb Hct MCV MCH MCHC RDW Plt Count MPV Absolute Neuts (auto) Neutrophils % Lymphocytes % Monocytes % Eosinophils % Basophils % Nucleated RBC % Sodium 133 L Potassium 4.1 Chloride 92 L Carbon Dioxide 26 Anion Gap 16 BUN 37 H Creatinine 3.0 H Creat Clearance w eGFR 16.45 Random Glucose 371 H* Lactic Acid 3.5 H* Calcium 9.1 Total Bilirubin 0.5 AST 20 ALT 16 Alkaline Phosphatase 82 Ammonia 36.12 H Creatine Kinase 82 Troponin I < 0.02 Total Protein 6.7 Albumin 3.0 L Urine Color Urine Appearance Urine pH Ur Specific Luana Urine Protein Urine Glucose (UA) Urine Ketones Urine Blood Urine Nitrite Urine Bilirubin Urine Urobilinogen Ur Leukocyte Esterase Urine WBC (Auto) Urine RBC (Auto) Ur Epithelial Cells Urine Bacteria Urine Mucus Opiates Screen Methadone Screen Barbiturate Screen Phencyclidine Screen Ur Amphetamines Screen MDMA (Ecstasy) Screen Benzodiazepines Screen Cocaine Screen U Marijuana (THC) Screen 03/21/18 01:01 WBC 9.2 RBC 4.39 Hgb 13.7 Hct 39.9 MCV 91.0 MCH 31.3 MCHC 34.3 RDW 13.6 Plt Count 90 L D MPV 11.7 H Absolute Neuts (auto) 6.0 Neutrophils % 64.7 Lymphocytes % 22.4 Monocytes % 11.1 H Eosinophils % 1.1 Basophils % 0.7 Nucleated RBC % 0 Sodium Potassium Chloride Carbon Dioxide Anion Gap BUN Creatinine Creat Clearance w eGFR Random Glucose Lactic Acid Calcium Total Bilirubin AST ALT Alkaline Phosphatase Ammonia Creatine Kinase Troponin I Total Protein Albumin Urine Color Urine Appearance Urine pH Ur Specific Luana Urine Protein Urine Glucose (UA) Urine Ketones Urine Blood Urine Nitrite Urine Bilirubin Urine Urobilinogen Ur Leukocyte Esterase Urine WBC (Auto) Urine RBC (Auto) Ur Epithelial Cells Urine Bacteria Urine Mucus Opiates Screen Methadone Screen Barbiturate Screen Phencyclidine Screen Ur Amphetamines Screen MDMA (Ecstasy) Screen Benzodiazepines Screen Cocaine Screen U Marijuana (THC) Screen ASSESSMENT/PLAN: 53 y/o F w/ PMHx breast Ca s/p mastectomy and chemo, recent AVR w/ porcine valve , hep C, cirrhosis, COPD, bipolar disorder, polysubstance abuse, presents from [facility] ~6 hours after prior discharge with AMS, ARF hypotension. Combative in ER requiring sedation w/ haldol, ativan, and ketamine. Hypotension corrected with fluid bolus. #ARF -Cr increased from 0.8 to 3.0 from 03/19-03/20 -nephrology consulted -renal US pending -CPK pending -D5LR -renal diet when able to tolerate PO -repeat CMP, Mg, Phos pending #AMS -lactic acidosis possibly 2/2 metformin use -cultures pending -NH3 36.12 -head CT w/o contrast negative -will require repeat HCT as EtOH abuse can cause delayed bleeding -rapid response called morning of discharge for fall, may represent ataxia 2/2 Wernicke encephalopathy #hypotension -resolved on fluid bolus -D5LR -hold antihypertensives #AVR -symptoms may be partly 2/2 aortic insufficiency -echo ordered #DM -BGM ACHS -SSI -hold metformin #EtOH -ativan 2 q6 PRN -no Librium as patient is cirrhotic -IV thiamine -replete lytes PRN -PO thiamine and folate when able to tolerate PO -aspiration risk precautions (elevate HOB) -fall risk precautions -physical restraints #FEN -D5LR -monitor chemistries, replete as needed -NPO currently given aspiration risk, renal diet when able to tolerate PO #PPx -DVT: SCDs and TEDs -GI: none at this time #code -full #dispo -admit to med/surg Visit type - Emergency Visit Emergency Visit: Yes ED Registration Date: 03/21/18 Care time: The patient presented to the Emergency Department on the above date and was hospitalized for further evaluation of their emergent condition. - New Patient This patient is new to me today: Yes Date on this admission: 03/21/18 - Critical Care Critical Care patient: No
[2018-03-21] MEDS: DEXTROSE 5%-LACTATED RINGERS 1,000 ML IV SCH (02:24)
[2018-03-21 02:40] LABS: MAGNESIUM 2.2 mg/dL (1.8-2.4); PHOSPHOROUS 5.2 mg/dL (2.5-4.9)
[2018-03-21] MEDS ORDERED: KETAMINE HCL 500 MG/10 ML VIAL IM ONE (03:40)
[2018-03-21 06:22] LABS: INR 1.02 (0.83-1.09)
[2018-03-21 06:28] LABS: PHOSPHOROUS 3.7 mg/dL (2.5-4.9)
[2018-03-21] MEDS: INSULIN SLIDING SCALE (NOVOLOG) 1 VIAL SQ SCH ×4 (06:51→21:54)
[2018-03-21] MEDS ORDERED: INSULIN (NOVOLOG) ASPART 100 UNITS/ML 10ML VIAL ONE (06:53)
[2018-03-21] MEDS ORDERED: ALBUTEROL SO4 8 GM HFA INHALER IH PRN (09:01)
[2018-03-21] MEDS ORDERED: INSULIN (LEVEMIR) 100 UNITS/ML UNITS SQ SCH (10:00)
[2018-03-21] MEDS: BUDESONIDE/FORMETEROL FUMARATE 80/4.5 mcg INHALER IH SCH ×2 (10:48→21:54)
[2018-03-21] MEDS: POLYETHYLENE GLYCOL 3350 119 GM BTL PO SCH (10:48)
[2018-03-21] MEDS: PANTOPRAZOLE 20 MG TABLET (FP) PO SCH (10:49)
[2018-03-21] MEDS: THIAMINE HCL 200 MG/2 ML VIAL IVPB SCH (10:50)
[2018-03-21] MEDS: ASPIRIN 81 MG CHEWABLE TABLETS PO SCH (10:50)
[2018-03-21] MEDS ORDERED: ASPIRIN 81 MG CHEWABLE TABLETS ONE (10:50)
--- NOTE | 2018-03-21 12:03 | PN ---
Physical Exam: SUBJECTIVE: Patient seen and examined at bedside. Lethargic and agitated when spoken to. Denies CP, BRUCE, palpitations or abdominal pain. OBJECTIVE: Vital Signs Period Temp Pulse Resp BP Sys/Vázquez Pulse Ox Last 24 Hr 97.8 F-98 F 19-98 16-18 64-106/34-69 98-100 GENERAL: lethargic HEAD: NCAT LUNGS: CTAB, no wheezes, no crackles, no accessory muscle use. HEART: RRR, S1, S2 without murmur, rub or gallop. ABDOMEN: Soft, NTND, normoactive bowel sounds, no guarding, no rebound, no hepatosplenomegaly, no masses. EXTREMITIES: 2+ pulses, warm, well-perfused, no edema. NEUROLOGICAL: Cranial nerves II through XII grossly intact. Normal speech, gait not observed. PSYCH: Normal mood, normal affect. SKIN: Warm, dry, normal turgor, no rashes or lesions noted Laboratory Results - last 24 hr 03/20/18 03/20/18 03/20/18 08:26 08:26 18:00 WBC 10.7 H RBC 4.99 Hgb 15.5 H Hct 45.2 MCV 90.5 MCH 31.1 MCHC 34.4 RDW 13.4 Plt Count 120 L MPV 12.7 H Absolute Neuts (auto) 7.0 Neutrophils % 65.6 Lymphocytes % 20.1 Monocytes % 12.8 H Eosinophils % 0.8 Basophils % 0.7 Nucleated RBC % 0 PT with INR INR PTT (Actin FS) Sodium Potassium Chloride Carbon Dioxide Anion Gap BUN Creatinine Creat Clearance w eGFR POC Glucometer Random Glucose Lactic Acid Calcium Phosphorus Magnesium Total Bilirubin AST ALT Alkaline Phosphatase Ammonia Creatine Kinase Creatine Kinase Index CK-MB (CK-2) Troponin I Total Protein Albumin Urine Color Jenifer Urine Appearance Cloudy Urine pH 5.0 Ur Specific [place] 1.021 Urine Protein 2+ H Urine Glucose (UA) 1+ H D Urine Ketones Negative Urine Blood Negative Urine Nitrite Negative Urine Bilirubin 2.0 Urine Urobilinogen 4.0 e.u/dl H Ur Leukocyte Esterase Trace Urine WBC (Auto) 1 Urine RBC (Auto) 5 Ur Epithelial Cells Few Urine Bacteria Rare Urine Mucus Moderate Opiates Screen Negative Methadone Screen Negative Barbiturate Screen Negative Phencyclidine Screen Negative Ur Amphetamines Screen Negative MDMA (Ecstasy) Screen Negative Benzodiazepines Screen Positive A* Cocaine Screen Positive A* U Marijuana (THC) Screen Negative 03/20/18 03/20/18 03/20/18 18:00 18:00 18:00 WBC RBC Hgb Hct MCV MCH MCHC RDW Plt Count MPV Absolute Neuts (auto) Neutrophils % Lymphocytes % Monocytes % Eosinophils % Basophils % Nucleated RBC % PT with INR INR PTT (Actin FS) Sodium 133 L Potassium 4.1 Chloride 92 L Carbon Dioxide 26 Anion Gap 16 BUN 37 H Creatinine 3.0 H Creat Clearance w eGFR 16.45 POC Glucometer Random Glucose 371 H* Lactic Acid 3.5 H* Calcium 9.1 Phosphorus Magnesium Total Bilirubin 0.5 AST 20 ALT 16 Alkaline Phosphatase 82 Ammonia 36.12 H Creatine Kinase 82 Creatine Kinase Index CK-MB (CK-2) Troponin I < 0.02 Total Protein 6.7 Albumin 3.0 L Urine Color Urine Appearance Urine pH Ur Specific [place] Urine Protein Urine Glucose (UA) Urine Ketones Urine Blood Urine Nitrite Urine Bilirubin Urine Urobilinogen Ur Leukocyte Esterase Urine WBC (Auto) Urine RBC (Auto) Ur Epithelial Cells Urine Bacteria Urine Mucus Opiates Screen Methadone Screen Barbiturate Screen Phencyclidine Screen Ur Amphetamines Screen MDMA (Ecstasy) Screen Benzodiazepines Screen Cocaine Screen U Marijuana (THC) Screen 03/21/18 03/21/18 03/21/18 01:01 01:01 01:03 WBC 9.2 RBC 4.39 Hgb 13.7 Hct 39.9 MCV 91.0 MCH 31.3 MCHC 34.3 RDW 13.6 Plt Count 90 L D MPV 11.7 H Absolute Neuts (auto) 6.0 Neutrophils % 64.7 Lymphocytes % 22.4 Monocytes % 11.1 H Eosinophils % 1.1 Basophils % 0.7 Nucleated RBC % 0 PT with INR INR PTT (Actin FS) Sodium 137 Potassium 3.9 Chloride 100 Carbon Dioxide 27 Anion Gap 10 BUN 37 H Creatinine 2.9 H Creat Clearance w eGFR 17.11 POC Glucometer Random Glucose 239 H Lactic Acid 2.2 H* Calcium 8.2 L Phosphorus Magnesium Total Bilirubin 0.5 AST 34 ALT 18 Alkaline Phosphatase 69 Ammonia Creatine Kinase Creatine Kinase Index CK-MB (CK-2) Troponin I Total Protein 6.0 L Albumin 2.9 L Urine Color Urine Appearance Urine pH Ur Specific [place] Urine Protein Urine Glucose (UA) Urine Ketones Urine Blood Urine Nitrite Urine Bilirubin Urine Urobilinogen Ur Leukocyte Esterase Urine WBC (Auto) Urine RBC (Auto) Ur Epithelial Cells Urine Bacteria Urine Mucus Opiates Screen Methadone Screen Barbiturate Screen Phencyclidine Screen Ur Amphetamines Screen MDMA (Ecstasy) Screen Benzodiazepines Screen Cocaine Screen U Marijuana (THC) Screen 03/21/18 03/21/18 03/21/18 01:20 06:00 06:00 WBC RBC Hgb Hct MCV MCH MCHC RDW Plt Count MPV Absolute Neuts (auto) Neutrophils % Lymphocytes % Monocytes % Eosinophils % Basophils % Nucleated RBC % PT with INR 12.00 INR 1.02 PTT (Actin FS) Sodium Potassium Chloride Carbon Dioxide Anion Gap BUN Creatinine Creat Clearance w eGFR POC Glucometer Random Glucose Lactic Acid Calcium Phosphorus 5.2 H 3.7 Magnesium 2.2 2.0 Total Bilirubin AST ALT Alkaline Phosphatase Ammonia Creatine Kinase 778 H Creatine Kinase Index 0.9 CK-MB (CK-2) 7.5 H Troponin I 0.03 Total Protein Albumin Urine Color Urine Appearance Urine pH Ur Specific [place] Urine Protein Urine Glucose (UA) Urine Ketones Urine Blood Urine Nitrite Urine Bilirubin Urine Urobilinogen Ur Leukocyte Esterase Urine WBC (Auto) Urine RBC (Auto) Ur Epithelial Cells Urine Bacteria Urine Mucus Opiates Screen Methadone Screen Barbiturate Screen Phencyclidine Screen Ur Amphetamines Screen MDMA (Ecstasy) Screen Benzodiazepines Screen Cocaine Screen U Marijuana (THC) Screen 03/21/18 03/21/18 03/21/18 06:00 06:00 06:49 WBC RBC Hgb Hct MCV MCH MCHC RDW Plt Count MPV Absolute Neuts (auto) Neutrophils % Lymphocytes % Monocytes % Eosinophils % Basophils % Nucleated RBC % PT with INR INR PTT (Actin FS) 23.7 L Sodium Potassium Chloride Carbon Dioxide Anion Gap BUN Creatinine Creat Clearance w eGFR POC Glucometer [phone] Random Glucose Lactic Acid Calcium Phosphorus Magnesium Total Bilirubin AST ALT Alkaline Phosphatase Ammonia Creatine Kinase 732 H Creatine Kinase Index 0.8 CK-MB (CK-2) 6.0 H Troponin I Total Protein Albumin Urine Color Urine Appearance Urine pH Ur Specific [place] Urine Protein Urine Glucose (UA) Urine Ketones Urine Blood Urine Nitrite Urine Bilirubin Urine Urobilinogen Ur Leukocyte Esterase Urine WBC (Auto) Urine RBC (Auto) Ur Epithelial Cells Urine Bacteria Urine Mucus Opiates Screen Methadone Screen Barbiturate Screen Phencyclidine Screen Ur Amphetamines Screen MDMA (Ecstasy) Screen Benzodiazepines Screen Cocaine Screen U Marijuana (THC) Screen Active Medications Generic Name Dose Route Start Last Admin Trade Name Freq PRN Reason Stop Dose Admin Albuterol Sulfate 2 puff 03/21/18 09:01 Ventolin Hfa Inhaler - IH Q4H PRN ASTHMA Aspirin 81 mg 03/21/18 10:00 03/21/18 10:50 Asa - PO 81 mg DAILY DARIUS Administration Budesonide/Formoterol Fumarate 2 puff 03/21/18 10:00 03/21/18 10:48 Symbicort 80/4.5mcg - IH Not Given BID DARIUS Dextrose/Lactated Ringer's 1,000 mls @ 100 mls/hr 03/21/18 02:00 03/21/18 02: 24 D5-Lr - IV 100 mls/hr ASDIR DARIUS Administration Insulin Aspart 1 vial 03/21/18 07:00 03/21/18 11:04 Novolog Vial Sliding Scale - SQ Not Given ACHS DARIUS Protocol Lorazepam 2 mg 03/21/18 01:58 Ativan Injection - IVPUSH Q6H PRN ANXIETY Metoprolol Succinate 50 mg 03/21/18 10:00 03/21/18 10:48 Toprol Xl - PO Not Given DAILY DARIUS Pantoprazole Sodium 20 mg 03/21/18 10:00 03/21/18 10:49 Protonix - PO 20 mg DAILY DARIUS Administration Polyethylene Glycol 17 gm 03/21/18 10:00 03/21/18 10:48 Miralax (For Daily Use) - PO Not Given DAILY DARIUS Sodium Chloride 2,803 ml 03/20/18 18:15 03/20/18 18:15 Normal Saline - 30 ml/kg (2803 ml) 2,803 ml IV Administration ONCE DARIUS Thiamine HCl 200 mg 03/21/18 10:00 03/21/18 10:50 Vitamin B1 Injection - IVPB 200 mg DAILY DARIUS Administration ASSESSMENT/PLAN: 53 yo F with history of HTN and DM presents after recent discharge to [facility] with AMS and hypotension. Problem List - Problems (1) Toxic metabolic encephalopathy Assessment/Plan: Patient was positive for cocain on drug screen. * Mental status has improved * will monitor with neuro checks. * infectious work up pending. (2) Lactic acid acidosis Assessment/Plan: Most likely 2/2 hypotension and hypoprofusion. * Continue IV hydration * repeat lactic acid in am (3) Acute renal failure (ARF) Assessment/Plan: Most likely secondary to hypoprofusion. * ultrasound shows hydronephrosis * IV hydration * urological eval * BP support (4) Cocaine dependence Assessment/Plan: will need rehab (5) DM2 (diabetes mellitus, type 2) Assessment/Plan: * ADA diet * BGM ACHS * ISS ACHS * Levimir 20 u BID (6) COPD (chronic obstructive pulmonary disease) Visit type - Emergency Visit Emergency Visit: Yes ED Registration Date: 03/21/18 Care time: The patient presented to the Emergency Department on the above date and was hospitalized for further evaluation of their emergent condition. - New Patient This patient is new to me today: Yes Date on this admission: 03/21/18 - Critical Care Critical Care patient: No
--- NOTE | 2018-03-21 14:28 | ECHO ---
Name: BEN ROCHA Exam:Adult Echocardiogram Study Date: 03/21/2018 11:50 AM Age: 53 yrs Reason For Study: SYNCOPE Height: 62 in Weight: 206 lb BSA: 1.9 m2 MMode/2D Measurements & Calculations IVSd: 1.4 cm Ao root diam: 3.5 cm LVIDd: 4.0 cm LVIDs: 2.7 cm LVPWd: 1.5 cm EDV(Teich): 71.6 ml LVOT diam: 2.1 cm ESV(Teich): 26.3 ml TAPSE: 1.3 cm Doppler Measurements & Calculations MV E max cole: 89.7 cm/sec Ao V2 max: 265.0 cm/sec MV A max cole: 94.6 cm/sec Ao max P.1 mmHg MV E/A: 0.95 Ao V2 mean: 215.2 cm/sec Ao mean P.8 mmHg Ao V2 VTI: 47.0 cm RONY(I,D): 1.2 cm2 RONY(V,D): 1.2 cm2 LV V1 max P.5 mmHg SV(LVOT): 58.3 ml LV V1 mean P.1 mmHg LV V1 max: 93.1 cm/sec LV V1 mean: 68.3 cm/sec LV V1 VTI: 16.6 cm Med Peak E' Cole: 6.2 cm/sec Med E/e': 14.5 Lat Peak E' Cole: 3.6 cm/sec Lat E/e': 25.0 Left Ventricle The left ventricle is normal in size. There is moderate concentric left ventricular hypertrophy. Ejec tion Fraction = 60%. The left ventricular ejection fraction is normal. The transmitral spectral Doppler fl ow pattern is suggestive of impaired LV relaxation. The left ventricular wall motion is normal. Right Ventricle The right ventricle is normal in size and function. Atria Normal left and right atrial size and function. Mitral Valve There is trivial mitral valve thickening. There is trace to mild mitral regurgitation. Tricuspid Valve The tricuspid valve is normal. There is trace tricuspid regurgitation. There was insufficient TR dete cted to calculate RV systolic pressure. Aortic Valve There is moderate aortic valve thickening. Mild valvular aortic stenosis. Pulmonic Valve The pulmonic valve is not well seen, but is grossly normal. Mild pulmonic valvular regurgitation. Great Vessels The aortic root is normal size. Pericardium/Pleura There is no pericardial effusion. There is no pleural effusion. Interpretation Summary There is moderate concentric left ventricular hypertrophy. Ejection Fraction = 60%. The left ventricular ejection fraction is normal. There is trace to mild mitral regurgitation. There is trace tricuspid regurgitation. There was insufficient TR detected to calculate RV systolic pressure. Mild valvular aortic stenosis. Mild pulmonic valvular regurgitation. MD Abdiel Ramirez 03/21/2018 02:27 PM
[2018-03-21 17:22] VITALS: BMI 36.6
--- NOTE | 2018-03-21 18:02 | PN ---
Teaching Attending Note Name of Resident: Wang Oden ATTENDING PHYSICIAN STATEMENT I saw and evaluated the patient. I reviewed the resident's note and discussed the case with the resident. I agree with the resident's findings and plan as documented. SUBJECTIVE: Ms Peguero says she feels tired, asking why she is back here. Again states she wants to go to rehab. Denies cp, sob, n/v. OBJECTIVE: GEN: nad CV: rrr w/o m/r/g PULM: ctab w/o w/r/r ABD: +bs, s/nt/nd EXT: no c/c/e ASSESSMENT AND PLAN: 1. Toxic metabolic encephalopathy -patient denies cocaine use even though positive on her drug screen -benzodiazepines positive secondary to receiving in the hospital prior to discharge and in the ED -mental status improved -agree with infectious work up 2. BARTOLOME -secondary to hypotension with hypoperfusion -ultrasound showing mild hydronephrosis -urology consult -blood pressure support 3. Lactic acidosis -not secondary to metformin as patient was not on metformin in hospital -suspect secondary to hypoperfusion -hydration -of note patient had constipation prior to discharge, if develops abdominal pain evaluate for colitis or necrosis 4. Hypotension -presented with hypotension, on last admission had hard to control hypertension -nephrology consulted -hold antihypertensives 5. Substance abuse -cocaine positive, suspect used prior to presentation to [facility] -will need rehab -patient is not in alcohol withdrawal 6. Diabetes -poorly controlled -suspect patient non-compliant with diabetic diet -continue levemir 20 units bid -adjust as necessary
--- NOTE | 2018-03-21 18:06 | CONSULT ---
Consult Consult Specialty:: Nephrology Reason for Consultation:: BARTOLOME - History of Present Illness Chief Complaint: sent in with hypotension History of Present Illness: Pt is a 53 year old female with pmhx of mastectomy, breast cancer, htn, polysubstance abuse, DM, aortic valve replacement, corrhosis , hep c, COPD, and bipolar who presented with hypotension. She was discharged from the hospital yesterday after being treated for hypertensive urgency and chest pain. She was supposed to go back to [facility]. Pt did not go straight to [facility] after discharge. She did drugs before returning to [facility]. Her u-tox was found to be positive. SHe was combative and required a one to one sit. She is calmer today. She was found to be in acute renal failure and I was called to evaluate her. Her blood pressure is starting to rise. - History Source History Provided By: Patient, Medical Record - Past Medical History Cardio/Vascular: Yes: Aortic Insufficiency (s/p AVR with porcine valve), CAD, HTN Pulmonary: Yes: COPD, Pneumonia Gastrointestinal: Yes: Other (previously told of cirrhosis) Hepatobiliary: Yes: Cirrhosis, Hepatitis C (treated) ...LMP: 03/03/12 Infectious Disease: Yes: Other (Positive T. palladium) Psych: Yes: Addictions, Bipolar Musculoskeletal: Yes: Chronic low back pain, Osteoarthritis Endocrine: Yes: Diabetes Mellitus, Other (neuropathy) - Past Surgical History Past Surgical History: Yes: Valve Replacement - Alcohol/Substance Use Hx Alcohol Use: Yes (last use 3 days ago ) History of Substance Use: reports: Cocaine ($ 100 week habit- snorting) Date of Last Use: 03/11/18 - Smoking History Smoking history: Current some day smoker Have you smoked in the past 12 months: Yes Aproximately how many cigarettes per day: 60 If you are a former smoker, when did you quit?: 3 days ago - Social History Usual Living Arrangement: Alone ADL: Independent Occupation: disability History of Recent Travel: No Home Medications - Allergies Allergies/Adverse Reactions: Allergies Allergy/AdvReac Type Severity Reaction Status Date / Time grass pollen Allergy Intermediate Verified 03/14/18 08:07 No Known Drug Allergies Allergy Unknown Verified 03/14/18 08:07 - Home Medications Home Medications: Ambulatory Orders Salmeterol/Fluticasone [Advair 250Mcg/50Mcg -] 1 inh PO BID 07/28/12 Albuterol Sulfate Inhaler - [Ventolin HFA Inhaler -] 2 inh PO Q4H PRN 07/12/16 metFORMIN HCL [Glucophage -] 500 mg PO BID 08/02/16 Aspirin 81 mg PO DAILY 08/14/17 Furosemide [Lasix] 10 mg PO DAILY 03/14/18 Nitroglycerin 0.4 mg SL [id number] 03/14/18 Amlodipine Besylate [Norvasc -] 5 mg PO DAILY tablet 03/20/18 Hydrochlorothiazide [Hctz -] 25 mg PO DAILY tablet 03/20/18 Insulin (Levemir) [Levemir Vial] 20 units SQ BID units 03/20/18 Lisinopril [Prinivil] 40 mg PO DAILY tablet 03/20/18 Metoprolol Succinate [Toprol XL -] 50 mg PO DAILY tab.sr.24h 03/20/18 Pantoprazole Sodium [Protonix -] 20 mg PO DAILY tablet.ec 03/20/18 Polyethylene Glycol 3350 [Miralax 119 gm Btl -] 17 gm PO DAILY bottle 03/20/18 Family Disease History - Family Disease History Family Disease History: Heart Disease: Father ( , gun shot ), Mother ( : [place]), Brother (1, CVA), Other: Father, Mother, Brother, Son (4, healthy), Daughter (4, healthy) Review of Systems - Review of Systems Constitutional: reports: No Symptoms Eyes: reports: No Symptoms HENT: reports: No Symptoms Neck: reports: No Symptoms Cardiovascular: reports: No Symptoms Respiratory: reports: No Symptoms Gastrointestinal: reports: No Symptoms Genitourinary: reports: No Symptoms Musculoskeletal: reports: No Symptoms Integumentary: reports: No Symptoms Neurological: reports: No Symptoms Psychiatric: reports: Other (agitiated) Physical Exam Vital Signs: Vital Signs Temperature 98.1 F 03/21/18 17:20 Pulse Rate 84 03/21/18 17:20 Respiratory Rate 18 03/21/18 17:26 Blood Pressure 120/65 03/21/18 17:20 O2 Sat by Pulse Oximetry (%) 98 03/21/18 17:26 Constitutional: Yes: Calm Eyes: Yes: Conjunctiva Clear HENT: Yes: Atraumatic Cardiovascular: Yes: S1, S2 Respiratory: Yes: CTA Bilaterally Gastrointestinal: Yes: Normal Bowel Sounds, Soft Renal/: Yes: WNL Musculoskeletal: Yes: WNL Edema: No Integumentary: Yes: WNL Neurological: Yes: Oriented Psychiatric: Yes: Oriented Labs: CBC, BMP 03/21/18 01:01 03/21/18 01:01 Selected Entries 03/20/18 03/21/18 17:00 17:20 Blood Pressure 64/34 L 120/65 Laboratory Tests 03/20/18 03/20/18 03/20/18 08:26 08:26 18:00 WBC 10.7 H Hgb Plt Count BUN Creatinine Urine Protein 2+ H Urine Glucose (UA) 1+ H D Benzodiazepines Screen Positive A* Cocaine Screen Positive A* 03/21/18 03/21/18 01:01 01:01 WBC Hgb 13.7 Plt Count 90 L D BUN 37 H Creatinine 2.9 H Urine Protein Urine Glucose (UA) Benzodiazepines Screen Cocaine Screen Imaging - Results Chest X-ray: Report Reviewed Ultrasound: Report Reviewed Assessment/Plan Current Medications Generic Name Dose Route Start Last Admin Trade Name Freq PRN Reason Stop Dose Admin Albuterol Sulfate 2 puff 03/21/18 09:01 Ventolin Hfa Inhaler - IH Q4H PRN ASTHMA Aspirin 81 mg 03/21/18 10:00 03/21/18 10:50 Asa - PO 81 mg DAILY DARIUS Administration Budesonide/Formoterol Fumarate 2 puff 03/21/18 10:00 03/21/18 10:48 Symbicort 80/4.5mcg - IH Not Given BID DARIUS Dextrose/Lactated Ringer's 1,000 mls @ 100 mls/hr 03/21/18 02:00 03/21/18 02: 24 D5-Lr - IV 100 mls/hr ASDIR DARIUS Administration Insulin Aspart 1 vial 03/21/18 07:00 03/21/18 18:04 Novolog Vial Sliding Scale - SQ 6 unit ACHS DARIUS Administration Protocol Lorazepam 2 mg 03/21/18 01:58 Ativan Injection - IVPUSH Q6H PRN ANXIETY Metoprolol Succinate 50 mg 03/21/18 10:00 03/21/18 10:48 Toprol Xl - PO Not Given DAILY DARIUS Pantoprazole Sodium 20 mg 03/21/18 10:00 03/21/18 10:49 Protonix - PO 20 mg DAILY DARIUS Administration Polyethylene Glycol 17 gm 03/21/18 10:00 03/21/18 10:48 Miralax (For Daily Use) - PO Not Given DAILY DARIUS Sodium Chloride 2,803 ml 03/20/18 18:15 03/20/18 18:15 Normal Saline - 30 ml/kg (2803 ml) 2,803 ml IV Administration ONCE DARIUS Thiamine HCl 200 mg 03/21/18 10:00 03/21/18 10:50 Vitamin B1 Injection - IVPB 200 mg DAILY DARIUS Administration Impression 1. HTN 2. substance abuse 3. bipolar 4. Aortic valve replacement 5. HLD 6. COPD 7. active cocaine use 8. hypotensive episode 9. hydro on ultrasound Plan - bartolome may be related to hypotensive episode - repeat labs in am - place [facility] as she has hydro and will need to repeat the ultrasound - monitor bp - pt on one to one sit - recommend avoiding beta blockers in the setting of active cocaine use Dr Garcia
[2018-03-21] MEDS: SODIUM CHLORIDE 0.9% 1000 ML INFUS.BAG IV SCH (18:52)
[2018-03-22 03:09] LABS: URINE APPEARANCE CLEAR; URINE BILIRUBIN NEGATIVE (<2.0 mg/dL); URINE COLOR LTYELLOW; URINE GLUCOSE (UA) 3+ (NEGATIVE); URINE KETONE NEGATIVE (NEGATIVE); URINE LEUK ESTERASE NEGATIVE (NEGATIVE); URINE NITRITE NEGATIVE (NEGATIVE); URINE PROTEIN NEGATIVE (NEGATIVE); URINE UROBILINOGEN NEGATIVE mg/dL (0.2-1.0)
[2018-03-22] MEDS: INSULIN SLIDING SCALE (NOVOLOG) 1 VIAL SQ SCH ×4 (07:02→22:03)
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
[2018-03-22] MEDS: POLYETHYLENE GLYCOL 3350 119 GM BTL PO SCH (10:00)
[2018-03-22] MEDS: BUDESONIDE/FORMETEROL FUMARATE 80/4.5 mcg INHALER IH SCH ×3 (10:00→22:03)
[2018-03-22] MEDS: DEXTROSE 5%-LACTATED RINGERS 1,000 ML IV SCH (10:00)
[2018-03-22] MEDS: ASPIRIN 81 MG CHEWABLE TABLETS PO SCH ×2 (10:00→11:45)
[2018-03-22] MEDS: PANTOPRAZOLE 20 MG TABLET (FP) PO SCH ×2 (10:00→11:45)
[2018-03-22] MEDS: THIAMINE HCL 200 MG/2 ML VIAL IVPB SCH (10:01)
--- NOTE | 2018-03-22 11:59 | PN ---
Progress Note, Physician History of Present Illness: Pt is agitated. She is refusing bloodwork. She denies chest pain. - Current Medication List Current Medications: Active Medications Albuterol Sulfate (Ventolin Hfa Inhaler -) 2 puff IH Q4H PRN PRN Reason: ASTHMA Aspirin (Asa -) 81 mg PO DAILY [facility] Last Admin: 03/22/18 11:45 Dose: 81 mg Budesonide/Formoterol Fumarate (Symbicort 80/4.5mcg -) 2 puff IH BID [facility] Last Admin: 03/22/18 11:44 Dose: 2 puff Dextrose/Lactated Ringer's (D5-Lr -) 1,000 mls @ 100 mls/hr IV ASDIR [facility] Last Admin: 03/22/18 10:00 Dose: Not Given Insulin Aspart (Novolog Vial Sliding Scale -) 1 vial SQ ACHS [facility]; Protocol Last Admin: 03/22/18 11:47 Dose: 10 unit Lorazepam (Ativan Injection -) 2 mg IVPUSH Q6H PRN PRN Reason: ANXIETY Pantoprazole Sodium (Protonix -) 20 mg PO DAILY [facility] Last Admin: 03/22/18 11:45 Dose: 20 mg Polyethylene Glycol (Miralax (For Daily Use) -) 17 gm PO DAILY [facility] Last Admin: 03/22/18 10:00 Dose: Not Given Sodium Chloride (Normal Saline -) 2,803 ml 30 ml/kg (2803 ml) IV ONCE [facility] Last Admin: 03/21/18 18:52 Dose: Not Given Thiamine HCl (Vitamin B1 Injection -) 200 mg IVPB DAILY [facility] Last Admin: 03/22/18 10:01 Dose: Not Given - Objective Vital Signs: Vital Signs Temperature 98.1 F 03/22/18 07:00 Pulse Rate 72 03/22/18 11:52 Respiratory Rate 18 03/22/18 09:00 Blood Pressure 99/55 L 03/22/18 11:52 O2 Sat by Pulse Oximetry (%) 97 03/22/18 09:00 Constitutional: Yes: Anxious Eyes: Yes: Conjunctiva Clear HENT: Yes: Atraumatic Cardiovascular: Yes: S1, S2 Respiratory: Yes: CTA Bilaterally Gastrointestinal: Yes: Soft Musculoskeletal: Yes: WNL Extremities: Yes: WNL Edema: No Neurological: Yes: Other (agitated) Psychiatric: Yes: Agitated Labs: CBC, BMP 03/21/18 01:01 03/21/18 01:01 INR, PTT INR 1.02 (0.83-1.09) 03/21/18 06:00 Assessment/Plan Current Medications Generic Name Dose Route Start Last Admin Trade Name Isabella PRN Reason Stop Dose Admin Albuterol Sulfate 2 puff 03/21/18 09:01 Ventolin Hfa Inhaler - IH Q4H PRN ASTHMA Aspirin 81 mg 03/21/18 10:00 03/22/18 11:45 Asa - PO 81 mg DAILY [facility] Administration Budesonide/Formoterol Fumarate 2 puff 03/21/18 10:00 03/22/18 11:44 Symbicort 80/4.5mcg - IH 2 puff BID [facility] Administration Dextrose/Lactated Ringer's 1,000 mls @ 100 mls/hr 03/21/18 02:00 03/22/18 10: 00 D5-Lr - IV Not Given ASDIR [facility] Insulin Aspart 1 vial 03/21/18 07:00 03/22/18 11:47 Novolog Vial Sliding Scale - SQ 10 unit ACHS [facility] Administration Protocol Lorazepam 2 mg 03/21/18 01:58 Ativan Injection - IVPUSH Q6H PRN ANXIETY Pantoprazole Sodium 20 mg 03/21/18 10:00 03/22/18 11:45 Protonix - PO 20 mg DAILY [facility] Administration Polyethylene Glycol 17 gm 03/21/18 10:00 03/22/18 10:00 Miralax (For Daily Use) - PO Not Given DAILY [facility] Sodium Chloride 2,803 ml 03/20/18 18:15 03/21/18 18:52 Normal Saline - 30 ml/kg (2803 ml) Not Given IV ONCE [facility] Thiamine HCl 200 mg 03/21/18 10:00 03/22/18 10:01 Vitamin B1 Injection - IVPB Not Given DAILY [facility] Impression 1. HTN 2. substance abuse 3. bipolar 4. Aortic valve replacement 5. HLD 6. COPD 7. active cocaine use 8. hypotensive episode 9. hydro on ultrasound Plan - recommend checking bmp, pt refusing - monitor bp - bp has been stable off of meds - beta magdaleno stopped as she is an active cocaine user - cont one to one sit Dr Garcia
--- NOTE | 2018-03-22 14:49 | PN ---
Progress Note, Physician Chief Complaint: Feels better. Mental status improved. - Current Medication List Current Medications: Active Medications Albuterol Sulfate (Ventolin Hfa Inhaler -) 2 puff IH Q4H PRN PRN Reason: ASTHMA Aspirin (Asa -) 81 mg PO DAILY [facility] Last Admin: 03/22/18 11:45 Dose: 81 mg Budesonide/Formoterol Fumarate (Symbicort 80/4.5mcg -) 2 puff IH BID [facility] Last Admin: 03/22/18 11:44 Dose: 2 puff Dextrose/Lactated Ringer's (D5-Lr -) 1,000 mls @ 100 mls/hr IV ASDIR [facility] Last Admin: 03/22/18 10:00 Dose: Not Given Insulin Aspart (Novolog Vial Sliding Scale -) 1 vial SQ ACHS [facility]; Protocol Last Admin: 03/22/18 11:47 Dose: 10 unit Lorazepam (Ativan Injection -) 2 mg IVPUSH Q6H PRN PRN Reason: ANXIETY Pantoprazole Sodium (Protonix -) 20 mg PO DAILY [facility] Last Admin: 03/22/18 11:45 Dose: 20 mg Polyethylene Glycol (Miralax (For Daily Use) -) 17 gm PO DAILY [facility] Last Admin: 03/22/18 10:00 Dose: Not Given Sodium Chloride (Normal Saline -) 2,803 ml 30 ml/kg (2803 ml) IV ONCE [facility] Last Admin: 03/21/18 18:52 Dose: Not Given Thiamine HCl (Vitamin B1 Injection -) 200 mg IVPB DAILY [facility] Last Admin: 03/22/18 10:01 Dose: Not Given - Objective Vital Signs: Vital Signs Temperature 98.1 F 03/22/18 07:00 Pulse Rate 90 03/22/18 14:31 Respiratory Rate 18 03/22/18 14:31 Blood Pressure 97/65 03/22/18 14:31 O2 Sat by Pulse Oximetry (%) 97 03/22/18 09:00 Labs: CBC, BMP 03/21/18 01:01 03/21/18 01:01 INR, PTT INR 1.02 (0.83-1.09) 03/21/18 06:00 Problem List - Problems (1) Acute renal failure (ARF) Code(s): N17.9 - ACUTE KIDNEY FAILURE, UNSPECIFIED Qualifiers: Acute renal failure type: unspecified Qualified Code(s): N17.9 - Acute kidney failure, unspecified (2) Altered mental status, unspecified Code(s): R41.82 - ALTERED MENTAL STATUS, UNSPECIFIED Qualifiers: Altered mental status type: unspecified Qualified Code(s): R41.82 - Altered mental status, unspecified (3) Hypotension Code(s): I95.9 - HYPOTENSION, UNSPECIFIED Qualifiers: Hypotension type: other hypotension type Qualified Code(s): I95.89 - Other hypotension (4) Lactic acid acidosis Code(s): E87.2 - ACIDOSIS (5) Toxic metabolic encephalopathy Code(s): G92 - TOXIC ENCEPHALOPATHY (6) IDDM (insulin dependent diabetes mellitus) Code(s): E11.9 - TYPE 2 DIABETES MELLITUS WITHOUT COMPLICATIONS; Z79.4 - MANAGER ADULT (CURRENT) USE OF INSULIN (7) Cocaine dependence Code(s): F14.20 - COCAINE DEPENDENCE, UNCOMPLICATED (8) DM2 (diabetes mellitus, type 2) Code(s): E11.9 - TYPE 2 DIABETES MELLITUS WITHOUT COMPLICATIONS Qualifiers: Diabetes mellitus medical terminologist insulin use: with fci use Diabetes mellitus complication status: without complication Qualified Code(s): E11.9 - Type 2 diabetes mellitus without complications; Z79.4 - moth exterminator (current) use of insulin Impression/Plan Impression/Plan: The patient was seen and examined at bedside. Mental status significantly improved. The patient was refusing lab work this am. Continue IVF / Hydration for BARTOLOME/ Lactic acidosis. Now agreeable for Blood draw. Will trend BMP, Lactate an CK level. Plan d/w patient and the resident in round. Visit type - Emergency Visit Emergency Visit: Yes ED Registration Date: 03/21/18 Care time: The patient presented to the Emergency Department on the above date and was hospitalized for further evaluation of their emergent condition. - New Patient This patient is new to me today: Yes Date on this admission: 03/22/18 - Critical Care Critical Care patient: No
[2018-03-22 15:16] LABS: BASO % 1.5 % (0-2.0); EOS % 2.3 % (0-4.5); HEMATOCRIT 37.5 % (32.4-45.2); HEMOGLOBIN 13.1 GM/dL (10.7-15.3); LYMPH % 26.5 % (8-40); MCH 31.7 pg (25.7-33.7); MCHC 34.8 g/dl (32.0-36.0); MEAN CELL VOLUME 91.1 fl (80-96); MEAN PLT VOLUME 12.7 fl (7.5-11.1); MONO % 11.4 % (3.8-10.2); NEUT % 58.3 % (42.8-82.8); PLATELET COUNT 78 K/MM3 (134-434); RBC 4.12 M/mm3 (3.60-5.2); RDW 13.3 % (11.6-15.6); WHITE BLOOD COUNT 5.2 K/mm3 (4.0-10.0)
[2018-03-22 15:47] LABS: ALBUMIN 3.1 g/dl (3.4-5.0); ALK PHOS 81 U/L (45-117); ANION GAP 7 MMOL/L (8-16); BILIRUBIN,TOTAL 0.3 mg/dL (0.2-1); BLOOD UREA NITROGEN 25 mg/dL (7-18); CALCIUM 8.8 mg/dL (8.5-10.1); CHLORIDE 106 mmol/L (98-107); CO2 29 mmol/L (21-32); CREATININE 1.2 mg/dL (0.55-1.3); GLUCOSE,RANDOM 172 mg/dL (74-106); POTASSIUM 3.9 mmol/L (3.5-5.1); SGOT/AST 22 U/L (15-37); SGPT/ALT 22 U/L (13-61); SODIUM 142 mmol/L (136-145); TOT PROT 6.4 g/dl (6.4-8.2)
--- NOTE | 2018-03-22 16:03 | PN ---
Physical Exam: SUBJECTIVE: Patient seen and examined at bedside. No overnight events.No new complaints. Feels much better today. would like to go back to [facility]. Denies CP BRUCE, SOB, Abdominal pain, nausea or vomiting. OBJECTIVE: Vital Signs Period Temp Pulse Resp BP Sys/Vázquez Pulse Ox Last 24 Hr 97.3 F-98.8 F 72-92 18-18 97-120/50-68 96-98 GENERAL: awake and alert. NAD HEAD: NCAT LUNGS: CTAB, no wheezes, no crackles, no accessory muscle use. HEART: RRR, S1, S2 without murmur, rub or gallop. ABDOMEN: Soft, NTND, normoactive bowel sounds, no guarding, no rebound, no hepatosplenomegaly, no masses. EXTREMITIES: 2+ pulses, warm, well-perfused, no edema. NEUROLOGICAL: Cranial nerves II through XII grossly intact. Normal speech, gait not observed. PSYCH: Normal mood, normal affect. SKIN: Warm, dry, normal turgor, no rashes or lesions noted Laboratory Results - last 24 hr 03/21/18 03/21/18 03/21/18 10:57 10:59 17:59 WBC RBC Hgb Hct MCV MCH MCHC RDW Plt Count MPV Absolute Neuts (auto) Neutrophils % Lymphocytes % Monocytes % Eosinophils % Basophils % Nucleated RBC % Sodium Potassium Chloride Carbon Dioxide Anion Gap BUN Creatinine Creat Clearance w eGFR POC Glucometer [phone] 91.31389 284 Random Glucose Lactic Acid Calcium Total Bilirubin AST ALT Alkaline Phosphatase Total Protein Albumin Urine Color Urine Appearance Urine pH Ur Specific Ruth Urine Protein Urine Glucose (UA) Urine Ketones Urine Blood Urine Nitrite Urine Bilirubin Urine Urobilinogen Ur Leukocyte Esterase Ur Random Sodium Ur Random Potassium Ur Random Chloride Urine Creatinine 03/21/18 03/22/18 03/22/18 21:53 01:59 01:59 WBC RBC Hgb Hct MCV MCH MCHC RDW Plt Count MPV Absolute Neuts (auto) Neutrophils % Lymphocytes % Monocytes % Eosinophils % Basophils % Nucleated RBC % Sodium Potassium Chloride Carbon Dioxide Anion Gap BUN Creatinine Creat Clearance w eGFR POC Glucometer 159 Random Glucose Lactic Acid Calcium Total Bilirubin AST ALT Alkaline Phosphatase Total Protein Albumin Urine Color Ltyellow Urine Appearance Clear Urine pH 5.0 Ur Specific Ruth 1.012 Urine Protein Negative Urine Glucose (UA) 3+ H D Urine Ketones Negative Urine Blood Negative Urine Nitrite Negative Urine Bilirubin Negative Urine Urobilinogen Negative Ur Leukocyte Esterase Negative Ur Random Sodium 97 Ur Random Potassium 11.0 L Ur Random Chloride 88 L Urine Creatinine 03/22/18 03/22/18 03/22/18 01:59 05:38 14:50 WBC 5.2 RBC 4.12 Hgb 13.1 Hct 37.5 MCV 91.1 MCH 31.7 MCHC 34.8 RDW 13.3 Plt Count 78 L MPV 12.7 H Absolute Neuts (auto) 3.0 Neutrophils % 58.3 Lymphocytes % 26.5 Monocytes % 11.4 H Eosinophils % 2.3 D Basophils % 1.5 Nucleated RBC % 0 Sodium Potassium Chloride Carbon Dioxide Anion Gap BUN Creatinine Creat Clearance w eGFR POC Glucometer 256 Random Glucose Lactic Acid Calcium Total Bilirubin AST ALT Alkaline Phosphatase Total Protein Albumin Urine Color Urine Appearance Urine pH Ur Specific Ruth Urine Protein Urine Glucose (UA) Urine Ketones Urine Blood Urine Nitrite Urine Bilirubin Urine Urobilinogen Ur Leukocyte Esterase Ur Random Sodium Ur Random Potassium Ur Random Chloride Urine Creatinine 90.0 H 03/22/18 03/22/18 14:50 14:50 WBC RBC Hgb Hct MCV MCH MCHC RDW Plt Count MPV Absolute Neuts (auto) Neutrophils % Lymphocytes % Monocytes % Eosinophils % Basophils % Nucleated RBC % Sodium 142 Potassium 3.9 Chloride 106 Carbon Dioxide 29 Anion Gap 7 L BUN 25 H Creatinine 1.2 Creat Clearance w eGFR 47.36 POC Glucometer Random Glucose 172 H Lactic Acid 3.1 H* Calcium 8.8 Total Bilirubin 0.3 AST 22 ALT 22 Alkaline Phosphatase 81 Total Protein 6.4 Albumin 3.1 L Urine Color Urine Appearance Urine pH Ur Specific Ruth Urine Protein Urine Glucose (UA) Urine Ketones Urine Blood Urine Nitrite Urine Bilirubin Urine Urobilinogen Ur Leukocyte Esterase Ur Random Sodium Ur Random Potassium Ur Random Chloride Urine Creatinine Active Medications Generic Name Dose Route Start Last Admin Trade Name Freq PRN Reason Stop Dose Admin Albuterol Sulfate 2 puff 03/21/18 09:01 Ventolin Hfa Inhaler - IH Q4H PRN ASTHMA Aspirin 81 mg 03/21/18 10:00 03/22/18 11:45 Asa - PO 81 mg DAILY [facility] Administration Budesonide/Formoterol Fumarate 2 puff 03/21/18 10:00 03/22/18 11:44 Symbicort 80/4.5mcg - IH 2 puff BID [facility] Administration Dextrose/Lactated Ringer's 1,000 mls @ 100 mls/hr 03/21/18 02:00 03/22/18 10: 00 D5-Lr - IV Not Given ASDIR [facility] Insulin Aspart 1 vial 03/21/18 07:00 03/22/18 11:47 Novolog Vial Sliding Scale - SQ 10 unit ACHS [facility] Administration Protocol Lorazepam 2 mg 03/21/18 01:58 Ativan Injection - IVPUSH Q6H PRN ANXIETY Pantoprazole Sodium 20 mg 03/21/18 10:00 03/22/18 11:45 Protonix - PO 20 mg DAILY [facility] Administration Polyethylene Glycol 17 gm 03/21/18 10:00 03/22/18 10:00 Miralax (For Daily Use) - PO Not Given DAILY [facility] Sodium Chloride 2,803 ml 03/20/18 18:15 03/21/18 18:52 Normal Saline - 30 ml/kg (2803 ml) Not Given IV ONCE [facility] Thiamine HCl 200 mg 03/21/18 10:00 03/22/18 10:01 Vitamin B1 Injection - IVPB Not Given DAILY [facility] ASSESSMENT/PLAN: 53 yo F with history of HTN and DM presents after recent discharge to [facility] with AMS and hypotension. Problem List - Problems (1) Toxic metabolic encephalopathy Assessment/Plan: Patient was positive for cocain on drug screen. * Mental status has improved * will monitor with neuro checks. * infectious work up negative to this point- no fever or leukocytosis. (2) Lactic acid acidosis Assessment/Plan: Most likely 2/2 hypotension and hypoprofusion. * Continue IV hydration * repeat lactic acid 3.1 * will continue to trend. (3) Acute renal failure (ARF) Assessment/Plan: Most likely secondary to hypoprofusion. * Cr 1.2 today * ultrasound shows hydronephrosis * IV hydration (4) Cocaine dependence Assessment/Plan: will need rehab * plan to return to [facility] upon discharge. (5) DM2 (diabetes mellitus, type 2) Assessment/Plan: * ADA diet * BGM ACHS * ISS ACHS * Levimir 20 u BID (6) COPD (chronic obstructive pulmonary disease) Visit type - Emergency Visit Emergency Visit: Yes ED Registration Date: 03/21/18 Care time: The patient presented to the Emergency Department on the above date and was hospitalized for further evaluation of their emergent condition. - New Patient This patient is new to me today: No - Critical Care Critical Care patient: No
[2018-03-22] MEDS: SODIUM CHLORIDE 0.9% 1000 ML INFUS.BAG IV SCH (17:30)
[2018-03-22] MEDS ORDERED: SODIUM CHLORIDE 1,000 ML IV SCH (17:30)
[2018-03-22] MEDS: LORazepam 2 MG/ML SDV VIAL IVPUSH PRN (21:13)
[2018-03-23] MEDS: INSULIN SLIDING SCALE (NOVOLOG) 1 VIAL SQ SCH ×2 (06:02→12:38)
[2018-03-23 07:52] LABS: BASO % 0.7 % (0-2.0); EOS % 2.9 % (0-4.5); HEMATOCRIT 37.4 % (32.4-45.2); HEMOGLOBIN 12.2 GM/dL (10.7-15.3); LYMPH % 29.5 % (8-40); MCH 30.2 pg (25.7-33.7); MCHC 32.5 g/dl (32.0-36.0); MEAN CELL VOLUME 92.7 fl (80-96); MEAN PLT VOLUME 11.7 fl (7.5-11.1); MONO % 9.4 % (3.8-10.2); NEUT % 57.5 % (42.8-82.8); PLATELET COUNT 58 K/MM3 (134-434); RBC 4.03 M/mm3 (3.60-5.2); WHITE BLOOD COUNT 4.6 K/mm3 (4.0-10.0)
[2018-03-23 08:07] LABS: ALBUMIN 2.8 g/dl (3.4-5.0); ALK PHOS 70 U/L (45-117); ANION GAP 7 MMOL/L (8-16); BILIRUBIN,TOTAL 0.3 mg/dL (0.2-1); BLOOD UREA NITROGEN 25 mg/dL (7-18); CALCIUM 8.4 mg/dL (8.5-10.1); CHLORIDE 106 mmol/L (98-107); CO2 25 mmol/L (21-32); GLUCOSE,RANDOM 227 mg/dL (74-106); POTASSIUM 4.5 mmol/L (3.5-5.1); SGOT/AST 17 U/L (15-37); SGPT/ALT 18 U/L (13-61); SODIUM 139 mmol/L (136-145); TOT PROT 5.9 g/dl (6.4-8.2)
[2018-03-23] MEDS: ASPIRIN 81 MG CHEWABLE TABLETS PO SCH (10:09)
[2018-03-23] MEDS: DEXTROSE 5%-LACTATED RINGERS 1,000 ML IV SCH (10:09)
[2018-03-23] MEDS: LORazepam 2 MG/ML SDV VIAL IVPUSH PRN (10:09)
[2018-03-23] MEDS: THIAMINE HCL 200 MG/2 ML VIAL IVPB SCH (10:09)
[2018-03-23] MEDS: BUDESONIDE/FORMETEROL FUMARATE 80/4.5 mcg INHALER IH SCH (10:09)
[2018-03-23] MEDS: PANTOPRAZOLE 20 MG TABLET (FP) PO SCH (10:09)
[2018-03-23] MEDS: POLYETHYLENE GLYCOL 3350 119 GM BTL PO SCH (10:09)
--- NOTE | 2018-03-23 12:37 | PN ---
Progress Note, Physician History of Present Illness: Pt seen and examined at bedside. She is awake and alert. She denies chest pain or shortness of breath. She denies dysuria or hematuria. She is eager to go back to [facility]. - Current Medication List Current Medications: Active Medications Albuterol Sulfate (Ventolin Hfa Inhaler -) 2 puff IH Q4H PRN PRN Reason: ASTHMA Aspirin (Asa -) 81 mg PO DAILY [facility] Last Admin: 03/23/18 10:09 Dose: 81 mg Budesonide/Formoterol Fumarate (Symbicort 80/4.5mcg -) 2 puff IH BID [facility] Last Admin: 03/23/18 10:09 Dose: Not Given Dextrose/Lactated Ringer's (D5-Lr -) 1,000 mls @ 100 mls/hr IV ASDIR [facility] Last Admin: 03/23/18 10:09 Dose: Not Given Sodium Chloride (Normal Saline -) 1,000 mls @ 83 mls/hr IV ASDIR [facility] Last Admin: 03/22/18 17:31 Dose: 83 mls/hr Insulin Aspart (Novolog Vial Sliding Scale -) 1 vial SQ ACHS [facility]; Protocol Last Admin: 03/23/18 06:02 Dose: 6 unit Lorazepam (Ativan Injection -) 2 mg IVPUSH Q6H PRN PRN Reason: ANXIETY Last Admin: 03/23/18 10:09 Dose: 2 mg Pantoprazole Sodium (Protonix -) 20 mg PO DAILY [facility] Last Admin: 03/23/18 10:09 Dose: 20 mg Polyethylene Glycol (Miralax (For Daily Use) -) 17 gm PO DAILY [facility] Last Admin: 03/23/18 10:09 Dose: Not Given Sodium Chloride (Normal Saline -) 2,803 ml 30 ml/kg (2803 ml) IV ONCE [facility] Last Admin: 03/22/18 17:30 Dose: Not Given Thiamine HCl (Vitamin B1 Injection -) 200 mg IVPB DAILY [facility] Last Admin: 03/23/18 10:09 Dose: 200 mg - Objective Vital Signs: Vital Signs Temperature 98.1 F 03/23/18 05:26 Pulse Rate 66 03/23/18 05:26 Respiratory Rate 20 03/23/18 08:17 Blood Pressure 116/74 03/23/18 05:26 O2 Sat by Pulse Oximetry (%) 97 03/23/18 08:17 Constitutional: Yes: Calm Eyes: Yes: Conjunctiva Clear HENT: Yes: Atraumatic Cardiovascular: Yes: S1, S2 Respiratory: Yes: CTA Bilaterally Gastrointestinal: Yes: Soft Genitourinary: Yes: WNL Musculoskeletal: Yes: WNL Edema: No Neurological: Yes: Oriented Psychiatric: Yes: Oriented Labs: CBC, BMP 03/23/18 05:15 03/23/18 05:15 INR, PTT INR 1.02 (0.83-1.09) 03/21/18 06:00 Problem List - Problems (1) Acute renal failure (ARF) Code(s): N17.9 - ACUTE KIDNEY FAILURE, UNSPECIFIED Qualifiers: Acute renal failure type: unspecified Qualified Code(s): N17.9 - Acute kidney failure, unspecified (2) Altered mental status, unspecified Code(s): R41.82 - ALTERED MENTAL STATUS, UNSPECIFIED Qualifiers: Altered mental status type: unspecified Qualified Code(s): R41.82 - Altered mental status, unspecified (3) Hypotension Code(s): I95.9 - HYPOTENSION, UNSPECIFIED Qualifiers: Hypotension type: other hypotension type Qualified Code(s): I95.89 - Other hypotension (4) Alcohol dependence with uncomplicated withdrawal Code(s): F10.230 - ALCOHOL DEPENDENCE WITH WITHDRAWAL, UNCOMPLICATED (5) COPD (chronic obstructive pulmonary disease) Code(s): J44.9 - CHRONIC OBSTRUCTIVE PULMONARY DISEASE, UNSPECIFIED Qualifiers: COPD type: unspecified COPD Qualified Code(s): J44.9 - Chronic obstructive pulmonary disease, unspecified (6) HTN (hypertension) Code(s): I10 - ESSENTIAL (PRIMARY) HYPERTENSION (7) Hepatitis C Code(s): B19.20 - UNSPECIFIED VIRAL HEPATITIS C WITHOUT HEPATIC COMA Qualifiers: Viral hepatitis chronicity: chronic Assessment/Plan Current Medications Generic Name Dose Route Start Last Admin Trade Name Freq PRN Reason Stop Dose Admin Albuterol Sulfate 2 puff 03/21/18 09:01 Ventolin Hfa Inhaler - IH Q4H PRN ASTHMA Aspirin 81 mg 03/21/18 10:00 03/23/18 10:09 Asa - PO 81 mg DAILY [facility] Administration Budesonide/Formoterol Fumarate 2 puff 03/21/18 10:00 03/23/18 10:09 Symbicort 80/4.5mcg - IH Not Given BID [facility] Dextrose/Lactated Ringer's 1,000 mls @ 100 mls/hr 03/21/18 02:00 03/23/18 10: 09 D5-Lr - IV Not Given ASDIR [facility] Sodium Chloride 1,000 mls @ 83 mls/hr 03/22/18 17:30 03/22/18 17:31 Normal Saline - IV 83 mls/hr ASDIR [facility] Administration Insulin Aspart 1 vial 03/21/18 07:00 03/23/18 06:02 Novolog Vial Sliding Scale - SQ 6 unit ACHS [facility] Administration Protocol Lorazepam 2 mg 03/21/18 01:58 03/23/18 10:09 Ativan Injection - IVPUSH 2 mg Q6H PRN Administration ANXIETY Pantoprazole Sodium 20 mg 03/21/18 10:00 03/23/18 10:09 Protonix - PO 20 mg DAILY [facility] Administration Polyethylene Glycol 17 gm 03/21/18 10:00 03/23/18 10:09 Miralax (For Daily Use) - PO Not Given DAILY [facility] Sodium Chloride 2,803 ml 03/20/18 18:15 03/22/18 17:30 Normal Saline - 30 ml/kg (2803 ml) Not Given IV ONCE [facility] Thiamine HCl 200 mg 03/21/18 10:00 03/23/18 10:09 Vitamin B1 Injection - IVPB 200 mg DAILY [facility] Administration Selected Entries 03/23/18 05:26 Blood Pressure 116/74 Laboratory Tests 03/22/18 01:59 Urine Protein Negative Urine Blood Negative Impression 1. HTN 2. substance abuse 3. bipolar 4. Aortic valve replacement 5. HLD 6. COPD 7. active cocaine use 8. hypotensive episode 9. hydro on ultrasound 10. BARTOLOME Plan - renal function is improved - bp is stable - discussed dangers and risks of drug use at length - can stop fluids - will follow prn - will need repeat ultrasound to evaluate hydro/urology evorquidea Garcia
--- NOTE | 2018-03-23 12:52 | PN ---
Physical Exam: SUBJECTIVE: Patient seen and examined at bedside. No overnight events. no new complaints. Eager to go back to [facility].Feels much better today. Denies CP,BRUCE, SOB, palpitations, abdominal pain, nausea or vomiting. OBJECTIVE: Vital Signs Period Temp Pulse Resp BP Sys/Vázquez Pulse Ox Last 24 Hr 97.6 F-98.9 F 66-90 18-20 97-152/59-76 97-97 GENERAL: awake and alert. NAD HEAD: NCAT LUNGS: CTAB, no wheezes, no crackles, no accessory muscle use. HEART: RRR, S1, S2 without murmur, rub or gallop. ABDOMEN: Soft, NTND, normoactive bowel sounds, no guarding, no rebound, no hepatosplenomegaly, no masses. EXTREMITIES: 2+ pulses, warm, well-perfused, no edema. NEUROLOGICAL: Cranial nerves II through XII grossly intact. Normal speech, gait not observed. PSYCH: Normal mood, normal affect. SKIN: Warm, dry, normal turgor, no rashes or lesions noted Laboratory Results - last 24 hr 03/22/18 03/22/18 03/22/18 14:50 14:50 14:50 WBC 5.2 RBC 4.12 Hgb 13.1 Hct 37.5 MCV 91.1 MCH 31.7 MCHC 34.8 RDW 13.3 Plt Count 78 L MPV 12.7 H Absolute Neuts (auto) 3.0 Neutrophils % 58.3 Lymphocytes % 26.5 Monocytes % 11.4 H Eosinophils % 2.3 D Basophils % 1.5 Nucleated RBC % 0 Sodium 142 Potassium 3.9 Chloride 106 Carbon Dioxide 29 Anion Gap 7 L BUN 25 H Creatinine 1.2 Creat Clearance w eGFR 47.36 POC Glucometer Random Glucose 172 H Lactic Acid 3.1 H* Calcium 8.8 Total Bilirubin 0.3 AST 22 ALT 22 Alkaline Phosphatase 81 Creatine Kinase 378 H Creatine Kinase Index 0.3 CK-MB (CK-2) 1.4 Total Protein 6.4 Albumin 3.1 L 03/22/18 03/23/18 03/23/18 16:47 05:15 05:15 WBC 4.6 RBC 4.03 Hgb 12.2 Hct 37.4 MCV 92.7 MCH 30.2 MCHC 32.5 RDW 13.0 Plt Count 58 L D MPV 11.7 H Absolute Neuts (auto) 2.6 Neutrophils % 57.5 Lymphocytes % 29.5 Monocytes % 9.4 Eosinophils % 2.9 Basophils % 0.7 Nucleated RBC % 0 Sodium 139 Potassium 4.5 Chloride 106 Carbon Dioxide 25 Anion Gap 7 L BUN 25 H Creatinine 1.0 Creat Clearance w eGFR 58.45 POC Glucometer 314 Random Glucose 227 H Lactic Acid Calcium 8.4 L Total Bilirubin 0.3 AST 17 ALT 18 Alkaline Phosphatase 70 Creatine Kinase Creatine Kinase Index CK-MB (CK-2) Total Protein 5.9 L Albumin 2.8 L 03/23/18 03/23/18 03/23/18 05:58 06:00 11:31 WBC RBC Hgb Hct MCV MCH MCHC RDW Plt Count MPV Absolute Neuts (auto) Neutrophils % Lymphocytes % Monocytes % Eosinophils % Basophils % Nucleated RBC % Sodium Potassium Chloride Carbon Dioxide Anion Gap BUN Creatinine Creat Clearance w eGFR POC Glucometer 226 279 Random Glucose Lactic Acid 1.3 Calcium Total Bilirubin AST ALT Alkaline Phosphatase Creatine Kinase Creatine Kinase Index CK-MB (CK-2) Total Protein Albumin Active Medications Generic Name Dose Route Start Last Admin Trade Name Freq PRN Reason Stop Dose Admin Albuterol Sulfate 2 puff 03/21/18 09:01 Ventolin Hfa Inhaler - IH Q4H PRN ASTHMA Aspirin 81 mg 03/21/18 10:00 03/23/18 10:09 Asa - PO 81 mg DAILY [facility] Administration Budesonide/Formoterol Fumarate 2 puff 03/21/18 10:00 03/23/18 10:09 Symbicort 80/4.5mcg - IH Not Given BID [facility] Dextrose/Lactated Ringer's 1,000 mls @ 100 mls/hr 03/21/18 02:00 03/23/18 10: 09 D5-Lr - IV Not Given ASDIR [facility] Sodium Chloride 1,000 mls @ 83 mls/hr 03/22/18 17:30 03/22/18 17:31 Normal Saline - IV 83 mls/hr ASDIR [facility] Administration Insulin Aspart 1 vial 03/21/18 07:00 03/23/18 12:38 Novolog Vial Sliding Scale - SQ Not Given ACHS [facility] Protocol Lorazepam 2 mg 03/21/18 01:58 03/23/18 10:09 Ativan Injection - IVPUSH 2 mg Q6H PRN Administration ANXIETY Pantoprazole Sodium 20 mg 03/21/18 10:00 03/23/18 10:09 Protonix - PO 20 mg DAILY [facility] Administration Polyethylene Glycol 17 gm 03/21/18 10:00 03/23/18 10:09 Miralax (For Daily Use) - PO Not Given DAILY [facility] Sodium Chloride 2,803 ml 03/20/18 18:15 03/22/18 17:30 Normal Saline - 30 ml/kg (2803 ml) Not Given IV ONCE [facility] Thiamine HCl 200 mg 03/21/18 10:00 03/23/18 10:09 Vitamin B1 Injection - IVPB 200 mg DAILY [facility] Administration ASSESSMENT/PLAN: 53 yo F with history of HTN and DM presents after recent discharge to [facility] with AMS and hypotension. Problem List - Problems (1) Toxic metabolic encephalopathy Assessment/Plan: resolved. * Patient was positive for cocain on drug screen. * Mental status has improved * will monitor with neuro checks. * infectious work up negative to this point- no fever or leukocytosis. (2) Lactic acid acidosis Assessment/Plan: Most likely 2/2 hypotension and hypoprofusion. * resolved. * repeat lactic acid 1.2 (3) Acute renal failure (ARF) Assessment/Plan: Most likely secondary to hypoprofusion. * Cr 1.0 today * ultrasound shows hydronephrosis * encourage PO intake. (4) Cocaine dependence Assessment/Plan: will need rehab * plan to return to [facility] upon discharge. (5) DM2 (diabetes mellitus, type 2) Assessment/Plan: * ADA diet * BGM ACHS * ISS ACHS * Levimir 20 u BID (6) COPD (chronic obstructive pulmonary disease) Visit type - Emergency Visit Emergency Visit: Yes ED Registration Date: 03/21/18 Care time: The patient presented to the Emergency Department on the above date and was hospitalized for further evaluation of their emergent condition. - New Patient This patient is new to me today: No - Critical Care Critical Care patient: No
--- NOTE | 2018-03-23 13:06 | PN ---
Teaching Attending Note Name of Resident: Wang Oden ATTENDING PHYSICIAN STATEMENT I saw and evaluated the patient. I reviewed the resident's note and discussed the case with the resident. I agree with the resident's findings and plan as documented. SUBJECTIVE:asymptomatic. 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 Hypotension- has since resolved. antihypertesnives were stopped and BP has remained stable. no repeat episodes 2. BARTOLOME- possible dehydration. holding HCTZ and lasix. now resolved. nephro on board 3. mechanical fall-possible due to hypotension vs psychiatric disorder. no events were noted on cardiac monitor technician. BP has remained stable. can d/c 1:1 observation due to high fall risk 4. Lactic acidosis- possible due to metformin. would hold on discharge. 5. DM- hold oral agents. cont insulin 6. Polysubstance abuse- no signs of withdrawal. will return to [facility] to complete inpatient rehab 7. d/c to [facility] today
[2018-03-23 13:14] VITALS: BP 128/62; PULSE 78; TEMP 97.8
--- NOTE | 2018-03-23 14:08 | DS ---
Physical Exam: SUBJECTIVE: Patient seen and examined OBJECTIVE: Vital Signs Period Temp Pulse Resp BP Sys/Vázquez Pulse Ox Last 24 Hr 97.6 F-98.9 F 66-90 18-20 97-152/59-76 97-97 PHYSICAL EXAM GENERAL: The patient is awake, alert, and fully oriented, in no acute distress. HEAD: Normal with no signs of trauma. EYES: PERRL, extraocular movements intact, sclera anicteric, conjunctiva clear. ENT: Ears normal, nares patent, oropharynx clear without exudates, moist mucous membranes. NECK: Trachea midline, full range of motion, supple. LUNGS: Breath sounds equal, clear to auscultation bilaterally, no wheezes, no crackles, no accessory muscle use. HEART: Regular rate and rhythm, S1, S2 without murmur, rub or gallop. ABDOMEN: Soft, nontender, nondistended, normoactive bowel sounds, no guarding, no rebound, no hepatosplenomegaly, no masses. EXTREMITIES: 2+ pulses, warm, well-perfused, no edema. NEUROLOGICAL: Cranial nerves II through XII grossly intact. Normal speech, gait not observed. PSYCH: Normal mood, normal affect. SKIN: Warm, dry, normal turgor, no rashes or lesions noted. LABS Laboratory Results - last 24 hr 03/22/18 03/22/18 03/22/18 14:50 14:50 14:50 WBC 5.2 RBC 4.12 Hgb 13.1 Hct 37.5 MCV 91.1 MCH 31.7 MCHC 34.8 RDW 13.3 Plt Count 78 L MPV 12.7 H Absolute Neuts (auto) 3.0 Neutrophils % 58.3 Lymphocytes % 26.5 Monocytes % 11.4 H Eosinophils % 2.3 D Basophils % 1.5 Nucleated RBC % 0 Sodium 142 Potassium 3.9 Chloride 106 Carbon Dioxide 29 Anion Gap 7 L BUN 25 H Creatinine 1.2 Creat Clearance w eGFR 47.36 POC Glucometer Random Glucose 172 H Lactic Acid 3.1 H* Calcium 8.8 Total Bilirubin 0.3 AST 22 ALT 22 Alkaline Phosphatase 81 Creatine Kinase 378 H Creatine Kinase Index 0.3 CK-MB (CK-2) 1.4 Total Protein 6.4 Albumin 3.1 L 03/22/18 03/23/18 03/23/18 16:47 05:15 05:15 WBC 4.6 RBC 4.03 Hgb 12.2 Hct 37.4 MCV 92.7 MCH 30.2 MCHC 32.5 RDW 13.0 Plt Count 58 L D MPV 11.7 H Absolute Neuts (auto) 2.6 Neutrophils % 57.5 Lymphocytes % 29.5 Monocytes % 9.4 Eosinophils % 2.9 Basophils % 0.7 Nucleated RBC % 0 Sodium 139 Potassium 4.5 Chloride 106 Carbon Dioxide 25 Anion Gap 7 L BUN 25 H Creatinine 1.0 Creat Clearance w eGFR 58.45 POC Glucometer 314 Random Glucose 227 H Lactic Acid Calcium 8.4 L Total Bilirubin 0.3 AST 17 ALT 18 Alkaline Phosphatase 70 Creatine Kinase Creatine Kinase Index CK-MB (CK-2) Total Protein 5.9 L Albumin 2.8 L 03/23/18 03/23/18 03/23/18 05:58 06:00 11:31 WBC RBC Hgb Hct MCV MCH MCHC RDW Plt Count MPV Absolute Neuts (auto) Neutrophils % Lymphocytes % Monocytes % Eosinophils % Basophils % Nucleated RBC % Sodium Potassium Chloride Carbon Dioxide Anion Gap BUN Creatinine Creat Clearance w eGFR POC Glucometer 226 279 Random Glucose Lactic Acid 1.3 Calcium Total Bilirubin AST ALT Alkaline Phosphatase Creatine Kinase Creatine Kinase Index CK-MB (CK-2) Total Protein Albumin HOSPITAL COURSE: Date of Admission:03/21/18 Date of Discharge: 03/23/18 Discharge Summary Reason For Visit: ALCOHOL DEPENDENCE,ACUTE RENAL FAILURE,ALTERED Current Active Problems Acute renal failure (ARF) (Acute) Altered mental status, unspecified (Acute) Hypotension (Acute) Lactic acid acidosis (Acute) Toxic metabolic encephalopathy (Acute) Condition: Improved - Instructions Diet, Activity, Other Instructions: You have been seen and treated for acute kidney injury and Low blood pressure. Increase your activity as tolerated. Resume a diabetic heart healthy diet. Follow up with your primary doctor in one week. You will be returning to [facility] to complete rehab. You must stop using illicit drugs to avoid worsening of your health. If symptoms return or you develop fever, chills or drop in blood pressure please return to ER immediately. Resume all home meds as previously prescribed except for Norvasc, HCTZ and lisinopril for your blood pressure because it was low while here. Also reduce you Levemir insulin to only 10 units at night. Referrals: Kartik Ramirez MD [Staff Physician] - 1 Week Disposition: TRANSFER ACUTE CARE/OTHER HOSP - Home Medications Comprehensive Discharge Medication List: Ambulatory Orders Salmeterol/Fluticasone [Advair 250Mcg/50Mcg -] 1 inh PO BID 07/28/12 Albuterol Sulfate Inhaler - [Ventolin HFA Inhaler -] 2 inh PO Q4H PRN 07/12/16 metFORMIN HCL [Glucophage -] 500 mg PO BID 08/02/16 Aspirin 81 mg PO DAILY 08/14/17 Furosemide [Lasix] 10 mg PO DAILY 03/14/18 Nitroglycerin 0.4 mg SL [id number] 03/14/18 Metoprolol Succinate [Toprol XL -] 50 mg PO DAILY tab.sr.24h 03/20/18 Pantoprazole Sodium [Protonix -] 20 mg PO DAILY tablet.ec 03/20/18 Polyethylene Glycol 3350 [Miralax 119 gm Btl -] 17 gm PO DAILY bottle 03/20/18 Insulin (Levemir) [Levemir Vial] 10 units SQ HS #0 units 03/23/18 Problem List - Problems (1) Toxic metabolic encephalopathy (2) Lactic acid acidosis (3) Acute renal failure (ARF) (4) Cocaine dependence (5) DM2 (diabetes mellitus, type 2) (6) COPD (chronic obstructive pulmonary disease) This patient is new to me today: No Emergency Visit: Yes ED Registration Date: 03/21/18 Care time: The patient presented to the Emergency Department on the above date and was hospitalized for further evaluation of their emergent condition. Critical Care patient: No - Discharge Referral Referred to [facility] Yes
== END 2018-03-23 15:02 | disposition short-term general hospital (02) | DRG 682 ==
LOC: JER 16:42 → JERBED 03-21 01:06 → J4W 03-21 16:20
PROVIDERS: ADMIT Internal Medicine; ATTEND Internal Medicine
DX: N17.9 Acute kidney failure, unspecified (principal); G92 Toxic encephalopathy; F14.20 Cocaine dependence, uncomplicated; E87.2 Acidosis; I95.9 Hypotension, unspecified; J44.9 Chronic obstructive pulmonary disease, unspecified; E11.40 Type 2 diabetes mellitus with diabetic neuropathy, unspecified; F31.9 Bipolar disorder, unspecified; F19.10 Other psychoactive substance abuse, uncomplicated; E78.5 Hyperlipidemia, unspecified; K74.60 Unspecified cirrhosis of liver; B19.20 Unspecified viral hepatitis C without hepatic coma; F17.210 Nicotine dependence, cigarettes, uncomplicated; R41.82 Altered mental status, unspecified; E66.9 Obesity, unspecified; Z68.36 Body mass index [BMI] 36.0-36.9, adult; N13.30 Unspecified hydronephrosis; E88.09 Other disorders of plasma-protein metabolism, not elsewhere classified; E86.0 Dehydration; F10.10 Alcohol abuse, uncomplicated; I35.1 Nonrheumatic aortic (valve) insufficiency; I25.10 Atherosclerotic heart disease of native coronary artery without angina pectoris; I10 Essential (primary) hypertension; M54.5 Low back pain; Z95.2 Presence of prosthetic heart valve; Z85.3 Personal history of malignant neoplasm of breast; Z79.4 Long term (current) use of insulin
CPT/HCPCS: 36415; 70450-TC; 71045-TC-FY; 71250-TC; 76775-TC; 80053; 80307; 81003; 81015; 82140; 82436; 82550; 82553; 82570; 82962; 83605; 83735; 84100; 84133; 84300; 84484; 85025; 85610; 85730; 87040; 87086; 93306-TC; 99285-25; J7030

== ENCOUNTER 2018-03-23 15:04 | Inpatient (IN) | payer OTHER ==
[2018-03-23 15:21] VITALS: BMI 38.2
--- NOTE | 2018-03-23 15:21 | HP ---
CIWA Score - Admission Criteria [facility]ASAS Guidelines: Admission for Medically Managed Detox: Requires at least one of the followin. CIWA greater than 12 2. Seizures within the past 24 hours 3. Delirium tremens within the past 24 hours 4. Hallucinations within the past 24 hours 5. Acute intervention needed for co occurring medical disorder 6. Acute intervention needed for co occurring psychiatric disorder 7. Severe withdrawal that cannot be handled at a lower level of care (continued vomiting, continued diarrhea, abnormal vital signs) requiring intravenous medication and/or fluids 8. Admission ROS S - HPI Allergies/Adverse Reactions: Allergies Allergy/AdvReac Type Severity Reaction Status Date / Time grass pollen Allergy Intermediate Verified 03/23/18 15:31 No Known Drug Allergies Allergy Unknown Verified 03/23/18 15:31 History of Present Illness: patient here requesting rehab from cocaine and etoh use s/p detox at this facility, d/c to ER/hospital on the day due to low BP, hospital stay reviewed, hypotension resolved, BARTOLOME improved , mentation improved . PMHX breast cancer s/ p mastectomy right 2010, chemo completed , currently in remission , AVR 2013 ( porcine) , hep C since 2010 ( RF=ST ), s/p treatment 2010, cirrhosis of the liver, COPD ,bipolar d/o, DM type II since 2010 (denies hospitalization for hyperglycemia/ hypoglycemia), HTN .Treatment for syphillis reported - 2010 in the [place] . ages 35 through 21 , 1 child with Rett syndrome ( 29 y.o. daughter ) , 2 granchildren A & W family is aware of pt's presence in tx lives alone denies tobacco use . Denies MAT for ETOH use . Meds from hospital reviewed , insulin discussed with pharmacist. Exam Limitations: No Limitations - Ebola screening Have you traveled outside of the country in the last 21 days: No (N) Have you had contact with anyone from an Ebola affected area: No Have you been sick,other than usual withdrawal symptoms: Yes Do you have a fever: No - Review of Systems Constitutional: No Symptoms Reported EENT: reports: No Symptoms Reported, Other (reading glasses) Respiratory: reports: No Symptoms reported Cardiac: reports: No Symptoms Reported GI: reports: No Symptoms Reported : reports: No Symptoms Reported Musculoskeletal: reports: No Symptoms Reported Integumentary: reports: No Symptoms Reported Neuro: reports: No Symptoms reported Endocrine: reports: See HPI Hematology: reports: No Symptoms Reported Psychiatric: reports: Judgement Intact, Orientated x3, Anxious Other Systems: Reviewed and Negative Patient History - Patient Medical History Hx Anemia: No Hx Asthma: No Hx Chronic Obstructive Pulmonary Disease (COPD): Yes (on albuterol inhaler) Hx Cancer: Yes ((R) BREAST CA - MASTECTOMY 2012) Hx Cardiac Disorders: Yes (valve replacement) Hx Congestive Heart Failure: No Hx Hypertension: No Hx Hypercholesterolemia: Yes (on med) Hx Pacemaker: No HX Cerebrovascular Accident: No Hx Seizures: No Hx Dementia: No Hx Diabetes: Yes (iddm) Hx Gastrointestinal Disorders: No Hx Liver Disease: Yes (hep c treated) Hx Genitourinary Disorders: No Hx Sexually Transmitted Disorders: No Hx Renal Disease (ESRD): No Hx Thyroid Disease: No Hx Human Immunodeficiency Virus (HIV): No Hx Hepatitis C: Yes (treated) Hx Depression: No Hx Suicide Attempt: No Hx Bipolar Disorder: Yes (no med,did not want to see psychiatrist) Hx Schizophrenia: No - Patient Surgical History Past Surgical History: Yes Hx Neurologic Surgery: No Hx Cataract Extraction: No Hx Cardiac Surgery: Yes (AVR ,) Hx Lung Surgery: No Hx Breast Surgery: Yes (R mastectomy from R breast CA in 05/13) Hx Breast Biopsy: Yes Hx Abdominal Surgery: No Hx Appendectomy: No Hx Cholecystectomy: No Hx Genitourinary Surgery: No Hx Section: No Hx Orthopedic Surgery: No Hx Hysterectomy: No Anesthesia Reaction: No - PPD History Date: 08/16/17 Results: 0MM - Reproductive History Last Menstrual Period: 03/03/12 - Smoking Cessation Smoking history: Smoker current status UNK Aproximately how many cigarettes per day: 0 If you are a former smoker, when did you quit?: 3 days ago Hx Chewing Tobacco Use: No Initiated information on smoking cessation: No - Substances Abused Alcohol Route: Oral Frequency: Daily Amount used: 6 bottles of wine Age of first use: 11 Date of Last Use: 03/14/18 Crack Route: Smoking Frequency: 3-6 times per week Amount used: $400 Age of first use: 13 Date of Last Use: 03/14/18 Family Disease History - Family Disease History Family Disease History: Heart Disease: Father ( , gun shot ), Mother ( : [place]), Brother (1, CVA), Other: Father, Mother, Brother, Son (4, healthy), Daughter (4, healthy) Admission Physical Exam BHS - Vital Signs Vital Signs: Vital Signs - 24 hr 03/23/18 15:09 Temperature 97.6 F Pulse Rate 93 H Respiratory 18 Rate Blood Pressure 126/83 - Physical General Appearance: Yes: Mild Distress, Obese, Irritable, Anxious HEENTM: Yes: EOMI, Hearing grossly Normal, Normal ENT Inspection, Normocephalic , Normal Voice, Pharynx Normal Respiratory: Yes: Chest Non-Tender, Lungs Clear, Decreased Breath Sounds Neck: Yes: No masses,lesions,Nodules, Trachea in good position Breast: Yes: Breast Exam Deferred, Mastectomy Cardiology: Yes: Regular Rhythm, Regular Rate, S1, S2, Murmur (3/6 JANELL), Tachycardia Abdominal: Yes: Non Tender, Soft, Protuberent Back: Yes: Normal Inspection Musculoskeletal: Yes: full range of Motion, Gait Steady Extremities: Yes: Normal Capillary Refill, Normal Range of Motion, Non-Tender Neurological: Yes: Fully Oriented, Motor Strength 5/5, Normal Mood/Affect Integumentary: Yes: Normal Color, Dry, Warm - Diagnostic (1) Alcohol dependence Current Visit: No Status: Acute Qualifiers: Substance use status: in remission Qualified Code(s): F10.21 - Alcohol dependence, in remission (2) COPD (chronic obstructive pulmonary disease) Current Visit: No Status: Chronic Qualifiers: COPD type: unspecified COPD Qualified Code(s): J44.9 - Chronic obstructive pulmonary disease, unspecified (3) S/P aortic valve repair Current Visit: No Status: Chronic (4) Cocaine dependence Current Visit: No Status: Chronic (5) DM2 (diabetes mellitus, type 2) Current Visit: No Status: Chronic Qualifiers: Diabetes mellitus well digger insulin use: with alf use Diabetes mellitus complication status: without complication Qualified Code(s): E11.9 - Type 2 diabetes mellitus without complications; Z79.4 - intermediate (current) use of insulin (6) S/P right mastectomy Current Visit: No Status: Chronic BHS Breath Alcohol Content Breath Alcohol Content: 0 Urine Pregancy Test - Result Urine Test Results: Negative- NO Line Present Urine Drug Screen - Results Drug Screen Negative: No Urine Drug Screen Results: BZO-Benzodiazepines Inpatient Rehab Admission - Initial Determination Are CD services needed?: Yes Free of communicable disease: Yes Not in need of hospitalization: Yes - Rehab Admission Criteria Previous failed treatment: Yes Poor recovery environment: No Comorbidities: Yes Lacks judgement: Yes Patient is meeting Inpatient Rehab admission criteria:: Yes
[2018-03-23] MEDS ORDERED: MAGNESIUM HYDROX 2400MG/30ML ORAL SUSPENSION 30 ML CUP PO PRN (15:26)
[2018-03-23] MEDS ORDERED: MAG HYDROX/AL HYDROX/SIMETH 30 ML UNIT-DOSE CUP PO PRN (15:26)
[2018-03-23] MEDS ORDERED: guaiFENesin/D-METHORPHAN HB 10 ML UNIT-DOSE CUPS PO PRN (15:26)
[2018-03-23] MEDS ORDERED: P-EPHED 60MG/TRIPROLIDI 2.5MG TABLET PO PRN (15:26)
[2018-03-23] MEDS ORDERED: MAGNESIUM CITRATE 300 ML BOTTLE PO PRN (15:26)
[2018-03-23] MEDS ORDERED: ALBUTEROL SO4 8 GM HFA INHALER IH PRN (15:27)
[2018-03-23] MEDS ORDERED: LACTULOSE 20 GM/30 ML UDC (FOR ORAL USE ONLY) PO PRN (15:29)
[2018-03-23] MEDS ORDERED: ALBUTEROL SO4 0.083% IH SOL 2.5 MG/3 ML VIAL.NEB. NEB PRN (15:45)
[2018-03-23] MEDS: NITROGLYCERIN SUBLINGUAL 1/150 0.4 MG TAB SL SCH (18:37)
[2018-03-23] MEDS: INSULIN SLIDING SCALE (NOVOLOG) 1 VIAL SQ SCH ×2 (18:45→23:15)
[2018-03-23] MEDS: FUROSEMIDE 20 MG TABLET (FP) PO SCH (18:45)
[2018-03-23] MEDS: metFORMIN HCL 500 MG TABLET (FP) PO SCH (18:48)
[2018-03-23] MEDS ORDERED: INSULIN (LEVEMIR) 100 UNITS/ML UNITS SQ SCH ×3 (22:00)
[2018-03-23] MEDS: INSULIN (LEVEMIR) 100 UNITS/ML UNITS SQ SCH (23:15)
[2018-03-23] MEDS: BUDESONIDE/FORMETEROL FUMARATE 80/4.5 mcg INHALER IH SCH (23:16)
[2018-03-23] MEDS: THIAMINE HCL 100 MG TABLET (FP) PO SCH (23:16)
[2018-03-24] MEDS: metFORMIN HCL 500 MG TABLET (FP) PO SCH ×2 (06:16→17:05)
[2018-03-24] MEDS: INSULIN (LEVEMIR) 100 UNITS/ML UNITS SQ SCH ×2 (07:54→22:18)
[2018-03-24] MEDS: INSULIN SLIDING SCALE (NOVOLOG) 1 VIAL SQ SCH ×4 (07:59→22:17)
[2018-03-24] MEDS ORDERED: INSULIN (NOVOLOG) ASPART 100 UNITS/ML 10ML VIAL ONE ×4 (08:03→22:17)
[2018-03-24] MEDS ORDERED: PT OWN MED DRAWER 7, Y5N ONE ×2 (08:03→08:32)
[2018-03-24] MEDS: ASPIRIN 81 MG CHEWABLE TABLETS PO SCH (10:15)
[2018-03-24] MEDS: PRENATAL VITAMINS W/ FOLIC ACID TABLET (FP) PO SCH (10:16)
[2018-03-24] MEDS: PANTOPRAZOLE 20 MG TABLET (FP) PO SCH (10:16)
[2018-03-24] MEDS: FUROSEMIDE 20 MG TABLET (FP) PO SCH (10:16)
[2018-03-24] MEDS: BUDESONIDE/FORMETEROL FUMARATE 80/4.5 mcg INHALER IH SCH ×2 (10:17→22:21)
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
[2018-03-24] MEDS: NITROGLYCERIN SUBLINGUAL 1/150 0.4 MG TAB SL SCH (15:05)
[2018-03-24] MEDS ORDERED: NITROGLYCERIN SUBLINGUAL 1/150 0.4 MG TAB SL PRN (15:23)
[2018-03-24] MEDS: THIAMINE HCL 100 MG TABLET (FP) PO SCH (22:21)
[2018-03-24] MEDS: MELATONIN 5 MG TABLETS PO PRN (22:23)
[2018-03-24] MEDS: SUVOREXANT 5 MG TABLET PO PRN (22:24)
[2018-03-24] MEDS: MENTHOL/PHENOL 1 EACH UD MM PRN (22:25)
[2018-03-25] MEDS: metFORMIN HCL 500 MG TABLET (FP) PO SCH ×2 (06:44→17:06)
[2018-03-25] MEDS: INSULIN SLIDING SCALE (NOVOLOG) 1 VIAL SQ SCH ×4 (07:22→21:44)
[2018-03-25] MEDS: INSULIN (LEVEMIR) 100 UNITS/ML UNITS SQ SCH ×2 (07:56→21:44)
[2018-03-25] MEDS: PRENATAL VITAMINS W/ FOLIC ACID TABLET (FP) PO SCH (10:43)
[2018-03-25] MEDS: ASPIRIN 81 MG CHEWABLE TABLETS PO SCH (10:43)
[2018-03-25] MEDS: PANTOPRAZOLE 20 MG TABLET (FP) PO SCH (10:44)
[2018-03-25] MEDS: BUDESONIDE/FORMETEROL FUMARATE 80/4.5 mcg INHALER IH SCH ×2 (10:44→21:43)
[2018-03-25] MEDS: FUROSEMIDE 20 MG TABLET (FP) PO SCH (10:45)
[2018-03-25] MEDS ORDERED: INSULIN (NOVOLOG) ASPART 100 UNITS/ML 10ML VIAL ONE (12:12)
[2018-03-25 13:12] LABS: URINE APPEARANCE CLOUDY; URINE BILIRUBIN NEGATIVE (<2.0 mg/dL); URINE COLOR YELLOW; URINE GLUCOSE (UA) 3+ (NEGATIVE); URINE KETONE NEGATIVE (NEGATIVE); URINE LEUK ESTERASE 2+ (NEGATIVE); URINE NITRITE NEGATIVE (NEGATIVE); URINE PROTEIN 1+ (NEGATIVE)
[2018-03-25 14:06] LABS: EPI CELLS MANY /HPF (FEW); URINE BACTERIA RARE /hpf (NONE SEEN); URINE HYALINE CAST 2 /lpf; URINE MUCUS RARE
[2018-03-25] MEDS: THIAMINE HCL 100 MG TABLET (FP) PO SCH (21:43)
[2018-03-25] MEDS: SUVOREXANT 5 MG TABLET PO PRN (21:44)
[2018-03-26] MEDS: MENTHOL/PHENOL 1 EACH UD MM PRN (02:35)
[2018-03-26] MEDS: hydrOXYzine PAMOATE 50 MG CAPSULE (FP) PO PRN ×2 (03:29→22:06)
[2018-03-26] MEDS: metFORMIN HCL 500 MG TABLET (FP) PO SCH ×2 (07:41→16:54)
[2018-03-26] MEDS: INSULIN (LEVEMIR) 100 UNITS/ML UNITS SQ SCH ×2 (07:42→22:08)
[2018-03-26] MEDS: INSULIN SLIDING SCALE (NOVOLOG) 1 VIAL SQ SCH ×4 (07:45→22:07)
[2018-03-26] MEDS: ASPIRIN 81 MG CHEWABLE TABLETS PO SCH (09:41)
[2018-03-26] MEDS: PANTOPRAZOLE 20 MG TABLET (FP) PO SCH (09:41)
[2018-03-26] MEDS: PRENATAL VITAMINS W/ FOLIC ACID TABLET (FP) PO SCH (09:41)
[2018-03-26] MEDS: BUDESONIDE/FORMETEROL FUMARATE 80/4.5 mcg INHALER IH SCH ×2 (09:42→22:07)
[2018-03-26] MEDS: FUROSEMIDE 20 MG TABLET (FP) PO SCH (09:42)
[2018-03-26] MEDS ORDERED: INSULIN (NOVOLOG) ASPART 100 UNITS/ML 10ML VIAL ONE (12:06)
[2018-03-26] MEDS: THIAMINE HCL 100 MG TABLET (FP) PO SCH (22:06)
[2018-03-27] MEDS: INSULIN SLIDING SCALE (NOVOLOG) 1 VIAL SQ SCH ×4 (06:51→22:08)
[2018-03-27] MEDS: metFORMIN HCL 500 MG TABLET (FP) PO SCH ×2 (06:51→17:08)
[2018-03-27] MEDS: INSULIN (LEVEMIR) 100 UNITS/ML UNITS SQ SCH ×2 (07:37→22:08)
[2018-03-27] MEDS ORDERED: PT OWN MED DRAWER 7, Y5N ONE (08:44)
[2018-03-27] MEDS: FUROSEMIDE 20 MG TABLET (FP) PO SCH (10:05)
[2018-03-27] MEDS: PRENATAL VITAMINS W/ FOLIC ACID TABLET (FP) PO SCH (10:05)
[2018-03-27] MEDS: ASPIRIN 81 MG CHEWABLE TABLETS PO SCH (10:05)
[2018-03-27] MEDS: BUDESONIDE/FORMETEROL FUMARATE 80/4.5 mcg INHALER IH SCH ×2 (10:06→22:05)
[2018-03-27] MEDS: PANTOPRAZOLE 20 MG TABLET (FP) PO SCH (10:06)
--- NOTE | 2018-03-27 13:38 | PN ---
[facility] Progress Note Note: NURSE REPORTS THAT PT HAS BEEN EFUSING HER ACCUCHECK AND LEVEMIR AT HS. PT HAS BEEN SPOKEN TO RE:BENEFIT AND CONSEQUENCES OF NONCOMPLIANCE IN TREATMENT AND NEED FOR MONITORING HER BLOOD SUGAR. Vital Signs 03/27/18 03/27/18 07:08 09:00 Temperature 98.4 F Pulse Rate 75 78 Respiratory 16 Rate Blood Pressure 114/80 134/92 Laboratory Tests 03/23/18 03/24/18 03/24/18 19:49 06:15 11:50 POC Glucometer 346 283 315 Urine Color Urine Appearance Urine pH Ur Specific [place] Urine Protein Urine Glucose (UA) Urine Ketones Urine Blood Urine Nitrite Urine Bilirubin Urine Urobilinogen Ur Leukocyte Esterase Urine WBC (Auto) Urine RBC (Auto) Ur Epithelial Cells Urine Bacteria Hyaline Casts Urine Mucus 03/24/18 03/24/18 03/25/18 17:02 22:14 06:42 POC Glucometer 211 416 151 Urine Color Urine Appearance Urine pH Ur Specific [place] Urine Protein Urine Glucose (UA) Urine Ketones Urine Blood Urine Nitrite Urine Bilirubin Urine Urobilinogen Ur Leukocyte Esterase Urine WBC (Auto) Urine RBC (Auto) Ur Epithelial Cells Urine Bacteria Hyaline Casts Urine Mucus 03/25/18 03/25/18 03/25/18 11:12 12:10 17:06 POC Glucometer 323 142 Urine Color Yellow Urine Appearance Cloudy Urine pH 5.0 Ur Specific [place] 1.026 Urine Protein 1+ H Urine Glucose (UA) 3+ H Urine Ketones Negative Urine Blood Negative Urine Nitrite Negative Urine Bilirubin Negative Urine Urobilinogen 2.0 H Ur Leukocyte Esterase 2+ H Urine WBC (Auto) 10 Urine RBC (Auto) 8 Ur Epithelial Cells Many Urine Bacteria Rare Hyaline Casts 2 Urine Mucus Rare 03/26/18 03/26/18 03/26/18 06:55 12:04 16:54 POC Glucometer 229 300 162 Urine Color Urine Appearance Urine pH Ur Specific [place] Urine Protein Urine Glucose (UA) Urine Ketones Urine Blood Urine Nitrite Urine Bilirubin Urine Urobilinogen Ur Leukocyte Esterase Urine WBC (Auto) Urine RBC (Auto) Ur Epithelial Cells Urine Bacteria Hyaline Casts Urine Mucus 03/27/18 06:50 POC Glucometer 158 Urine Color Urine Appearance Urine pH Ur Specific [place] Urine Protein Urine Glucose (UA) Urine Ketones Urine Blood Urine Nitrite Urine Bilirubin Urine Urobilinogen Ur Leukocyte Esterase Urine WBC (Auto) Urine RBC (Auto) Ur Epithelial Cells Urine Bacteria Hyaline Casts Urine Mucus NAD PLAN:PT WAS SPOKEN TO AND SHE AGREES TO COMPLY WITH HER BLOOD SUGAR CHECKS ORDERED.
[2018-03-27] MEDS: hydrOXYzine PAMOATE 50 MG CAPSULE (FP) PO PRN (22:04)
[2018-03-27] MEDS: THIAMINE HCL 100 MG TABLET (FP) PO SCH (22:05)
[2018-03-27] MEDS ORDERED: INSULIN (LEVEMIR) 100 UNITS/ML UNITS SQ ONE (23:31)
[2018-03-27] MEDS ORDERED: TUBERCULIN PPD 5 TU/0.1ML VIAL ID ONE (23:31)
[2018-03-28] MEDS: metFORMIN HCL 500 MG TABLET (FP) PO SCH ×2 (07:25→16:49)
[2018-03-28] MEDS: INSULIN (LEVEMIR) 100 UNITS/ML UNITS SQ SCH ×2 (07:27→21:37)
[2018-03-28] MEDS: INSULIN SLIDING SCALE (NOVOLOG) 1 VIAL SQ SCH ×4 (07:28→21:37)
[2018-03-28] MEDS ORDERED: INSULIN (NOVOLOG) ASPART 100 UNITS/ML 10ML VIAL ONE (07:29)
[2018-03-28] MEDS: ASPIRIN 81 MG CHEWABLE TABLETS PO SCH (10:09)
[2018-03-28] MEDS: PANTOPRAZOLE 20 MG TABLET (FP) PO SCH (10:09)
[2018-03-28] MEDS: FUROSEMIDE 20 MG TABLET (FP) PO SCH (10:09)
[2018-03-28] MEDS: PRENATAL VITAMINS W/ FOLIC ACID TABLET (FP) PO SCH (10:10)
[2018-03-28] MEDS: BUDESONIDE/FORMETEROL FUMARATE 80/4.5 mcg INHALER IH SCH ×2 (10:10→22:35)
[2018-03-28] MEDS: IBUPROFEN 400 MG TABLET (FP) PO PRN ×2 (13:00→21:32)
[2018-03-28] MEDS ORDERED: PT OWN MED DRAWER 7, Y5N ONE ×2 (20:37→23:22)
[2018-03-28] MEDS: MELATONIN 5 MG TABLETS PO PRN (21:32)
[2018-03-28] MEDS: THIAMINE HCL 100 MG TABLET (FP) PO SCH (21:32)
[2018-03-28] MEDS: hydrOXYzine PAMOATE 50 MG CAPSULE (FP) PO PRN (21:32)
--- NOTE | 2018-03-29 06:11 | PN ---
S Progress Note Note: Psychiatric nurse practitioner production support analyst note: Call received stating patient is signing out of rehab. Multiple attempts made by staff to encourage patient to remain in rehab but patient refused. Patient signed out of rehab this morning.
[2018-03-29] MEDS: metFORMIN HCL 500 MG TABLET (FP) PO SCH (06:28)
[2018-03-29] MEDS: INSULIN (LEVEMIR) 100 UNITS/ML UNITS SQ SCH (06:28)
[2018-03-29] MEDS: INSULIN SLIDING SCALE (NOVOLOG) 1 VIAL SQ SCH (06:28)
[2018-03-29 06:56] VITALS: BP 116/73; PULSE 70; TEMP 97.1
--- NOTE | 2018-03-29 23:28 | PN ---
S Progress Note Note: Pt was discharged today.
== END 2018-03-29 07:15 | disposition left against medical advice (07) | DRG 894 ==
LOC: YASAS 15:04 → Y3E 15:10
PROVIDERS: ADMIT Psychiatry & Neurology Psychiatry; ATTEND Psychiatry & Neurology Psychiatry
PROC: HZ42ZZZ Group Counseling for Substance Abuse Treatment, Cognitive-Behavioral (ICD-10-PCS; principal; 2018-03-23)
DX: F10.20 Alcohol dependence, uncomplicated (principal); F14.20 Cocaine dependence, uncomplicated; F43.10 Post-traumatic stress disorder, unspecified; F31.77 Bipolar disorder, in partial remission, most recent episode mixed; G47.00 Insomnia, unspecified; E11.9 Type 2 diabetes mellitus without complications; J44.9 Chronic obstructive pulmonary disease, unspecified; E78.00 Pure hypercholesterolemia, unspecified; B18.2 Chronic viral hepatitis C; E66.9 Obesity, unspecified; Z68.38 Body mass index [BMI] 38.0-38.9, adult; Z85.3 Personal history of malignant neoplasm of breast; Z91.011 Allergy to milk products; Z79.4 Long term (current) use of insulin
CPT/HCPCS: 81003; 81015; 82962

== ENCOUNTER 2019-01-15 17:12 | Inpatient (IN) | payer OTHER | END 2019-01-16 15:17 | disposition left against medical advice (07) | LOC: YASAS 17:12 → Y3N 21:38 ==